=== PATIENT | female | born 1945 | race Caucasian/White ===

== ENCOUNTER → 2017-10-17 09:05 | Outpatient (CLI) | payer MEDICARE, SELFPAY ==
[2017-10-17 14:53] LABS: Hemoglobin A1c 6.8 % (4.2-6.3)
[2017-10-17 15:02] LABS: Microalbumin,Random Urine 66.7 mg/L (NO RANGE EST.); Microalbumin:Creatinine Ratio 77.7 mg/g CRE (<30 mg/g CRE)
[2017-10-17 15:04] LABS: ALB/GLOB Ratio 0.8 RATIO (0.9-2.4); AST(SGOT) 23 U/L (15-37); Alanine Aminotransfer ALT/SGPT 18 U/L (13-56); Albumin, Serum 3.6 g/dL (3.2-5.0); Alkaline Phosphatase 88 U/L (45-117); Anion Gap 11 (5-15); BUN 20 mg/dL (7-18); BUN/Creat Ratio 24.5 RATIO (10-20); Calcium,Total 9.4 mg/dL (8.5-10.1); Chloride 101 mmol/L (98-107); Cholesterol 104 mg/dL (200); Creatinine, Serum 0.82 mg/dL (0.55-1.02); EST Glomerular Filtration Rate 73 mL/min (>60); Est Glom Filt Rate - Afr Amer 88 mL/min (>60); Globulin 4.5 g/dL (2.2-4.2); Glucose 44 mg/dL (74-106); High Density Lipoprotein 49 mg/dL; Protein, Total 8.1 g/dL (6.4-8.2); Sodium Level 138 mmol/L (136-145); Triglycerides 68 mg/dL; Very Low Density Lipoprotein 14 mg/dL (5-40)
== END ==
PROVIDERS: Visit Provider Family Medicine
DX: E11.29 Type 2 diabetes mellitus with other diabetic kidney complication (principal); R80.9 Proteinuria, unspecified; I10 Essential (primary) hypertension; E78.5 Hyperlipidemia, unspecified
CPT/HCPCS: 80053; 80061; 82043; 82570; 83036

== ENCOUNTER → 2018-04-19 12:44 | Outpatient (CLI) | payer MEDICARE, SELFPAY ==
[2018-04-19 13:33] LABS: ALB/GLOB Ratio 0.8 RATIO (0.9-2.4); AST(SGOT) 14 U/L (15-37); Alanine Aminotransfer ALT/SGPT 20 U/L (13-56); Albumin, Serum 3.4 g/dL (3.2-5.0); Alkaline Phosphatase 88 U/L (45-117); Anion Gap 11 (5-15); BUN 20 mg/dL (7-18); BUN/Creat Ratio 22.3 RATIO (10-20); Calcium,Total 9.2 mg/dL (8.5-10.1); Chloride 105 mmol/L (98-107); Cholesterol 117 mg/dL (200); EST Glomerular Filtration Rate 65 mL/min (>60); Est Glom Filt Rate - Afr Amer 79 mL/min (>60); Globulin 4.3 g/dL (2.2-4.2); Glucose 63 mg/dL (74-106); High Density Lipoprotein 59 mg/dL; Protein, Total 7.7 g/dL (6.4-8.2); Sodium Level 140 mmol/L (136-145); Triglycerides 74 mg/dL; Very Low Density Lipoprotein 15 mg/dL (5-40)
[2018-04-19 13:54] LABS: Hemoglobin A1c 5.9 % (4.2-6.3)
[2018-04-20 13:35] LABS: Hep C Antibodies 0.1 s/co ratio (0.0-0.9)
== END ==
PROVIDERS: Family Provider Family Medicine; PCP Family Medicine; Visit Provider Family Medicine
DX: E11.29 Type 2 diabetes mellitus with other diabetic kidney complication (principal); E78.5 Hyperlipidemia, unspecified; I10 Essential (primary) hypertension; R80.9 Proteinuria, unspecified; Z11.59 Encounter for screening for other viral diseases
CPT/HCPCS: 80053; 80061; 83036; 86803

== ENCOUNTER → 2018-10-17 12:14 | Outpatient (CLI) | payer MEDICARE, SELFPAY ==
[2018-10-17 12:57] LABS: ALB/GLOB Ratio 0.9 RATIO (0.9-2.4); AST(SGOT) 18 U/L (15-37); Alanine Aminotransfer ALT/SGPT 19 U/L (13-56); Albumin, Serum 3.7 g/dL (3.2-5.0); Alkaline Phosphatase 91 U/L (45-117); Anion Gap 10 (5-15); BUN 29 mg/dL (7-18); BUN/Creat Ratio 29.7 RATIO (10-20); Calcium,Total 9.3 mg/dL (8.5-10.1); Chloride 108 mmol/L (98-107); Cholesterol 123 mg/dL (200); Creatinine, Serum 0.98 mg/dL (0.55-1.02); EST Glomerular Filtration Rate 59 mL/min (>60); Est Glom Filt Rate - Afr Amer 72 mL/min (>60); Globulin 4.2 g/dL (2.2-4.2); Glucose 73 mg/dL (74-106); High Density Lipoprotein 53 mg/dL; Potassium 4.3 mmol/L (3.5-5.1); Protein, Total 7.9 g/dL (6.4-8.2); Sodium Level 142 mmol/L (136-145); Triglycerides 90 mg/dL; Very Low Density Lipoprotein 18 mg/dL (5-40)
[2018-10-17 13:00] LABS: Hemoglobin A1c 6.1 % (4.2-6.3)
[2018-10-17 13:07] LABS: Microalbumin,Random Urine 65.1 mg/L (NO RANGE EST.); Microalbumin:Creatinine Ratio 48.6 mg/g CRE (<30 mg/g CRE)
== END ==
PROVIDERS: Family Provider Family Medicine; PCP Family Medicine; Referring Provider Family Medicine; Visit Provider Family Medicine
DX: I10 Essential (primary) hypertension (principal); E78.5 Hyperlipidemia, unspecified; E11.29 Type 2 diabetes mellitus with other diabetic kidney complication; R80.9 Proteinuria, unspecified
CPT/HCPCS: 80053; 80061; 82043; 82570; 83036

== ENCOUNTER → 2019-04-16 | Outpatient (CLI) | payer MEDICARE, SELFPAY ==
[2019-04-16 15:19] LABS: ALB/GLOB Ratio 0.8 RATIO (0.9-2.4); AST(SGOT) 16 U/L (15-37); Alanine Aminotransfer ALT/SGPT 21 U/L (13-56); Albumin, Serum 3.5 g/dL (3.2-5.0); Alkaline Phosphatase 95 U/L (45-117); Anion Gap 7 (5-15); BUN 26 mg/dL (7-18); BUN/Creat Ratio 29.7 RATIO (10-20); Calcium,Total 9.2 mg/dL (8.5-10.1); Chloride 107 mmol/L (98-107); Creatinine, Serum 0.87 mg/dL (0.55-1.02); EST Glomerular Filtration Rate 67 mL/min (>60); Est Glom Filt Rate - Afr Amer 82 mL/min (>60); Globulin 4.4 g/dL (2.2-4.2); Glucose 65 mg/dL (74-106); Potassium 4.3 mmol/L (3.5-5.1); Protein, Total 7.9 g/dL (6.4-8.2); Sodium Level 139 mmol/L (136-145)
[2019-04-16 15:21] LABS: Microalbumin,Random Urine 33.4 mg/L (NO RANGE EST.); Microalbumin:Creatinine Ratio 103.4 mg/g CRE (<30 mg/g CRE)
[2019-04-16 15:26] LABS: Hemoglobin A1c 7.1 % (4.2-6.3)
== END | disposition home or self-care (01) ==
LOC: LABSPEC 13:53
PROVIDERS: Family Provider Family Medicine; PCP Family Medicine; Referring Provider Family Medicine; Visit Provider Family Medicine
DX: E11.29 Type 2 diabetes mellitus with other diabetic kidney complication (principal); R80.9 Proteinuria, unspecified; I10 Essential (primary) hypertension
CPT/HCPCS: 80053; 82043; 82570; 83036

== ENCOUNTER → 2020-05-24 12:18 | Outpatient (CLI) | payer MEDICARE, SELFPAY ==
[2020-05-24 13:56] LABS: ALB/GLOB Ratio 0.8 RATIO (0.9-2.4); AST(SGOT) 19 U/L (15-37); Alanine Aminotransfer ALT/SGPT 16 U/L (13-56); Albumin, Serum 3.7 g/dL (3.2-5.0); Alkaline Phosphatase 72 U/L (45-117); Anion Gap 13 (5-15); BUN 32 mg/dL (7-18); BUN/Creat Ratio 26.9 RATIO (10-20); Calcium,Total 9.5 mg/dL (8.5-10.1); Chloride 100 mmol/L (98-107); Cholesterol 123 mg/dL (200); Creatinine, Serum 1.19 mg/dL (0.55-1.02); EST Glomerular Filtration Rate 47 mL/min (>60); Est Glom Filt Rate - Afr Amer 57 mL/min (>60); Globulin 4.4 g/dL (2.2-4.2); Glucose 130 mg/dL (74-106); High Density Lipoprotein 49 mg/dL; Protein, Total 8.1 g/dL (6.4-8.2); Sodium Level 136 mmol/L (136-145); Triglycerides 124 mg/dL; Very Low Density Lipoprotein 25 mg/dL (5-40)
[2020-05-24 14:05] LABS: Hemoglobin A1c 7.5 % (3.8-5.6)
[2020-05-24 14:07] LABS: Microalbumin,Random Urine 33.2 mg/L (NO RANGE EST.); Microalbumin:Creatinine Ratio 19.8 mg/g CRE (<30 mg/g CRE)
== END ==
PROVIDERS: PCP Family Medicine; Referring Provider Family Medicine; Visit Provider Family Medicine
DX: E78.5 Hyperlipidemia, unspecified (principal); I10 Essential (primary) hypertension; E11.29 Type 2 diabetes mellitus with other diabetic kidney complication; R80.9 Proteinuria, unspecified
CPT/HCPCS: 80053; 80061; 82043; 82570; 83036

== ENCOUNTER → 2020-11-01 12:47 | Outpatient (CLI) | payer MEDICARE, SELFPAY ==
[2020-11-01 13:26] LABS: Hemoglobin A1c 6.3 % (3.8-5.6)
== END ==
PROVIDERS: PCP Family Medicine; Referring Provider Family Medicine; Visit Provider Family Medicine
DX: E11.22 Type 2 diabetes mellitus with diabetic chronic kidney disease (principal); N18.30 Chronic kidney disease, stage 3 unspecified; E11.29 Type 2 diabetes mellitus with other diabetic kidney complication; R80.9 Proteinuria, unspecified
CPT/HCPCS: 83036

== ENCOUNTER → 2020-11-08 12:44 | Outpatient (CLI) | payer MEDICARE, SELFPAY ==
[2020-11-08 13:22] LABS: Hematocrit 32.4 % (37-47); Hemoglobin 10.3 g/dL (12.0-15.0); Mean Corp Hgb Conc 31.8 g/dL (32-36); Mean Corpuscular Hgb 30.5 pg (27.0-32.0); Mean Corpuscular Volume 95.9 fL (81-99); Mean Platelet Vol. 11.5 fl (6.2-12.0); Platelet Count 209 K/mm3 (150-450); RBC Distribution Width CV 13.7 % (11.6-14.6); RBC Distribution Width SD 48.7 fl (35.1-43.9); Red Blood Count 3.38 M/mm3 (4.2-5.4); White Blood Count 3.5 K/mm3 (4.4-11.0)
[2020-11-08 13:32] LABS: Cholesterol 120 mg/dL (200); High Density Lipoprotein 57 mg/dL; Triglycerides 128 mg/dL; Very Low Density Lipoprotein 26 mg/dL (5-40)
== END ==
PROVIDERS: PCP Family Medicine; Visit Provider Family Medicine
DX: E78.5 Hyperlipidemia, unspecified (principal); L92.0 Granuloma annulare
CPT/HCPCS: 80061; 85027

== ENCOUNTER → 2020-11-16 12:32 | Outpatient (CLI) | payer MEDICARE, SELFPAY ==
[2020-11-16 13:48] LABS: Iron Binding Capacity,Total 338 ug/dL (250-450)
[2020-11-18 09:48] LABS: Iron 61 ug/dL (50-170)
== END ==
PROVIDERS: PCP Family Medicine; Referring Provider Family Medicine; Visit Provider Family Medicine
DX: D64.9 Anemia, unspecified (principal)
CPT/HCPCS: 83540; 83550

== ENCOUNTER → 2020-11-29 11:51 | Outpatient (CLI) | payer MEDICARE, SELFPAY ==
[2020-11-29 15:18] LABS: Absolute Lymphocyte Count 0.71 X10^3/uL (0.83-4.51); Basophil# 0.02 X10^3/uL; Basophil% 0.5 % (0-1); Eosinophil# 0.02 X10^3/uL; Eosinophils% 0.5 % (0-5); Hematocrit 32.5 % (37-47); Hemoglobin 10.3 g/dL (12.0-15.0); Lymphocyte # 0.71 X10^3/ul (0.83-4.51); Lymphocyte % 18.2 % (19-41); Mean Corp Hgb Conc 31.7 g/dL (32-36); Mean Corpuscular Hgb 30.7 pg (27.0-32.0); Mean Corpuscular Volume 96.7 fL (81-99); Mean Platelet Vol. 11.4 fl (6.2-12.0); Monocyte# 0.18 X10^3/uL; Monocyte% 4.6 % (0-10); NRBC Flagged by Analyzer 0 % (0-5); Neutrophil # 2.96 X10^3/uL (2.7-7.7); Neutrophil % 75.9 % (47-70); Platelet Count 190 K/mm3 (150-450); RBC Distribution Width CV 14.4 % (11.6-14.6); Red Blood Count 3.36 M/mm3 (4.2-5.4); White Blood Count 3.9 K/mm3 (4.4-11.0)
[2020-11-29 15:33] LABS: ALB/GLOB Ratio 0.8 RATIO (0.9-2.4); AST(SGOT) 25 U/L (15-37); Alanine Aminotransfer ALT/SGPT 16 U/L (13-56); Albumin, Serum 3.5 g/dL (3.2-5.0); Alkaline Phosphatase 67 U/L (45-117); Anion Gap 11 (5-15); BUN 19 mg/dL (7-18); BUN/Creat Ratio 18.4 RATIO (10-20); Calcium,Total 9.2 mg/dL (8.5-10.1); Chloride 98 mmol/L (98-107); Creatinine, Serum 1.03 mg/dL (0.55-1.02); EST Glomerular Filtration Rate 56 mL/min (>60); Est Glom Filt Rate - Afr Amer 67 mL/min (>60); Globulin 4.4 g/dL (2.2-4.2); Glucose 92 mg/dL (74-106); Potassium 4.1 mmol/L (3.5-5.1); Protein, Total 7.9 g/dL (6.4-8.2); Sodium Level 136 mmol/L (136-145)
== END ==
LOC: MTLAB 11:53
PROVIDERS: PCP Family Medicine; Referring Provider Physician Assistant; Visit Provider Physician Assistant
DX: L30.9 Dermatitis, unspecified (principal); Z79.899 Other long term (current) drug therapy
CPT/HCPCS: 36415; 80053; 85025; 86038; 86225; 86235

== ENCOUNTER → 2021-01-25 09:23 | Outpatient (CLI) | payer MEDICARE, SELFPAY ==
[2021-01-25 12:43] LABS: Erythrocyte Sedimentation Rate 32 mm/hr (0-30)
[2021-01-25 12:46] LABS: Absolute Lymphocyte Count 0.82 X10^3/uL (0.83-4.51); Absolute Neutrophil Count 3.8 X10^3/uL (2.0-7.7); Basophil# 0.03 X10^3/uL; Basophil% 0.6 % (0-1); Hemoglobin 9.3 g/dL (12.0-15.0); Lymphocyte # 0.82 X10^3/ul (0.83-4.51); Lymphocyte % 16.2 % (19-41); Mean Corp Hgb Conc 32.1 g/dL (32-36); Mean Corpuscular Hgb 30.8 pg (27.0-32.0); Monocyte# 0.37 X10^3/uL; Monocyte% 7.3 % (0-10); NRBC Flagged by Analyzer 0 % (0-5); Neutrophil # 3.82 X10^3/uL (2.7-7.7); Neutrophil % 75.5 % (47-70); Platelet Count 228 K/mm3 (150-450); RBC Distribution Width CV 13.8 % (11.6-14.6); RBC Distribution Width SD 49.2 fl (35.1-43.9); Red Blood Count 3.02 M/mm3 (4.2-5.4); White Blood Count 5.1 K/mm3 (4.4-11.0)
[2021-01-25 13:13] LABS: CRP < 2.90 mg/L (0.0-3.0); Ferritin 58 ng/mL (8-252); Iron 68 ug/dL (50-170); Iron Binding Capacity,Total 340 ug/dL (250-450)
[2021-01-26 16:09] LABS: ANTINUCLEAR ANTIBODIES DIRECT Positive (Negative); Anti-Centromere B Ab <0.2 AI (0.0-0.9); Anti-Chromatin <0.2 AI (0.0-0.9); Anti-Jo <0.2 AI (0.0-0.9); Anti-Scleroderma-70 AB <0.2 AI (0.0-0.9); RNP Ab <0.2 AI (0.0-0.9); SJOGREN'S Anti-SS-A test > 8.0 AI (0.0-0.9); SJOGREN'S Anti-SS-B test < 0.2 AI (0.0-0.9); Smith Ab <0.2 AI (0.0-0.9)
[2021-01-26 21:08] LABS: Anti-dsDNA Ab 1 IU/mL (0-9)
== END ==
PROVIDERS: Physician Assistant; PCP Internal Medicine; Referring Provider Internal Medicine; Visit Provider Internal Medicine
DX: R76.8 Other specified abnormal immunological findings in serum (principal); I10 Essential (primary) hypertension; D64.9 Anemia, unspecified
CPT/HCPCS: 36415; 82728; 83540; 83550; 85025; 85652; 86038; 86140; 86225; 86235

== ENCOUNTER → 2021-02-02 | Outpatient (CLI) | payer MEDICARE, SELFPAY ==
[2021-02-02 11:15] LABS: EXAGEN MAILED SPECIMEN
[2021-02-02 12:19] LABS: Absolute Lymphocyte Count 0.77 X10^3/uL (0.83-4.51); Absolute Neutrophil Count 2.8 X10^3/uL (2.0-7.7); Basophil# 0.01 X10^3/uL; Basophil% 0.3 % (0-1); Hematocrit 28.4 % (37-47); Lymphocyte # 0.77 X10^3/ul (0.83-4.51); Lymphocyte % 19.8 % (19-41); Mean Corp Hgb Conc 31.7 g/dL (32-36); Mean Corpuscular Hgb 30.6 pg (27.0-32.0); Mean Corpuscular Volume 96.6 fL (81-99); Mean Platelet Vol. 10.9 fl (6.2-12.0); Monocyte# 0.26 X10^3/uL; Monocyte% 6.7 % (0-10); NRBC Flagged by Analyzer 0 % (0-5); Neutrophil # 2.84 X10^3/uL (2.7-7.7); Neutrophil % 72.9 % (47-70); Platelet Count 239 K/mm3 (150-450); RBC Distribution Width CV 13.5 % (11.6-14.6); Red Blood Count 2.94 M/mm3 (4.2-5.4); White Blood Count 3.9 K/mm3 (4.4-11.0)
[2021-02-02 12:22] LABS: Color, Urine Yellow (Yellow); Glucose, Dipstick Normal (Normal); Ketone-Dipstick Negative (Negative); Leukocyte Esterase-Dipstick 100 /ul (Negative); Nitrite-Dipstick Positive (Negative); Occult Blood-Urine 10 /ul (Negative); Protein-Dipstick 15 mg/dl (Negative); Specific Gravity, Urine 1.025 (1.002-1.030); Urine Bilirubin Dipstick Negative (Negative); Urine Clarity Clear (Clear); Urine Urobilinogen Normal (Normal)
[2021-02-02 12:24] LABS: Partial Thromboplast Time 29.5 Seconds (24.1-36.2); Prothrombin Time (Protime)PT. 12.6 SECONDS (11.7-14.9)
[2021-02-02 12:26] LABS: Protein, Urine (Random) 43.9 mg/dL (<11.9); Protein:Creat Ratio 297 mg/g CRE (0-200)
[2021-02-02 12:29] LABS: ALB/GLOB Ratio 0.9 RATIO (0.9-2.4); AST(SGOT) 26 U/L (15-37); Alanine Aminotransfer ALT/SGPT 20 U/L (13-56); Albumin, Serum 3.5 g/dL (3.2-5.0); Alkaline Phosphatase 51 U/L (45-117); Anion Gap 10 (5-15); BUN 23 mg/dL (7-18); BUN/Creat Ratio 18.7 RATIO (10-20); Calcium,Total 9.2 mg/dL (8.5-10.1); Chloride 102 mmol/L (98-107); Creatinine, Serum 1.23 mg/dL (0.55-1.02); EST Glomerular Filtration Rate 45 mL/min (>60); Est Glom Filt Rate - Afr Amer 55 mL/min (>60); Globulin 3.7 g/dL (2.2-4.2); Glucose 83 mg/dL (74-106); Potassium 4.1 mmol/L (3.5-5.1); Protein, Total 7.2 g/dL (6.4-8.2); Sodium Level 136 mmol/L (136-145)
[2021-02-02 12:51] LABS: Vitamin B12 302 pg/mL (211-911)
[2021-02-02 13:27] LABS: Hepatitis B Surface Antibody Non-Reactive; Hepatitis B Surface Antigen Non-Reactive (Nonreactive); Hepatitis C Antibody Non-Reactive (Nonreactive)
[2021-02-05 07:07] LABS: Dilute Prothrombin Time (dPT) 38.2 sec (0.0-55.0); Dilute Russell Viper Venom 32.4 sec (0.0-47.0); Hexagonal Phase Phospholipid 0 sec (0-11); PTT-LA 33.4 sec (0.0-51.9); Thrombin Time 18.5 sec (0.0-23.0); dPT Confirm Ratio 1.22 Ratio (0.00-1.40)
[2021-02-05 07:32] LABS: Thrombin Time 18.7 sec (0.0-23.0)
[2021-02-05 08:43] LABS: Interpretation Comment: (.)
== END | disposition home or self-care (01) ==
PROVIDERS: PCP Internal Medicine; Referring Provider Internal Medicine Rheumatology; Visit Provider Internal Medicine Rheumatology
DX: M32.9 Systemic lupus erythematosus, unspecified (principal); R76.8 Other specified abnormal immunological findings in serum; E11.9 Type 2 diabetes mellitus without complications; I10 Essential (primary) hypertension; E78.5 Hyperlipidemia, unspecified; H91.90 Unspecified hearing loss, unspecified ear; Z79.899 Other long term (current) drug therapy
CPT/HCPCS: 36415; 80053; 81002; 82570; 82607; 82746; 84156; 85025; 85598; 85610; 85670; 85730; 86706; 86803; 87340

== ENCOUNTER → 2021-03-07 10:54 | Outpatient (CLI) | payer MEDICARE, SELFPAY | PROVIDERS: PCP Internal Medicine; Visit Provider Internal Medicine | DX: Z00.00 Encounter for general adult medical examination without abnormal findings (principal) ==

== ENCOUNTER 2021-03-17 06:53 | Inpatient (IN) | payer MEDICARE, SELFPAY ==
[2021-03-17] VITALS (14 sets, daily range): BP systolic 95–121; BP diastolic 46–72; PULSE 96–123; RESP 18–34; TEMP 36.6–37.1; O2SAT 94–100; BMI 31.6
--- NOTE | 2021-03-17 07:15 | RAD_ITS ---
STUDY: X-RAY CHEST REASON FOR EXAM: Female, 75 years old. Dyspnea TECHNIQUE: Single AP portable view of the chest. COMPARISON: None. FINDINGS: EKG electrodes are seen. There is evidence of vascular congestion and mild CHF. Blunting of both costophrenic angles. There is borderline cardiomegaly. Normal mediastinum and sara. Normal visualized pulmonary arteries. Normal visualized aortic arch and descending thoracic aorta. Normal visualized thoracic spine. There is degenerative osteoarthritis of the bilateral shoulders. There is no demonstrated abnormality of the visualized soft tissue structures of the upper abdomen. RAD/Chest 1 View (Portable) IMPRESSION: Mild degree of CHF. Electronically Signed: Hayes Barksdale MD at 8:29 EDT , Service support ,
--- NOTE | 2021-03-17 07:16 | EKG12_ITS ---
Test Reason : SOB Blood Pressure : / mmHG Vent. Rate : 124 BPM Atrial Rate : 124 BPM P-R Int : 156 ms QRS Dur : 144 ms QT Int : 322 ms P-R-T Axes : 024 -11 158 degrees QTc Int : 462 ms Poor data quality, interpretation may be adversely affected Sinus tachycardia Left bundle branch block Abnormal ECG Confirmed by MANDEEP RASCON, SATNAM ([id number]), editor sound TIN BURRIS ([id number]) on 03/22/2021 8:31:06 AM Referred By: SHELIA Confirmed By:SATNAM KAUFMAN MD
--- NOTE | 2021-03-17 07:20 | NURSING ---
NO OLD EKGS
--- NOTE | 2021-03-17 07:22 | ED.VIS.DYS ---
HPI History of Present Illness Chief Complaint: Shortness of Breath Informant: patient Onset/Context/Timing Onset: Today Context: gradual Timing: Continuous Quality: Positive for - (Trouble getting breath) Current Severity: Mild Worsened by: Nothing Relieved by: Oxygen and Albuterol Associated Symptoms cough; Negative for rhinorrhea, ear pain, fever, sore throat or chills Chest Pain: Positive for None Narrative Narrative: Patient presents with shortness of breath that began this morning. Patient states it became worse approximately 2 hours prior to arrival. Patient states she was having trouble getting her breath. Patient states nothing makes it worse. Patient states she was given an aerosol and oxygen by EMS. Patient states this helped. Patient denies any chest pain. Patient denies any nausea or vomiting. Patient denies any cough. Patient denies any exposures to COVID-19. Patient denies any loss of taste or smell. Patient has not been vaccinated for COVID-19. [facility] Medical History Anemia Arthritis Cataracts, bilateral Diabetes Elevated antinuclear antibody (BRANDEN) level High cholesterol Hypertension Lupus Type 2 diabetes mellitus Home Medications atorvastatin 20 mg tablet 20 mg PO DAILY 12/23/20 [History Last Taken Unknown] hydrochlorothiazide 25 mg tablet 25 mg PO DAILY 12/23/20 [History Last Taken Unknown] hydroxychloroquine 200 mg tablet 300 mg PO DAILY 12/23/20 [History Last Taken Unknown] lisinopril 20 mg tablet 20 mg PO DAILY 12/23/20 [History Last Taken Unknown] pioglitazone 30 mg tablet 30 mg PO DAILY 12/23/20 [History Last Taken Unknown] metformin 500 mg tablet 500 mg PO BID 90 Days #180 tab 01/25/21 [Rx Last Taken Unknown] Allergy/AdvReac Type Severity Reaction Status Date / Time amoxicillin Allergy Severe hives Verified 03/17/21 06:57 Family History (Updated 12/23/20 @ 09:41 by ELINA Srivastava) Grandfather Diabetes Mother Hypertension High cholesterol Social History Smoking Status: Never smoker alcohol intake: never substance use type: does not use what type of physical activity do you participate in: none ROS ROS ED Constitutional Constitutional ED: Denies chills or fever(s) Eyes Eyes: Denies blurry vision or change in vision ENT ENT ED: Denies rhinorrhea or sore throat Cardiovascular Cardiovascular: Denies chest pain or palpitations Respiratory/Chest Respiratory/Chest: Reports cough and dyspnea Gastrointestinal Gastrointestinal: Denies nausea or vomiting Genitourinary Genitourinary ED: Denies dysuria or hematuria Musculoskeletal Musculoskeletal: Denies back pain or neck pain Integumentary Denies abscess or rash Neurologic Neurologic: Denies headache(s) or weakness Allergic/Immunologic Allergic/Immunologic ED: Denies mouth swelling or urticaria EXAM Physical Exam Const Vital Signs: 03/17/21 06:53 03/17/21 06:57 03/17/21 07:00 Temperature 98.2 F 98.2 F Temperature Source Oral Oral Pulse Rate 123 H 123 H Respiratory Rate 28 H 28 H Respiratory Effort Non-Labored Labored Respiratory Pattern Tachypnea Blood Pressure 121/61 H 121/61 H Blood Pressure Mean 81 81 Pulse Ox 100 100 Oxygen Delivery Method Room Air 03/17/21 08:05 03/17/21 09:26 03/17/21 09:54 Temperature 98.4 F 98.8 F 97.8 F Temperature Source Oral Oral Oral Pulse Rate 119 H 118 H 113 H Respiratory Rate 27 H 24 H 30 H Respiratory Effort Respiratory Pattern Blood Pressure 111/69 100/72 100/72 Blood Pressure Mean 83 81 81 Pulse Ox 95 95 95 Oxygen Delivery Method Room Air Room Air Room Air Positive well nourished and well developed General Appearance ED: well developed HEENT Reports moist mucous membranes Neck supple and no JVD Resp normal respiratory effort Auscultation: wheezes Cardio regular rhythm and no murmurs Rate: tachycardic GI non-tender and non-distended Auscultation: normoactive bowel sounds Palpation: soft Extremity normal to inspection General Extremety ED: Negative for edema or tenderness General Extremity: Negative for edema Neuro oriented x3, CN's II-XII intact bilaterally and no sensory deficits noted Sensorium / Orientation: alert Motor Exam: strength 5/5 throughout Psych mental status grossly normal MDM MDM MDM Narrative Medical decision making narrative: CBC shows a mild anemia with a hemoglobin of 8.6 and hematocrit 27.7. Comprehensive metabolic profile showed a slightly elevated creatinine of 1.43 and BUN of 25. Glucose was 179. Urinalysis does not show any evidence of urinary tract infection. High-sensitivity troponin was obtained and was elevated to 56.2. EKG was obtained. On my interpretation, it showed sinus tachycardia with a rate of 124. There is a left bundle branch block pattern. There are no acute ST or T wave changes noted. Portable chest x-ray was obtained. There is 1 view. On my interpretation, there is some mild vascular congestion. There is no acute infiltrate. Radiologist also interpreted the x-ray and agrees. COVID-19 rapid antigen was obtained and was positive. Patient was given aspirin here. Patient is feeling better on reevaluation. Case was discussed with the hospitalist. She will admit the patient to her service. Patient understood and was agreeable with the plan. All questions were answered. Lab Data Attestation: I reviewed the patient's lab results. Labs: Laboratory Results - last 24 hr 03/17/21 03/17/21 03/17/21 07:26 07:26 07:26 WBC 4.9 RBC 2.79 L Hgb 8.6 L Hct 27.7 L MCV 99.3 H MCH 30.8 MCHC 31.0 L RDW Std Deviation 49.7 H RDW Coeff of Devendra 13.6 Plt Count 179 MPV 10.6 Immature Gran % (Auto) 0.800 Neut % (Auto) 88.9 H Lymph % (Auto) 4.7 L [place] % (Auto) 5.4 Eos % (Auto) 0.0 Baso % (Auto) 0.2 Absolute Neuts (auto) 4.3 Absolute Lymphs (auto) 0.23 L Nucleated RBC % 0 Differential Comment D Sodium 136 Potassium 4.5 Chloride 101 Carbon Dioxide 24.0 Anion Gap 11 BUN 25 H Creatinine 1.43 H Estim Creat Clear Calc 31.98 Est GFR (MDRD) Af Amer 46 L Est GFR (MDRD) Non-Af 38 L BUN/Creatinine Ratio 17.5 Glucose 179 H Calcium 9.0 Total Bilirubin 0.40 AST 17 ALT 17 Alkaline Phosphatase 51 Troponin I High Sens 256.2 H* Total Protein 6.8 Albumin 3.2 Globulin 3.6 Albumin/Globulin Ratio 0.9 Urine Color Yellow Urine Clarity Clear Urine pH 5.0 Ur Specific [place] 1.025 Urine Protein Negative Urine Glucose (UA) 50 H Urine Ketones Negative Urine Occult Blood Negative Urine Nitrite Positive H Urine Bilirubin Negative Urine Urobilinogen Normal Ur Leukocyte Esterase Negative Urine RBC 0 SEEN Urine WBC 0 SEEN Ur Squamous Epith Cells 0 SEEN Urine Bacteria 1+ Urine Mucus 0 SEEN Radiography Chest X-Ray - ED: 1 View, Read by ED Physician, Read by Radiologist and CHF (Mild) Diagnostic Testing: Radiology Impression Chest X-Ray 03/17/21 07:15 IMPRESSION: Mild degree of CHF. Electronically Signed: Hayes Barksdale MD at 8:29 EDT , Service support , EKG Initial EKG: Attestation: I personally reviewed and interpreted this EKG as follows: Interpretation: Sinus Tachycardia (124) and LBBB Prior EKG tracings: not available for review Treatment and Re-Evaluation Vital Sign Attestation:: Vital signs were reviewed prior to admission. Patient is still somewhat tachycardic and mildly tachypneic. Patient is resting comfortably. Patient does not appear to be in any respiratory distress. Discharge Plan Triage Chief Complaint: Shortness of Breath ED Provider: Troy Conn Dx/Rx/DC Orders Clinical Impression: Non-STEMI (non-ST elevated myocardial infarction), COVID-19 Prescriptions: No Action lisinopril 20 mg tablet 20 mg PO DAILY RF: 0 atorvastatin 20 mg tablet 20 mg PO DAILY RF: 0 pioglitazone 30 mg tablet 30 mg PO DAILY RF: 0 hydrochlorothiazide 25 mg tablet 25 mg PO DAILY RF: 0 hydroxychloroquine [Plaquenil] 200 mg tablet 300 mg PO DAILY RF: 0 metformin 500 mg tablet 500 mg PO BID 90 Days Qty: 180 RF: 2 Primary Care Provider: Paul Bauer Referrals: Paul Bauer MD [Primary Care Provider] - Disposition Disposition: Acute Care Hospital [facility]
[2021-03-17 08:08] LABS: Mucous, Urine 0 SEEN /hpf (<or=2+); Red Blood Cells-Urine 0 SEEN /hpf (0-5); Squamous Epithelial Cells - UA 0 SEEN /hpf (5-10); White Blood Cells 0 SEEN /hpf (0-5)
[2021-03-17 08:30] LABS: Color, Urine Yellow (Yellow); Glucose, Dipstick 50 mg/dl (Normal); Ketone-Dipstick Negative (Negative); Leukocyte Esterase-Dipstick Negative /ul (Negative); Nitrite-Dipstick Positive (Negative); Occult Blood-Urine Negative /ul (Negative); Protein-Dipstick Negative (Negative); Specific Gravity, Urine 1.025 (1.002-1.030); Urine Bilirubin Dipstick Negative (Negative); Urine Clarity Clear (Clear); Urine Urobilinogen Normal (Normal)
[2021-03-17 08:35] LABS: Absolute Lymphocyte Count 0.23 X10^3/uL (0.83-4.51); Absolute Neutrophil Count 4.3 X10^3/uL (2.0-7.7); Basophil# 0.01 X10^3/uL; Basophil% 0.2 % (0-1); Hematocrit 27.7 % (37-47); Hemoglobin 8.6 g/dL (12.0-15.0); Lymphocyte # 0.23 X10^3/ul (0.83-4.51); Lymphocyte % 4.7 % (19-41); Mean Corpuscular Hgb 30.8 pg (27.0-32.0); Mean Corpuscular Volume 99.3 fL (81-99); Mean Platelet Vol. 10.6 fl (6.2-12.0); Monocyte# 0.26 X10^3/uL; Monocyte% 5.4 % (0-10); NRBC Flagged by Analyzer 0 % (0-5); Neutrophil # 4.31 X10^3/uL (2.7-7.7); Neutrophil % 88.9 % (47-70); POSITIVE DIFFERENTIAL YES; Platelet Count 179 K/mm3 (150-450); RBC Distribution Width CV 13.6 % (11.6-14.6); RBC Distribution Width SD 49.7 fl (35.1-43.9); Red Blood Count 2.79 M/mm3 (4.2-5.4); White Blood Count 4.9 K/mm3 (4.4-11.0)
[2021-03-17 08:37] LABS: Differential Indicated SCAN CRITERIA MET
[2021-03-17 08:47] LABS: Differential Comment D
[2021-03-17 08:51] LABS: ALB/GLOB Ratio 0.9 RATIO (0.9-2.4); AST(SGOT) 17 U/L (15-37); Alanine Aminotransfer ALT/SGPT 17 U/L (13-56); Albumin, Serum 3.2 g/dL (3.2-5.0); Alkaline Phosphatase 51 U/L (45-117); Anion Gap 11 (5-15); BUN 25 mg/dL (7-18); BUN/Creat Ratio 17.5 RATIO (10-20); Chloride 101 mmol/L (98-107); Creatinine, Serum 1.43 mg/dL (0.55-1.02); EST Glomerular Filtration Rate 38 mL/min (>60); Est Glom Filt Rate - Afr Amer 46 mL/min (>60); Estimated Creatinine Clearance 31.98 ml/min; Globulin 3.6 g/dL (2.2-4.2); Glucose 179 mg/dL (74-106); Potassium 4.5 mmol/L (3.5-5.1); Protein, Total 6.8 g/dL (6.4-8.2); Sodium Level 136 mmol/L (136-145); Troponin-I HS 256.2 pg/mL (3.0-53.7)
[2021-03-17 08:54] LABS: Bacteria 1+ /hpf (None Seen)
[2021-03-17] MEDS: Aspirin 81 MG TAB.CHEW 324 MG PO (09:25)
--- NOTE | 2021-03-17 09:36 | HP.PCM.HOS_ITS ---
HPI - General General Date of Admission: 03/17/21 HPI Narrative DENISA ALAS, is a 75 F with an extensive PMH as outlined below who presents with a complaint of shortness of breath. Symptoms had been going on since morning of admission, with no aggravating or relieving factors. She denied any chest pain, loss of taste or smell and hadnt been vaccinated against COVID. EKG showed no acute ST changes, and showed a chronic left bundle branch block. Vitals in the ED were temp of 98.8F, with HR of 118, RR of 24 and BP of 100/72. She was saturating at 95% on room air. CBC showed hemoglobin of 8.6, wbc of 4.9 and platelets of 179. Chemistry shows sodium of 136 with creatinine of 1.43 potassium of 4.5 as well as bicarb of 24. Covid antigen test done was positive. Initial troponin was 256.2. Urinalysis showed 1+ bacteria but was otherwise unremarkable. She has been admitted to be managed for COVID 19 infection as well as nonstemi. [facility] Medical History Anemia Arthritis Cataracts, bilateral Diabetes Elevated antinuclear antibody (BRANDEN) level High cholesterol Hypertension Lupus Type 2 diabetes mellitus Home Medications atorvastatin 20 mg tablet 20 mg PO DAILY 12/23/20 [History Last Taken Unknown] hydrochlorothiazide 25 mg tablet 25 mg PO DAILY 12/23/20 [History Last Taken Unknown] hydroxychloroquine 200 mg tablet 300 mg PO DAILY 12/23/20 [History Last Taken Unknown] lisinopril 20 mg tablet 20 mg PO DAILY 12/23/20 [History Last Taken Unknown] pioglitazone 30 mg tablet 30 mg PO DAILY 12/23/20 [History Last Taken Unknown] metformin 500 mg tablet 500 mg PO BID 90 Days #180 tab 01/25/21 [Rx Last Taken Unknown] Allergy/AdvReac Type Severity Reaction Status Date / Time amoxicillin Allergy Severe hives Verified 03/17/21 06:57 Family History (Updated 12/23/20 @ 09:41 by ELINA Srivastava) Grandfather Diabetes Mother Hypertension High cholesterol Social History Smoking Status: Never smoker alcohol intake: never substance use type: does not use what type of physical activity do you participate in: none ROS Constitutional Constitutional: Denies anorexia, change in weight, chills, fatigue, fever(s), malaise, night sweats or weakness Eyes Eyes: Denies blurry vision or change in vision ENT HEENT: Denies abnormal hearing, headache(s) or nasal congestion Cardiovascular Cardiovascular: Reports dyspnea on exertion; Denies chest pain, edema or lightheadedness Respiratory/Chest Respiratory/Chest: Reports dyspnea, shortness of breath at rest and shortness of breath with exertion; Denies cough, excessive phlegm production, hemoptysis, productive cough or wheezing Gastrointestinal Gastrointestinal: Denies abdominal pain, constipation or diarrhea Genitourinary Genitourinary: Denies burning urination, dysuria or urinary frequency Musculoskeletal Musculoskeletal: Denies arthralgias Neurologic Neurologic: Denies abnormal gait, confusion, dizziness, focal weakness, headache(s), numbness or seizure-like activity Psychiatric Psychiatric: Denies anxiety Endocrine Endocrinology: Denies change in body appearance Vital Signs Vital Signs Vital Signs: 03/17/21 06:53 03/17/21 06:57 03/17/21 07:00 Temperature 98.2 F 98.2 F Temperature Source Oral Oral Pulse Rate 123 H 123 H Respiratory Rate 28 H 28 H Respiratory Effort Non-Labored Labored Respiratory Pattern Tachypnea Blood Pressure 121/61 H 121/61 H Blood Pressure Mean 81 81 Pulse Ox 100 100 Oxygen Delivery Method Room Air 03/17/21 08:05 03/17/21 09:26 Temperature 98.4 F 98.8 F Temperature Source Oral Oral Pulse Rate 119 H 118 H Respiratory Rate 27 H 24 H Respiratory Effort Respiratory Pattern Blood Pressure 111/69 100/72 Blood Pressure Mean 83 81 Pulse Ox 95 95 Oxygen Delivery Method Room Air Room Air Weight Weight: 131 lb 6.328 oz Body Mass Index (BMI) 31.6 Physical Exam Const alert and oriented x3 General Appearance: cooperative HEENT normocephalic, head/scalp atraumatic, hearing grossly normal bilaterally and moist oral mucous membranes Eyes PERRL, EOMs intact bilaterally and conjunctivae normal Neck no lymphadenopathy Resp Resp Narrative: tachypneic, mildly diminished breath sounds bibasally, no wheezes or crackles. On room air. Cardio regular rhythm, S1 normal heart sound, S2 normal heart sound and no murmurs GI normal to inspection, nondistended, normoactive bowel sounds, soft to palpation, non-tender and non-distended Extremity normal to inspection, full ROM and no clubbing, cyanosis or edema Peripheral Pulses: Yes pulses 2+ throughout Skin no rashes or lesions noted Neuro oriented x3, CN's II-XII intact bilaterally and moves all extremities Sensorium / Orientation: awake and alert Psych affect normal Results Lab / Micro Data Result Diagrams: 03/17/21 07:26 03/17/21 07:26 Labs: Laboratory Results - last 24 hr 03/17/21 07:26: WBC 4.9, RBC 2.79 L, Hgb 8.6 L, Hct 27.7 L, MCV 99.3 H, MCH 30.8, MCHC 31.0 L, RDW Std Deviation 49.7 H, RDW Coeff of Devendra 13.6, Plt Count 179, MPV 10.6, Immature Gran % (Auto) 0.800, Neut % (Auto) 88.9 H, Lymph % (Auto) 4.7 L, [place] % (Auto) 5.4, Eos % (Auto) 0.0, Baso % (Auto) 0.2, Absolute Neuts (auto) 4.3, Absolute Lymphs (auto) 0.23 L, Nucleated RBC % 0, Differential Comment D 03/17/21 07:26: Sodium 136, Potassium 4.5, Chloride 101, Carbon Dioxide 24.0, Anion Gap 11, BUN 25 H, Creatinine 1.43 H, Estim Creat Clear Calc 31.98, Est GFR (MDRD) Af Amer 46 L, Est GFR (MDRD) Non-Af 38 L, BUN/Creatinine Ratio 17.5, Glucose 179 H, Calcium 9.0, Total Bilirubin 0.40, AST 17, ALT 17, Alkaline Phosphatase 51, Troponin I High Sens 256.2 H*, Total Protein 6.8, Albumin 3.2, Globulin 3.6, Albumin/Globulin Ratio 0.9 03/17/21 07:26: Urine Color Yellow, Urine Clarity Clear, Urine pH 5.0, Ur Specific [place] 1.025, Urine Protein Negative, Urine Glucose (UA) 50 H, Urine Ketones Negative, Urine Occult Blood Negative, Urine Nitrite Positive H, Urine Bilirubin Negative, Urine Urobilinogen Normal, Ur Leukocyte Esterase Negative, Urine RBC 0 SEEN, Urine WBC 0 SEEN, Ur Squamous Epith Cells 0 SEEN, Urine Bacteria 1+, Urine Mucus 0 SEEN Micro: Microbiology 03/17/21 07:26 Mucosa - Nose SARS-CoV-2 Antigen (Rapid) - Final SARS-CoV-2 (COVID 19) Radiology Impression Chest X-Ray 03/17/21 07:15 IMPRESSION: Mild degree of CHF. Electronically Signed: Hayes Barksdale MD at 8:29 EDT , Service support , Assessment & Plan Assessment/Plan (1) Non-STEMI (non-ST elevated myocardial infarction): (2) COVID: PLAN: #COVID 19 infection * admit to PCu * patient on room air at time of review; * will start on IV decadrone; hold off on remdesivir as she is on room air and so doesnt meet the criteria for it * check covid panel labs * titrate oxygen to maintain sats >90% * consult ID * breathing treatment with bronchodilators * #Nonstemi * high sensitivity troponin was elevated at 254 * BNP done is also elevated at 2418 * will cycle troponins * SL nitroglycerin prn. Patient doesnt have any chest pain * high intensity statin * start on diuretics with IV lasix 40mg bid * 2D echo ordered * cardiology consulted. * #Acute heart failure of unknown etiology * BNP is 2415 * 2D echo ordered * diurese with IV lasix 40mg bid * monitor intake and output * fluid restriction to 1500cc daily. * #Asymptomatic bacteriuria * urine has 1+ bacteria. patient denies any urinary symptoms * will monitor and hold off on antibiotics for now * #History of SLE * On hydroxychloroquine. * #Type 2 diabetes mellitus: Hold oral meds. Insulin sliding scale. Checks AC at bedtime. #Hypertension: On lisinopril. Hold hydrochlorothiazide as patient has been diuresed with IV Lasix. #Hyperlipidemia: Continue statin. DVT prophylaxis: Lovenox CODE STATUS: Full code * Patient counseled extensively about different types of CODE STATUS including full code, DNR CCA and DNR CCA. Patient elects to be full code. * Total [id number] time 17 minutes. Charges/Coding Visit Charges Inpatient E&M: 16911 Init Hosp L3 Procedures Hospitalists Procedures: 22954 Advncd Care Plan 30 Min
--- NOTE | 2021-03-17 09:44 | NURSING ---
PCU OBS [facility] ELEVATED TROP, COVID 19
[2021-03-17 15:45] LABS: International Normalized Ratio 1.1; Prothrombin Time (Protime)PT. 13.5 SECONDS (11.7-14.9)
[2021-03-17 15:59] LABS: BNP,B-Type NATRIURETIC PEPTIDE 2418.5 pg/mL (0-100)
[2021-03-17 16:02] LABS: AST(SGOT) 21 U/L (15-37); Alanine Aminotransfer ALT/SGPT 18 U/L (13-56); Albumin, Serum 2.9 g/dL (3.2-5.0); Alkaline Phosphatase 48 U/L (45-117); Bilirubin, Direct 0.12 mg/dL (0.00-0.30); CPK Total, Creatine Kinase 69 U/L (26-192); Globulin 3.5 g/dL (2.2-4.2); Protein, Total 6.4 g/dL (6.4-8.2)
[2021-03-17 16:11] LABS: Lactic Acid 4.1 mmol/L (0.4-1.9)
[2021-03-17 16:16] LABS: Troponin-I HS 902.4 pg/mL (3.0-53.7)
[2021-03-17 16:20] LABS: D-Dimer Quantitative (DVT/PE) 1.38 FEU/ug/m (0.27-0.49)
--- NOTE | 2021-03-17 16:45 | CT_ITS ---
STUDY: CTA CHEST REASON FOR EXAM: Female, 75 years old. shortness of breath, elevated D dimer RADIATION DOSAGE (If Supplied By Facility): CTDIvol = ( 8.60 ) mGy, DLP = ( 287.04 ) mGycm TECHNIQUE: The examination was performed with the intravenous administration of IV 75mL Isovue-370. Post-processing of the angiographic images was performed, with multiplanar reformation and 3D reconstruction. Individualized dose optimization techniques were used for this CT. COMPARISON: None. FINDINGS: Normal enhancement of the main pulmonary artery and right and left pulmonary arteries. Normal enhancement of the bilateral peripheral pulmonary arteries. There is no demonstrated pulmonary embolism. There is atherosclerotic calcification of the aortic arch with tortuosity. There is no demonstrated aortic dissection. Normal heart and pericardium. There are calcifications of the coronary arteries. Normal mediastinum. Normal hilar regions. Normal visualized trachea and bronchi. Atelectasis of the bilateral lower lobes. No airspace consolidation or cavitating process. There are bilateral pleural effusions with lower lobe compressive atelectasis. Normal chest wall structures. Normal osseous structures. Normal visualized upper abdomen. CT/CTA Chest W/WO Contrast IMPRESSION: 1. No central or segmental pulmonary embolism. 2. Bilateral pleural effusions (small to moderate) with compressive atelectasis in the lower lobes. Electronically Signed: Cruz Randall MD ([place]) at 17:53 EDT , Service support ,
[2021-03-17 17:26] LABS: Bedside Glucose 78 mg/dL (70-110)
[2021-03-17] MEDS: Pioglitazone Hydrochloride 30 MG Tablet PO (18:10)
[2021-03-17] MEDS: Atorvastatin Calcium 20 MG Tablet PO (18:11)
[2021-03-17] MEDS: dexAMETHasone 10 MG/ML Vial 6 MG IV (18:11)
[2021-03-17] MEDS: Hydroxychloroquine 200 MG Tablet 300 MG PO (18:11)
[2021-03-17] MEDS: Furosemide 40 MG/4 ML Vial IV (18:12)
[2021-03-17] MEDS: Lisinopril 20 MG Tablet PO (18:12)
[2021-03-17] MEDS: 0.9% Saline Lock 10 ML Syringe IV (18:14)
[2021-03-17 19:27] LABS: Reflex Lactate? Y
--- NOTE | 2021-03-17 19:55 | CON.PCM.CA_ITS ---
Assessment & Plan Assessment/Plan (1) Elevated troponin: PLAN: This is likely type II non-STEMI secondary to Covid infection causing shortness of breath. It is reasonable to trend the troponin. Since the BNPT is high a 2D echo is reasonable as well. HPI Consult Data Date of Consult: 03/17/21 HPI Narrative HPI Narrative: DENISA ALAS, is a 75 F who presents with shortness of breath and has been diagnosed with Covid. Cardiology consult was requested as high-sensitivity troponin initially was in the 200s and then went up to the 900s. Consult was provided based on review of information already in the patient's chart, discussion with Dr. Riley. [facility] Medical History Anemia Arthritis Cataracts, bilateral Diabetes Elevated antinuclear antibody (BRANDEN) level High cholesterol Hypertension Lupus Type 2 diabetes mellitus Home Medications atorvastatin 20 mg tablet 20 mg PO DAILY 12/23/20 [History Last Taken Unknown] hydrochlorothiazide 25 mg tablet 25 mg PO DAILY 12/23/20 [History Last Taken Unknown] hydroxychloroquine 200 mg tablet 300 mg PO DAILY 12/23/20 [History Last Taken Unknown] lisinopril 20 mg tablet 20 mg PO DAILY 12/23/20 [History Last Taken Unknown] pioglitazone 30 mg tablet 30 mg PO DAILY 12/23/20 [History Last Taken Unknown] metformin 500 mg tablet 500 mg PO BID 90 Days #180 tab 01/25/21 [Rx Last Taken Unknown] Allergy/AdvReac Type Severity Reaction Status Date / Time amoxicillin Allergy Severe hives Verified 03/17/21 06:57 Family History (Updated 12/23/20 @ 09:41 by Misty Costa NP-[facility]) Grandfather Diabetes Mother Hypertension High cholesterol Social History Smoking Status: Never smoker alcohol intake: never substance use type: does not use what type of physical activity do you participate in: none Objective Data Vital Signs: Vital Signs Temp Pulse Resp BP Pulse Ox 98.7 F 103 H 18 115/59 L 97 03/17/21 15:00 03/17/21 15:00 03/17/21 15:00 03/17/21 15:00 03/17/21 16:02 Oxygen Delivery Method Room Air Weight: 131 lb 6.328 oz Body Mass Index (BMI) 31.6 Intake & Output: Intake and Output for Last 24 Hours 03/15/21 03/16/21 03/17/21 23:59 23:59 23:59 Intake Total 240 / 240 Output Total 3 / 3 Balance 237 / 237 Lab / Micro Data Result Diagrams: 03/17/21 07:26 03/17/21 07:26 Labs: Laboratory Results - last 24 hr 03/17/21 07:26: WBC 4.9, RBC 2.79 L, Hgb 8.6 L, Hct 27.7 L, MCV 99.3 H, MCH 30.8, MCHC 31.0 L, RDW Std Deviation 49.7 H, RDW Coeff of Devendra 13.6, Plt Count 179, MPV 10.6, Immature Gran % (Auto) 0.800, Neut % (Auto) 88.9 H, Lymph % (Auto) 4.7 L, [place] % (Auto) 5.4, Eos % (Auto) 0.0, Baso % (Auto) 0.2, Absolute Neuts (auto) 4.3, Absolute Lymphs (auto) 0.23 L, Nucleated RBC % 0, Differential Comment D 03/17/21 07:26: Sodium 136, Potassium 4.5, Chloride 101, Carbon Dioxide 24.0, Anion Gap 11, BUN 25 H, Creatinine 1.43 H, Estim Creat Clear Calc 31.98, Est GFR (MDRD) Af Amer 46 L, Est GFR (MDRD) Non-Af 38 L, BUN/Creatinine Ratio 17.5, Glucose 179 H, Calcium 9.0, Total Bilirubin 0.40, AST 17, ALT 17, Alkaline Phosphatase 51, Troponin I High Sens 256.2 H*, Total Protein 6.8, Albumin 3.2, Globulin 3.6, Albumin/Globulin Ratio 0.9 03/17/21 07:26: Urine Color Yellow, Urine Clarity Clear, Urine pH 5.0, Ur Specific [place] 1.025, Urine Protein Negative, Urine Glucose (UA) 50 H, Urine Ketones Negative, Urine Occult Blood Negative, Urine Nitrite Positive H, Urine Bilirubin Negative, Urine Urobilinogen Normal, Ur Leukocyte Esterase Negative, Urine RBC 0 SEEN, Urine WBC 0 SEEN, Ur Squamous Epith Cells 0 SEEN, Urine Bacteria 1+, Urine Mucus 0 SEEN 03/17/21 15:20: B-Natriuretic Peptide 2418.5 H 03/17/21 15:20: PT 13.5, INR 1.1, D-Dimer Quant (PE/DVT) 1.38 H* 03/17/21 15:20: Total Bilirubin 0.30, Direct Bilirubin 0.12, AST 21, ALT 18, Alkaline Phosphatase 48, Total Creatine Kinase 69, Total Protein 6.4, Albumin 2.9 L, Globulin 3.5 03/17/21 15:20: Lactic Acid 4.1 H* 03/17/21 15:20: Procalcitonin 0.20 H 03/17/21 15:25: Troponin I High Sens 902.4 H* 03/17/21 17:20: POC Glucose 78 Micro: Microbiology 03/17/21 07:26 Mucosa - Nose SARS-CoV-2 Antigen (Rapid) - Final SARS-CoV-2 (COVID 19) Cardiology Labs/Tests 03/17/21 07:26: WBC 4.9, RBC 2.79 L, Hgb 8.6 L, Hct 27.7 L, MCV 99.3 H, MCH 30.8, MCHC 31.0 L, Plt Count 179, MPV 10.6, Immature Gran % (Auto) 0.800, Neut % (Auto) 88.9 H, Lymph % (Auto) 4.7 L, [place] % (Auto) 5.4, Eos % (Auto) 0.0, Baso % (Auto) 0.2, Absolute Neuts (auto) 4.3, Nucleated RBC % 0 03/17/21 07:26: Sodium 136, Potassium 4.5, Chloride 101, Carbon Dioxide 24.0, Anion Gap 11, BUN 25 H, Creatinine 1.43 H, Est GFR (MDRD) Af Amer 46 L, Est GFR (MDRD) Non-Af 38 L, BUN/Creatinine Ratio 17.5, Glucose 179 H, Calcium 9.0, Total Bilirubin 0.40 03/17/21 07:26: Urine Color Yellow, Urine Clarity Clear, Urine pH 5.0, Ur Specific [place] 1.025, Urine Protein Negative, Urine Glucose (UA) 50 H, Urine Ketones Negative, Urine Occult Blood Negative, Urine Nitrite Positive H, Urine Bilirubin Negative, Urine Urobilinogen Normal, Ur Leukocyte Esterase Negative, Urine RBC 0 SEEN, Urine WBC 0 SEEN 08/12/21 15:20: B-Natriuretic Peptide 2418.5 H 03/17/21 15:20: PT 13.5, INR 1.1, D-Dimer Quant (PE/DVT) 1.38 H* 03/17/21 15:20: Total Bilirubin 0.30, Direct Bilirubin 0.12 03/17/21 15:20: Lactic Acid 4.1 H* Rhythm: EKG: ECHO: Stress Test: Cardiac Cath: PCI: CT Surgery: Holter monitor: EPS: PPM: CXR: Chest CT Scan: Radiography Diagnostic Testing: Radiology Impression Chest X-Ray 03/17/21 07:15 IMPRESSION: Mild degree of CHF. Electronically Signed: Hayes Barksdale MD at 8:29 EDT , Service support , Chest CTA 03/17/21 16:45 IMPRESSION: 1. No central or segmental pulmonary embolism. 2. Bilateral pleural effusions (small to moderate) with compressive atelectasis in the lower lobes. Electronically Signed: Cruz Randall MD (Brooks) at 17:53 EDT , Service support ,
[2021-03-17 20:42] LABS: Lactic Acid 1.4 mmol/L (0.4-1.9)
[2021-03-17] MEDS: Enoxaparin 30 MG/0.3 ML Syringe SC (21:19)
[2021-03-17 22:05] LABS: Bedside Glucose 121 mg/dL (70-110)
[2021-03-17] MEDS: Nystatin Powder 15gm Bottle 1 APPLIC TOPICAL (22:06)
[2021-03-18] VITALS (10 sets, daily range): BP systolic 88–109; BP diastolic 41–51; PULSE 84–114; RESP 18–20; TEMP 36.8–37.3; O2SAT 94–99
[2021-03-18] MEDS: 0.9% Saline Lock 10 ML Syringe IV ×2 (03:34→12:25)
[2021-03-18 05:35] LABS: Absolute Lymphocyte Count 0.24 X10^3/uL (0.83-4.51); Absolute Neutrophil Count 1.6 X10^3/uL (2.0-7.7); Hematocrit 26.9 % (37-47); Hemoglobin 8.4 g/dL (12.0-15.0); Lymphocyte # 0.24 X10^3/ul (0.83-4.51); Lymphocyte % 11.9 % (19-41); Mean Corp Hgb Conc 31.2 g/dL (32-36); Mean Corpuscular Hgb 30.3 pg (27.0-32.0); Mean Corpuscular Volume 97.1 fL (81-99); Mean Platelet Vol. 10.9 fl (6.2-12.0); Monocyte# 0.14 X10^3/uL; Monocyte% 6.9 % (0-10); NRBC Flagged by Analyzer 0 % (0-5); Neutrophil # 1.63 X10^3/uL (2.7-7.7); Neutrophil % 80.7 % (47-70); POSITIVE DIFFERENTIAL YES; Platelet Count 170 K/mm3 (150-450); RBC Distribution Width CV 13.6 % (11.6-14.6); RBC Distribution Width SD 48.7 fl (35.1-43.9); Red Blood Count 2.77 M/mm3 (4.2-5.4)
--- NOTE | 2021-03-18 05:55 | ECHOD_ITS ---
Reason For Study: Heart Failure Procedure This was a 2D Doppler, Color Flow transthoracic echocardiogram. Exam performed portable in patient room. The exam was abbreviated due to the COVID 19 protocol. Left Ventricle Normal LV size. Severe segmental systolic dysfunction (see wall motion). The estimated ejection fraction is 15 %. Diastolic function is indeterminate. Mid-Anterior : Akinetic. Mid-Lateral : Akinetic. Mid-Posterior: Akinetic. Mid-Inferior: Akinetic. Mid-inferoseptal : Akinetic. Mid- anteroseptal : Akinetic. [place] : Akinetic. Right Ventricle Normal RV size. Normal systolic function. Atria The left atrium is mildly enlarged. Normal right atrium. Intact atrial septum. Mitral Valve There is mild mitral annular calcification. Mild diffuse mitral valve thickening. The mitral papillary muscle appears thickened and/or calcified. Mild (1+) mitral valve insufficiency. Tricuspid Valve Normal tricuspid valve. Mild tricuspid valve insufficiency. Right ventricular systolic pressure estimated to be 41 mmHg. Aortic Valve Trisinus/trileaflet aortic valve. Mild focal aortic valve calcification. Mild to moderate aortic stenosis. Pulmonic Valve The pulmonic valve is not well visualized. Great Vessels The aortic root is not well visualized. Pericardium/Pleural No pericardial effusion. MMode/2D Measurements & Calculations LVIDd: 4.8 cm IVSd: 0.98 cm LVOT diam: 2.0 cm LVIDs: 4.2 cm LVPWd: 1.2 cm LVOT area: 3.1 cm2 FS: 12.7 % LA dimension: 3.4 cm LAV(MOD-bp): 33.8 ml LA A4 area: 14.0 cm2 LAV(MOD-bp) Indexed: 22.8 ml/m2 LAV(MOD-sp2): 37.1 ml LAV(MOD-sp4): 29.7 ml RA A4 area: 10.5 cm2 Doppler Measurements & Calculations Lat Peak E' Willam: 9.7 cm/sec Med Peak E' Willam: 7.4 cm/sec Ao V2 max: 267.7 cm/sec Ao max P.7 mmHg Ao V2 mean: 183.4 cm/sec Ao mean P.5 mmHg Ao V2 VTI: 50.8 cm AINSLEY(I,D): 1.1 cm2 AINSLEY(V,D): 1.00 cm2 LV V1 max: 86.6 cm/sec SV(LVOT): 55.3 ml TR max willam: 308.7 cm/sec LV V1 max P.0 mmHg TR max P.1 mmHg LV V1 mean P.7 mmHg LV V1 mean: 60.8 cm/sec LV V1 VTI: 17.9 cm ECHO/Echo Complete Interpretation Summary Severe segmental systolic dysfunction (see wall motion). The estimated ejection fraction is 15 %. The left atrium is mildly enlarged. There is mild mitral annular calcification. Mild diffuse mitral valve thickening. The mitral papillary muscle appears thickened and/or calcified. Mild (1+) mitral valve insufficiency. Mild tricuspid valve insufficiency. Mild to moderate aortic stenosis. Right ventricular systolic pressure estimated to be 41 mmHg. Diastolic function is indeterminate. Ordering Physician: Bertha Riley Referring Physician: Paul Bauer Performed By: Jordy Plasencia RCS
[2021-03-18 06:06] LABS: Differential Indicated SCAN CRITERIA MET
[2021-03-18] MEDS: Nystatin Powder 15gm Bottle 1 APPLIC TOPICAL ×3 (06:29→22:04)
[2021-03-18 06:35] LABS: Bedside Glucose 110 mg/dL (70-110)
[2021-03-18 06:37] LABS: Differential Comment SCANNED
[2021-03-18 08:13] LABS: Anion Gap 12 (5-15); BUN 30 mg/dL (7-18); BUN/Creat Ratio 22.6 RATIO (10-20); Chloride 100 mmol/L (98-107); Creatinine, Serum 1.33 mg/dL (0.55-1.02); EST Glomerular Filtration Rate 41 mL/min (>60); Est Glom Filt Rate - Afr Amer 50 mL/min (>60); Estimated Creatinine Clearance 34.39 ml/min; Glucose 115 mg/dL (74-106); Magnesium 1.7 mg/dL (1.6-2.6); Potassium 4.5 mmol/L (3.5-5.1); Sodium Level 132 mmol/L (136-145)
--- NOTE | 2021-03-18 10:22 | PN.HOSP_ITS ---
Subjective Subjective Patient seen and examined. She feels well today and has no complaints. Her breathing is much better. She denies any chest pain, palpitations, dizziness, nausea or vomiting. Review of systems otherwise negative. She has remained hemodynamically stable. Objective Data Objective Data Vital Signs: Vital Signs Temp Pulse Resp BP Pulse Ox 98.7 F 93 20 H 109/51 L 94 03/18/21 03:30 03/18/21 07:15 03/18/21 03:30 03/18/21 03:30 03/18/21 07:35 Oxygen Delivery Method Room Air Weight: 131 lb 6.328 oz Body Mass Index (BMI) 31.6 Intake & Output: Intake and Output for Last 24 Hours 03/16/21 03/17/21 03/18/21 23:59 23:59 23:59 Intake Total 240 / 340 100 / 100 Output Total 3 / 303 400 / 400 Balance 237 / 37 -300 / -300 Lab / Micro Data Result Diagrams: 03/18/21 04:50 03/18/21 04:50 Labs: Laboratory Results - last 24 hr 03/17/21 15:20: B-Natriuretic Peptide 2418.5 H 03/17/21 15:20: PT 13.5, INR 1.1, D-Dimer Quant (PE/DVT) 1.38 H* 03/17/21 15:20: Total Bilirubin 0.30, Direct Bilirubin 0.12, AST 21, ALT 18, Alkaline Phosphatase 48, Total Creatine Kinase 69, Total Protein 6.4, Albumin 2.9 L, Globulin 3.5 03/17/21 15:20: Lactic Acid 4.1 H* 03/17/21 15:20: Procalcitonin 0.20 H 03/17/21 15:25: Troponin I High Sens 902.4 H* 03/17/21 17:20: POC Glucose 78 03/17/21 20:00: Lactic Acid 1.4 03/17/21 21:17: POC Glucose 121 H 03/18/21 04:50: WBC 2.0 L, RBC 2.77 L, Hgb 8.4 L, Hct 26.9 L, MCV 97.1, MCH 30.3, MCHC 31.2 L, RDW Std Deviation 48.7 H, RDW Coeff of Devendra 13.6, Plt Count 170, MPV 10.9, Immature Gran % (Auto) 0.500, Neut % (Auto) 80.7 H, Lymph % (Auto) 11.9 L, [place] % (Auto) 6.9, Eos % (Auto) 0.0, Baso % (Auto) 0.0, Absolute Neuts (auto) 1.6 L, Absolute Lymphs (auto) 0.24 L, Nucleated RBC % 0, Differential Comment SCANNED, Diff Path Review December03/18/21 04:50: Sodium 132 L, Potassium 4.5, Chloride 100, Carbon Dioxide 20.0 L , Anion Gap 12, BUN 30 H, Creatinine 1.33 H, Estim Creat Clear Calc 34.39, Est GFR (MDRD) Af Amer 50 L, Est GFR (MDRD) Non-Af 41 L, BUN/Creatinine Ratio 22.6 H , Glucose 115 H, Calcium 9.0, Magnesium 1.7 03/18/21 06:28: POC Glucose 110 Micro: Microbiology 03/17/21 07:26 Mucosa - Nose SARS-CoV-2 Antigen (Rapid) - Final SARS-CoV-2 (COVID 19) Radiography Diagnostic Testing: Radiology Impression Chest CTA 03/17/21 16:45 IMPRESSION: 1. No central or segmental pulmonary embolism. 2. Bilateral pleural effusions (small to moderate) with compressive atelectasis in the lower lobes. Electronically Signed: Cruz Randall MD ([place]) at 17:53 EDT , Service support , Physical Exam Const alert and oriented x3 General Appearance: cooperative Exam Limitations: no limitations HEENT normocephalic, head/scalp atraumatic, hearing grossly normal bilaterally and moist oral mucous membranes Head and Scalp: normocephalic Eyes PERRL, EOMs intact bilaterally and conjunctivae normal Neck no lymphadenopathy Resp Resp Narrative: diminished breath sounds bibasally, no wheezes, no crackles. On room air Cardio regular rate, regular rhythm, S1 normal heart sound, S2 normal heart sound and no murmurs GI normal to inspection, nondistended, normoactive bowel sounds, soft to palpation, non-tender and non-distended Extremity normal to inspection, full ROM and no clubbing, cyanosis or edema Peripheral Pulses: Yes pulses 2+ throughout Skin no rashes or lesions noted Neuro oriented x3, CN's II-XII intact bilaterally and moves all extremities Sensorium / Orientation: awake and alert Psych affect normal Assessment & Plan Assessment/Plan (1) Non-STEMI (non-ST elevated myocardial infarction): (2) COVID: PLAN: #COVID 19 infection * on room air * on IV decadron; doesnt qualify for remdesivir as she is on room air and not hypoxic * D DImer was elevated, but CTA of the chest was negative for PE * titrate oxygen to maintain sats>90% * breathing treatment with bronchodilators. * ID consulted. * #Elevated D Dimer * CTA was negative for PE * will put on lovenox 40mg bid due to increased risk of thrombosis with covid. * #Nonstemi * high sensitivity troponin was elevated at 254 and trended further upwards to 904 * BNP done is also elevated at 2418 * cardiology on board; think it is a type 2 nonstemi likely due to covid 19 infection. * on aspirin an high intensity statin * 2D echo pending * #Acute heart failure of unknown etiology * BNP was 2415 * 2D echo pending * on IV lasix 40mg bid. * monitor intake and output * fluid restriction to 1500cc daily. * #Asymptomatic bacteriuria * urine has 1+ bacteria. patient denies any urinary symptoms * will monitor and hold off on antibiotics for now * #History of SLE * On hydroxychloroquine. * #Type 2 diabetes mellitus: Hold oral meds. Insulin sliding scale. Checks AC at bedtime. #Hypertension: On lisinopril. Hold hydrochlorothiazide as patient has been diuresed with IV Lasix. #Hyperlipidemia: Continue statin. DVT prophylaxis: Lovenox CODE STATUS: Full code * Charges/Coding Visit Charges Inpatient E&M: 50095 Subs Hosp L3
--- NOTE | 2021-03-18 11:45 | CASEMGMT ---
RN JOBY Face to Face with patient for initial transition planning/care coordination assessment. RN CM introduced self and role at [facility]. Patient lying in bed, alert and oriented. Patient willing to participate in assessment and is able to answer all questions appropriately. Care providers, pharmacy, and demographics verified. Patient wishes to discharge home, denies need for home health at this time. Patient states she has no further needs or concerns at this time. CM to follow for discharge planning needs that may arise. PCP: Juancarlos Specialists: RA Telma Barber Pharmacy: [facility] Insurance: [employer] [facility] Prescription Benefit: yes Living Will/HPOA: yes, daughter Vero Lanier HPOA LNOK: daughter, grandson Living Arrangements: Patient lives with grandson, who also has covid, in a 1 story home with 3 steps and railing to enter the home. Patient states she is independent at home. Daughters are able to bring groceries and supplies. Transportation: self/grandson DME/HHC: Patient states she has shower chair, cane, walker, and wheelchair at home. Patient denies previous SNF or HHC. Disposition Plan: Patient to discharge home with family support and follow-up plans in place. Tammy QUEEN, RN, CM
[2021-03-18] MEDS: Hydroxychloroquine 200 MG Tablet 300 MG PO (12:25)
[2021-03-18] MEDS: Enoxaparin 30 MG/0.3 ML Syringe SC ×2 (12:25→22:02)
[2021-03-18] MEDS: Aspirin E.C. 81 MG Tablet PO (12:25)
[2021-03-18] MEDS: Furosemide 40 MG/4 ML Vial IV (12:26)
[2021-03-18] MEDS: dexAMETHasone 10 MG/ML Vial 6 MG IV (12:26)
[2021-03-18 12:33] LABS: Pathologist Review Reviewed
[2021-03-18 12:45] LABS: Bedside Glucose 99 mg/dL (70-110)
--- NOTE | 2021-03-18 13:31 | CASEMGMT ---
Per Dr. Ford, he would like pt to be set up for Monoclonal antibody infusion after discharge. Jeannie, PCU charge and Krishna, paving supervisor, notified at this time. Dr. Riley also notified by Dr. Ford. Kosta SEO CM
--- NOTE | 2021-03-18 15:25 | CON.PCM.ID_ITS ---
Assessment & Plan Assessment/Plan (1) COVID-19: PLAN: Sx started 03/17. Unvaccinated. Encouraged her to have grandson get tested and quarantine. Not hypoxic on RA, ok for d/c home off of steroids, recommend she get monoclonal Ab infusion due to DM, immunosuppression, and age. Wrote referral for infusion at discharge. Recommend vaccine once she is out of quarantine in 10 days. Will follow, thank you, d/w nursing and Dr. Riley HPI Consult Data Date of Consult: 03/18/21 HPI Narrative HPI Narrative: DENISA ALAS, is a 75 F on plaquenil for lupus who presente d yesterday with new onset that day of cough and dyspnea. No fever, no change in taste or smell, no aches. Has not gotten covid vaccine, lives with grandson who is unvaccinated and not ill. Came to ED, covid (+), admitted on dex. Cardio consulted for elevated trop. Feeling well today. On RA. Full ROS performed and neg except as noted above. [facility] Medical History Anemia Arthritis Cataracts, bilateral Diabetes Elevated antinuclear antibody (BRANDEN) level High cholesterol Hypertension Lupus Type 2 diabetes mellitus Home Medications atorvastatin 20 mg tablet 20 mg PO DAILY 12/23/20 [History Last Taken Unknown] hydrochlorothiazide 25 mg tablet 25 mg PO DAILY 12/23/20 [History Last Taken Unknown] hydroxychloroquine 200 mg tablet 300 mg PO DAILY 12/23/20 [History Last Taken Unknown] lisinopril 20 mg tablet 20 mg PO DAILY 12/23/20 [History Last Taken Unknown] pioglitazone 30 mg tablet 30 mg PO DAILY 12/23/20 [History Last Taken Unknown] metformin 500 mg tablet 500 mg PO BID 90 Days #180 tab 01/25/21 [Rx Last Taken Unknown] Allergy/AdvReac Type Severity Reaction Status Date / Time amoxicillin Allergy Severe hives Verified 03/18/21 13:46 Family History Grandfather Diabetes Mother Hypertension High cholesterol Social History Smoking Status: Never smoker alcohol intake: never substance use type: does not use what type of physical activity do you participate in: none Physical Exam Const alert, oriented x3 and no apparent distress General Appearance: cooperative Exam Limitations: no limitations HEENT normocephalic and head/scalp atraumatic HEENT Narrative: poor dentition Eyes PERRL and EOMs intact bilaterally Neck supple and No nodes Resp Auscultation: diminished lung sounds Cardio regular rate and regular rhythm GI normal to inspection, nondistended, normoactive bowel sounds Extremity no clubbing, cyanosis or edema Skin no rashes or lesions noted Neuro CN's II-XII intact bilaterally Medical Records Data Medical Nutrition Assessment Dietitian: Nutrition Therapy Diagnosis Start: 03/18/21 09:07 Freq: Status: Active Protocol: Document 03/18/21 12:04 [facility] (Rec: 03/18/21 12:04 [facility] [id number]) Nutrition Malnutrition Evidence of Malnutrition Exists No Evidenced By Weight Loss (Moderate) Intake Problem Decreased Nutrient Needs (specify) Etiology sodium related to acute CHF Signs/Symptoms as evidenced by need for fluid restriction Status Active Problem None at this time Status Inactive Problem Clinical Problem None at this time Status Active Problem Recommendation Dietitian Recommendations/Changes Will change to Cardia Restricted Sodium w/ 1500 ml fluid restriction per day diet - consider addition of carbohydrate restricted diet if hypo/hyperglycemia. Will monitor need for oral nutrition supplement pending po intake and weight trends. Lab / Micro Data Result Diagrams: 03/18/21 04:50 03/18/21 04:50 Labs: Laboratory Results - last 24 hr 03/17/21 15:20: B-Natriuretic Peptide 2418.5 H 03/17/21 15:20: PT 13.5, INR 1.1, D-Dimer Quant (PE/DVT) 1.38 H* 03/17/21 15:20: Total Bilirubin 0.30, Direct Bilirubin 0.12, AST 21, ALT 18, Alkaline Phosphatase 48, Total Creatine Kinase 69, Total Protein 6.4, Albumin 2.9 L, Globulin 3.5 03/17/21 15:20: Lactic Acid 4.1 H* 03/17/21 15:20: Procalcitonin 0.20 H 03/17/21 15:25: Troponin I High Sens 902.4 H* 03/17/21 17:20: POC Glucose 78 03/17/21 20:00: Lactic Acid 1.4 03/17/21 21:17: POC Glucose 121 H 03/18/21 04:50: WBC 2.0 L, RBC 2.77 L, Hgb 8.4 L, Hct 26.9 L, MCV 97.1, MCH 30.3, MCHC 31.2 L, RDW Std Deviation 48.7 H, RDW Coeff of Devendra 13.6, Plt Count 170, MPV 10.9, Immature Gran % (Auto) 0.500, Neut % (Auto) 80.7 H, Lymph % (A uto) 11.9 L, [place] % (Auto) 6.9, Eos % (Auto) 0.0, Baso % (Auto) 0.0, Absolute Neuts (auto) 1.6 L, Absolute Lymphs (auto) 0.24 L, Nucleated RBC % 0, Differential Comment SCANNED, Diff Path Review Reviewed 03/18/21 04:50: Sodium 132 L, Potassium 4.5, Chloride 100, Carbon Dioxide 20.0 L , Anion Gap 12, BUN 30 H, Creatinine 1.33 H, Estim Creat Clear Calc 34.39, Est GFR (MDRD) Af Amer 50 L, Est GFR (MDRD) Non-Af 41 L, BUN/Creatinine Ratio 22.6 H , Glucose 115 H, Calcium 9.0, Magnesium 1.7 03/18/21 06:28: POC Glucose 110 03/18/21 12:21: POC Glucose 99 Radiology Impression Chest CTA 03/17/21 16:45 IMPRESSION: 1. No central or segmental pulmonary embolism. 2. Bilateral pleural effusions (small to moderate) with compressive atelectasis in the lower lobes. Electronically Signed: Cruz Randall MD (Brooks) at 17:53 EDT , Service support ,
[2021-03-18] MEDS: Insulin Lispro 100 UNIT/ML INSULN.PEN SC ×2 (16:21→22:18)
--- NOTE | 2021-03-18 20:21 | PCM.PN.CARD ---
Subjective Subjective The patient states that she is resting comfortably at this time. She denies any ongoing issues of classic angina pectoris at home prior to arriving at the hospital or since being in the hospital. She states her main concern was shortness of breath and dyspnea. She has not had, while in the hospital, any acute orthopnea or PND. There has been no ongoing peripheral pitting edema, near-syncope, or syncope. Objective Data Vital Signs: Vital Signs Temp Pulse Resp BP Pulse Ox 99.1 F 114 H 18 98/41 L 96 03/18/21 16:12 03/18/21 16:12 03/18/21 16:12 03/18/21 16:12 03/18/21 16:12 Oxygen Delivery Method Room Air Weight: 131 lb 6.328 oz Body Mass Index (BMI) 31.6 Intake & Output: Intake and Output for Last 24 Hours 03/16/21 03/17/21 03/18/21 23:59 23:59 23:59 Intake Total 240 / 340 520 / 520 Output Total 3 / 303 1100 / 1100 Balance 237 / 37 -580 / -580 Lab / Micro Data Result Diagrams: 03/18/21 04:50 03/18/21 04:50 Labs: Laboratory Results - last 24 hr 03/17/21 20:00: Lactic Acid 1.4 03/17/21 21:17: POC Glucose 121 H 03/18/21 04:50: WBC 2.0 L, RBC 2.77 L, Hgb 8.4 L, Hct 26.9 L, MCV 97.1, MCH 30.3, MCHC 31.2 L, RDW Std Deviation 48.7 H, RDW Coeff of Devendra 13.6, Plt Count 170, MPV 10.9, Immature Gran % (Auto) 0.500, Neut % (Auto) 80.7 H, Lymph % (Auto) 11.9 L, [place] % (Auto) 6.9, Eos % (Auto) 0.0, Baso % (Auto) 0.0, Absolute Neuts (auto) 1.6 L, Absolute Lymphs (auto) 0.24 L, Nucleated RBC % 0, Differential Comment SCANNED, Diff Path Review Reviewed 03/18/21 04:50: Sodium 132 L, Potassium 4.5, Chloride 100, Carbon Dioxide 20.0 L, Anion Gap 12, BUN 30 H, Creatinine 1.33 H, Estim Creat Clear Calc 34.39, Est GFR (MDRD) Af Amer 50 L, Est GFR (MDRD) Non-Af 41 L, BUN/Creatinine Ratio 22.6 H, Glucose 115 H, Calcium 9.0, Magnesium 1.7 03/18/21 06:28: POC Glucose 110 03/18/21 12:21: POC Glucose 99 Cardiology Labs/Tests 03/17/21 20:00: Lactic Acid 1.4 03/18/21 04:50: WBC 2.0 L, RBC 2.77 L, Hgb 8.4 L, Hct 26.9 L, MCV 97.1, MCH 30.3, MCHC 31.2 L, Plt Count 170, MPV 10.9, Immature Gran % (Auto) 0.500, Neut % (Auto) 80.7 H, Lymph % (Auto) 11.9 L, [place] % (Auto) 6.9, Eos % (Auto) 0.0, Baso % (Auto) 0.0, Absolute Neuts (auto) 1.6 L, Nucleated RBC % 0 03/18/21 04:50: Sodium 132 L, Potassium 4.5, Chloride 100, Carbon Dioxide 20.0 L, Anion Gap 12, BUN 30 H, Creatinine 1.33 H, Est GFR (MDRD) Af Amer 50 L, Est GFR (MDRD) Non-Af 41 L, BUN/Creatinine Ratio 22.6 H, Glucose 115 H, Calcium 9.0, Magnesium 1.7 Rhythm: Sinus rhythm Radiography Diagnostic Testing: Radiology Impression Echocardiogram 03/18/21 05:55 Interpretation Summary Severe segmental systolic dysfunction (see wall motion). The estimated ejection fraction is 15 %. The left atrium is mildly enlarged. There is mild mitral annular calcification. Mild diffuse mitral valve thickening. The mitral papillary muscle appears thickened and/or calcified. Mild (1+) mitral valve insufficiency. Mild tricuspid valve insufficiency. Mild to moderate aortic stenosis. Right ventricular systolic pressure estimated to be 41 mmHg. Diastolic function is indeterminate. Ordering Physician: Bertha Riley Referring Physician: Paul Bauer Performed By: Jordy Plasencia RCS Physical Exam Const alert, oriented x3 and no apparent distress Orientation / Consciousness: awake HEENT normocephalic, head/scalp atraumatic and hearing grossly normal bilaterally Eyes PERRL, EOMs intact bilaterally and conjunctivae normal Neck full ROM, supple and no JVD Chest inspection of chest normal Resp normal respiratory effort Cardio regular rate, regular rhythm, S1 normal heart sound and S2 normal heart sound GI normal to inspection, nondistended, normoactive bowel sounds Extremity no pedal edema Psych mental status grossly normal Assessment & Plan Assessment/Plan (1) Non-STEMI (non-ST elevated myocardial infarction): PLAN: The patient has cardiac enzymes compatible with a non-ST segment elevation [place]. It is unclear whether this is a primary event or a secondary type II event brought out by supply demand mismatch. The moment she appears to be without acute symptoms. She is being followed with her cardiac enzymes and ECGs. She has had a transthoracic echocardiogram performed as noted. At the moment she will continue medical therapy. Ideally over time, once she has overcome her COVID-19 diagnosis, barring an unforeseen event in the interim, she should be considered for further evaluation with diagnostic cardiac catheterization to evaluate for any obvious CAD contributing to her findings versus being on CAD related. (2) Cardiomyopathy: PLAN: She does have what appears to be an underlying cardiomyopathy. Based on the echocardiographic images her findings may be compatible with an underlying Takotsubo syndrome. However, underlying CAD cannot necessarily be excluded. At the moment she appears without acute symptoms. She will continue to be monitored. She will continue medical therapy. As noted above at some point in time she should be considered for further evaluation with diagnostic cardiac catheterization to assess whether she truly has underlying CAD that warrants further evaluation and care. (3) High cholesterol: PLAN: She should continue risk factor evaluation care as deemed appropriate. (4) Hypertension: PLAN: Her blood pressure will need to be monitored with her medications adjusted accordingly. (5) COVID-19: PLAN: She will continue evaluation care per internal medicine. Addt'l Comments This note was generated using a voice recognition system and there may be incorrect words, spelling or punctuation that were not noted when reviewing the office note prior to saving.
[2021-03-18 22:31] LABS: Bedside Glucose 323 mg/dL (70-110)
[2021-03-19] VITALS (20 sets, daily range): BP systolic 72–118; BP diastolic 37–66; PULSE 82–114; RESP 18–24; TEMP 36.5–37.8; O2SAT 94–100
[2021-03-19] MEDS: 0.9% Saline Lock 10 ML Syringe IV ×2 (01:23→17:46)
[2021-03-19] MEDS: Nystatin Powder 15gm Bottle 1 APPLIC TOPICAL ×3 (06:47→23:12)
[2021-03-19 07:06] LABS: Bedside Glucose 229 mg/dL (70-110)
[2021-03-19 07:06] LABS: Bedside Glucose 237 mg/dL (70-110)
[2021-03-19 07:21] LABS: Bedside Glucose 114 mg/dL (70-110)
[2021-03-19] MEDS: Enoxaparin 30 MG/0.3 ML Syringe SC ×2 (09:38→23:14)
[2021-03-19] MEDS: Hydroxychloroquine 200 MG Tablet 300 MG PO (09:38)
[2021-03-19] MEDS: Aspirin E.C. 81 MG Tablet PO (09:39)
[2021-03-19 09:49] LABS: Absolute Lymphocyte Count 0.55 X10^3/uL (0.83-4.51); Absolute Neutrophil Count 4.4 X10^3/uL (2.0-7.7); Hematocrit 26.6 % (37-47); Hemoglobin 8.6 g/dL (12.0-15.0); Lymphocyte # 0.55 X10^3/ul (0.83-4.51); Lymphocyte % 10.6 % (19-41); Mean Corp Hgb Conc 32.3 g/dL (32-36); Mean Platelet Vol. 11.1 fl (6.2-12.0); Monocyte# 0.23 X10^3/uL; Monocyte% 4.4 % (0-10); NRBC Flagged by Analyzer 0 % (0-5); Neutrophil # 4.41 X10^3/uL (2.7-7.7); Neutrophil % 84.6 % (47-70); POSITIVE DIFFERENTIAL YES; Platelet Count 191 K/mm3 (150-450); RBC Distribution Width CV 13.4 % (11.6-14.6); Red Blood Count 2.77 M/mm3 (4.2-5.4); White Blood Count 5.2 K/mm3 (4.4-11.0)
[2021-03-19 09:53] LABS: Differential Indicated SCAN CRITERIA MET
[2021-03-19 10:10] LABS: Anion Gap 10 (5-15); BUN 49 mg/dL (7-18); BUN/Creat Ratio 30.6 RATIO (10-20); Calcium,Total 8.4 mg/dL (8.5-10.1); Chloride 97 mmol/L (98-107); EST Glomerular Filtration Rate 33 mL/min (>60); Est Glom Filt Rate - Afr Amer 40 mL/min (>60); Estimated Creatinine Clearance 28.58 ml/min; Glucose 131 mg/dL (74-106); Potassium 3.5 mmol/L (3.5-5.1); Sodium Level 130 mmol/L (136-145)
[2021-03-19 10:20] LABS: Differential Comment D
[2021-03-19] MEDS: 0.9% Normal Saline 1,000 ML 75 ML IV ×2 (12:00→19:27)
[2021-03-19 12:11] LABS: Bedside Glucose 144 mg/dL (70-110)
--- NOTE | 2021-03-19 14:47 | PN.HOSP_ITS ---
Subjective Subjective Patient seen and examined. She had no complaints today and felt well. Her blood pressure was running low yesterday though she was asymptomatic. She was given some fluid yesterday. Review of systems is otherwise negative. Shortness of breath is often has not recurred. Objective Data Objective Data Vital Signs: Vital Signs Temp Pulse Resp BP Pulse Ox 98.0 F 96 18 97/43 L 99 03/19/21 09:36 03/19/21 10:59 03/19/21 09:36 03/19/21 09:36 03/19/21 09:36 Oxygen Delivery Method Room Air Weight: 131 lb 6.328 oz Body Mass Index (BMI) 31.6 Intake & Output: Intake and Output for Last 24 Hours 03/17/21 03/18/21 03/19/21 23:59 23:59 23:59 Intake Total 240 / 340 520 / 520 700 / 700 Output Total 3 / 303 1100 / 1100 0 / 0 Balance 237 / 37 -580 / -580 700 / 700 Medical Nutrition Assessment Dietitian: Nutrition Therapy Diagnosis Start: 03/18/21 09:07 Freq: Status: Active Protocol: Document 03/18/21 12:04 LI (Rec: 03/18/21 12:04 LI [id number]) Nutrition Malnutrition Evidence of Malnutrition Exists No Evidenced By Weight Loss (Moderate) Intake Problem Decreased Nutrient Needs (specify) Etiology sodium related to acute CHF Signs/Symptoms as evidenced by need for fluid restriction Status Active Problem None at this time Status Inactive Problem Clinical Problem None at this time Status Active Problem Recommendation Dietitian Recommendations/Changes Will change to Cardia Restricted Sodium w/ 1500 ml fluid restriction per day diet - consider addition of carbohydrate restricted diet if hypo/hyperglycemia. Will monitor need for oral nutrition supplement pending po intake and weight trends. Lab / Micro Data Result Diagrams: 03/19/21 09:34 03/19/21 09:34 Labs: Laboratory Results - last 24 hr 03/18/21 16:15: POC Glucose 237 H 03/18/21 16:17: POC Glucose 229 H 03/18/21 22:14: POC Glucose 323 H 03/19/21 06:42: POC Glucose 114 H 03/19/21 09:34: WBC 5.2, RBC 2.77 L, Hgb 8.6 L, Hct 26.6 L, MCV 96.0, MCH 31.0, MCHC 32.3, RDW Std Deviation 48.0 H, RDW Coeff of Devendra 13.4, Plt Count 191, MPV 11.1, Immature Gran % (Auto) 0.400, Neut % (Auto) 84.6 H, Lymph % (Auto) 10.6 L, [place] % (Auto) 4.4, Eos % (Auto) 0.0, Baso % (Auto) 0.0, Absolute Neuts (auto) 4.4, Absolute Lymphs (auto) 0.55 L, Nucleated RBC % 0, Differential Comment D 03/19/21 09:34: Sodium 130 L, Potassium 3.5, Chloride 97 L, Carbon Dioxide 23.0, Anion Gap 10, BUN 49 H, Creatinine 1.60 H, Estim Creat Clear Calc 28.58, Est GFR (MDRD) Af Amer 40 L, Est GFR (MDRD) Non-Af 33 L, BUN/Creatinine Ratio 30.6 H, Glucose 131 H, Calcium 8.4 L 03/19/21 11:53: POC Glucose 144 H Micro: Microbiology 03/17/21 07:26 Mucosa - Nose SARS-CoV-2 Antigen (Rapid) - Final SARS-CoV-2 (COVID 19) Radiography Diagnostic Testing: Radiology Impression Echocardiogram 03/18/21 05:55 Interpretation Summary Severe segmental systolic dysfunction (see wall motion). The estimated ejection fraction is 15 %. The left atrium is mildly enlarged. There is mild mitral annular calcification. Mild diffuse mitral valve thickening. The mitral papillary muscle appears thickened and/or calcified. Mild (1+) mitral valve insufficiency. Mild tricuspid valve insufficiency. Mild to moderate aortic stenosis. Right ventricular systolic pressure estimated to be 41 mmHg. Diastolic function is indeterminate. Ordering Physician: Bertha Riley Referring Physician: Paul Bauer Performed By: Brodwolf, Jordy, RCS Physical Exam Const alert, oriented x3 and no apparent distress General Appearance: cooperative Exam Limitations: no limitations HEENT normocephalic, head/scalp atraumatic, hearing grossly normal bilaterally and moist oral mucous membranes Head and Scalp: normocephalic Eyes PERRL, EOMs intact bilaterally and conjunctivae normal Neck no lymphadenopathy Resp Resp Narrative: diminished breath sounds bibasally, no wheezes, no crackles. On room air Cardio regular rate, regular rhythm, S1 normal heart sound, S2 normal heart sound and no murmurs GI normal to inspection, nondistended, normoactive bowel sounds, soft to palpation, non-tender and non-distended Extremity normal to inspection, full ROM and no clubbing, cyanosis or edema Peripheral Pulses: Yes pulses 2+ throughout Skin no rashes or lesions noted Neuro oriented x3, CN's II-XII intact bilaterally and moves all extremities Sensorium / Orientation: awake and alert Psych affect normal Assessment & Plan Assessment/Plan (1) Non-STEMI (non-ST elevated myocardial infarction): (2) COVID: PLAN: #COVID 19 infection * on room air * on IV decadron; doesnt qualify for remdesivir as she is on room air and not hypoxic * D DImer was elevated, but CTA of the chest was negative for PE * titrate oxygen to maintain sats>90% * breathing treatment with bronchodilators. * ID on board;; recommend she can be dc'd home off steroids, and to get the monoclonal antibody infusion upon discharge. * #Elevated D Dimer * CTA was negative for PE * on lovenox * #Nonstemi * high sensitivity troponin was elevated at 254 and trended further upwards to 904 * BNP done is also elevated at 2418 * cardiology on board; think it is a type 2 nonstemi likely due to covid 19 infection. * on aspirin an high intensity statin * 2D echo showed EF of 15% with severe segmental LV dysfunction; per cardiology, this may be compatible with Takotsubo;s cardiomyopathy * to be evaluated with cardiac cath once covid has resolved. * #Acute heart failure of unknown etiology * BNP was 2415 * 2D echo as above. * lasix held due to hypotension. * monitor intake and output strictly. #Hypotension * likely medication induced as she is on lasix, metoprolol and lisinopril. These are all on hold * hydrate very gently with IVF NS @ 75cc x 1000ml bag ( bag) * #Asymptomatic bacteriuria * stable. No symptoms. * #History of SLE * On hydroxychloroquine. * #Type 2 diabetes mellitus: Hold oral meds. Insulin sliding scale. Checks AC at bedtime. #Hypertension: BP meds and lasix held due to hypotension. #Hyperlipidemia: Continue statin. DVT prophylaxis: Lovenox CODE STATUS: Full code * Disposition; for likely DC tomorrow. patient wants to stay one more night due to her hypotensi Charges/Coding Visit Charges Inpatient E&M: 77310 Subs Hosp L3
--- NOTE | 2021-03-19 15:19 | PCM.PN.CARD ---
Subjective Subjective Patient is awake and alert. She denies any ongoing chest discomfort or difficulty breathing. She states when she was up to use the restroom she felt transiently dizzy. There was no loss of consciousness. Objective Data Vital Signs: Vital Signs Temp Pulse Resp BP Pulse Ox 98.0 F 96 18 97/43 L 99 03/19/21 09:36 03/19/21 10:59 03/19/21 09:36 03/19/21 09:36 03/19/21 09:36 Oxygen Delivery Method Room Air Weight: 131 lb 6.328 oz Body Mass Index (BMI) 31.6 Intake & Output: Intake and Output for Last 24 Hours 03/17/21 03/18/21 03/19/21 23:59 23:59 23:59 Intake Total 240 / 340 520 / 520 700 / 700 Output Total 3 / 303 1100 / 1100 0 / 0 Balance 237 / 37 -580 / -580 700 / 700 Lab / Micro Data Result Diagrams: 03/19/21 09:34 03/19/21 09:34 Labs: Laboratory Results - last 24 hr 03/18/21 16:15: POC Glucose 237 H 03/18/21 16:17: POC Glucose 229 H 03/18/21 22:14: POC Glucose 323 H 03/19/21 06:42: POC Glucose 114 H 03/19/21 09:34: WBC 5.2, RBC 2.77 L, Hgb 8.6 L, Hct 26.6 L, MCV 96.0, MCH 31.0, MCHC 32.3, RDW Std Deviation 48.0 H, RDW Coeff of Devendra 13.4, Plt Count 191, MPV 11.1, Immature Gran % (Auto) 0.400, Neut % (Auto) 84.6 H, Lymph % (Auto) 10.6 L, [place] % (Auto) 4.4, Eos % (Auto) 0.0, Baso % (Auto) 0.0, Absolute Neuts (auto) 4.4, Absolute Lymphs (auto) 0.55 L, Nucleated RBC % 0, Differential Comment D 03/19/21 09:34: Sodium 130 L, Potassium 3.5, Chloride 97 L, Carbon Dioxide 23.0, Anion Gap 10, BUN 49 H, Creatinine 1.60 H, Estim Creat Clear Calc 28.58, Est GFR (MDRD) Af Amer 40 L, Est GFR (MDRD) Non-Af 33 L, BUN/Creatinine Ratio 30.6 H, Glucose 131 H, Calcium 8.4 L 03/19/21 11:53: POC Glucose 144 H Cardiology Labs/Tests 03/19/21 09:34: WBC 5.2, RBC 2.77 L, Hgb 8.6 L, Hct 26.6 L, MCV 96.0, MCH 31.0, MCHC 32.3, Plt Count 191, MPV 11.1, Immature Gran % (Auto) 0.400, Neut % (Auto) 84.6 H, Lymph % (Auto) 10.6 L, [place] % (Auto) 4.4, Eos % (Auto) 0.0, Baso % (Auto) 0.0, Absolute Neuts (auto) 4.4, Nucleated RBC % 0 03/19/21 09:34: Sodium 130 L, Potassium 3.5, Chloride 97 L, Carbon Dioxide 23.0, Anion Gap 10, BUN 49 H, Creatinine 1.60 H, Est GFR (MDRD) Af Amer 40 L, Est GFR (MDRD) Non-Af 33 L, BUN/Creatinine Ratio 30.6 H, Glucose 131 H, Calcium 8.4 L Rhythm: Sinus rhythm Radiography Diagnostic Testing: Radiology Impression Echocardiogram 03/18/21 05:55 Interpretation Summary Severe segmental systolic dysfunction (see wall motion). The estimated ejection fraction is 15 %. The left atrium is mildly enlarged. There is mild mitral annular calcification. Mild diffuse mitral valve thickening. The mitral papillary muscle appears thickened and/or calcified. Mild (1+) mitral valve insufficiency. Mild tricuspid valve insufficiency. Mild to moderate aortic stenosis. Right ventricular systolic pressure estimated to be 41 mmHg. Diastolic function is indeterminate. Ordering Physician: Bertha Riley Referring Physician: Paul Bauer Performed By: Jordy Plasencia, TAYLOR Physical Exam Const alert, oriented x3 and no apparent distress Orientation / Consciousness: awake HEENT normocephalic, head/scalp atraumatic and hearing grossly normal bilaterally Eyes PERRL, EOMs intact bilaterally and conjunctivae normal Neck full ROM, supple and no JVD Chest inspection of chest normal Resp normal respiratory effort Cardio regular rate, regular rhythm, S1 normal heart sound and S2 normal heart sound GI normal to inspection, nondistended, normoactive bowel sounds Extremity no pedal edema Psych mental status grossly normal Assessment & Plan Assessment/Plan (1) Non-STEMI (non-ST elevated myocardial infarction): PLAN: The patient has cardiac enzymes compatible with a non-ST segment elevation [place]. It is unclear whether this is a primary event or a secondary type II event brought out by supply demand mismatch. The moment she appears to be without acute symptoms. She is being followed with her cardiac enzymes and ECGs. She has had a transthoracic echocardiogram performed as noted. At the moment she will continue medical therapy as her clinical status and vital signs allow. Ideally over time, once she has overcome her COVID-19 diagnosis, barring an unforeseen event in the interim, she should be considered for further evaluation with diagnostic cardiac catheterization to evaluate for any obvious CAD contributing to her findings versus being on CAD related. (2) Cardiomyopathy: PLAN: She does have what appears to be an underlying cardiomyopathy. Based on the echocardiographic images her findings may be compatible with an underlying Takotsubo syndrome. However, underlying CAD cannot necessarily be excluded. At the moment she appears without acute symptoms. She will continue to be monitored. Her medications with respect to beta-blockers, diuretics, and TARIQ inhibitor's have been placed on temporary hold based upon her transient low blood pressure. As noted above at some point in time she should be considered for further evaluation with diagnostic cardiac catheterization to assess whether she truly has underlying CAD that warrants further evaluation and care. (3) High cholesterol: PLAN: She should continue risk factor evaluation care as deemed appropriate. (4) Hypertension: PLAN: As noted above her blood pressure has been low. Her medications been placed on hold. She did receive IV fluids. She appears without any acute symptoms at this time. Her blood pressure should be monitored. As her blood pressure stabilizes then hopefully she can reinitiate medical therapy such as beta-blockers, TARIQ inhibitor's, etc. starting in low doses, in a stepwise fashion, as she tolerates to hopefully benefit her underlying cardiomyopathy. (5) COVID-19: PLAN: She will continue evaluation care per internal medicine. Addt'l Comments The patient's case was discussed and reviewed with the patient.
[2021-03-19 16:16] LABS: Bedside Glucose 102 mg/dL (70-110)
[2021-03-19] MEDS: Ondansetron 4 MG/2 ML Vial IV (17:47)
--- NOTE | 2021-03-19 17:48 | EKG12_ITS ---
Test Reason : Blood Pressure : / mmHG Vent. Rate : 111 BPM Atrial Rate : 111 BPM P-R Int : 142 ms QRS Dur : 166 ms QT Int : 380 ms P-R-T Axes : 002 -20 142 degrees QTc Int : 516 ms Sinus tachycardia Left bundle branch block Abnormal ECG Confirmed by MANDEEP RASCON, SATNAM ([id number]), graphics editor TIN BURRIS ([id number]) on 03/23/2021 10:54:15 AM Referred By: MILO Confirmed By:SATNAM KAUFMAN MD
--- NOTE | 2021-03-19 18:25 | NURSING ---
This RN called and gave report to Elissa MEDICAL PHYSICS TEACHER.
[2021-03-19] MEDS: 0.9% Normal Saline 1,000 ML 999 ML IV (18:30)
--- NOTE | 2021-03-19 18:35 | NURSING ---
This RN called pt's daughter, Vero to let her know pt was being transferred to ICU and gave her update on POC. Vero denies any questions.
[2021-03-19] MEDS: Atorvastatin Calcium 40 MG Tablet PO (23:14)
[2021-03-20] VITALS (37 sets, daily range): BP systolic 88–121; BP diastolic 29–72; PULSE 76–142; RESP 12–32; TEMP 36.6–37.3; O2SAT 30–100
[2021-03-20] MEDS: Insulin Lispro 100 UNIT/ML INSULN.PEN SC ×3 (00:04→21:50)
[2021-03-20 00:25] LABS: Bedside Glucose 215 mg/dL (70-110)
[2021-03-20 05:28] LABS: Absolute Lymphocyte Count 0.34 X10^3/uL (0.83-4.51); Absolute Neutrophil Count 3.2 X10^3/uL (2.0-7.7); Hematocrit 24.4 % (37-47); Lymphocyte # 0.34 X10^3/ul (0.83-4.51); Lymphocyte % 8.9 % (19-41); Mean Corp Hgb Conc 32.8 g/dL (32-36); Mean Corpuscular Hgb 30.9 pg (27.0-32.0); Mean Corpuscular Volume 94.2 fL (81-99); Mean Platelet Vol. 10.8 fl (6.2-12.0); Monocyte# 0.22 X10^3/uL; Monocyte% 5.8 % (0-10); NRBC Flagged by Analyzer 0 % (0-5); Neutrophil # 3.22 X10^3/uL (2.7-7.7); Neutrophil % 84.8 % (47-70); POSITIVE DIFFERENTIAL YES; Platelet Count 205 K/mm3 (150-450); RBC Distribution Width CV 13.3 % (11.6-14.6); RBC Distribution Width SD 46.3 fl (35.1-43.9); Red Blood Count 2.59 M/mm3 (4.2-5.4); White Blood Count 3.8 K/mm3 (4.4-11.0)
[2021-03-20 05:58] LABS: Differential Indicated SCAN CRITERIA MET
--- NOTE | 2021-03-20 06:21 | EX.PCM.CONCC ---
Assessment & Plan Assessment/Plan (1) COVID-19: PLAN: RECOMMENDATIONS: 1. Continue BiPAP and wean FiO2 to maintain oxygen saturations at or above 90%. 2. Hold diuretics for now, given hemodynamic instability and need for vasopressor support. 3. Continue Levophed and wean to maintain a mean arterial pressure at or above 65 mmHg. 4. Restart Decadron, given respiratory decompensation and add remdesivir. 5. Continue Lovenox as ordered. 6. Recheck BNP and procalcitonin. IMPRESSIONS: 1. Acute hypoxemic respiratory failure Likely multifactorial in etiology with COVID-19 infection and decompensated heart failure contributing. The patient was transferred to the ICU overnight due to hypotension requiring vasopressor support along with increasing oxygen requirement, now requiring BiPAP support. Attempts to diurese the patient will be limited by the fact that she is requiring vasopressor support. The patient's IV Decadron was previously discontinued, as the patient at that time was on room air. However, in light of her respiratory decompensation, I would plan to restart Decadron and add remdesivir. Continue patient on BiPAP and wean FiO2 to maintain oxygen saturations at or above 90%. 2. Undifferentiated shock Unclear etiology for the patient's hypotension. However, sepsis and hypovolemia are potential causes. Nevertheless, given the patient's severely depressed ejection fraction, I would recommend conservative use of supplemental IV fluids. For now, the patient will be continued on Levophed to maintain a mean arterial pressure at or above 65 mmHg. Continue to hold antihypertensives and diuretics. 3. Non-ST segment elevation ID/acute systolic heart failure (Takotsubo cardiomyopathy) Cardiology is following to assist with medical management. 4. Acute on chronic kidney disease Likely prerenal in etiology. Continue Levophed to maintain hemodynamic stability. Continue to monitor urine output. If creatinine continues to worsen, consider nephrology consultation. 5. Obesity/hypertension/diabetes mellitus/hyperlipidemia/history of SLE Complicates care, management, recovery and prognosis. Continue to hold antihypertensives. TIME: 40 minutes of critical care time, independent of procedures, was spent addressing the patient's acute hypoxemic respiratory failure, COVID-19 pneumonia, decompensated heart failure, undifferentiated shock, non-ST segment elevation ID, acute on chronic kidney disease, review of all data and collaboration with the care team. ([id number]) HPI Consult Data Date of Consult: 03/20/21 HPI Narrative Reason for Consultation: Hypoxemia secondary to COVID-19 pneumonia, hypotension HPI Narrative: The patient is a 75-year-old female, with a history as outlined below, who initially presented to the emergency department on March 17 with complaints of worsening dyspnea. The patient has not been vaccinated for COVID-19. She denied any sick contact exposure. On presentation to the emergency department, the patient was noted to be afebrile but was tachycardic and tachypneic. She was otherwise hemodynamically stable. Initial laboratory evaluation revealed no evidence of a leukocytosis. There was evidence of baseline anemia with a hemoglobin of 8.6 g/dL. Coagulation profile revealed a D-dimer of 1.38. Chemistry profile was notable for a creatinine of 1.43. Lactate was elevated to 4.1. Initial troponin was elevated to 256 with a BNP of 2418. Procalcitonin was noted to be 0.20. Urine analysis was positive for nitrites and 1+ urine bacteria. CTA chest showed no evidence for PE, but did demonstrate bilateral pleural effusions with compressive atelectasis. Coronavirus rapid antigen testing was positive on March 17. Surface echocardiogram completed on March 18 demonstrated severe segmental systolic dysfunction with an ejection fraction of 15%. Right ventricular systolic pressure was estimated to be 41 mmHg. Mild to moderate aortic stenosis was noted. The patient was initially admitted to the hospital and cardiology was consulted. She was felt to have an NSTEMI and was felt to be Takotsubo cardiomyopathy secondary to COVID-19 pneumonia. She is currently documented to be overall net +2.4 L for the hospital admission. Throughout the day on March 19, the patient developed fluid refractory hypotension, which required her transfer to the medical intensive care unit for the initiation of vasopressor support. [facility] Medical History (Updated 03/18/21 @ 20:[address] Joselito Hebert MD) Anemia Arthritis Cardiomyopathy Cataracts, bilateral Diabetes Elevated antinuclear antibody (BRANDEN) level High cholesterol Hypertension Lupus Type 2 diabetes mellitus Home Medications atorvastatin 20 mg tablet 20 mg PO DAILY 12/23/20 [History Last Taken Unknown] hydrochlorothiazide 25 mg tablet 25 mg PO DAILY 12/23/20 [History Last Taken Unknown] hydroxychloroquine 200 mg tablet 300 mg PO DAILY 12/23/20 [History Last Taken Unknown] lisinopril 20 mg tablet 20 mg PO DAILY 12/23/20 [History Last Taken Unknown] pioglitazone 30 mg tablet 30 mg PO DAILY 12/23/20 [History Last Taken Unknown] metformin 500 mg tablet 500 mg PO BID 90 Days #180 tab 01/25/21 [Rx Last Taken Unknown] Allergy/AdvReac Type Severity Reaction Status Date / Time amoxicillin Allergy Severe hives Verified 03/18/21 13:46 Family History Grandfather Diabetes Mother Hypertension High cholesterol Social History Smoking Status: Never smoker alcohol intake: never substance use type: does not use what type of physical activity do you participate in: none ROS Constitutional Constitutional: Reports fatigue Eyes Eyes: Denies blurry vision or change in vision ENT HEENT: Denies headache(s) or loss taste/smell Cardiovascular Cardiovascular: Reports dyspnea; Denies chest pain Respiratory/Chest Respiratory/Chest: Reports cough Gastrointestinal Gastrointestinal: Denies abdominal pain, diarrhea, nausea or vomiting Genitourinary Genitourinary: Denies difficulty urinating Musculoskeletal Musculoskeletal: Denies arthralgias Integumentary Integumentary: Denies lesions, rash or skin ulcer Neurologic Neurologic: Denies abnormal gait or abnormal speech Psychiatric Psychiatric: Denies anxiety or depression Endocrine Endocrinology: Reports fatigue Hematologic/Lymphatic Hematologic/Lymphatic: Denies easy bleeding or easy bruising Physical Exam Const alert General Appearance: cooperative, ill appearing and on BiPAP Nutritional Appearance: obese HEENT normocephalic and head/scalp atraumatic Eyes PERRL and EOMs intact bilaterally Neck supple General: trachea midline Resp Effort and Inspection: tachypneic and labored Auscultation: rales and diminished lung sounds; Negative for rhonchi or wheezes Cardio S1 normal heart sound and S2 normal heart sound Rate: tachycardic GI normal to inspection, nondistended, normoactive bowel sounds Extremity no clubbing, cyanosis or edema Skin no rashes or lesions noted Neuro CN's II-XII intact bilaterally and no focal motor deficits Psych cooperative and affect normal Medical Records Data Medical Nutrition Assessment Dietitian: Nutrition Therapy Diagnosis Start: 03/18/21 09:07 Freq: Status: Active Protocol: Document 03/18/21 12:04 SLA (Rec: 03/18/21 12:04 SLA [id number]) Nutrition Malnutrition Evidence of Malnutrition Exists No Evidenced By Weight Loss (Moderate) Intake Problem Decreased Nutrient Needs (specify) Etiology sodium related to acute CHF Signs/Symptoms as evidenced by need for fluid restriction Status Active Problem None at this time Status Inactive Problem Clinical Problem None at this time Status Active Problem Recommendation Dietitian Recommendations/Changes Will change to Cardia Restricted Sodium w/ 1500 ml fluid restriction per day diet - consider addition of carbohydrate restricted diet if hypo/hyperglycemia. Will monitor need for oral nutrition supplement pending po intake and weight trends. Lab / Micro Data Result Diagrams: 03/20/21 05:00 03/20/21 05:00 Labs: Laboratory Results - last 24 hr 03/18/21 16:15: POC Glucose 237 H 03/18/21 16:17: POC Glucose 229 H 03/19/21 06:42: POC Glucose 114 H 03/19/21 09:34: WBC 5.2, RBC 2.77 L, Hgb 8.6 L, Hct 26.6 L, MCV 96.0, MCH 31.0, MCHC 32.3, RDW Std Deviation 48.0 H, RDW Coeff of Devendra 13.4, Plt Count 191, MPV 11.1, Immature Gran % (Auto) 0.400, Neut % (Auto) 84.6 H, Lymph % (Auto) 10.6 L, [place] % (Auto) 4.4, Eos % (Auto) 0.0, Baso % (Auto) 0.0, Absolute Neuts (auto) 4.4, Absolute Lymphs (auto) 0.55 L, Nucleated RBC % 0, Differential Comment D 03/19/21 09:34: Sodium 130 L, Potassium 3.5, Chloride 97 L, Carbon Dioxide 23.0, Anion Gap 10, BUN 49 H, Creatinine 1.60 H, Estim Creat Clear Calc 28.58, Est GFR (MDRD) Af Amer 40 L, Est GFR (MDRD) Non-Af 33 L, BUN/Creatinine Ratio 30.6 H, Glucose 131 H, Calcium 8.4 L 03/19/21 11:53: POC Glucose 144 H 03/19/21 16:03: POC Glucose 102 03/20/21 00:04: POC Glucose 215 H 03/20/21 05:00: WBC 3.8 L, RBC 2.59 L, Hgb 8.0 L, Hct 24.4 L, MCV 94.2, MCH 30.9, MCHC 32.8, RDW Std Deviation 46.3 H, RDW Coeff of Devendra 13.3, Plt Count 205, MPV 10.8, Immature Gran % (Auto) 0.500, Neut % (Auto) 84.8 H, Lymph % (Auto) 8.9 L, [place] % (Auto) 5.8, Eos % (Auto) 0.0, Baso % (Auto) 0.0, Absolute Neuts (auto) 3.2, Absolute Lymphs (auto) 0.34 L, Nucleated RBC % 0 Charges/Coding Procedures Hospitalists Procedures: 21342 Critial Care 1st Hr
[2021-03-20] MEDS: Nystatin Powder 15gm Bottle 1 APPLIC TOPICAL ×3 (06:26→21:51)
--- NOTE | 2021-03-20 06:32 | RAD_ITS ---
STUDY: X-RAY CHEST REASON FOR EXAM: Female, 75 years old. COVID TECHNIQUE: Single AP portable upright view of the chest. COMPARISON: Portable AP upright chest x-ray as well as CTA chest 03/17/2021 FINDINGS: There is increased ill-defined, patchy alveolar density in the bilateral perihilar regions. Some interstitial stranding is seen in the periphery of the mid to lower lung zones, greater on the right, some of which may represent Erik B lines. There is no demonstrated pleural abnormality. There is borderline cardiomegaly. Normal mediastinum. Normal visualized aortic arch and descending thoracic aorta. There are stable multilevel degenerative changes of the visualized thoracic spine. Normal visualized ribs, clavicles, and shoulders. There is no demonstrated abnormality of the visualized soft tissue structures of the upper abdomen. RAD/Chest 1 View (Portable) IMPRESSION: Borderline cardiac enlargement. Ill-defined bilateral perihilar alveolar densities and peripheral interstitial infiltrates in the mid to lower lung zones now present, worrisome for CHF with pulmonary edema. An inflammatory/infectious process might also have this appearance.. Electronically Signed: Marc Castelan MD at 8:10 EDT , Service support ,
[2021-03-20 06:42] LABS: Anion Gap 10 (5-15); BUN 49 mg/dL (7-18); BUN/Creat Ratio 27.1 RATIO (10-20); Calcium,Total 7.6 mg/dL (8.5-10.1); Chloride 100 mmol/L (98-107); Creatinine, Serum 1.81 mg/dL (0.55-1.02); EST Glomerular Filtration Rate 29 mL/min (>60); Est Glom Filt Rate - Afr Amer 35 mL/min (>60); Estimated Creatinine Clearance 25.48 ml/min; Glucose 129 mg/dL (74-106); Sodium Level 131 mmol/L (136-145)
[2021-03-20 06:56] LABS: Differential Comment SCANNED
--- NOTE | 2021-03-20 07:45 | NURSING ---
Verbal order received from Dr Espinoza to insert and maintain Evans catheter. Evans was inserted by Melany SEO with this RN assisting. Evans was inserted while maintaining sterile field and following hospital policy. patient tolerated without complication.
[2021-03-20] MEDS: Hydroxychloroquine 200 MG Tablet 300 MG PO (10:37)
[2021-03-20] MEDS: Enoxaparin 30 MG/0.3 ML Syringe SC ×2 (10:37→21:50)
[2021-03-20] MEDS: Aspirin E.C. 81 MG Tablet PO (10:37)
--- NOTE | 2021-03-20 10:39 | PN.CARD_ITS ---
Subjective Subjective The patient is now in the ICU secondary to concerns of the development of a fever, increasing shortness of breath, and hypotension with concerns of progressive COVID-19 involving her pulmonary status and a potential component of CHF from her diminished LV systolic function. At the present time she is on IV vasopressor support and BiPAP support. Objective Data Vital Signs: Vital Signs Temp Pulse Resp BP Pulse Ox 98.8 F 132 H 32 H 102/60 94 03/20/21 04:00 03/20/21 08:18 03/20/21 08:18 03/20/21 06:00 03/20/21 08:18 Oxygen Flow Rate (L/min) 2 Oxygen Delivery Method Nasal Cannula Weight: 132 lb 7.965 oz Body Mass Index (BMI) 31.6 Intake & Output: Intake and Output for Last 24 Hours 03/18/21 03/19/21 03/20/21 23:59 23:59 23:59 Intake Total 520 / 520 2697.20 / 2701.90 117.5 / 117.5 Output Total 1100 / 1100 0 / 0 200 / 200 Balance -580 / -580 2697.20 / 2701.90 -82.5 / -82.5 Lab / Micro Data Result Diagrams: 03/20/21 05:00 03/20/21 05:00 Labs: Laboratory Results - last 24 hr 03/19/21 11:53: POC Glucose 144 H 03/19/21 16:03: POC Glucose 102 03/20/21 00:04: POC Glucose 215 H 03/20/21 05:00: WBC 3.8 L, RBC 2.59 L, Hgb 8.0 L, Hct 24.4 L, MCV 94.2, MCH 30.9, MCHC 32.8, RDW Std Deviation 46.3 H, RDW Coeff of Devendra 13.3, Plt Count 205, MPV 10.8, Immature Gran % (Auto) 0.500, Neut % (Auto) 84.8 H, Lymph % (Auto) 8.9 L, [place] % (Auto) 5.8, Eos % (Auto) 0.0, Baso % (Auto) 0.0, Absolute Neuts (auto) 3.2, Absolute Lymphs (auto) 0.34 L, Nucleated RBC % 0, Differential Comment SCANNED, Diff Path Review December03/20/21 05:00: Sodium 131 L, Potassium 4.0, Chloride 100, Carbon Dioxide 21.0, Anion Gap 10, BUN 49 H, Creatinine 1.81 H, Estim Creat Clear Calc 25.48, Est GFR (MDRD) Af Amer 35 L, Est GFR (MDRD) Non-Af 29 L, BUN/Creatinine Ratio 27.1 H, Gl ucose 129 H, Calcium 7.6 L Cardiology Labs/Tests 03/20/21 05:00: WBC 3.8 L, RBC 2.59 L, Hgb 8.0 L, Hct 24.4 L, MCV 94.2, MCH 30.9, MCHC 32.8, Plt Count 205, MPV 10.8, Immature Gran % (Auto) 0.500, Neut % (Auto) 84.8 H, Lymph % (Auto) 8.9 L, [place] % (Auto) 5.8, Eos % (Auto) 0.0, Baso % (Auto) 0.0, Absolute Neuts (auto) 3.2, Nucleated RBC % 0 03/20/21 05:00: Sodium 131 L, Potassium 4.0, Chloride 100, Carbon Dioxide 21.0, Anion Gap 10, BUN 49 H, Creatinine 1.81 H, Est GFR (MDRD) Af Amer 35 L, Est GFR (MDRD) Non-Af 29 L, BUN/Creatinine Ratio 27.1 H, Glucose 129 H, Calcium 7.6 L Rhythm: Sinus rhythm EKG: Sinus rhythm; left bundle branch block CXR: Reviewed/report as noted below Radiography Diagnostic Testing: Radiology Impression Chest X-Ray 03/20/21 06:32 IMPRESSION: Borderline cardiac enlargement. Ill-defined bilateral perihilar alveolar densities and peripheral interstitial infiltrates in the mid to lower lung zones now present, worrisome for CHF with pulmonary edema. An inflammatory/infectious process might also have this appearance.. Electronically Signed: Marc Castelan MD at 8:10 EDT , Service support , Physical Exam Const alert, oriented x3 and no apparent distress Orientation / Consciousness: awake HEENT normocephalic, head/scalp atraumatic and hearing grossly normal bilaterally Eyes PERRL, EOMs intact bilaterally and conjunctivae normal Neck full ROM, supple and no JVD Chest inspection of chest normal Resp Auscultation: rhonchi throughout Cardio regular rhythm, S1 normal heart sound and S2 normal heart sound GI normal to inspection, nondistended, normoactive bowel sounds Extremity no pedal edema Psych mental status grossly normal Assessment & Plan Assessment/Plan (1) Non-STEMI (non-ST elevated myocardial infarction): PLAN: The patient has cardiac enzymes compatible with a non-ST segment elevation IA. It is unclear whether this is a primary event or a secondary type II event brought out by supply demand mismatch. The moment she appears to be without acute symptoms of an acute coronary syndrome such as ongoing angina pectoris. She is being followed with her cardiac enzymes and ECGs. Her ECGs have continued to demonstrate an underlying left bundle branch block. She has had a transthoracic echocardiogram performed as noted. Ideally over time, once she has overcome her COVID-19 diagnosis, barring an unforeseen event in the interim, she should be considered for further evaluation with diagnostic cardiac catheterization to evaluate for any obvious CAD contributing to her findings versus being on CAD related. However, at the moment, based upon her concerns of fever, progressive pulmonary findings, hypotension, etc. she is now in the ICU requiring supportive therapy with IV vasopressor agents and BiPAP therapy. (2) Cardiomyopathy: QUALIFIERS: Cardiomyopathy type: unspecified Qualified Code(s): I42.9 - Cardiomyopathy, unspecified PLAN: She does have what appears to be an underlying cardiomyopathy. Based on the echocardiographic images her findings may be compatible with an underlying Takotsubo syndrome. However, underlying CAD cannot necessarily be excluded. Her medications with respect to beta-blockers, diuretics, and TARIQ inhibitor's have been placed on temporary hold based upon her transient low blood pressure. However, based upon her pulmonary status, in addition to her COVID-19 status, there is concern of possible CHF/pulmonary edema. She may eventually need an attempt at diuretic therapy, with her blood pressure being supported in the interim with IV vasopressor, to try and improve her pulmonary status. (3) High cholesterol: PLAN: She should continue risk factor evaluation care as deemed appropriate. (4) Hypertension: QUALIFIERS: Hypertension type: unspecified Qualified Code(s): I10 - Essential (primary) hypertension PLAN: As noted above her blood pressure has been low. Her medications been placed on hold. She did receive IV fluids. However, her pulmonary process progressed potentially combination of COVID-19 and CHF/pulmonary edema. Thus she has now in the ICU receiving pulmonary support with COVID-19 medications. She is not receiving any cardiovascular therapy including diuretic therapy at the moment based on her low blood pressure and the need of IV vasopressor support. However, as noted above, depending upon her pulmonary status, she may need diuretics support to improve her pulmonary process with her IV vasopressor support assisting with blood pressure support in the interim. (5) COVID-19: PLAN: She will continue evaluation care per internal medicine and pulmonology/critical care medicine. Addt'l Comments As noted above, the patient will continue supportive therapy. She has not an ideal candidate for further evaluation with diagnostic cardiac catheterization at this time in the midst of her COVID-19 process and possible sepsis. Also, she does not appear to be an ideal candidate for mechanical hemodynamic support such as intra-aortic balloon pump at this time in the midst of her COVID-19 process and possible sepsis. Depending upon the patient's response to her supportive therapy, if it appears that she requires advanced cardiovascular diagnostic and/or therapeutic procedures, then she should be considered for tra nsfer to a tertiary care center. The patient's case was discussed and reviewed with the patient.
[2021-03-20 10:56] LABS: Alkaline Phosphatase 40 U/L (45-117)
[2021-03-20 11:38] LABS: Procalcitonin 1.14 ng/mL (0.00-0.09)
[2021-03-20] MEDS: dexAMETHasone 4 MG Tablet 6 MG PO (11:40)
[2021-03-20 12:01] LABS: Bedside Glucose 182 mg/dL (70-110)
--- NOTE | 2021-03-20 16:00 | PN.HOSP_ITS ---
Subjective Subjective Patient seen and examined. She was emergently transferred to the ICU yesterday on account of hypotension refractory to fluid resuscitation. She became more short of breath overnight in the ICU and so was started on BiPAP. She did complain of feeling short of breath today but denied any chest pain, palpitations, nausea, vomiting or dizziness. Review of systems otherwise negative. She was initiated on low-dose Levophed yesterday and remains on Levophed. Objective Data Objective Data Vital Signs: Vital Signs Temp Pulse Resp BP Pulse Ox 97.9 F 93 20 H 103/68 97 03/20/21 07:00 03/20/21 15:00 03/20/21 15:00 03/20/21 15:00 03/20/21 15:00 Oxygen Flow Rate (L/min) 6 Oxygen Delivery Method Bi-pap Weight: 132 lb 7.965 oz Body Mass Index (BMI) 31.6 Intake & Output: Intake and Output for Last 24 Hours 03/18/21 03/19/21 03/20/21 23:59 23:59 23:59 Intake Total 520 / 520 2697.20 / 2701.90 466.43 / 466.43 Output Total 1100 / 1100 0 / 0 400 / 400 Balance -580 / -580 2697.20 / 2701.90 66.43 / 66.43 Medical Nutrition Assessment Dietitian: Nutrition Therapy Diagnosis Start: 03/18/21 09:07 Freq: Status: Active Protocol: Document 03/20/21 09:36 (Rec: 03/20/21 09:36 [id number]) Nutrition Malnutrition Evidence of Malnutrition Exists No Intake Problem Inadequate Oral Intake Etiology r/t resp. failure Signs/Symptoms as evidenced by no PO intake x 12 hours Status Active Problem Decreased Nutrient Needs (specify) Etiology - Signs/Symptoms - Status Inactive Problem None at this time Etiology - Signs/Symptoms - Status Inactive Problem Clinical Problem None at this time Etiology - Signs/Symptoms - Status Inactive Problem Recommendation Dietitian Recommendations/Changes continue cardiac diet as ordered when medically appropriate; will d/c fluid restriction Lab / Micro Data Result Diagrams: 03/20/21 05:00 03/20/21 05:00 Labs: Laboratory Results - last 24 hr 03/19/21 16:03: POC Glucose 102 03/20/21 00:04: POC Glucose 215 H 03/20/21 05:00: WBC 3.8 L, RBC 2.59 L, Hgb 8.0 L, Hct 24.4 L, MCV 94.2, MCH 30.9, MCHC 32.8, RDW Std Deviation 46.3 H, RDW Coeff of Devendra 13.3, Plt Count 205, MPV 10.8, Immature Gran % (Auto) 0.500, Neut % (Auto) 84.8 H, Lymph % (Auto) 8.9 L, [place] % (Auto) 5.8, Eos % (Auto) 0.0, Baso % (Auto) 0.0, Absolute Neuts (auto) 3.2, Absolute Lymphs (auto) 0.34 L, Nucleated RBC % 0, Differential Comment SCANNED, Diff Path Review December03/20/21 05:00: Sodium 131 L, Potassium 4.0, Chloride 100, Carbon Dioxide 21.0, Anion Gap 10, BUN 49 H, Creatinine 1.81 H, Estim Creat Clear Calc 25.48, Est GFR (MDRD) Af Amer 35 L, Est GFR (MDRD) Non-Af 29 L, BUN/Creatinine Ratio 27.1 H, Glucose 129 H, Calcium 7.6 L 03/20/21 05:00: Alkaline Phosphatase 40 L 03/20/21 10:55: Lactic Acid 1.0 03/20/21 10:55: B-Natriuretic Peptide 3010.4 H 03/20/21 10:55: Procalcitonin 1.14 H 03/20/21 11:48: POC Glucose 182 H Micro: Microbiology 03/17/21 07:26 Mucosa - Nose SARS-CoV-2 Antigen (Rapid) - Final SARS-CoV-2 (COVID 19) Radiography Diagnostic Testing: Radiology Impression Chest X-Ray 03/20/21 06:32 IMPRESSION: Borderline cardiac enlargement. Ill-defined bilateral perihilar alveolar densities and peripheral interstitial infiltrates in the mid to lower lung zones now present, worrisome for CHF with pulmonary edema. An inflammatory/infectious process might also have this appearance.. Electronically Signed: Marc Castelan MD at 8:10 EDT , Service support , Physical Exam Const alert, oriented x3 and no apparent distress General Appearance: cooperative Exam Limitations: no limitations HEENT normocephalic, head/scalp atraumatic, hearing grossly normal bilaterally and moist oral mucous membranes Head and Scalp: normocephalic Eyes PERRL, EOMs intact bilaterally and conjunctivae normal Neck no lymphadenopathy Resp Resp Narrative: coarse crackles in all lung handy bilaterally, on BIPAP Cardio regular rhythm, S1 normal heart sound, S2 normal heart sound and no murmurs Cardio Narrative: tachycardic GI normal to inspection, nondistended, normoactive bowel sounds, soft to palpation, non-tender and non-distended Extremity normal to inspection, full ROM and no clubbing, cyanosis or edema Peripheral Pulses: Yes pulses 2+ throughout Skin no rashes or lesions noted Neuro oriented x3, CN's II-XII intact bilaterally and moves all extremities Sensorium / Orientation: awake and alert Psych affect normal Assessment & Plan Assessment/Plan (1) Non-STEMI (non-ST elevated myocardial infarction): (2) COVID: PLAN: #Acute hypoxic respiratory failure due to COVID 19 infection and acute on chronic heart failure * patient now on BIPAP after she became more short of breath * lasix was held due to hypotension and she is now on levophed * on IV decadron; started on remdesivir * critical care on board * breathing treatments with bronchodilators * titrate oxygen to maintain sats >90% * #Shock, likely hypovolemic vs septic * patient remeined hypotensive, refractory to fluids * now on levophed * titrate levophed to maintain MAP >65 * #STEFAN on CKD * Cr is 1.81, baseline is ~ 1.2-1.3 * likely due to shock. On levophed now * trend CR * if kidney function worsens, to consider nephrology consult * #Elevated D Dimer * CTA was negative for PE * on lovenox * #Nonstemi * high sensitivity troponin was elevated at 254 and trended further upwards to 904 * BNP done elevated at 2418 * cardiology on board; think it is a type 2 nonstemi likely due to covid 19 infection. * on aspirin an high intensity statin * 2D echo showed EF of 15% with severe segmental LV dysfunction; per cardiology, this may be compatible with Takotsubo;s cardiomyopathy * to be evaluated with cardiac cath once covid has resolved. * #Acute heart failure of unknown etiology * BNP was 2415 * 2D echo as above. * lasix held due to shock * monitor intake and output strictly. # #Asymptomatic bacteriuria * stable. No symptoms. * #History of SLE * On hydroxychloroquine. * #Type 2 diabetes mellitus: Hold oral meds. Insulin sliding scale. Checks AC at bedtime. #Hypertension: BP meds and lasix held due to hypotension. #Hyperlipidemia: Continue statin. DVT prophylaxis: Lovenox CODE STATUS: Full code * Charges/Coding Visit Charges Inpatient E&M: 18595 Subs Hosp L3
[2021-03-20] MEDS: Atorvastatin Calcium 40 MG Tablet PO (21:50)
[2021-03-20] MEDS: 0.9% Saline Lock 10 ML Syringe IV (21:51)
[2021-03-20 22:35] LABS: Bedside Glucose 178 mg/dL (70-110)
[2021-03-21] VITALS (64 sets, daily range): BP systolic 76–118; BP diastolic 45–86; PULSE 99–129; RESP 12–27; TEMP 36.9–38; O2SAT 90–100
[2021-03-21 05:58] LABS: Absolute Lymphocyte Count 0.58 X10^3/uL (0.83-4.51); Absolute Neutrophil Count 2.4 X10^3/uL (2.0-7.7); Hematocrit 27.6 % (37-47); Lymphocyte # 0.58 X10^3/ul (0.83-4.51); Lymphocyte % 18.2 % (19-41); Mean Corp Hgb Conc 32.6 g/dL (32-36); Mean Corpuscular Hgb 30.6 pg (27.0-32.0); Mean Corpuscular Volume 93.9 fL (81-99); Mean Platelet Vol. 10.7 fl (6.2-12.0); Monocyte# 0.17 X10^3/uL; Monocyte% 5.3 % (0-10); NRBC Flagged by Analyzer 0 % (0-5); Neutrophil # 2.41 X10^3/uL (2.7-7.7); Neutrophil % 75.9 % (47-70); POSITIVE DIFFERENTIAL YES; Platelet Count 203 K/mm3 (150-450); RBC Distribution Width CV 13.2 % (11.6-14.6); RBC Distribution Width SD 45.5 fl (35.1-43.9); Red Blood Count 2.94 M/mm3 (4.2-5.4); White Blood Count 3.2 K/mm3 (4.4-11.0)
[2021-03-21 06:04] LABS: Differential Indicated SCAN CRITERIA MET
[2021-03-21 06:42] LABS: ALB/GLOB Ratio 0.7 RATIO (0.9-2.4); AST(SGOT) 94 U/L (15-37); Alanine Aminotransfer ALT/SGPT 55 U/L (13-56); Albumin, Serum 2.6 g/dL (3.2-5.0); Alkaline Phosphatase 40 U/L (45-117); Anion Gap 10 (5-15); BUN 51 mg/dL (7-18); BUN/Creat Ratio 34.7 RATIO (10-20); Calcium,Total 7.8 mg/dL (8.5-10.1); Chloride 101 mmol/L (98-107); Creatinine, Serum 1.47 mg/dL (0.55-1.02); EST Glomerular Filtration Rate 37 mL/min (>60); Est Glom Filt Rate - Afr Amer 45 mL/min (>60); Estimated Creatinine Clearance 30.22 ml/min; Globulin 3.5 g/dL (2.2-4.2); Glucose 111 mg/dL (74-106); Potassium 3.4 mmol/L (3.5-5.1); Protein, Total 6.1 g/dL (6.4-8.2); Sodium Level 135 mmol/L (136-145)
--- NOTE | 2021-03-21 08:50 | PCM.PN.INT ---
Assessment & Plan Assessment/Plan (1) COVID-19: PLAN: RECOMMENDATIONS: 1. Continue BiPAP and wean FiO2 to maintain oxygen saturations at or above 90%. 2. Hold diuretics for now, given hemodynamic instability and need for vasopressor support. 3. Continue Levophed and wean to maintain a mean arterial pressure at or above 65 mmHg. Wean by 1 mcg 4. Continue Decadron and Remdesivir. 5. Continue Lovenox as ordered. 6. Await cardiology recommendations IMPRESSIONS: 1. Acute hypoxemic respiratory failure Likely multifactorial in etiology with COVID-19 infection and decompensated heart failure contributing. Respiratory status appears to be improving. Attempts to diurese the patient will be limited by the fact that she is requiring vasopressor support. Patient restarted on Decadron and Remdesivir given deterioration. Continue patient on BiPAP and wean FiO2 to maintain oxygen saturations at or above 90%. 2. Undifferentiated shock Unclear etiology for the patient's hypotension. However, sepsis and hypovolemia are potential causes. Patient also has significantly depressed EF. Nevertheless, given the patient's severely depressed ejection fraction, I would recommend conservative use of supplemental IV fluids. For now, the patient will be continued on Levophed to maintain a mean arterial pressure at or above 65 mmHg. Will attempt to wean pressors as tolerated. Endorgan damage demonstrated by elevation of creatinine. 3. Non-ST segment elevation LA/acute systolic heart failure (Takotsubo cardiomyopathy) Cardiology is following to assist with medical management. Unclear if patient has had a heart catheterization in the past to rule out cardiovascular disease. Viral myocarditis in the setting of COVID-19 also a possibility. 4. Acute on chronic kidney disease Likely prerenal in etiology. Continue Levophed to maintain hemodynamic stability. Continue to monitor urine output. If creatinine continues to worsen, consider nephrology consultation. 5. Obesity/hypertension/diabetes mellitus/hyperlipidemia/history of SLE Complicates care, management, recovery and prognosis. Continue to hold antihypertensives. TIME: 35 minutes of critical care time, independent of procedures, was spent addressing the patient's acute hypoxemic respiratory failure, COVID-19 pneumonia, decompensated heart failure, undifferentiated shock, non-ST segment elevation LA, acute on chronic kidney disease, review of all data and collaboration with the care team. (5:30 AM to 6:30 AM) Subjective Subjective Patient did well overnight. No acute issues were reported. Patient continues to report a productive cough and feels significantly improved today compared to yesterday. Patient still requires pressor therapy to maintain adequate blood pressures. Objective Data Objective Data Vital Signs: Vital Signs Temp Pulse Resp BP Pulse Ox 38.0 C H 128 H 27 H 107/58 L 100 03/21/21 07:00 03/21/21 08:00 03/21/21 08:00 03/21/21 08:30 03/21/21 08:00 Oxygen Flow Rate (L/min) 6 Oxygen Delivery Method Nasal Cannula Weight: 57.9 kg Body Mass Index (BMI) 31.6 Intake & Output: Intake and Output for Last 24 Hours 03/19/21 03/20/21 03/21/21 23:59 23:59 23:59 Intake Total 2697.20 / 2701.90 599.60 / 612.13 145.54 / 145.54 Output Total 0 / 0 1250 / 2150 0 / 0 Balance 2697.20 / 2701.90 -650.40 / -1537.87 -1904.46 / -1904.46 Medical Nutrition Assessment Dietitian: Nutrition Therapy Diagnosis Start: 03/18/21 09:07 Freq: Status: Active Protocol: Document 03/20/21 09:36 (Rec: 03/20/21 09:36 [id number]) Nutrition Malnutrition Evidence of Malnutrition Exists No Intake Problem Inadequate Oral Intake Etiology r/t resp. failure Signs/Symptoms as evidenced by no PO intake x 12 hours Status Active Problem Decreased Nutrient Needs (specify) Etiology - Signs/Symptoms - Status Inactive Problem None at this time Etiology - Signs/Symptoms - Status Inactive Problem Clinical Problem None at this time Etiology - Signs/Symptoms - Status Inactive Problem Recommendation Dietitian Recommendations/Changes continue cardiac diet as ordered when medically appropriate; will d/c fluid restriction Lab / Micro Data Result Diagrams: 03/21/21 04:40 03/21/21 04:40 Labs: Laboratory Results - last 24 hr 03/20/21 05:00: Alkaline Phosphatase 40 L 03/20/21 10:55: Lactic Acid 1.0 03/20/21 10:55: B-Natriuretic Peptide 3010.4 H 03/20/21 10:55: Procalcitonin 1.14 H 03/20/21 11:48: POC Glucose 182 H 03/20/21 21:49: POC Glucose 178 H 03/21/21 04:40: WBC 3.2 L, RBC 2.94 L, Hgb 9.0 L, Hct 27.6 L, MCV 93.9, MCH 30.6, MCHC 32.6, RDW Std Deviation 45.5 H, RDW Coeff of Devendra 13.2, Plt Count 203, MPV 10.7, Immature Gran % (Auto) 0.600, Neut % (Auto) 75.9 H, Lymph % (Auto) 18.2 L, [place] % (Auto) 5.3, Eos % (Auto) 0.0, Baso % (Auto) 0.0, Absolute Neuts (auto) 2.4, Absolute Lymphs (auto) 0.58 L, Nucleated RBC % 0, Diff Path Review December03/21/21 04:40: Sodium 135 L, Potassium 3.4 L, Chloride 101, Carbon Dioxide 24.0, Anion Gap 10, BUN 51 H, Creatinine 1.47 H, Estim Creat Clear Calc 30.22, Est GFR (MDRD) Af Amer 45 L, Est GFR (MDRD) Non-Af 37 L, BUN/Creatinine Ratio 34.7 H, Glucose 111 H, Calcium 7.8 L, Total Bilirubin 0.50, AST 94 H, ALT 55, Alkaline Phosphatase 40 L, Total Protein 6.1 L, Albumin 2.6 L, Globulin 3.5, Albumin/Globulin Ratio 0.7 L Micro: Microbiology 03/17/21 07:26 Mucosa - Nose SARS-CoV-2 Antigen (Rapid) - Final SARS-CoV-2 (COVID 19) Physical Exam Const alert, oriented x3 and no apparent distress General Appearance: cooperative; Negative for on BiPAP Nutritional Appearance: obese HEENT normocephalic and head/scalp atraumatic Eyes PERRL and EOMs intact bilaterally Neck supple General: trachea midline Resp Effort and Inspection: tachypneic and labored Auscultation: rales and diminished lung sounds; Negative for rhonchi or wheezes Cardio S1 normal heart sound and S2 normal heart sound Rate: tachycardic GI normal to inspection, nondistended, normoactive bowel sounds Extremity no clubbing, cyanosis or edema Skin no rashes or lesions noted Neuro CN's II-XII intact bilaterally and no focal motor deficits Psych cooperative and affect normal Charges/Coding Procedures Hospitalists Procedures: 72184 Critial Care 1st Hr
[2021-03-21] MEDS: Hydroxychloroquine 200 MG Tablet 300 MG PO (10:32)
[2021-03-21] MEDS: Aspirin E.C. 81 MG Tablet PO (10:32)
[2021-03-21] MEDS: dexAMETHasone 4 MG Tablet 6 MG PO (10:32)
[2021-03-21] MEDS: Enoxaparin 30 MG/0.3 ML Syringe SC ×2 (10:32→21:21)
[2021-03-21] MEDS: Potassium Chloride Oral Tablet 20 MEQ PO ×2 (10:32→16:53)
[2021-03-21] MEDS: Nystatin Powder 15gm Bottle 1 APPLIC TOPICAL ×2 (10:33→21:23)
[2021-03-21] MEDS: 0.9% Saline Lock 10 ML Syringe IV ×2 (10:36→21:24)
--- NOTE | 2021-03-21 10:53 | PN.HOSP_ITS ---
Subjective Subjective Patient seen and examined. She is off BIPAP and now on 6L of oxygen. SHe feels much better and has no complaints. Review of systems is otherwise negative. She has remained hemodynamically stable. Potassium is 3.4. Cr is down to 1.47. Objective Data Objective Data Vital Signs: Vital Signs Temp Pulse Resp BP Pulse Ox 100.4 F H 128 H 20 H 112/53 L 100 03/21/21 07:00 03/21/21 09:00 03/21/21 09:00 03/21/21 09:30 03/21/21 09:00 Oxygen Flow Rate (L/min) 6 Oxygen Delivery Method Nasal Cannula Weight: 127 lb 10.362 oz Body Mass Index (BMI) 31.6 Intake & Output: Intake and Output for Last 24 Hours 03/19/21 03/20/21 03/21/21 23:59 23:59 23:59 Intake Total 2697.20 / 2701.90 599.60 / 612.13 161.02 / 161.02 Output Total 0 / 0 1250 / 2150 2049 / 2049 Balance 2697.20 / 2701.90 -650.40 / -1537.87 -1888.98 / -1888.98 Medical Nutrition Assessment Dietitian: Malnutrition Criteria Met Start: 03/18/21 09:07 Freq: Status: Active Protocol: Document 03/20/21 09:36 (Rec: 03/20/21 09:36 [id number]) Nutrition Malnutrition Evidence of Malnutrition Exists No Intake Problem Inadequate Oral Intake Etiology r/t resp. failure Signs/Symptoms as evidenced by no PO intake x 12 hours Status Active Problem Decreased Nutrient Needs (specify) Etiology - Signs/Symptoms - Status Inactive Problem None at this time Etiology - Signs/Symptoms - Status Inactive Problem Clinical Problem None at this time Etiology - Signs/Symptoms - Status Inactive Problem Recommendation Dietitian Recommendations/Changes continue cardiac diet as ordered when medically appropriate; will d/c fluid restriction Lab / Micro Data Result Diagrams: 03/21/21 04:40 03/21/21 04:40 Labs: Laboratory Results - last 24 hr 03/20/21 05:00: Alkaline Phosphatase 40 L 03/20/21 10:55: Lactic Acid 1.0 03/20/21 10:55: B-Natriuretic Peptide 3010.4 H 03/20/21 10:55: Procalcitonin 1.14 H 03/20/21 11:48: POC Glucose 182 H 03/20/21 21:49: POC Glucose 178 H 03/21/21 04:40: WBC 3.2 L, RBC 2.94 L, Hgb 9.0 L, Hct 27.6 L, MCV 93.9, MCH 30.6, MCHC 32.6, RDW Std Deviation 45.5 H, RDW Coeff of Devendra 13.2, Plt Count 203, MPV 10.7, Immature Gran % (Auto) 0.600, Neut % (Auto) 75.9 H, Lymph % (Auto) 18.2 L, [place] % (Auto) 5.3, Eos % (Auto) 0.0, Baso % (Auto) 0.0, Absolute Neuts (auto) 2.4, Absolute Lymphs (auto) 0.58 L, Nucleated RBC % 0, Diff Path Review December03/21/21 04:40: Sodium 135 L, Potassium 3.4 L, Chloride 101, Carbon Dioxide 24.0, Anion Gap 10, BUN 51 H, Creatinine 1.47 H, Estim Creat Clear Calc 30.22, Est GFR (MDRD) Af Amer 45 L, Est GFR (MDRD) Non-Af 37 L, BUN/Creatinine Ratio 34.7 H, Glucose 111 H, Calcium 7.8 L, Total Bilirubin 0.50, AST 94 H, ALT 55, Alkaline Phosphatase 40 L, Total Protein 6.1 L, Albumin 2.6 L, Globulin 3.5, Albumin/Globulin Ratio 0.7 L Micro: Microbiology 03/17/21 07:26 Mucosa - Nose SARS-CoV-2 Antigen (Rapid) - Final SARS-CoV-2 (COVID 19) Physical Exam Const alert, oriented x3 and no apparent distress General Appearance: cooperative Exam Limitations: no limitations HEENT normocephalic, head/scalp atraumatic, hearing grossly normal bilaterally and moist oral mucous membranes Head and Scalp: normocephalic Eyes PERRL, EOMs intact bilaterally and conjunctivae normal Neck no lymphadenopathy Resp Resp Narrative: minimally diminished breath sounds bibasally, no wheezes or crackles. On 6L of oxygen by nasal cannula Cardio regular rhythm, S1 normal heart sound, S2 normal heart sound and no murmurs Cardio Narrative: tachycardic GI normal to inspection, nondistended, normoactive bowel sounds, soft to palpation, non-tender and non-distended Extremity normal to inspection, full ROM and no clubbing, cyanosis or edema Peripheral Pulses: Yes pulses 2+ throughout Skin no rashes or lesions noted Neuro oriented x3, CN's II-XII intact bilaterally and moves all extremities Sensorium / Orientation: awake and alert Psych affect normal Assessment & Plan Assessment/Plan (1) Non-STEMI (non-ST elevated myocardial infarction): (2) COVID: PLAN: #Acute hypoxic respiratory failure due to COVID 19 infection and acute on chronic heart failure * improving. Now on 6L of oxygen by nasal canula. weaned off bipap * remains on levophed * lasix remains on hold. * on IV decadron; started on remdesivir * critical care on board * breathing treatments with bronchodilators * titrate oxygen to maintain sats >90% * #Shock, likely hypovolemic vs septic * patient remains on levophed * titrate levophed MAP >65 * #STEFAN on CKD * Cr is 1.47, baseline is ~ 1.2-1.3 * resolving. * trend Cr * #Elevated D Dimer * CTA was negative for PE * on lovenox * #Nonstemi * high sensitivity troponin was elevated at 254 and trended further upwards to 904 * BNP done elevated at 2418 * cardiology on board; think it is a type 2 nonstemi likely due to covid 19 infection. * on aspirin an high intensity statin * 2D echo showed EF of 15% with severe segmental LV dysfunction; per cardiology, this may be compatible with Takotsubo;s cardiomyopathy * to be evaluated with cardiac cath once covid has resolved. * #Acute heart failure with reduced EF * BNP was 2415 * 2D echo as above. * lasix held due to shock * monitor intake and output strictly. #History of SLE * On hydroxychloroquine. * #Type 2 diabetes mellitus: Hold oral meds. Insulin sliding scale. Checks AC at bedtime. #Hypertension: BP meds and lasix held due to hypotension. #Hyperlipidemia: Continue statin. DVT prophylaxis: Lovenox CODE STATUS: Full code * Charges/Coding Visit Charges Inpatient E&M: 03680 Subs Hosp L3
--- NOTE | 2021-03-21 11:53 | PCM.PN.CARD ---
Documented by User: WILY Barker 03/21/21 12:38 Subjective Subjective Pt is feeling better than yesterday. She is able to sit in her chair today. She remains in ICU. She continues to have issues with low blood pressures. Objective Data Vital Signs: Vital Signs Temp Pulse Resp BP Pulse Ox 99.0 F 124 H 25 H 91/45 L 90 03/21/21 11:00 03/21/21 11:18 03/21/21 11:00 03/21/21 11:30 03/21/21 11:00 Oxygen Flow Rate (L/min) 6 Oxygen Delivery Method Nasal Cannula Weight: 127 lb 10.362 oz Body Mass Index (BMI) 31.6 Intake & Output: Intake and Output for Last 24 Hours 03/19/21 03/20/21 03/21/21 23:59 23:59 23:59 Intake Total 2697.20 / 2701.90 599.60 / 612.13 308.67 / 308.67 Output Total 0 / 0 1250 / 2150 2300 / 2300 Balance 2697.20 / 2701.90 -650.40 / -1537.87 -1990.33 / -1990.33 Lab / Micro Data Result Diagrams: 03/21/21 04:40 03/21/21 04:40 Labs: Laboratory Results - last 24 hr 03/20/21 11:48: POC Glucose 182 H 03/20/21 21:49: POC Glucose 178 H 03/21/21 04:40: WBC 3.2 L, RBC 2.94 L, Hgb 9.0 L, Hct 27.6 L, MCV 93.9, MCH 30.6, MCHC 32.6, RDW Std Deviation 45.5 H, RDW Coeff of Devendra 13.2, Plt Count 203, MPV 10.7, Immature Gran % (Auto) 0.600, Neut % (Auto) 75.9 H, Lymph % (Auto) 18.2 L, [place] % (Auto) 5.3, Eos % (Auto) 0.0, Baso % (Auto) 0.0, Absolute Neuts (auto) 2.4, Absolute Lymphs (auto) 0.58 L, Nucleated RBC % 0, Diff Path Review December03/21/21 04:40: Sodium 135 L, Potassium 3.4 L, Chloride 101, Carbon Dioxide 24.0, Anion Gap 10, BUN 51 H, Creatinine 1.47 H, Estim Creat Clear Calc 30.22, Est GFR (MDRD) Af Amer 45 L, Est GFR (MDRD) Non-Af 37 L, BUN/Creatinine Ratio 34.7 H, Glucose 111 H, Calcium 7.8 L, Total Bilirubin 0.50, AST 94 H, ALT 55, Alkaline Phosphatase 40 L, Total Protein 6.1 L, Albumin 2.6 L, Globulin 3.5, Albumin/Globulin Ratio 0.7 L Micro: Microbiology 03/20/21 11:45 Urine Catheter - Evans Urine Culture - Preliminary GNR lactose front desk team member Cardiology Labs/Tests 03/21/21 04:40: WBC 3.2 L, RBC 2.94 L, Hgb 9.0 L, Hct 27.6 L, MCV 93.9, MCH 30.6, MCHC 32.6, Plt Count 203, MPV 10.7, Immature Gran % (Auto) 0.600, Neut % (Auto) 75.9 H, Lymph % (Auto) 18.2 L, [place] % (Auto) 5.3, Eos % (Auto) 0.0, Baso % (Auto) 0.0, Absolute Neuts (auto) 2.4, Nucleated RBC % 0 03/21/21 04:40: Sodium 135 L, Potassium 3.4 L, Chloride 101, Carbon Dioxide 24.0, Anion Gap 10, BUN 51 H, Creatinine 1.47 H, Est GFR (MDRD) Af Amer 45 L, Est GFR (MDRD) Non-Af 37 L, BUN/Creatinine Ratio 34.7 H, Glucose 111 H, Calcium 7.8 L, Total Bilirubin 0.50 Rhythm: EKG: ECHO: 03/18/2021 Severe segmental systolic dysfunction (see wall motion). The estimated ejection fraction is 15 %. The left atrium is mildly enlarged. There is mild mitral annular calcification. Mild diffuse mitral valve thickening. The mitral papillary muscle appears thickened and/or calcified. Mild (1+) mitral valve insufficiency. Mild tricuspid valve insufficiency. Mild to moderate aortic stenosis. Right ventricular systolic pressure estimated to be 41 mmHg. Diastolic function is indeterminate. Stress Test: Cardiac Cath: PCI: CT Surgery: Holter monitor: EPS: PPM: CXR: Chest CT Scan: Radiography Diagnostic Testing: Radiology Impression Chest X-Ray 03/20/21 06:32 IMPRESSION: Borderline cardiac enlargement. Ill-defined bilateral perihilar alveolar densities and peripheral interstitial infiltrates in the mid to lower lung zones now present, worrisome for CHF with pulmonary edema. An inflammatory/infectious process might also have this appearance.. Electronically Signed: Marc Castelan MD at 8:10 EDT , Service support , Physical Exam Const alert, oriented x3 and no apparent distress Orientation / Consciousness: awake HEENT normocephalic, head/scalp atraumatic and hearing grossly normal bilaterally Eyes PERRL, EOMs intact bilaterally and conjunctivae normal Neck full ROM, supple and no JVD Chest inspection of chest normal Resp Auscultation: rhonchi throughout Cardio regular rhythm, S1 normal heart sound and S2 normal heart sound GI normal to inspection, nondistended, normoactive bowel sounds Extremity no pedal edema Psych mental status grossly normal Assessment & Plan Assessment/Plan (1) Non-STEMI (non-ST elevated myocardial infarction): PLAN: The patient has cardiac enzymes compatible with a non-ST segment elevation CT. It is unclear whether this is a primary event or a secondary type II event brought out by supply demand mismatch. At this time, she appears to be without acute symptoms of an acute coronary syndrome such as ongoing angina pectoris. She is being followed with her cardiac enzymes and ECGs. Her ECGs have continued to demonstrate an underlying left bundle branch block. She has had a transthoracic echocardiogram performed as noted. Ideally over time, once she has overcome her COVID-19 diagnosis, barring an unforeseen event in the interim, she should be considered for further evaluation with diagnostic cardiac catheterization to evaluate for any obvious CAD contributing to her findings versus being on CAD related. However, at the moment, based upon her concerns of fever, progressive pulmonary findings, hypotension, etc. she is now in the ICU requiring supportive therapy with IV vasopressor agents. (2) Cardiomyopathy: QUALIFIERS: Cardiomyopathy type: unspecified Qualified Code(s): I42.9 - Cardiomyopathy, unspecified PLAN: She does have what appears to be an underlying cardiomyopathy. Based on the echocardiographic images her findings may be compatible with an underlying Takotsubo syndrome. However, underlying CAD cannot necessarily be excluded. Her medications with respect to beta-blockers, diuretics, and TARIQ inhibitor's have been placed on temporary hold based upon her transient low blood pressure. However, based upon her pulmonary status, in addition to her COVID-19 status, there is concern of possible CHF/pulmonary edema. She may eventually need an attempt at diuretic therapy, with her blood pressure being supported in the interim with IV vasopressor, to try and improve her pulmonary status. (3) High cholesterol: PLAN: She should continue risk factor evaluation care as deemed appropriate. (4) Hypertension: QUALIFIERS: Hypertension type: unspecified Qualified Code(s): I10 - Essential (primary) hypertension PLAN: As noted above her blood pressure has been low. Her medications been placed on hold. She did receive IV fluids. However, her pulmonary process progressed potentially combination of COVID-19 and CHF/pulmonary edema. Thus she has now in the ICU receiving pulmonary support with COVID-19 medications. She is not receiving any cardiovascular therapy including diuretic therapy at the moment based on her low blood pressure and the need of IV vasopressor support. However, as noted above, depending upon her pulmonary status, she may need diuretics support to improve her pulmonary process with her IV vasopressor support assisting with blood pressure support in the interim. (5) COVID-19: PLAN: She will continue evaluation care per internal medicine and pulmonology/critical care medicine. Documented by User: Dr. Joselito Hebert MD 03/21/21 17:16 Lab / Micro Data Result Diagrams: 03/21/21 04:40 03/21/21 04:40 Assessment & Plan Addt'l Comments The patient's case was independently evaluated and examined. The patient has been in bed and out of bed today. The patient's examination has demonstrated a regular rhythm with a normal S1-S2 and on pulmonary evaluation diminished breath sounds. The patient has continued to require IV vasopressor support for her blood pressure. At the present time she is continuing multi specialty evaluation and care based upon her multiple conditions. Hopefully over time as her COVID-19 process proceeds/improves she may eventually become a candidate for further evaluation in the cardiac catheterization laboratory. The patient's case has been discussed and reviewed with Dr. Espinoza. The patient's case was also discussed and reviewed with WILY Gallegos. This note was generated using a voice recognition system and there may be incorrect words, spelling or punctuation that were not noted when reviewing the office note prior to saving.
[2021-03-21 12:06] LABS: Bedside Glucose 116 mg/dL (70-110)
[2021-03-21 12:30] LABS: Bedside Glucose 93 mg/dL (70-110)
--- NOTE | 2021-03-21 13:39 | EKG12_ITS ---
Test Reason : Blood Pressure : / mmHG Vent. Rate : 120 BPM Atrial Rate : 120 BPM P-R Int : 162 ms QRS Dur : 164 ms QT Int : 404 ms P-R-T Axes : 006 014 200 degrees QTc Int : 570 ms Sinus tachycardia Left bundle branch block Abnormal ECG Confirmed by MANDEEP RSACON, SATNAM ([id number]), advertising editor TIN BURRIS ([id number]) on 03/23/2021 11:12:40 AM Referred By: Confirmed By:SATNAM KAUFMAN MD
[2021-03-21 13:51] LABS: Mucous, Urine 0 SEEN /hpf (<or=2+)
--- NOTE | 2021-03-21 13:52 | EKG12_ITS ---
Test Reason : Blood Pressure : / mmHG Vent. Rate : 135 BPM Atrial Rate : 135 BPM P-R Int : 000 ms QRS Dur : 164 ms QT Int : 368 ms P-R-T Axes : 000 000 165 degrees QTc Int : 552 ms Wide QRS tachycardia Consider Sinus Tachycardia Left bundle branch block Abnormal ECG Confirmed by MANDEEP RASCON, SATNAM ([id number]), society editor TIN BURRIS ([id number]) on 03/23/2021 11:03:48 AM Referred By: VIRGILIO Confirmed By:SATNAM KAUFMAN MD
[2021-03-21 13:55] LABS: Color, Urine Yellow (Yellow); Glucose, Dipstick Normal (Normal); Ketone-Dipstick 5 mg/dl (Negative); Leukocyte Esterase-Dipstick 500 /ul (Negative); Nitrite-Dipstick Negative (Negative); Occult Blood-Urine 50 /ul (Negative); Protein-Dipstick 30 mg/dl (Negative); Specific Gravity, Urine 1.025 (1.002-1.030); Urine Bilirubin Dipstick Negative (Negative); Urine Clarity Sl. Cloudy (Clear); Urine Urobilinogen Normal (Normal)
[2021-03-21 14:01] LABS: Bacteria 1+ /hpf (None Seen); Red Blood Cells-Urine 0-5 SEEN /hpf (0-5); Squamous Epithelial Cells - UA 0-5 SEEN /hpf (5-10); White Blood Cells 25-50 SEEN /hpf (0-5)
--- NOTE | 2021-03-21 14:50 | PCM.PN.ID ---
Physical Exam Narrative Feeling much better, remains on pressors, no complaints. No fever, no abd pain. Const alert General Appearance: cooperative Resp Auscultation: diminished lung sounds Cardio regular rate and regular rhythm GI normal to inspection, nondistended, normoactive bowel sounds Skin no rashes or lesions noted ID ID: Route of nutrition/ use of supplements: [] Nutritional Intake: [] IV Site: [] Evans Catheter: [] Assessment & Plan Assessment/Plan (1) COVID-19: PLAN: Sx started 03/17. Unvaccinated. On dex and remdesivir, also on pressors. Feeling much better. Some low grade temps. Wbc 3. Ucx with 11-25k GNR, not clear if this represents true infection. Will check UA. Will hold off on starting abx. Recommend vaccine after 20 days of quarantine from symptom start 03/17. Will follow
--- NOTE | 2021-03-21 14:53 | CHAPLAIN ---
Type of Pastoral Visit ___ Initial Visit ___ Follow-up Visit ___ On-call Visit ___ General Patient Visit ___ Spiritual Assessment ___ Family Conference ___ Bereavement ___ Rapid Response ___ Code Blue _x__ Other (describe below) Pastoral Care Referral From _x__ Patient ___ Family ___ Nurse ___ Physician ___ Autos Disassembler ___ Cancer Registrar ___ Other (describe below) Sacrament/Intervention _x__ Active listening ___ Anointing ___ Christian ___ Bereavement ___ Communion ___ Lidya exploration ___ ___ Life review _x__ Prayer ___ Reconciliation ___ Sacrament of Sick ___ Supportive presence ___ Wedding _x__ Other (describe below) Pastoral Comments phone call made into isolation room; pt answers and states she is feeling much better; pt says that staff and family are caring for all her needs; pt does welcome a prayer over the phone
[2021-03-21 15:39] LABS: Pathologist Review Reviewed
[2021-03-21 15:48] LABS: Pathologist Review Reviewed
[2021-03-21] MEDS: Insulin Lispro 100 UNIT/ML INSULN.PEN SC ×2 (16:51→21:22)
[2021-03-21] MEDS: Alteplase 2 MG/2 ML Vial IV (16:51)
[2021-03-21] MEDS: TITRATION PARAMETER CHANGE 1 EACH IV (20:34)
[2021-03-21 21:01] LABS: Bedside Glucose 351 mg/dL (70-110)
[2021-03-21] MEDS: Atorvastatin Calcium 40 MG Tablet PO (21:22)
[2021-03-21 23:10] LABS: Bedside Glucose 436 mg/dL (70-110)
[2021-03-22] VITALS (27 sets, daily range): BP systolic 87–120; BP diastolic 49–79; PULSE 83–134; RESP 15–22; TEMP 36.2–39.3; O2SAT 75–99
[2021-03-22 05:06] LABS: Absolute Lymphocyte Count 0.38 X10^3/uL (0.83-4.51); Absolute Neutrophil Count 1.9 X10^3/uL (2.0-7.7); Hematocrit 25.7 % (37-47); Hemoglobin 8.5 g/dL (12.0-15.0); Lymphocyte # 0.38 X10^3/ul (0.83-4.51); Lymphocyte % 15.1 % (19-41); Mean Corp Hgb Conc 33.1 g/dL (32-36); Mean Corpuscular Hgb 31.1 pg (27.0-32.0); Mean Corpuscular Volume 94.1 fL (81-99); Mean Platelet Vol. 10.5 fl (6.2-12.0); Monocyte# 0.23 X10^3/uL; Monocyte% 9.1 % (0-10); NRBC Flagged by Analyzer 0 % (0-5); Neutrophil # 1.89 X10^3/uL (2.7-7.7); POSITIVE DIFFERENTIAL YES; Platelet Count 183 K/mm3 (150-450); RBC Distribution Width CV 13.3 % (11.6-14.6); RBC Distribution Width SD 45.4 fl (35.1-43.9); Red Blood Count 2.73 M/mm3 (4.2-5.4); White Blood Count 2.5 K/mm3 (4.4-11.0)
[2021-03-22 05:20] LABS: Differential Indicated SCAN CRITERIA MET
[2021-03-22 05:24] LABS: Differential Comment SCANNED
[2021-03-22 05:25] LABS: AST(SGOT) 59 U/L (15-37); Alanine Aminotransfer ALT/SGPT 43 U/L (13-56); Albumin, Serum 2.4 g/dL (3.2-5.0); Alkaline Phosphatase 39 U/L (45-117); Anion Gap 8 (5-15); BUN 50 mg/dL (7-18); BUN/Creat Ratio 40.3 RATIO (10-20); Bilirubin, Direct 0.11 mg/dL (0.00-0.30); Calcium,Total 7.8 mg/dL (8.5-10.1); Chloride 103 mmol/L (98-107); Creatinine, Serum 1.24 mg/dL (0.55-1.02); EST Glomerular Filtration Rate 45 mL/min (>60); Est Glom Filt Rate - Afr Amer 54 mL/min (>60); Estimated Creatinine Clearance 35.83 ml/min; Glucose 247 mg/dL (74-106); Potassium 4.4 mmol/L (3.5-5.1); Protein, Total 5.4 g/dL (6.4-8.2); Sodium Level 134 mmol/L (136-145)
[2021-03-22] MEDS: Nystatin Powder 15gm Bottle 1 APPLIC TOPICAL ×3 (05:51→21:47)
--- NOTE | 2021-03-22 07:17 | PCM.PN.INT ---
Assessment & Plan Assessment/Plan (1) COVID-19: PLAN: RECOMMENDATIONS: 1. Increase activity as tolerated 2. Hold diuretics for now, given hemodynamic instability and need for vasopressor support. 3. Continue Levophed and wean to maintain a mean arterial pressure at or above 65 mmHg. Wean by 1 mcg 4. Continue Decadron and Remdesivir to complete prescribed courses. 5. Continue Lovenox as ordered. 6. Await cardiology recommendations IMPRESSIONS: 1. Acute hypoxemic respiratory failure Resolved. Likely multifactorial in etiology with COVID-19 infection and decompensated heart failure contributing. Respiratory status appears to be back to baseline. Attempts to diurese the patient will be limited by the fact that she is requiring vasopressor support. Patient restarted on Decadron and Remdesivir given deterioration. We will complete these courses as prescribed. No indication for BiPAP at this time. Patient will likely require a walking oximetry prior to discharge. 2. Undifferentiated shock Unclear etiology for the patient's hypotension. However, sepsis and hypovolemia are potential causes. Patient also has significantly depressed EF. Nevertheless, given the patient's severely depressed ejection fraction, I would recommend conservative use of supplemental IV fluids. For now, the patient will be continued on Levophed to maintain a mean arterial pressure at or above 65 mmHg. Will attempt to wean pressors as tolerated. Endorgan damage demonstrated by elevation of creatinine. Given the patient continues to improve on pressors, will hold off on additional medications at this time. 3. Non-ST segment elevation OK/acute systolic heart failure (suspected Takotsubo cardiomyopathy) Cardiology is following to assist with medical management. Patient will likely need a heart catheterization to rule out cardiovascular disease. Viral myocarditis in the setting of COVID-19 also a possibility. No beta-blockers at this time given pressor requirements 4. Acute on chronic kidney disease Improving. Likely prerenal in etiology. Continue Levophed to maintain hemodynamic stability. Continue to monitor urine output. No indication for renal replacement therapy. Okay to discontinue Evans. 5. Obesity/hypertension/diabetes mellitus/hyperlipidemia/history of SLE Complicates care, management, recovery and prognosis. Continue to hold antihypertensives. TIME: 32 minutes of critical care time, independent of procedures, was spent addressing the patient's acute hypoxemic respiratory failure, COVID-19 pneumonia, decompensated heart failure, undifferentiated shock, non-ST segment elevation OK, acute on chronic kidney disease, review of all data and collaboration with the care team. (5:45 AM to 6:45 AM) Subjective Subjective Patient did well overnight. No complaints this morning. Patient remains on pressors, but was able to be taken off supplemental oxygen. Patient was able to get to the chair yesterday. Objective Data Objective Data Vital Signs: Vital Signs Temp Pulse Resp BP Pulse Ox 36.7 C 94 15 97/50 L 94 03/22/21 03:00 03/22/21 04:00 03/22/21 03:00 03/22/21 03:00 03/22/21 03:00 Oxygen Flow Rate (L/min) 4 Oxygen Delivery Method Room Air Weight: 58.1 kg Body Mass Index (BMI) 31.6 Intake & Output: Intake and Output for Last 24 Hours 03/20/21 03/21/21 03/22/21 23:59 23:59 23:59 Intake Total 599.60 / 612.13 1158.54 / 1171.64 52.4 / 52.4 Output Total 1250 / 2150 3250 / 3400 150 / 150 Balance -650.40 / -1537.87 -2091.46 / -2228.36 -97.6 / -97.6 Medical Nutrition Assessment Dietitian: Malnutrition Criteria Met Start: 03/18/21 09:07 Freq: Status: Active Protocol: Document 03/20/21 09:36 (Rec: 03/20/21 09:36 [id number]) Nutrition Malnutrition Evidence of Malnutrition Exists No Intake Problem Inadequate Oral Intake Etiology r/t resp. failure Signs/Symptoms as evidenced by no PO intake x 12 hours Status Active Problem Decreased Nutrient Needs (specify) Etiology - Signs/Symptoms - Status Inactive Problem None at this time Etiology - Signs/Symptoms - Status Inactive Problem Clinical Problem None at this time Etiology - Signs/Symptoms - Status Inactive Problem Recommendation Dietitian Recommendations/Changes continue cardiac diet as ordered when medically appropriate; will d/c fluid restriction Lab / Micro Data Result Diagrams: 03/22/21 04:45 03/22/21 04:45 Labs: Laboratory Results - last 24 hr 03/20/21 05:00: Diff Path Review Reviewed 03/21/21 04:40: Diff Path Review Reviewed 03/21/21 10:34: POC Glucose 116 H 03/21/21 12:21: POC Glucose 93 03/21/21 13:30: Urine Color Yellow, Urine Clarity Sl. Cloudy, Urine pH 5.0, Ur Specific [place] 1.025, Urine Protein 30 H, Urine Glucose (UA) Normal, Urine Ketones 5 H, Urine Occult Blood 50 H, Urine Nitrite Negative, Urine Bilirubin Negative, Urine Urobilinogen Normal, Ur Leukocyte Esterase 500 H, Urine RBC 0-5 SEEN, Urine WBC 25-50 SEEN, Ur Squamous Epith Cells 0-5 SEEN, Urine Bacteria 1+, Urine Mucus 0 SEEN 03/21/21 16:49: POC Glucose 351 H 03/21/21 21:16: POC Glucose 436 H 03/22/21 04:45: WBC 2.5 L, RBC 2.73 L, Hgb 8.5 L, Hct 25.7 L, MCV 94.1, MCH 31.1, MCHC 33.1, RDW Std Deviation 45.4 H, RDW Coeff of Devendra 13.3, Plt Count 183, MPV 10.5, Immature Gran % (Auto) 0.800, Neut % (Auto) 75.0 H, Lymph % (Auto) 15.1 L, [place] % (Auto) 9.1, Eos % (Auto) 0.0, Baso % (Auto) 0.0, Absolute Neuts (auto) 1.9 L, Absolute Lymphs (auto) 0.38 L, Nucleated RBC % 0, Differential Comment SCANNED, Diff Path Review December03/22/21 04:45: Sodium 134 L, Potassium 4.4, Chloride 103, Carbon Dioxide 23.0, Anion Gap 8, BUN 50 H, Creatinine 1.24 H, Estim Creat Clear Calc 35.83, Est GFR (MDRD) Af Amer 54 L, Est GFR (MDRD) Non-Af 45 L, BUN/Creatinine Ratio 40.3 H, Glucose 247 H, Calcium 7.8 L, Total Bilirubin 0.30, Direct Bilirubin 0.11, AST 59 H, ALT 43, Alkaline Phosphatase 39 L, Total Protein 5.4 L, Albumin 2.4 L, Globulin 3.0 Micro: Microbiology 03/20/21 11:45 Urine Catheter - Evans Urine Culture - Preliminary GNR lactose licensed home inspector 03/17/21 07:26 Mucosa - Nose SARS-CoV-2 Antigen (Rapid) - Final SARS-CoV-2 (COVID 19) Physical Exam Const alert, oriented x3 and no apparent distress General Appearance: cooperative; Negative for on BiPAP Nutritional Appearance: obese HEENT normocephalic and head/scalp atraumatic Eyes PERRL and EOMs intact bilaterally Neck supple General: trachea midline Resp Effort and Inspection: tachypneic and labored Auscultation: rales and diminished lung sounds; Negative for rhonchi or wheezes Cardio S1 normal heart sound and S2 normal heart sound Rate: tachycardic GI normal to inspection, nondistended, normoactive bowel sounds Bladder / Kidney Exam: catheter in place urethral Extremity no clubbing, cyanosis or edema Skin no rashes or lesions noted Neuro CN's II-XII intact bilaterally and no focal motor deficits Psych cooperative and affect normal Charges/Coding Procedures Hospitalists Procedures: [id number] Critial Care 1st Hr
--- NOTE | 2021-03-22 08:00 | NURSING ---
Evans catheter discontinued at this time by this RN per verbal order from Dr Espinoza. Patient tolerated without complications, will continue to monitor.
[2021-03-22] MEDS: dexAMETHasone 4 MG Tablet 6 MG PO (08:30)
[2021-03-22] MEDS: Hydroxychloroquine 200 MG Tablet 300 MG PO (08:30)
[2021-03-22] MEDS: Aspirin E.C. 81 MG Tablet PO (08:30)
[2021-03-22] MEDS: Enoxaparin 30 MG/0.3 ML Syringe SC ×2 (08:31→21:47)
--- NOTE | 2021-03-22 08:31 | PCM.PN.CARD ---
Subjective Subjective The patient is awake and alert. She states she has been up in the chair. She states she feels better overall. She believes her breathing is more comfortable. She has not required O2 support. She has no ongoing chest discomfort. Objective Data Vital Signs: Vital Signs Temp Pulse Resp BP Pulse Ox 98.2 F 106 H 22 H 120/66 97 03/22/21 07:00 03/22/21 07:00 03/22/21 07:00 03/22/21 07:00 03/22/21 07:10 Oxygen Flow Rate (L/min) 4 Oxygen Delivery Method Room Air Weight: 128 lb 1.417 oz Body Mass Index (BMI) 31.6 Intake & Output: Intake and Output for Last 24 Hours 03/20/21 03/21/21 03/22/21 23:59 23:59 23:59 Intake Total 599.60 / 612.13 1158.54 / 1171.64 269.8 / 269.8 Output Total 1250 / 2150 3250 / 3400 350 / 350 Balance -650.40 / -1537.87 -2091.46 / -2228.36 -80.2 / -80.2 Lab / Micro Data Result Diagrams: 03/22/21 04:45 03/22/21 04:45 Labs: Laboratory Results - last 24 hr 03/20/21 05:00: Diff Path Review Reviewed 03/21/21 04:40: Diff Path Review Reviewed 03/21/21 10:34: POC Glucose 116 H 03/21/21 12:21: POC Glucose 93 03/21/21 13:30: Urine Color Yellow, Urine Clarity Sl. Cloudy, Urine pH 5.0, Ur Specific [place] 1.025, Urine Protein 30 H, Urine Glucose (UA) Normal, Urine Ketones 5 H, Urine Occult Blood 50 H, Urine Nitrite Negative, Urine Bilirubin Negative, Urine Urobilinogen Normal, Ur Leukocyte Esterase 500 H, Urine RBC 0-5 SEEN, Urine WBC 25-50 SEEN, Ur Squamous Epith Cells 0-5 SEEN, Urine Bacteria 1+, Urine Mucus 0 SEEN 03/21/21 16:49: POC Glucose 351 H 03/21/21 21:16: POC Glucose 436 H 03/22/21 04:45: WBC 2.5 L, RBC 2.73 L, Hgb 8.5 L, Hct 25.7 L, MCV 94.1, MCH 31.1, MCHC 33.1, RDW Std Deviation 45.4 H, RDW Coeff of Devendra 13.3, Plt Count 183, MPV 10.5, Immature Gran % (Auto) 0.800, Neut % (Auto) 75.0 H, Lymph % (Auto) 15.1 L, [place] % (Auto) 9.1, Eos % (Auto) 0.0, Baso % (Auto) 0.0, Absolute Neuts (auto) 1.9 L, Absolute Lymphs (auto) 0.38 L, Nucleated RBC % 0, Differential Comment SCANNED, Diff Path Review December03/22/21 04:45: Sodium 134 L, Potassium 4.4, Chloride 103, Carbon Dioxide 23.0, Anion Gap 8, BUN 50 H, Creatinine 1.24 H, Estim Creat Clear Calc 35.83, Est GFR (MDRD) Af Amer 54 L, Est GFR (MDRD) Non-Af 45 L, BUN/Creatinine Ratio 40.3 H, Glucose 247 H, Calcium 7.8 L, Total Bilirubin 0.30, Direct Bilirubin 0.11, AST 59 H, ALT 43, Alkaline Phosphatase 39 L, Total Protein 5.4 L, Albumin 2.4 L, Globulin 3.0 Micro: Microbiology 03/20/21 11:45 Urine Catheter - Evans Urine Culture - Preliminary GNR 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 Cloudy, Urine pH 5.0, Ur Specific [place] 1.025, Urine Protein 30 H, Urine Glucose (UA) Normal, Urine Ketones 5 H, Urine Occult Blood 50 H, Urine Nitrite Negative, Urine Bilirubin Negative, Urine Urobilinogen Normal, Ur Leukocyte Esterase 500 H, Urine RBC 0-5 SEEN, Urine WBC 25-50 SEEN 03/22/21 04:45: WBC 2.5 L, RBC 2.73 L, Hgb 8.5 L, Hct 25.7 L, MCV 94.1, MCH 31.1, MCHC 33.1, Plt Count 183, MPV 10.5, Immature Gran % (Auto) 0.800, Neut % (Auto) 75.0 H, Lymph % (Auto) 15.1 L, [place] % (Auto) 9.1, Eos % (Auto) 0.0, Baso % (Auto) 0.0, Absolute Neuts (auto) 1.9 L, Nucleated RBC % 0 03/22/21 04:45: Sodium 134 L, Potassium 4.4, Chloride 103, Carbon Dioxide 23.0, Anion Gap 8, BUN 50 H, Creatinine 1.24 H, Est GFR (MDRD) Af Amer 54 L, Est GFR (MDRD) Non-Af 45 L, BUN/Creatinine Ratio 40.3 H, Glucose 247 H, Calcium 7.8 L, Total Bilirubin 0.30, Direct Bilirubin 0.11 Rhythm: Sinus rhythm Physical Exam Const alert, oriented x3 and no apparent distress Orientation / Consciousness: awake HEENT normocephalic, head/scalp atraumatic and hearing grossly normal bilaterally Eyes PERRL, EOMs intact bilaterally and conjunctivae normal Neck full ROM, supple and no JVD Resp normal respiratory effort Auscultation: crackles right base Cardio regular rhythm, S1 normal heart sound and S2 normal heart sound GI normal to inspection, nondistended, normoactive bowel sounds Extremity no pedal edema Psych mental status grossly normal Assessment & Plan Assessment/Plan (1) Non-STEMI (non-ST elevated myocardial infarction): PLAN: The patient has cardiac enzymes compatible with a non-ST segment elevation [place]. It is unclear whether this is a primary event or a secondary type II event brought out by supply demand mismatch. At this time, she appears to be without acute symptoms of an acute coronary syndrome such as ongoing angina pectoris. Ideally over time, once she has overcome her COVID-19 diagnosis, barring an unforeseen event in the interim, she should be considered for further evaluation with diagnostic cardiac catheterization to evaluate for any obvious CAD contributing to her findings versus being on CAD related. However, at the moment, based upon her concerns of fever, progressive pulmonary findings, hypotension, etc. she is now in the ICU requiring supportive therapy with IV vasopressor agents. Her IV vasopressor dose requirement appears to have lessened. However, she continues to require this, she is not able to be placed on other medications from a cardiovascular standpoint which would include agents such as nitrates, beta-blockers, afterload reducing agents, etc. (2) Cardiomyopathy: QUALIFIERS: Cardiomyopathy type: unspecified Qualified Code(s): I42.9 - Cardiomyopathy, unspecified PLAN: She does have what appears to be an underlying cardiomyopathy. Based on the echocardiographic images her findings may be compatible with an underlying Takotsubo syndrome. However, underlying CAD cannot necessarily be excluded. Her medications with respect to beta-blockers, diuretics, and TARIQ inhibitor's have been placed on temporary hold based upon her transient low blood pressure. However, based upon her pulmonary status, in addition to her COVID-19 status, there is concern of possible CHF/pulmonary edema. Her pulmonary status does appear to be improving in the ICU while she has been receiving her COVID-19 therapy and her IV vasopressors as she has not been receiving additional cardiovascular medication including diuretic medication. At the present time she will continue evaluation care per pulmonology and critical care medicine. It would be reasonable to consider follow-up objective studies to monitor her pulmonary process such as a chest x-ray. If she continues to show any evidence of volume overload then she may need additional diuretic therapy and if necessary IV vasopressor support to allow her to receive such. (3) High cholesterol: PLAN: She should continue risk factor evaluation care as deemed appropriate. (4) Hypertension: QUALIFIERS: Hypertension type: unspecified Qualified Code(s): I10 - Essential (primary) hypertension PLAN: As noted above her blood pressure has been low. Her medications been placed on hold. She did receive IV fluids. (5) COVID-19: PLAN: She will continue evaluation care per internal medicine and pulmonology/critical care medicine. Addt'l Comments The patient's case was discussed and reviewed with the patient. This note was generated using a voice recognition system and there may be incorrect words, spelling or punctuation that were not noted when reviewing the office note prior to saving.
[2021-03-22] MEDS: Insulin Lispro 100 UNIT/ML INSULN.PEN SC ×4 (08:35→21:46)
--- NOTE | 2021-03-22 10:21 | PN.HOSP_ITS ---
Subjective Subjective Patient seen and examined. She feels much better. SHe is off oxygen now. She remains on levophed for hemodynamic support. She had an otherwise uneventful night, and review of systems was otherwise negative. Objective Data Objective Data Vital Signs: Vital Signs Temp Pulse Resp BP Pulse Ox 98.2 F 106 H 22 H 120/66 97 03/22/21 07:00 03/22/21 07:00 03/22/21 07:00 03/22/21 07:00 03/22/21 07:10 Oxygen Flow Rate (L/min) 4 Oxygen Delivery Method Room Air Weight: 128 lb 1.417 oz Body Mass Index (BMI) 31.6 Intake & Output: Intake and Output for Last 24 Hours 03/20/21 03/21/21 03/22/21 23:59 23:59 23:59 Intake Total 599.60 / 612.13 1158.54 / 1171.64 269.8 / 269.8 Output Total 1250 / 2150 3250 / 3400 350 / 350 Balance -650.40 / -1537.87 -2091.46 / -2228.36 -80.2 / -80.2 Medical Nutrition Assessment Dietitian: Malnutrition Criteria Met Start: 03/18/21 09:07 Freq: Status: Active Protocol: Document 03/20/21 09:36 (Rec: 03/20/21 09:36 AG [id number]) Nutrition Malnutrition Evidence of Malnutrition Exists No Intake Problem Inadequate Oral Intake Etiology r/t resp. failure Signs/Symptoms as evidenced by no PO intake x 12 hours Status Active Problem Decreased Nutrient Needs (specify) Etiology - Signs/Symptoms - Status Inactive Problem None at this time Etiology - Signs/Symptoms - Status Inactive Problem Clinical Problem None at this time Etiology - Signs/Symptoms - Status Inactive Problem Recommendation Dietitian Recommendations/Changes continue cardiac diet as ordered when medically appropriate; will d/c fluid restriction Lab / Micro Data Result Diagrams: 03/22/21 04:45 03/22/21 04:45 Labs: Laboratory Results - last 24 hr 03/20/21 05:00: Diff Path Review Reviewed 03/21/21 04:40: Diff Path Review Reviewed 03/21/21 10:34: POC Glucose 116 H 03/21/21 12:21: POC Glucose 93 03/21/21 13:30: Urine Color Yellow, Urine Clarity Sl. Cloudy, Urine pH 5.0, Ur Specific [place] 1.025, Urine Protein 30 H, Urine Glucose (UA) Normal, Urine Ketones 5 H, Urine Occult Blood 50 H, Urine Nitrite Negative, Urine Bilirubin Negative, Urine Urobilinogen Normal, Ur Leukocyte Esterase 500 H, Urine RBC 0-5 SEEN, Urine WBC 25-50 SEEN, Ur Squamous Epith Cells 0-5 SEEN, Urine Bacteria 1+, Urine Mucus 0 SEEN 03/21/21 16:49: POC Glucose 351 H 03/21/21 21:16: POC Glucose 436 H 03/22/21 04:45: WBC 2.5 L, RBC 2.73 L, Hgb 8.5 L, Hct 25.7 L, MCV 94.1, MCH 31.1, MCHC 33.1, RDW Std Deviation 45.4 H, RDW Coeff of Devendra 13.3, Plt Count 183, MPV 10.5, Immature Gran % (Auto) 0.800, Neut % (Auto) 75.0 H, Lymph % (Auto) 15.1 L, [place] % (Auto) 9.1, Eos % (Auto) 0.0, Baso % (Auto) 0.0, Absolute Neuts (auto) 1.9 L, Absolute Lymphs (auto) 0.38 L, Nucleated RBC % 0, Differential Comment SCANNED, Diff Path Review December03/22/21 04:45: Sodium 134 L, Potassium 4.4, Chloride 103, Carbon Dioxide 23.0, Anion Gap 8, BUN 50 H, Creatinine 1.24 H, Estim Creat Clear Calc 35.83, Est GFR (MDRD) Af Amer 54 L, Est GFR (MDRD) Non-Af 45 L, BUN/Creatinine Ratio 40.3 H, Glucose 247 H, Calcium 7.8 L, Total Bilirubin 0.30, Direct Bilirubin 0.11, AST 59 H, ALT 43, Alkaline Phosphatase 39 L, Total Protein 5.4 L, Albumin 2.4 L, Globulin 3.0 Micro: Microbiology 03/20/21 11:45 Urine Catheter - Evans Urine Culture - Final Escherichia coli 03/20/21 10:55 Blood Culture (Wb) - Anticubital Left Blood Culture - P reliminary No growth in 48 hours. 03/20/21 10:55 Blood Culture (Wb) - Other Blood Culture - Preliminary No growth in 48 hours. 03/17/21 07:26 Mucosa - Nose SARS-CoV-2 Antigen (Rapid) - Final SARS-CoV-2 (COVID 19) Physical Exam Const alert, oriented x3 and no apparent distress General Appearance: cooperative Exam Limitations: no limitations HEENT head/scalp atraumatic and moist oral mucous membranes Head and Scalp: normocephalic Neck no lymphadenopathy Resp Resp Narrative: minimally diminished breath sounds bibasally, no wheezes or crackles. On room air. Cardio regular rate, regular rhythm, S1 normal heart sound, S2 normal heart sound and no murmurs GI normal to inspection, nondistended, normoactive bowel sounds, soft to palpation, non-tender and non-distended Extremity normal to inspection, full ROM and no clubbing, cyanosis or edema Peripheral Pulses: Yes pulses 2+ throughout Skin no rashes or lesions noted Neuro oriented x3, CN's II-XII intact bilaterally and moves all extremities Sensorium / Orientation: awake and alert Psych affect normal Assessment & Plan Assessment/Plan (1) Non-STEMI (non-ST elevated myocardial infarction): (2) Cardiomyopathy: QUALIFIERS: Cardiomyopathy type: unspecified Qualified Code(s): I42.9 - Cardiomyopathy, unspecified (3) COVID-19: (4) Acute respiratory failure with hypoxia: PLAN: #Acute hypoxic respiratory failure due to COVID 19 infection and acute on chronic heart failure with reduced EF * weaned off oxygen to room air * on IV decadron and remdesivir * breathing treatment with bronchodilators * titrate oxygen to maintain sats >90% * critical care on board * #Shock, likely hypovolemic vs septic * still remains on levoped. * titrate levophed to maintain a MAP of >65, and to wean off levophed as t olerated. * #Lisa on CKD 3; resolved #Acute heart failure with reduced EF * 2D echo showed EF of 15% with severe segmental LV dysfunction * on aspirin and high intensity statin. * being diuresed wtih IV lasix * cardiology on board * #Nonstemi * 2D echo as above * cardiology on board; think it is a cardiomyopathy, likely ischemic * on aspirin and statin. BP meds on hold o/a of low BP * will need cardiac cath after covid resolves. * #History of SLE: on hydroxychloroquine #Type 2 diabetes mellitus: on ISS. Accuchecks ACHS. oral meds on hold. #Hyperlipidemia: on statin. DVT prophylaxis: lovenox Charges/Coding Visit Charges Inpatient E&M: 22881 [facility] L3
[2021-03-22 11:45] LABS: Bedside Glucose 259 mg/dL (70-110)
[2021-03-22 12:41] LABS: Pathologist Review Reviewed
--- NOTE | 2021-03-22 16:16 | CASEMGMT ---
Palliative screening tool completed for L[facility] 3. Patient does not meets criteria for palliative consult at this time.
[2021-03-22 17:06] LABS: Bedside Glucose 388 mg/dL (70-110)
[2021-03-22] MEDS: Atorvastatin Calcium 40 MG Tablet PO (21:47)
[2021-03-22] MEDS: Menthol/Lanolin/Calamine/Znox 113 GM Tube 1 APPLIC TOPICAL (21:48)
[2021-03-22 22:06] LABS: Bedside Glucose 393 mg/dL (70-110)
[2021-03-23] VITALS (48 sets, daily range): BP systolic 66–118; BP diastolic 38–79; PULSE 89–112; RESP 12–22; TEMP 36.2–37.1; O2SAT 92–100
[2021-03-23 05:02] LABS: Absolute Lymphocyte Count 0.44 X10^3/uL (0.83-4.51); Absolute Neutrophil Count 3.1 X10^3/uL (2.0-7.7); Hematocrit 27.2 % (37-47); Hemoglobin 8.8 g/dL (12.0-15.0); Lymphocyte # 0.44 X10^3/ul (0.83-4.51); Lymphocyte % 11.5 % (19-41); Mean Corp Hgb Conc 32.4 g/dL (32-36); Mean Corpuscular Hgb 30.6 pg (27.0-32.0); Mean Corpuscular Volume 94.4 fL (81-99); Mean Platelet Vol. 10.4 fl (6.2-12.0); Monocyte# 0.25 X10^3/uL; Monocyte% 6.5 % (0-10); NRBC Flagged by Analyzer 0 % (0-5); Neutrophil # 3.11 X10^3/uL (2.7-7.7); Neutrophil % 81.2 % (47-70); POSITIVE DIFFERENTIAL YES; Platelet Count 230 K/mm3 (150-450); RBC Distribution Width CV 13.3 % (11.6-14.6); RBC Distribution Width SD 46.5 fl (35.1-43.9); Red Blood Count 2.88 M/mm3 (4.2-5.4); White Blood Count 3.8 K/mm3 (4.4-11.0)
[2021-03-23 05:18] LABS: Anion Gap 8 (5-15); BUN 52 mg/dL (7-18); BUN/Creat Ratio 46.4 RATIO (10-20); Chloride 105 mmol/L (98-107); Creatinine, Serum 1.12 mg/dL (0.55-1.02); EST Glomerular Filtration Rate 50 mL/min (>60); Est Glom Filt Rate - Afr Amer 61 mL/min (>60); Estimated Creatinine Clearance 39.81 ml/min; Glucose 276 mg/dL (74-106); Potassium 4.5 mmol/L (3.5-5.1); Sodium Level 137 mmol/L (136-145)
[2021-03-23 05:26] LABS: Differential Indicated SCAN CRITERIA MET
[2021-03-23 05:27] LABS: Differential Comment SCANNED
[2021-03-23] MEDS: Furosemide 20 MG/2 ML VIAL 10 MG IV ×2 (06:49→08:05)
--- NOTE | 2021-03-23 07:11 | PN.CC_ITS ---
Assessment & Plan Assessment/Plan (1) COVID-19: PLAN: RECOMMENDATIONS: 1. Increase activity as tolerated 2. Diuretic challenge 3. Continue Levophed and wean to maintain a mean arterial pressure at or above 65 mmHg. Wean by 1 mcg 4. Continue Decadron and Remdesivir to complete prescribed courses. 5. Continue Lovenox as ordered. 6. Await cardiology recommendations IMPRESSIONS: 1. Acute hypoxemic respiratory failure Resolved. Likely multifactorial in etiology with COVID-19 infection and decompensated heart failure contributing. Respiratory status appears to be back to baseline. Attempts to diurese the patient will be limited by the fact that she is requiring vasopressor support. Patient restarted on Decadron and Remdesivir given deterioration. We will complete these courses as prescribed. No indication for BiPAP at this time. Patient will likely require a walking oximetry prior to discharge. 2. Undifferentiated shock Unclear etiology for the patient's hypotension. However, sepsis and hypovolemia are potential causes. Patient also has significantly depressed EF. Nevertheless, given the patient's severely depressed ejection fraction, I would recommend conservative use of supplemental IV fluids. For now, the patient will be continued on Levophed to maintain a mean arterial pressure at or above 65 mmHg. Patient is on Decadron secondary to COVID-19, so stress dose steroids are likely not indicated. It is possible patient is having an element of increased cardiac stretch given decreased EF. Will attempt diuretic therapy at a low dose and see if patient responds to improved [place] forces. 3. Non-ST segment elevation [place]/acute systolic heart failure (suspected Takotsubo cardiomyopathy) Cardiology is following to assist with medical management. Patient will likely need a heart catheterization to rule out cardiovascular disease. Viral myocarditis in the setting of COVID-19 also a possibility. No beta-blockers at this time given pressor requirements 4. Acute on chronic kidney disease Improving. Likely prerenal in etiology. Continue Levophed to maintain hemodynamic stability. Continue to monitor urine output. No indication for renal replacement therapy. Okay to discontinue Evans. 5. Obesity/hypertension/diabetes mellitus/hyperlipidemia/history of SLE Complicates care, management, recovery and prognosis. Continue to hold antihypertensives. TIME: 33 minutes of critical care time, independent of procedures, was spent addressing the patient's acute hypoxemic respiratory failure, COVID-19 pneumonia, decompensated heart failure, undifferentiated shock, non-ST segment elevation [place], acute on chronic kidney disease, review of all data and collaboration with the care team. (5:30 AM to 6:30 AM) Subjective Subjective Patient did well overnight. No complaints from the patient this morning. Patient does continue to require Levophed at 7 mcg to maintain appropriate blood pressures. Patient is not reporting any dysuria, but did have a fever overnight. Objective Data Objective Data Vital Signs: Vital Signs Temp Pulse Resp BP Pulse Ox 36.2 C L 93 20 H 90/54 L 95 03/23/21 04:00 03/23/21 06:00 03/23/21 06:00 03/23/21 06:00 03/23/21 06:00 Oxygen Flow Rate (L/min) 4 Oxygen Delivery Method Room Air Weight: 59.1 kg Body Mass Index (BMI) 31.6 Intake & Output: Intake and Output for Last 24 Hours 03/21/21 03/22/21 03/23/21 23:59 23:59 23:59 Intake Total 1158.54 / 1171.64 1018.04 / 1031.14 91.7 / 91.7 Output Total 3250 / 3400 885 / 885 225 / 225 Balance -2091.46 / -2228.36 133.04 / 146.14 -133.3 / -133.3 Medical Nutrition Assessment Dietitian: Malnutrition Criteria Met Start: 03/18/21 09:07 Freq: Status: Active Protocol: Document 03/20/21 09:36 (Rec: 03/20/21 09:36 [id number]) Nutrition Malnutrition Evidence of Malnutrition Exists No Intake Problem Inadequate Oral Intake Etiology r/t resp. failure Signs/Symptoms as evidenced by no PO intake x 12 hours Status Active Problem Decreased Nutrient Needs (specify) Etiology - Signs/Symptoms - Status Inactive Problem None at this time Etiology - Signs/Symptoms - Status Inactive Problem Clinical Problem None at this time Etiology - Signs/Symptoms - Status Inactive Problem Recommendation Dietitian Recommendations/Changes continue cardiac diet as ordered when medically appropriate; will d/c fluid restriction Lab / Micro Data Result Diagrams: 03/23/21 04:30 03/23/21 04:30 Labs: Laboratory Results - last 24 hr 03/22/21 04:45: Diff Path Review Reviewed 03/22/21 11:41: POC Glucose 259 H 03/22/21 16:54: POC Glucose 388 H 03/22/21 21:46: POC Glucose 393 H 03/23/21 04:30: WBC 3.8 L, RBC 2.88 L, Hgb 8.8 L, Hct 27.2 L, MCV 94.4, MCH 30.6, MCHC 32.4, RDW Std Deviation 46.5 H, RDW Coeff of [place]endra 13.3, Plt Count 230, MPV 10.4, Immature Gran % (Auto) 0.800, Neut % (Auto) 81.2 H, Lymph % (Auto) 11.5 L, [place] % (Auto) 6.5, Eos % (Auto) 0.0, Baso % (Auto) 0.0, Absolute Neuts (auto) 3.1, Absolute Lymphs (auto) 0.44 L, Nucleated RBC % 0, Differential Comment SCANNED, Diff Path Review December03/23/21 04:30: Sodium 137, Potassium 4.5, Chloride 105, Carbon Dioxide 24.0, Anion Gap 8, BUN 52 H, Creatinine 1.12 H, Estim Creat Clear Calc 39.81, Est GFR (MDRD) Af Amer 61, Est GFR (MDRD) Non-Af 50 L, BUN/Creatinine Ratio 46.4 H, Glucose 276 H, Calcium 8.0 L Micro: Microbiology 03/20/21 11:45 Urine Catheter - Evans Urine Culture - Final Escherichia coli 03/20/21 10:55 Blood Culture (Wb) - Anticubital Left Blood Culture - Preliminary No growth in 48 hours. 03/20/21 10:55 Blood Culture (Wb) - Other Blood Culture - Preliminary No growth in 48 hours. 03/17/21 07:26 Mucosa - Nose SARS-CoV-2 Antigen (Rapid) - Final SARS-CoV-2 (COVID 19) Physical Exam Const alert, oriented x3 and no apparent distress General Appearance: cooperative; Negative for on BiPAP Nutritional Appearance: obese HEENT normocephalic and head/scalp atraumatic Eyes PERRL and EOMs intact bilaterally Neck supple General: trachea midline Resp Effort and Inspection: tachypneic and labored Auscultation: rales and diminished lung sounds; Negative for rhonchi or wheezes Cardio S1 normal heart sound and S2 normal heart sound Rate: tachycardic GI normal to inspection, nondistended, normoactive bowel sounds Bladder / Kidney Exam: No catheter in place Extremity no clubbing, cyanosis or edema Skin no rashes or lesions noted Neuro CN's II-XII intact bilaterally and no focal motor deficits Psych cooperative and affect normal Charges/Coding Procedures Hospitalists Procedures: [id number] Critial Care 1st Hr
[2021-03-23] MEDS: Menthol/Lanolin/Calamine/Znox 113 GM Tube 1 APPLIC TOPICAL ×3 (07:30→21:23)
[2021-03-23] MEDS: Insulin Lispro 100 UNIT/ML INSULN.PEN SC ×4 (07:48→21:21)
[2021-03-23] MEDS: Aspirin E.C. 81 MG Tablet PO (08:04)
[2021-03-23] MEDS: Hydroxychloroquine 200 MG Tablet 300 MG PO (08:04)
[2021-03-23] MEDS: dexAMETHasone 4 MG Tablet 6 MG PO (08:04)
[2021-03-23] MEDS: Enoxaparin 30 MG/0.3 ML Syringe SC ×2 (08:05→21:21)
--- NOTE | 2021-03-23 08:25 | RAD_ITS ---
STUDY: X-RAY CHEST REASON FOR EXAM: Female, 75 years old. Shortness of breath -- COVID 19 TECHNIQUE: Single AP portable view of the chest. COMPARISON: Comparison is made with prior examination dated 03/20/2021. FINDINGS: EKG electrodes are seen. Persistent infiltrate in the right upper lobe as well as in the left lower lobe and right lower lobe although there has been a moderate degree of improvement. There is no demonstrated pleural abnormality. There is borderline cardiomegaly. Normal mediastinum and sara. Normal visualized pulmonary arteries. Normal visualized aortic arch and descending thoracic aorta. There are diffuse degenerative changes of the visualized thoracic spine. Normal visualized ribs, clavicles, and shoulders. There is no demonstrated abnormality of the visualized soft tissue structures of the upper abdomen. RAD/Chest 1 View (Portable) IMPRESSION: Improved aeration of both lungs with residual patchy infiltrates in both lungs. Electronically Signed: Hayes Barksdale MD at 8:34 EDT , Service support ,
--- NOTE | 2021-03-23 09:53 | PN.HOSP_ITS ---
Subjective Subjective Patient seen and examined. She had no complaints and felt really well. She denied any shortness of breath, fever chills, chest pain, nausea vomiting. Review of symptoms otherwise negative. She however remains on Levophed. Objective Data Objective Data Vital Signs: Vital Signs Temp Pulse Resp BP Pulse Ox 97.2 F L 97 18 100/59 L 97 03/23/21 04:00 03/23/21 09:30 03/23/21 09:30 03/23/21 09:30 03/23/21 09:30 Oxygen Flow Rate (L/min) 4 Oxygen Delivery Method Room Air Weight: 130 lb 4.691 oz Body Mass Index (BMI) 31.6 Intake & Output: Intake and Output for Last 24 Hours 03/21/21 03/22/21 03/23/21 23:59 23:59 23:59 Intake Total 1158.54 / 1171.64 1018.04 / 1031.14 137.55 / 137.55 Output Total 3250 / 3400 885 / 885 325 / 325 Balance -2091.46 / -2228.36 133.04 / 146.14 -187.45 / -187.45 Medical Nutrition Assessment Dietitian: Malnutrition Criteria Met Start: 03/18/21 09:07 Freq: Status: Active Protocol: Document 03/23/21 09:48 AG (Rec: 03/23/21 09:48 AG [id number]) Nutrition Malnutrition Evidence of Malnutrition Exists No Intake Problem Inadequate Oral Intake Etiology r/t resp. failure, decreased appetite Signs/Symptoms as evidenced by poor PO intake x 24 hours Status Resolved Problem Recommendation Dietitian Recommendations/Changes Continue cardiac diet and 120 ml ensure enlive w/ meals for additional calories/protein if consumed. Lab / Micro Data Result Diagrams: 03/23/21 04:30 03/23/21 04:30 Labs: Laboratory Results - last 24 hr 03/22/21 04:45: Diff Path Review Reviewed 03/22/21 11:41: POC Glucose 259 H 03/22/21 16:54: POC Glucose 388 H 03/22/21 21:46: POC Glucose 393 H 03/23/21 04:30: WBC 3.8 L, RBC 2.88 L, Hgb 8.8 L, Hct 27.2 L, MCV 94.4, MCH 30.6, MCHC 32.4, RDW Std Deviation 46.5 H, RDW Coeff of Devendra 13.3, Plt Count 230, MPV 10.4, Immature Gran % (Auto) 0.800, Neut % (Auto) 81.2 H, Lymph % (Auto) 11.5 L, [place] % (Auto) 6.5, Eos % (Auto) 0.0, Baso % (Auto) 0.0, Absolute Neuts (auto) 3.1, Absolute Lymphs (auto) 0.44 L, Nucleated RBC % 0, Differential Comment SCANNED, Diff Path Review December foll 03/23/21 04:30: Sodium 137, Potassium 4.5, Chloride 105, Carbon Dioxide 24.0, Anion Gap 8, BUN 52 H, Creatinine 1.12 H, Estim Creat Clear Calc 39.81, Est GFR (MDRD) Af Amer 61, Est GFR (MDRD) Non-Af 50 L, BUN/Creatinine Ratio 46.4 H, Glucose 276 H, Calcium 8.0 L Micro: Microbiology 03/20/21 11:45 Urine Catheter - Evans Urine Culture - Final Escherichia coli 03/20/21 10:55 Blood Culture (Wb) - Anticubital Left Blood Culture - Preliminary No growth in 48 hours. 03/20/21 10:55 Blood Culture (Wb) - Other Blood Culture - Preliminary No growth in 48 hours. 03/17/21 07:26 Mucosa - Nose SARS-CoV-2 Antigen (Rapid) - Final SARS-CoV-2 (COVID 19) Physical Exam Const alert, oriented x3 and no apparent distress General Appearance: cooperative Exam Limitations: no limitations HEENT head/scalp atraumatic and moist oral mucous membranes Head and Scalp: normocephalic Eyes PERRL, EOMs intact bilaterally and conjunctivae normal Neck no lymphadenopathy Resp normal respiratory effort Resp Narrative: minimally diminished breath sounds bibasally, no wheezes or crackles. On room air. Cardio regular rate, regular rhythm, S1 normal heart sound, S2 normal heart sound and no murmurs GI normal to inspection, nondistended, normoactive bowel sounds, soft to palpation, non-tender and non-distended Extremity normal to inspection, full ROM and no clubbing, cyanosis or edema Peripheral Pulses: Yes pulses 2+ throughout Skin no rashes or lesions noted Neuro oriented x3, CN's II-XII intact bilaterally and moves all extremities Sensorium / Orientation: awake and alert Psych affect normal Assessment & Plan Assessment/Plan (1) Non-STEMI (non-ST elevated myocardial infarction): (2) Cardiomyopathy: QUALIFIERS: Cardiomyopathy type: unspecified Qualified Code(s): I42.9 - Cardiomyopathy, unspecified (3) COVID-19: (4) Acute respiratory failure with hypoxia: PLAN: #Acute hypoxic respiratory failure due to COVID 19 infection and acute on chronic heart failure with reduced EF * remains on room air * on IV decadron and remdesivir * breathing treatment with bronchodilators * titrate oxygen to maintain sats >90% * critical care on board * #Shock, likely hypovolemic vs septic * still remains on levophed. * titrate levophed to maintain a MAP of >65, and to wean off levophed as tolerated. * #Lisa on CKD 3; resolved #Acute heart failure with reduced EF * 2D echo showed EF of 15% with severe segmental LV dysfunction * on aspirin and high intensity statin. * lasix was held o/a of hypotension; per discussion with cardiology, to resume lasix today. * cardiology on board * #Nonstemi * 2D echo as above * cardiology on board; think it is a cardiomyopathy, likely ischemic * on aspirin and statin. BP meds on hold o/a of low BP * will need cardiac cath after covid resolves. * #History of SLE: on hydroxychloroquine #Type 2 diabetes mellitus: on ISS. Accuchecks ACHS. oral meds on hold. #Hyperlipidemia: on statin. DVT prophylaxis: lovenox Charges/Coding Visit Charges Inpatient E&M: 53675 Subs Hosp L3
--- NOTE | 2021-03-23 10:03 | PN.CARD_ITS ---
Subjective Subjective The patient is a he can alert and has been up in the bedside chair. She believes her breathing is improving overall. She has no new acute complaints. Objective Data Vital Signs: Vital Signs Temp Pulse Resp BP Pulse Ox 97.2 F L 97 18 100/59 L 97 03/23/21 04:00 03/23/21 09:30 03/23/21 09:30 03/23/21 09:30 03/23/21 09:30 Oxygen Flow Rate (L/min) 4 Oxygen Delivery Method Room Air Weight: 130 lb 4.691 oz Body Mass Index (BMI) 31.6 Intake & Output: Intake and Output for Last 24 Hours 03/21/21 03/22/21 03/23/21 23:59 23:59 23:59 Intake Total 1158.54 / 1171.64 1018.04 / 1031.14 137.55 / 137.55 Output Total 3250 / 3400 885 / 885 325 / 325 Balance -2091.46 / -2228.36 133.04 / 146.14 -187.45 / -187.45 Lab / Micro Data Result Diagrams: 03/23/21 04:30 03/23/21 04:30 Labs: Laboratory Results - last 24 hr 03/22/21 04:45: Diff Path Review Reviewed 03/22/21 11:41: POC Glucose 259 H 03/22/21 16:54: POC Glucose 388 H 03/22/21 21:46: POC Glucose 393 H 03/23/21 04:30: WBC 3.8 L, RBC 2.88 L, Hgb 8.8 L, Hct 27.2 L, MCV 94.4, MCH 30.6, MCHC 32.4, RDW Std Deviation 46.5 H, RDW Coeff of Devendra 13.3, Plt Count 230, MPV 10.4, Immature Gran % (Auto) 0.800, Neut % (Auto) 81.2 H, Lymph % (Auto) 11.5 L, [place] % (Auto) 6.5, Eos % (Auto) 0.0, Baso % (Auto) 0.0, Absolute Neuts (auto) 3.1, Absolute Lymphs (auto) 0.44 L, Nucleated RBC % 0, Differential Comment SCANNED, Diff Path Review December03/23/21 04:30: Sodium 137, Potassium 4.5, Chloride 105, Carbon Dioxide 24.0, Anion Gap 8, BUN 52 H, Creatinine 1.12 H, Estim Creat Clear Calc 39.81, Est GFR (MDRD) Af Amer 61, Est GFR (MDRD) Non-Af 50 L, BUN/Creatinine Ratio 46.4 H, Glucose 276 H, Calcium 8.0 L Micro: Microbiology 03/20/21 11:45 Urine Catheter - Evans Urine Culture - Final Escherichia coli 03/20/21 10:55 Blood Culture (Wb) - Anticubital Left Blood Culture - Preli minary No growth in 48 hours. 03/20/21 10:55 Blood Culture (Wb) - Other Blood Culture - Preliminary No growth in 48 hours. Cardiology Labs/Tests 03/23/21 04:30: WBC 3.8 L, RBC 2.88 L, Hgb 8.8 L, Hct 27.2 L, MCV 94.4, MCH 30.6, MCHC 32.4, Plt Count 230, MPV 10.4, Immature Gran % (Auto) 0.800, Neut % (Auto) 81.2 H, Lymph % (Auto) 11.5 L, [place] % (Auto) 6.5, Eos % (Auto) 0.0, Baso % (Auto) 0.0, Absolute Neuts (auto) 3.1, Nucleated RBC % 0 03/23/21 04:30: Sodium 137, Potassium 4.5, Chloride 105, Carbon Dioxide 24.0, Anion Gap 8, BUN 52 H, Creatinine 1.12 H, Est GFR (MDRD) Af Amer 61, Est GFR (MDRD) Non-Af 50 L, BUN/Creatinine Ratio 46.4 H, Glucose 276 H, Calcium 8.0 L Rhythm: Sinus rhythm/sinus tachycardia Physical Exam Const alert, oriented x3 and no apparent distress Orientation / Consciousness: awake HEENT normocephalic, head/scalp atraumatic and hearing grossly normal bilaterally Eyes PERRL, EOMs intact bilaterally and conjunctivae normal Neck full ROM, supple and no JVD Resp normal respiratory effort Resp Narrative: scattered Auscultation: rhonchi Cardio regular rhythm, S1 normal heart sound and S2 normal heart sound GI normal to inspection, nondistended, normoactive bowel sounds Extremity no pedal edema Psych mental status grossly normal Assessment & Plan Assessment/Plan (1) Non-STEMI (non-ST elevated myocardial infarction): PLAN: The patient has cardiac enzymes compatible with a non-ST segment elevation [place]. It is unclear whether this is a primary event or a secondary type II event brought out by supply demand mismatch. At this time, she appears to be without acute symptoms of an acute coronary syndrome such as ongoing angina pectoris. Ideally over time, once she has overcome her COVID-19 diagnosis, barring an unforeseen event in the interim, she should be considered for further evaluation with diagnostic cardiac catheterization to evaluate for any obvious CAD contributing to her findings versus being on CAD related. In the interim she continues in the ICU. She continues to require IV vasopressor support. She is attempting IV diuresis today to assist with her underlying cardi opulmonary condition. (2) Cardiomyopathy: QUALIFIERS: Cardiomyopathy type: unspecified Qualified Code(s): I42.9 - Cardiomyopathy, unspecified PLAN: She does have what appears to be an underlying cardiomyopathy. Based on the echocardiographic images her findings may be compatible with an underlying Takotsubo syndrome. However, underlying CAD cannot necessarily be ex cluded. Her medications with respect to beta-blockers, diuretics, and TARIQ inhibitor's have been placed on temporary hold based upon her transient low blood pressure. However, based upon her pulmonary status, in addition to her COVID-19 status, there is concern of possible CHF/pulmonary edema. Today she is attempting IV diuretics, with the support of IV vasopressors, to hopefully assist with her cardiopulmonary condition. (3) High cholesterol: PLAN: She should continue risk factor evaluation care as deemed appropriate. (4) Hypertension: QUALIFIERS: Hypertension type: unspecified Qualified Code(s): I10 - Essential (primary) hypertension PLAN: As noted above her blood pressure has been low. Her medications been placed on hold. She did receive IV fluids. (5) COVID-19: PLAN: She will continue evaluation care per internal medicine and pulmonology/critical care medicine. Addt'l Comments The patient's case has been discussed and reviewed with the patient, Dr. Espinoza, and Dr. Riley. At the present time she will continue medical therapy. Again she will be attempting IV diuretic therapy while she is on IV vasopressors to see if this will help improve her pulmonary condition. This note was generated using a voice recognition system and there may be incorrect words, spelling or punctuation that were not noted when reviewing the office note prior to saving.
[2021-03-23] MEDS: Docusate Sodium 100 MG Capsule 200 MG PO ×2 (10:07→21:21)
[2021-03-23 10:26] LABS: Pathologist Review Reviewed
--- NOTE | 2021-03-23 11:00 | PCS.PANDOC ---
PANDEMIC DOCUMENTATION INITIATED: Date: 03/21/2021 Time: 190
[2021-03-23 11:30] LABS: Bedside Glucose 330 mg/dL (70-110)
[2021-03-23] MEDS: Nystatin Powder 15gm Bottle 1 APPLIC TOPICAL ×2 (15:58→21:22)
[2021-03-23] MEDS: Furosemide 20 MG/2 ML VIAL IV (15:58)
[2021-03-23 17:05] LABS: Bedside Glucose 341 mg/dL (70-110)
[2021-03-23] MEDS: Atorvastatin Calcium 40 MG Tablet PO (21:21)
[2021-03-23 22:00] LABS: Bedside Glucose 407 mg/dL (70-110)
[2021-03-24] VITALS (55 sets, daily range): BP systolic 74–121; BP diastolic 44–80; PULSE 96–123; RESP 14–25; TEMP 36.1–36.9; O2SAT 92–100
[2021-03-24] MEDS: Menthol/Lanolin/Calamine/Znox 113 GM Tube 1 APPLIC TOPICAL ×3 (05:21→21:35)
[2021-03-24] MEDS: Nystatin Powder 15gm Bottle 1 APPLIC TOPICAL ×3 (05:21→21:45)
[2021-03-24 05:47] LABS: Anion Gap 7 (5-15); BUN 55 mg/dL (7-18); BUN/Creat Ratio 45.5 RATIO (10-20); Calcium,Total 8.2 mg/dL (8.5-10.1); Chloride 102 mmol/L (98-107); Creatinine, Serum 1.21 mg/dL (0.55-1.02); EST Glomerular Filtration Rate 46 mL/min (>60); Est Glom Filt Rate - Afr Amer 56 mL/min (>60); Estimated Creatinine Clearance 36.28 ml/min; Glucose 166 mg/dL (74-106); Potassium 3.8 mmol/L (3.5-5.1); Sodium Level 137 mmol/L (136-145)
--- NOTE | 2021-03-24 07:02 | PCM.PN.INT ---
Assessment & Plan Assessment/Plan (1) COVID-19: PLAN: RECOMMENDATIONS: 1. Increase activity as tolerated 2. Increase diuretic challenge 3. Continue Levophed and wean to maintain a mean arterial pressure at or above 65 mmHg. Wean by 1 mcg 4. Continue Decadron. Completed Remdesivir 5. Continue Lovenox as ordered. 6. Await cardiology recommendations IMPRESSIONS: 1. Acute hypoxemic respiratory failure Resolved. Likely multifactorial in etiology with COVID-19 infection and decompensated heart failure contributing. Respiratory status appears to be back to baseline. Attempts to diurese the patient will be limited by the fact that she is requiring vasopressor support. Patient restarted on Decadron and Remdesivir given deterioration. We will complete these courses as prescribed. No indication for BiPAP at this time. Patient will likely require a walking oximetry prior to discharge given desaturation with ambulation. 2. Undifferentiated shock Unclear etiology for the patient's hypotension. However, sepsis and hypovolemia are potential causes. Patient also has significantly depressed EF. Nevertheless, given the patient's severely depressed ejection fraction, I would recommend conservative use of supplemental IV fluids. For now, the patient will be continued on Levophed to maintain a mean arterial pressure at or above 65 mmHg. Patient is on Decadron secondary to COVID-19, so stress dose steroids are likely not indicated. It is possible patient is having an element of increased cardiac stretch given decreased EF. Patient appears to have responded well to diuretic therapy yesterday indicating improved Starling forces. Will increase Lasix with a goal of -1 to 2 L by tomorrow. Continue to monitor electrolytes. 3. Non-ST segment elevation LA/acute systolic heart failure (suspected Takotsubo cardiomyopathy) Cardiology is following to assist with medical management. Patient will likely need a heart catheterization to rule out cardiovascular disease. Viral myocarditis in the setting of COVID-19 also a possibility. No beta-blockers at this time given pressor requirements 4. Acute on chronic kidney disease Improving. Likely prerenal in etiology. Continue Levophed to maintain hemodynamic stability. Continue to monitor urine output. No indication for renal replacement therapy. Okay to discontinue Evans. 5. Obesity/hypertension/diabetes mellitus/hyperlipidemia/history of SLE Complicates care, management, recovery and prognosis. Continue to hold antihypertensives. TIME: 31 minutes of critical care time, independent of procedures, was spent addressing the patient's acute hypoxemic respiratory failure, COVID-19 pneumonia, decompensated heart failure, undifferentiated shock, non-ST segment elevation LA, acute on chronic kidney disease, review of all data and collaboration with the care team. (5:20 AM to 6:20 AM) Subjective Subjective Patient did well overnight. No acute issues were reported. Patient feels subjectively that she is doing fine. Patient is not reporting any respiratory complaints, but nursing does report the patient will have lower saturations with moving to the chair. Objective Data Objective Data Vital Signs: Vital Signs Temp Pulse Resp BP Pulse Ox 36.1 C L 110 H 15 100/58 L 95 03/24/21 04:00 03/24/21 05:00 03/24/21 05:00 03/24/21 05:00 03/24/21 05:00 Oxygen Flow Rate (L/min) 4 Oxygen Delivery Method Room Air Weight: 57.2 kg Body Mass Index (BMI) 31.6 Intake & Output: Intake and Output for Last 24 Hours 03/22/21 03/23/21 03/24/21 23:59 23:59 23:59 Intake Total 1018.04 / 1031.14 502.58 / 510.08 54.5 / 54.5 Output Total 885 / 885 1125 / 1125 700 / 700 Balance 133.04 / 146.14 -622.42 / -614.92 -645.5 / -645.5 Medical Nutrition Assessment Dietitian: Malnutrition Criteria Met Start: 03/18/21 09:07 Freq: Status: Active Protocol: Document 03/23/21 09:48 AG (Rec: 03/23/21 09:48 AG [id number]) Nutrition Malnutrition Evidence of Malnutrition Exists No Intake Problem Inadequate Oral Intake Etiology r/t resp. failure, decreased appetite Signs/Symptoms as evidenced by poor PO intake x 24 hours Status Resolved Problem Recommendation Dietitian Recommendations/Changes Continue cardiac diet and 120 ml ensure enlive w/ meals for additional calories/protein if consumed. Lab / Micro Data Result Diagrams: 03/23/21 04:30 03/24/21 05:20 Labs: Laboratory Results - last 24 hr 03/23/21 04:30: Diff Path Review Reviewed 03/23/21 11:22: POC Glucose 330 H 03/23/21 16:56: POC Glucose 341 H 03/23/21 21:20: POC Glucose 407 H 03/24/21 05:20: Sodium 137, Potassium 3.8, Chloride 102, Carbon Dioxide 28.0, Anion Gap 7, BUN 55 H, Creatinine 1.21 H, Estim Creat Clear Calc 36.28, Est GFR (MDRD) Af Amer 56 L, Est GFR (MDRD) Non-Af 46 L, BUN/Creatinine Ratio 45.5 H, Glucose 166 H, Calcium 8.2 L Micro: Microbiology 03/20/21 11:45 Urine Catheter - Evans Urine Culture - Final Escherichia coli 03/20/21 10:55 Blood Culture (Wb) - Anticubital Left Blood Culture - Preliminary No growth in 48 hours. 03/20/21 10:55 Blood Culture (Wb) - Other Blood Culture - Preliminary No growth in 48 hours. 03/17/21 07:26 Mucosa - Nose SARS-CoV-2 Antigen (Rapid) - Final SARS-CoV-2 (COVID 19) Physical Exam Const alert, oriented x3 and no apparent distress General Appearance: cooperative; Negative for on BiPAP Nutritional Appearance: obese HEENT normocephalic and head/scalp atraumatic Eyes PERRL and EOMs intact bilaterally Neck supple General: trachea midline Resp Effort and Inspection: tachypneic and labored Auscultation: rales and diminished lung sounds; Negative for rhonchi or wheezes Cardio S1 normal heart sound and S2 normal heart sound Rate: tachycardic GI normal to inspection, nondistended, normoactive bowel sounds Bladder / Kidney Exam: No catheter in place Extremity no clubbing, cyanosis or edema Skin no rashes or lesions noted Neuro CN's II-XII intact bilaterally and no focal motor deficits Psych cooperative and affect normal Charges/Coding Procedures Hospitalists Procedures: 93649 Critial Care 1st Hr
--- NOTE | 2021-03-24 09:31 | PN.HOSP_ITS ---
Subjective Subjective Patient seen and examined. She feels well and has no complaints. She still remains on low-dose Levophed and has been weaned down to 3 mics per minute. Review of systems otherwise negative. Blood pressure still running low this morning was 87/54 at time of review. Objective Data Objective Data Vital Signs: Vital Signs Temp Pulse Resp BP Pulse Ox 97 F L 113 H 16 87/54 L 98 03/24/21 04:00 03/24/21 07:00 03/24/21 07:00 03/24/21 09:00 03/24/21 07:00 Oxygen Flow Rate (L/min) 4 Oxygen Delivery Method Room Air Weight: 126 lb 1.671 oz Body Mass Index (BMI) 31.6 Intake & Output: Intake and Output for Last 24 Hours 03/22/21 03/23/21 03/24/21 23:59 23:59 23:59 Intake Total 1018.04 / 1031.14 502.58 / 510.08 86.89 / 86.89 Output Total 885 / 885 1125 / 1125 700 / 700 Balance 133.04 / 146.14 -622.42 / -614.92 -613.11 / -613.11 Medical Nutrition Assessment Dietitian: Malnutrition Criteria Met Start: 03/18/21 09:07 Freq: Status: Active Protocol: Document 03/23/21 09:48 AG (Rec: 03/23/21 09:48 AG [id number]) Nutrition Malnutrition Evidence of Malnutrition Exists No Intake Problem Inadequate Oral Intake Etiology r/t resp. failure, decreased appetite Signs/Symptoms as evidenced by poor PO intake x 24 hours Status Resolved Problem Recommendation Dietitian Recommendations/Changes Continue cardiac diet and 120 ml ensure enlive w/ meals for additional calories/protein if consumed. Lab / Micro Data Result Diagrams: 03/23/21 04:30 03/24/21 05:20 Labs: Laboratory Results - last 24 hr 03/23/21 04:30: Diff Path Review Reviewed 03/23/21 11:22: POC Glucose 330 H 03/23/21 16:56: POC Glucose 341 H 03/23/21 21:20: POC Glucose 407 H 03/24/21 05:20: Sodium 137, Potassium 3.8, Chloride 102, Carbon Dioxide 28.0, Anion Gap 7, BUN 55 H, Creatinine 1.21 H, Estim Creat Clear Calc 36.28, Est GFR (MDRD) Af Amer 56 L, Est GFR (MDRD) Non-Af 46 L, BUN/Creatinine Ratio 45.5 H, Glucose 166 H, Calcium 8.2 L Micro: Microbiology 03/20/21 11:45 Urine Catheter - Evans Urine Culture - Final Escherichia coli 03/20/21 10:55 Blood Culture (Wb) - Anticubital Left Blood Culture - Preliminary No growth in 48 hours. 03/20/21 10:55 Blood Culture (Wb) - Other Blood Culture - Preliminary No growth in 48 hours. 03/17/21 07:26 Mucosa - Nose SARS-CoV-2 Antigen (Rapid) - Final SARS-CoV-2 (COVID 19) Radiography Diagnostic Testing: Radiology Impression Chest X-Ray 03/23/21 08:25 IMPRESSION: Improved aeration of both lungs with residual patchy infiltrates in both lungs. Electronically Signed: Hayes Barksdale MD at 8:34 EDT , Service support , Physical Exam Const alert, oriented x3 and no apparent distress General Appearance: cooperative Exam Limitations: no limitations HEENT head/scalp atraumatic and moist oral mucous membranes Head and Scalp: normocephalic Eyes PERRL, EOMs intact bilaterally and conjunctivae normal Neck no lymphadenopathy Resp normal respiratory effort, no retractions, no use of accessory muscles and clear to auscultation bilaterally Resp Narrative: On room air Cardio regular rate, regular rhythm, S1 normal heart sound, S2 normal heart sound and no murmurs Cardio Narrative: tachycardic GI normal to inspection, nondistended, normoactive bowel sounds, soft to palpation, non-tender and non-distended Extremity normal to inspection, full ROM and no clubbing, cyanosis or edema Peripheral Pulses: Yes pulses 2+ throughout Skin no rashes or lesions noted Neuro oriented x3, CN's II-XII intact bilaterally and moves all extremities Sensorium / Orientation: awake and alert Psych affect normal Assessment & Plan Assessment/Plan (1) Non-STEMI (non-ST elevated myocardial infarction): (2) Cardiomyopathy: QUALIFIERS: Cardiomyopathy type: unspecified Qualified Code(s): I42.9 - Cardiomyopathy, unspecified (3) COVID-19: (4) Acute respiratory failure with hypoxia: PLAN: #Acute hypoxic respiratory failure due to COVID 19 infection and acute on chronic heart failure with reduced EF * remains on room air * on PO decadron and IV remdesivir; to complete a 10 day course of decadron and a 5 day course of remdesivir. * breathing treatment with bronchodilators * titrate oxygen to maintain sats >90% * critical care on board * #Shock, likely hypovolemic vs septic * still remains on levophed. * titrate levophed to maintain a MAP of >65, and to wean off levophed as tolerated. * #Lisa on CKD 3; resolved #Acute heart failure with reduced EF * 2D echo showed EF of 15% with severe segmental LV dysfunction * on aspirin and high intensity statin. * lasix was held o/a of hypotension; lasix now resumed. * cardiology on board * #Nonstemi * 2D echo as above * cardiology on board; think it is a cardiomyopathy, likely ischemic * on aspirin and statin. BP meds on hold o/a of low BP * will need cardiac cath after covid resolves. * #UTI: urine cultured E coli. Though patient is asymptomatic, in light of her having required levophed, will start on antibiotics. #History of SLE: on hydroxychloroquine #Type 2 diabetes mellitus: on ISS. Accuchecks ACHS. oral meds on hold. #Hyperlipidemia: on statin. DVT prophylaxis: lovenox Charges/Coding Visit Charges Inpatient E&M: 96552 Subs Hosp L3
[2021-03-24] MEDS: Insulin Lispro 100 UNIT/ML INSULN.PEN SC ×4 (10:27→21:33)
[2021-03-24] MEDS: Furosemide 40 MG/4 ML Vial IV ×2 (10:28→16:46)
[2021-03-24] MEDS: Docusate Sodium 100 MG Capsule 200 MG PO ×2 (10:29→21:34)
[2021-03-24] MEDS: dexAMETHasone 4 MG Tablet 6 MG PO (10:29)
[2021-03-24] MEDS: Enoxaparin 30 MG/0.3 ML Syringe SC ×2 (10:29→21:38)
[2021-03-24] MEDS: Aspirin E.C. 81 MG Tablet PO (10:30)
[2021-03-24] MEDS: Hydroxychloroquine 200 MG Tablet 300 MG PO (10:30)
[2021-03-24] MEDS: 0.9% Saline Lock 10 ML Syringe IV ×2 (10:30→16:52)
[2021-03-24] MEDS: TITRATION PARAMETER CHANGE 1 EACH IV (11:43)
[2021-03-24 12:31] LABS: Bedside Glucose 223 mg/dL (70-110)
--- NOTE | 2021-03-24 12:33 | PCM.PN.CARD ---
Documented by User: WILY Barker 03/24/21 12:50 Subjective Subjective The patient is alert and has been up in the bedside chair. She believes her breathing is improving overall. She has no new acute complaints. Objective Data Vital Signs: Vital Signs Temp Pulse Resp BP Pulse Ox 98.0 F 117 H 18 100/61 97 03/24/21 08:00 03/24/21 11:00 03/24/21 11:00 03/24/21 11:00 03/24/21 11:00 Oxygen Flow Rate (L/min) 4 Oxygen Delivery Method Room Air Weight: 126 lb 1.671 oz Body Mass Index (BMI) 31.6 Intake & Output: Intake and Output for Last 24 Hours 03/22/21 03/23/21 03/24/21 23:59 23:59 23:59 Intake Total 1018.04 / 1031.14 502.58 / 510.08 103.33 / 103.33 Output Total 885 / 885 1125 / 1125 1000 / 1000 Balance 133.04 / 146.14 -622.42 / -614.92 -896.67 / -896.67 Lab / Micro Data Result Diagrams: 03/23/21 04:30 03/24/21 05:20 Labs: Laboratory Results - last 24 hr 03/23/21 16:56: POC Glucose 341 H 03/23/21 21:20: POC Glucose 407 H 03/24/21 05:20: Sodium 137, Potassium 3.8, Chloride 102, Carbon Dioxide 28.0, Anion Gap 7, BUN 55 H, Creatinine 1.21 H, Estim Creat Clear Calc 36.28, Est GFR (MDRD) Af Amer 56 L, Est GFR (MDRD) Non-Af 46 L, BUN/Creatinine Ratio 45.5 H, Glucose 166 H, Calcium 8.2 L 03/24/21 12:27: POC Glucose 223 H Cardiology Labs/Tests 03/24/21 05:20: Sodium 137, Potassium 3.8, Chloride 102, Carbon Dioxide 28.0, Anion Gap 7, BUN 55 H, Creatinine 1.21 H, Est GFR (MDRD) Af Amer 56 L, Est GFR (MDRD) Non-Af 46 L, BUN/Creatinine Ratio 45.5 H, Glucose 166 H, Calcium 8.2 L Rhythm: EKG: ECHO: Stress Test: Cardiac Cath: PCI: CT Surgery: Holter monitor: EPS: PPM: CXR: Chest CT Scan: Radiography Diagnostic Testing: Radiology Impression Chest X-Ray 03/23/21 08:25 IMPRESSION: Improved aeration of both lungs with residual patchy infiltrates in both lungs. Electronically Signed: Hayes Barksdale MD at 8:34 EDT , Service support , Physical Exam Const alert, oriented x3 and no apparent distress Orientation / Consciousness: awake HEENT normocephalic, head/scalp atraumatic and hearing grossly normal bilaterally Eyes PERRL, EOMs intact bilaterally and conjunctivae normal Neck full ROM, supple and no JVD Resp normal respiratory effort Resp Narrative: scattered Auscultation: rhonchi Cardio regular rhythm, S1 normal heart sound and S2 normal heart sound GI normal to inspection, nondistended, normoactive bowel sounds Extremity no pedal edema Psych mental status grossly normal Assessment & Plan Assessment/Plan (1) Non-STEMI (non-ST elevated myocardial infarction): PLAN: The patient has cardiac enzymes compatible with a non-ST segment elevation [place]. It is unclear whether this is a primary event or a secondary type II event brought out by supply demand mismatch. She does not have any acute symptoms of an acute coronary syndrome. Once she has overcome her COVID diagnosis, will plan on further cardiac evaluation. This will likely be done on an OP basis. She continues to require IV vasopressor support. Will continue to try to wean this. (2) Cardiomyopathy: QUALIFIERS: Cardiomyopathy type: unspecified Qualified Code(s): I42.9 - Cardiomyopathy, unspecified PLAN: She does have what appears to be an underlying cardiomyopathy. Based on the echocardiographic images her findings may be compatible with an underlying Takotsubo syndrome. However, underlying CAD cannot necessarily be excluded. Her medications with respect to beta-blockers, diuretics, and TARIQ inhibitor's have been placed on temporary hold based upon her transient low blood pressure. However, based upon her pulmonary status, in addition to her COVID-19 status, there is concern of possible CHF/pulmonary edema. If her pressures allow, will attempt further IV diuretics. (3) High cholesterol: PLAN: She should continue risk factor evaluation care as deemed appropriate. (4) Hypertension: QUALIFIERS: Hypertension type: unspecified Qualified Code(s): I10 - Essential (primary) hypertension PLAN: As noted above her blood pressure has been low. Her medications been placed on hold. She did receive IV fluids. (5) COVID-19: PLAN: She will continue evaluation care per internal medicine and pulmonology/critical care medicine. Documented by User: Dr. Damaris Simpson MD 03/24/21 13:14 Objective Data normal sinus rhythm Lab / Micro Data Result Diagrams: 03/23/21 04:30 03/24/21 05:20 Physical Exam Narrative Patient on oxygen this is a limited physical examination. Cardiac rhythm is sinus rhythm Cardiac examination there is no murmur no gallop no pericardial rub. Rest of physical exam is unchanged Assessment & Plan Assessment/Plan (1) Cardiomyopathy: QUALIFIERS: Cardiomyopathy type: unspecified Qualified Code(s): I42.9 - Cardiomyopathy, unspecified PLAN: I reviewed and discussed the cardiac care plan in detail with the midlevel I agree with the current documentation, I independently reviewed the chest x-ray current lab the treatment plan and patient has been evaluated and seen in the intensive care unit. Patient has severe cardiomyopathy with severe LV systolic dysfunction ejection fraction is 15%/covid. We will continue to monitor and follow-up clinically in the intensive care unit.
[2021-03-24] MEDS: Smz/Tmp Ds Tablet 1 TABLET PO (12:52)
[2021-03-24] MEDS: Midodrine HCl 5 MG Tablet 10 MG PO (16:46)
[2021-03-24 17:05] LABS: Bedside Glucose 194 mg/dL (70-110)
[2021-03-24] MEDS: Atorvastatin Calcium 40 MG Tablet PO (21:34)
[2021-03-24] MEDS: Smz/Tmp Ds Tablet 0.5 TABLET PO (21:34)
[2021-03-24 21:50] LABS: Bedside Glucose 325 mg/dL (70-110)
[2021-03-25] VITALS (43 sets, daily range): BP systolic 60–116; BP diastolic 44–94; PULSE 95–115; RESP 13–25; TEMP 35.8–36.8; O2SAT 91–98
[2021-03-25 04:16] LABS: Absolute Lymphocyte Count 0.68 X10^3/uL (0.83-4.51); Absolute Neutrophil Count 3.1 X10^3/uL (2.0-7.7); Basophil# 0.01 X10^3/uL; Basophil% 0.2 % (0-1); Hematocrit 26.9 % (37-47); Hemoglobin 9.2 g/dL (12.0-15.0); Lymphocyte # 0.68 X10^3/ul (0.83-4.51); Mean Corp Hgb Conc 34.2 g/dL (32-36); Mean Corpuscular Hgb 31.1 pg (27.0-32.0); Mean Corpuscular Volume 90.9 fL (81-99); Mean Platelet Vol. 10.8 fl (6.2-12.0); Monocyte# 0.46 X10^3/uL; Monocyte% 10.8 % (0-10); NRBC Flagged by Analyzer 0 % (0-5); Neutrophil # 3.09 X10^3/uL (2.7-7.7); Neutrophil % 72.5 % (47-70); Platelet Count 232 K/mm3 (150-450); RBC Distribution Width CV 13.2 % (11.6-14.6); RBC Distribution Width SD 43.8 fl (35.1-43.9); Red Blood Count 2.96 M/mm3 (4.2-5.4); White Blood Count 4.3 K/mm3 (4.4-11.0)
[2021-03-25 04:29] LABS: Anion Gap 7 (5-15); BUN 59 mg/dL (7-18); Calcium,Total 8.2 mg/dL (8.5-10.1); Chloride 98 mmol/L (98-107); Creatinine, Serum 1.34 mg/dL (0.55-1.02); EST Glomerular Filtration Rate 41 mL/min (>60); Est Glom Filt Rate - Afr Amer 50 mL/min (>60); Estimated Creatinine Clearance 32.76 ml/min; Glucose 196 mg/dL (74-106); Potassium 3.7 mmol/L (3.5-5.1); Sodium Level 135 mmol/L (136-145)
[2021-03-25] MEDS: Menthol/Lanolin/Calamine/Znox 113 GM Tube 1 APPLIC TOPICAL ×2 (06:37→21:49)
[2021-03-25] MEDS: Nystatin Powder 15gm Bottle 1 APPLIC TOPICAL ×3 (06:38→21:48)
--- NOTE | 2021-03-25 07:14 | PN.CC_ITS ---
Assessment & Plan Assessment/Plan (1) COVID-19: PLAN: RECOMMENDATIONS: 1. Increase activity as tolerated 2. Continue diuretic challenge for another 24 hours 3. Continue Levophed and wean to maintain a mean arterial pressure at or above 65 mmHg. Wean by 1 mcg 4. Continue Decadron. Completed Remdesivir 5. Continue Lovenox as ordered. 6. Continue midodrine IMPRESSIONS: 1. Acute hypoxemic respiratory failure Resolved. Likely multifactorial in etiology with COVID-19 infection and decompensated heart failure contributing. Respiratory status appears to be back to baseline. Attempts to diurese the patient will be limited by the fact that she is requiring vasopressor support. Patient restarted on Decadron and Remd esivir given deterioration. We will complete these courses as prescribed. No indication for BiPAP at this time. Patient will likely require a walking oximetry prior to discharge given desaturation with ambulation. 2. Undifferentiated shock Unclear etiology for the patient's hypotension. However, sepsis and hypovolemia are potential causes. Patient also has significantly depressed EF. Nevertheless, given the patient's severely depressed ejection fraction, I would recommend conservative use of supplemental IV fluids. For now, the patient will be continued on Levophed to maintain a mean arterial pressure at or above 65 mmHg. Patient is on Decadron secondary to COVID-19, so stress dose steroids are likely not indicated. It is possible patient is having an element of increased cardiac stretch given decreased EF. Patient appears to have responded well to diuretic therapy yesterday indicating improved [place] forces. Will continue Lasix with a goal of -1 to 2 L by tomorrow. Continue to monitor electrolytes. Midodrine has been added. Anticipate continuing Lasix for another 24 hours 3. Non-ST segment elevation NM/acute systolic heart failure (suspected Takotsubo cardiomyopathy) Cardiology is following to assist with medical management. Patient will likely need a heart catheterization to rule out cardiovascular disease. Viral myocarditis in the setting of COVID-19 also a possibility. No beta-blockers at this time given pressor requirements 4. Acute on chronic kidney disease Improving. Likely prerenal in etiology. Continue Levophed to maintain hemodynamic stability. Continue to monitor urine output. No indication for renal replacement therapy. Okay to discontinue Evans. 5. Obesity/hypertension/diabetes mellitus/hyperlipidemia/history of SLE Complicates care, management, recovery and prognosis. Continue to hold antihypertensives. TIME: 33 minutes of critical care time, independent of procedures, was spent addressing the patient's acute hypoxemic respiratory failure, COVID-19 pneumonia, decompensated heart failure, undifferentiated shock, non-ST segment elevation NM, acute on chronic kidney disease, review of all data and collaboration with the care team. (5:30 AM to 6:30 AM) Subjective Subjective Patient did well overnight. No acute issues were reported. Patient overall feels subjectively unchanged compared to previous. Patient had reported a mild stiff neck, but attributes this to the way I am lying. Objective Data Objective Data Vital Signs: Vital Signs Temp Pulse Resp BP Pulse Ox 36.8 C 107 H 16 95/54 L 97 03/25/21 04:00 03/25/21 06:00 03/25/21 06:00 03/25/21 06:00 03/25/21 06:00 Oxygen Flow Rate (L/min) 4 Oxygen Delivery Method Room Air Weight: 55.6 kg Body Mass Index (BMI) 31.6 Intake & Output: Intake and Output for Last 24 Hours 03/23/21 03/24/21 03/25/21 23:59 23:59 23:59 Intake Total 502.58 / 510.08 1209.94 / 1211.82 45.95 / 45.95 Output Total 1125 / 1125 2575 / 2575 900 / 900 Balance -622.42 / -614.92 -1365.06 / -1363.18 -854.05 / -854.05 Medical Nutrition Assessment Dietitian: Malnutrition Criteria Met Start: 03/18/21 09:07 Freq: Status: Active Protocol: Document 03/23/21 09:48 AG (Rec: 03/23/21 09:48 [id number]) Nutrition Malnutrition Evidence of Malnutrition Exists No Intake Problem Inadequate Oral Intake Etiology r/t resp. failure, decreased appetite Signs/Symptoms as evidenced by poor PO intake x 24 hours Status Resolved Problem Recommendation Dietitian Recommendations/Changes Continue cardiac diet and 120 ml ensure enlive w/ meals for additional calories/protein if consumed. Lab / Micro Data Result Diagrams: 03/25/21 03:55 03/25/21 03:55 Labs: Laboratory Results - last 24 hr 03/24/21 12:27: POC Glucose 223 H 03/24/21 16:44: POC Glucose 194 H 03/24/21 21:32: POC Glucose 325 H 03/25/21 03:55: WBC 4.3 L, RBC 2.96 L, Hgb 9.2 L, Hct 26.9 L, MCV 90.9, MCH 31.1, MCHC 34.2 D, RDW Std Deviation 43.8, RDW Coeff of Devendra 13.2, Plt Count 232, MPV 10.8, Immature Gran % (Auto) 0.500, Neut % (Auto) 72.5 H, Lymph % (Auto) 16.0 L, [place] % (Auto) 10.8 H, Eos % (Auto) 0.0, Baso % (Auto) 0.2, Absolute Neuts (auto) 3.1, Absolute Lymphs (auto) 0.68 L, Nucleated RBC % 0 03/25/21 03:55: Sodium 135 L, Potassium 3.7, Chloride 98, Carbon Dioxide 30.0, Anion Gap 7, BUN 59 H, Creatinine 1.34 H, Estim Creat Clear Calc 32.76, Est GFR (MDRD) Af Amer 50 L, Est GFR (MDRD) Non-Af 41 L, BUN/Creatinine Ratio 44.0 H, Glucose 196 H, Calcium 8.2 L Micro: Microbiology 03/20/21 11:45 Urine Catheter - Evans Urine Culture - Final Escherichia coli 03/20/21 10:55 Blood Culture (Wb) - Anticubital Left Blood Culture - Preliminary No growth in 48 hours. 03/20/21 10:55 Blood Culture (Wb) - Other Blood Culture - Preliminary No growth in 48 hours. 03/17/21 07:26 Mucosa - Nose SARS-CoV-2 Antigen (Rapid) - Final SARS-CoV-2 (COVID 19) Radiography Diagnostic Testing: Radiology Impression Chest X-Ray 03/23/21 08:25 IMPRESSION: Improved aeration of both lungs with residual patchy infiltrates in both lungs. Electronically Signed: Hayes Barksdale MD at 8:34 EDT , Service support , Physical Exam Const alert, oriented x3 and no apparent distress General Appearance: cooperative; Negative for on BiPAP Nutritional Appearance: obese HEENT normocephalic and head/scalp atraumatic Eyes PERRL and EOMs intact bilaterally Neck supple Neck Narrative: Slight increased muscle tone on right sternocleidomastoid General: trachea midline Resp Effort and Inspection: able to speak in complete sentences and symmetric chest movement; Negative for tachypneic or labored Auscultation: diminished lung sounds; Negative for rales, rhonchi or wheezes Cardio S1 normal heart sound and S2 normal heart sound Rate: tachycardic GI normal to inspection, nondistended, normoactive bowel sounds Bladder / Kidney Exam: No catheter in place Extremity no clubbing, cyanosis or edema Skin no rashes or lesions noted Neuro CN's II-XII intact bilaterally and no focal motor deficits Psych cooperative and affect normal Charges/Coding Procedures Hospitalists Procedures: 79750 Critial Care 1st Hr
[2021-03-25] MEDS: Midodrine HCl 5 MG Tablet 10 MG PO ×3 (08:42→17:24)
--- NOTE | 2021-03-25 09:52 | PN.HOSP_ITS ---
Subjective Subjective Patient seen and examined today. She complained of some lightheadedness and dizziness which she thinks was because she is set up for two longer than her blood pressure dropped. This improved after she lay down. She has no other complaints at various times otherwise negative. She remains on 3 mcg of Levophed. Objective Data Objective Data Vital Signs: Vital Signs Temp Pulse Resp BP Pulse Ox 98.3 F 110 H 16 100/56 L 97 03/25/21 04:00 03/25/21 07:00 03/25/21 06:00 03/25/21 09:00 03/25/21 06:00 Oxygen Flow Rate (L/min) 4 Oxygen Delivery Method Room Air Weight: 122 lb 9.232 oz Body Mass Index (BMI) 31.6 Intake & Output: Intake and Output for Last 24 Hours 03/23/21 03/24/21 03/25/21 23:59 23:59 23:59 Intake Total 502.58 / 510.08 1209.94 / 1211.82 53.45 / 53.45 Output Total 1125 / 1125 2575 / 2575 900 / 900 Balance -622.42 / -614.92 -1365.06 / -1363.18 -846.55 / -846.55 Medical Nutrition Assessment Dietitian: Malnutrition Criteria Met Start: 03/18/21 09:07 Freq: Status: Active Protocol: Document 03/23/21 09:48 AG (Rec: 03/23/21 09:48 AG [id number]) Nutrition Malnutrition Evidence of Malnutrition Exists No Intake Problem Inadequate Oral Intake Etiology r/t resp. failure, decreased appetite Signs/Symptoms as evidenced by poor PO intake x 24 hours Status Resolved Problem Recommendation Dietitian Recommendations/Changes Continue cardiac diet and 120 ml ensure enlive w/ meals for additional calories/protein if consumed. Lab / Micro Data Result Diagrams: 03/25/21 03:55 03/25/21 03:55 Labs: Laboratory Results - last 24 hr 03/24/21 12:27: POC Glucose 223 H 03/24/21 16:44: POC Glucose 194 H 03/24/21 21:32: POC Glucose 325 H 03/25/21 03:55: WBC 4.3 L, RBC 2.96 L, Hgb 9.2 L, Hct 26.9 L, MCV 90.9, MCH 31.1, MCHC 34.2 D, RDW Std Deviation 43.8, RDW Coeff of Devendra 13.2, Plt Count 232, MPV 10.8, Immature Gran % (Auto) 0.500, Neut % (Auto) 72.5 H, Lymph % (Auto) 16.0 L, [place] % (Auto) 10.8 H, Eos % (Auto) 0.0, Baso % (Auto) 0.2, Absolute Neuts (auto) 3.1, Absolute Lymphs (auto) 0.68 L, Nucleated RBC % 0 03/25/21 03:55: Sodium 135 L, Potassium 3.7, Chloride 98, Carbon Dioxide 30.0, Anion Gap 7, BUN 59 H, Creatinine 1.34 H, Estim Creat Clear Calc 32.76, Est GFR (MDRD) Af Amer 50 L, Est GFR (MDRD) Non-Af 41 L, BUN/Creatinine Ratio 44.0 H, Glucose 196 H, Calcium 8.2 L Micro: Microbiology 03/20/21 11:45 Urine Catheter - Evans Urine Culture - Final Escherichia coli 03/20/21 10:55 Blood Culture (Wb) - Anticubital Left Blood Culture - Pr eliminary No growth in 48 hours. 03/20/21 10:55 Blood Culture (Wb) - Other Blood Culture - Preliminary No growth in 48 hours. 03/17/21 07:26 Mucosa - Nose SARS-CoV-2 Antigen (Rapid) - Final SARS-CoV-2 (COVID 19)
--- NOTE | 2021-03-25 10:01 | PN.HOSP_ITS ---
Subjective Subjective Patient seen and examined. She does complain of some lightheadedness and dizziness today she says she thinks it was because she was sitting up for quite a while. This got better after she lay down. She remains on Levophed and is currently on 2 mics per minute. Review of systems otherwise negative. Objective Data Objective Data Vital Signs: Vital Signs Temp Pulse Resp BP Pulse Ox 98.3 F 110 H 16 100/56 L 97 03/25/21 04:00 03/25/21 07:00 03/25/21 06:00 03/25/21 09:00 03/25/21 06:00 Oxygen Flow Rate (L/min) 4 Oxygen Delivery Method Room Air Weight: 122 lb 9.232 oz Body Mass Index (BMI) 31.6 Intake & Output: Intake and Output for Last 24 Hours 03/23/21 03/24/21 03/25/21 23:59 23:59 23:59 Intake Total 502.58 / 510.08 1209.94 / 1211.82 53.45 / 53.45 Output Total 1125 / 1125 2575 / 2575 900 / 900 Balance -622.42 / -614.92 -1365.06 / -1363.18 -846.55 / -846.55 Medical Nutrition Assessment Dietitian: Malnutrition Criteria Met Start: 03/18/21 09:07 Freq: Status: Active Protocol: Document 03/23/21 09:48 AG (Rec: 03/23/21 09:48 AG [id number]) Nutrition Malnutrition Evidence of Malnutrition Exists No Intake Problem Inadequate Oral Intake Etiology r/t resp. failure, decreased appetite Signs/Symptoms as evidenced by poor PO intake x 24 hours Status Resolved Problem Recommendation Dietitian Recommendations/Changes Continue cardiac diet and 120 ml ensure enlive w/ meals for additional calories/protein if consumed. Lab / Micro Data Result Diagrams: 03/25/21 03:55 03/25/21 03:55 Labs: Laboratory Results - last 24 hr 03/24/21 12:27: POC Glucose 223 H 03/24/21 16:44: POC Glucose 194 H 03/24/21 21:32: POC Glucose 325 H 03/25/21 03:55: WBC 4.3 L, RBC 2.96 L, Hgb 9.2 L, Hct 26.9 L, MCV 90.9, MCH 31.1, MCHC 34.2 D, RDW Std Deviation 43.8, RDW Coeff of Devendra 13.2, Plt Count 232, MPV 10.8, Immature Gran % (Auto) 0.500, Neut % (Auto) 72.5 H, Lymph % (Auto) 16.0 L, [place] % (Auto) 10.8 H, Eos % (Auto) 0.0, Baso % (Auto) 0.2, Absolute Neuts (auto) 3.1, Absolute Lymphs (auto) 0.68 L, Nucleated RBC % 0 03/25/21 03:55: Sodium 135 L, Potassium 3.7, Chloride 98, Carbon Dioxide 30.0, Anion Gap 7, BUN 59 H, Creatinine 1.34 H, Estim Creat Clear Calc 32.76, Est GFR (MDRD) Af Amer 50 L, Est GFR (MDRD) Non-Af 41 L, BUN/Creatinine Ratio 44.0 H, Glucose 196 H, Calcium 8.2 L Micro: Microbiology 03/20/21 11:45 Urine Catheter - Evans Urine Culture - Final Escherichia coli 03/20/21 10:55 Blood Culture (Wb) - Anticubital Left Blood Culture - Preliminary No growth in 48 hours. 03/20/21 10:55 Blood Culture (Wb) - Other Blood Culture - Preliminary No growth in 48 hours. 03/17/21 07:26 Mucosa - Nose SARS-CoV-2 Antigen (Rapid) - Final SARS-CoV-2 (COVID 19) Physical Exam Const alert, oriented x3 and no apparent distress Exam Limitations: no limitations HEENT head/scalp atraumatic and moist oral mucous membranes Head and Scalp: normocephalic Eyes PERRL, EOMs intact bilaterally and conjunctivae normal Neck no lymphadenopathy Resp normal respiratory effort, no retractions, no use of accessory muscles and clear to auscultation bilaterally Cardio regular rate, regular rhythm, S1 normal heart sound, S2 normal heart sound and no murmurs GI normal to inspection, nondistended, normoactive bowel sounds, soft to palpation, non-tender and non-distended Extremity normal to inspection, full ROM and no clubbing, cyanosis or edema Peripheral Pulses: Yes pulses 2+ throughout Skin no rashes or lesions noted Neuro oriented x3, CN's II-XII intact bilaterally and moves all extremities Sensorium / Orientation: awake and alert Motor Exam: strength 5/5 throughout Psych affect normal Assessment & Plan Assessment/Plan (1) Non-STEMI (non-ST elevated myocardial infarction): (2) Acute respiratory failure with hypoxia: (3) Shock: PLAN: #Acute hypoxic respiratory failure due to covid 19 infection and acute on chronic HFrEF * Improved markedly. * Has completed a course of remdesivir remains on Decadron. To complete a 10- day course of Decadron. * Breathing treatments of bronchodilators. Titrate oxygen to maintain saturation above 90%. * Critical care on board. * #Shock, hypovolemic versus septic shock * Levophed weaned down to 2 mcg/min. * Titrate Levophed to maintain MAP more than 65. Wean off Levophed as tolerated. * Critical care on board. * #Acute on chronic heart failure with reduced ejection fraction * 2D echo shows EF of 15% with severe segmental left ventricular systolic dysfunction * Lasix was held on account of hypotension and shock but Lasix has now been resumed. * Cardiology on board. * #Non-STEMI * 2D echo as above. On aspirin and statin. Cardiology on board and think it is a cardiomyopathy likely ischemic. To be set up for cardiac cath once her Covid infection resolves. * #STEFAN on CKD 3: resolved. #History of SLE: on hydroxychloroquiine #Type 2 diabetes mellitus; on ISS. Accuchecks ACHS. oral meds on hold. #Hyperlipidemia: on statin #UTI: on bactrim. based on sensitivities. #DVT prophylaxis: lovenox Charges/Coding Visit Charges Inpatient E&M: 49602 Subs Hosp L3
[2021-03-25] MEDS: Enoxaparin 30 MG/0.3 ML Syringe SC ×2 (10:40→21:53)
[2021-03-25] MEDS: Furosemide 40 MG/4 ML Vial IV (10:43)
[2021-03-25] MEDS: 0.9% Saline Lock 10 ML Syringe IV ×3 (10:43→21:43)
[2021-03-25] MEDS: dexAMETHasone 4 MG Tablet 6 MG PO (10:52)
[2021-03-25] MEDS: Hydroxychloroquine 200 MG Tablet 300 MG PO (10:53)
[2021-03-25] MEDS: Smz/Tmp Ds Tablet 0.5 TABLET PO ×2 (10:54→21:53)
[2021-03-25] MEDS: Aspirin E.C. 81 MG Tablet PO (10:55)
[2021-03-25] MEDS: Docusate Sodium 100 MG Capsule 200 MG PO ×2 (10:56→21:53)
[2021-03-25] MEDS: Ondansetron 4 MG/2 ML Vial IV (13:20)
--- NOTE | 2021-03-25 13:48 | PN.CARD_ITS ---
Documented by User: WILY Barker 03/25/21 15:29 Subjective Subjective Patient seen and examined. Pt notes that she was lightheaded/dizzy/nauseated/unable to eat. RN notes that this was d/t her lasix. She has not been able to sit up d/t low BP and being symptomatic. Her levophed was increased. Objective Data Vital Signs: Vital Signs Temp Pulse Resp BP Pulse Ox 98.3 F 110 H 16 86/56 L 97 03/25/21 04:00 03/25/21 07:00 03/25/21 06:00 03/25/21 11:30 03/25/21 06:00 Oxygen Flow Rate (L/min) 4 Oxygen Delivery Method Room Air Weight: 122 lb 9.232 oz Body Mass Index (BMI) 31.6 Intake & Output: Intake and Output for Last 24 Hours 03/23/21 03/24/21 03/25/21 23:59 23:59 23:59 Intake Total 502.58 / 510.08 1209.94 / 1211.82 181.17 / 181.17 Output Total 1125 / 1125 2575 / 2575 1050 / 1050 Balance -622.42 / -614.92 -1365.06 / -1363.18 -868.83 / -868.83 Lab / Micro Data Result Diagrams: 03/25/21 03:55 03/25/21 03:55 Labs: Laboratory Results - last 24 hr 03/24/21 16:44: POC Glucose 194 H 03/24/21 21:32: POC Glucose 325 H 03/25/21 03:55: WBC 4.3 L, RBC 2.96 L, Hgb 9.2 L, Hct 26.9 L, MCV 90.9, MCH 31.1, MCHC 34.2 D, RDW Std Deviation 43.8, RDW Coeff of Devendra 13.2, Plt Count 232, MPV 10.8, Immature Gran % (Auto) 0.500, Neut % (Auto) 72.5 H, Lymph % (Auto ) 16.0 L, [place] % (Auto) 10.8 H, Eos % (Auto) 0.0, Baso % (Auto) 0.2, Absolute Neuts (auto) 3.1, Absolute Lymphs (auto) 0.68 L, Nucleated RBC % 0 03/25/21 03:55: Sodium 135 L, Potassium 3.7, Chloride 98, Carbon Dioxide 30.0, Anion Gap 7, BUN 59 H, Creatinine 1.34 H, Estim Creat Clear Calc 32.76, Est GFR (MDRD) Af Amer 50 L, Est GFR (MDRD) Non-Af 41 L, BUN/Creatinine Ratio 44.0 H, Glucose 196 H, Calcium 8.2 L Micro: Microbiology 03/20/21 10:55 Blood Culture (Wb) - Other Blood Culture - Final No growth in 5 days. 03/20/21 10:55 Blood Culture (Wb) - Anticubital Left Blood Culture - Final No growth in 5 days. Cardiology Labs/Tests 03/25/21 03:55: WBC 4.3 L, RBC 2.96 L, Hgb 9.2 L, Hct 26.9 L, MCV 90.9, MCH 31.1, MCHC 34.2 D, Plt Count 232, MPV 10.8, Immature Gran % (Auto) 0.500, Neut % (Auto) 72.5 H, Lymph % (Auto) 16.0 L, [place] % (Auto) 10.8 H, Eos % (Auto) 0.0, Baso % (Auto) 0.2, Absolute Neuts (auto) 3.1, Nucleated RBC % 0 03/25/21 03:55: Sodium 135 L, Potassium 3.7, Chloride 98, Carbon Dioxide 30.0, Anion Gap 7, BUN 59 H, Creatinine 1.34 H, Est GFR (MDRD) Af Amer 50 L, Est GFR (MDRD) Non-Af 41 L, BUN/Creatinine Ratio 44.0 H, Glucose 196 H, Calcium 8.2 L Rhythm: Sinus Tach Physical Exam Const alert, oriented x3 and no apparent distress General Appearance: frail Orientation / Consciousness: awake HEENT normocephalic, head/scalp atraumatic and hearing grossly normal bilaterally Eyes PERRL, EOMs intact bilaterally and conjunctivae normal Neck full ROM, supple and no JVD Resp normal respiratory effort Resp Narrative: scattered Auscultation: rhonchi and diminished lung sounds Cardio regular rhythm, S1 normal heart sound and S2 normal heart sound Rate: tachycardic GI normal to inspection, nondistended, normoactive bowel sounds Extremity no pedal edema Psych mental status grossly normal Assessment & Plan Assessment/Plan (1) Non-STEMI (non-ST elevated myocardial infarction): (2) Cardiomyopathy: QUALIFIERS: Cardiomyopathy type: unspecified Qualified Code(s): I42.9 - Cardiomyopathy, unspecified (3) Hypertension: QUALIFIERS: Hypertension type: unspecified Qualified Code(s): I10 - Essential (primary) hypertension (4) COVID-19: PLAN: * will continue with levophed, wean to maintain MAP of 65 * Midodrine was started, prior to lasix today, this did seem to help. 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 Damaris Simpson MD 03/25/21 15:42 Lab / Micro Data Result Diagrams: 03/25/21 03:55 03/25/21 03:55 Assessment & Plan Assessment/Plan (1) Hypertension: QUALIFIERS: Hypertension type: unspecified Qualified Code(s): I10 - Essential (primary) hypertension (2) COVID-19: (3) Acute respiratory failure with hypoxia: (4) Non-STEMI (non-ST elevated myocardial infarction): (5) Type 2 diabetes mellitus: (6) Diabetes: (7) High cholesterol: PLAN: I independently reviewed current medical records including labs, x- rays, playground monitor and current medication I agree with the documentation by the midlevel in regard to the cardiac care plan I will follow-up clinically.
--- NOTE | 2021-03-25 14:59 | CASEMGMT ---
GABBI HEMPHILL called patient in room to discuss possible HHC at discharge. Patient states [facility] or stay here. GABBI HEMPHILL updated patient that SW or CM will follow-up on Sunday as patient will need precert. GABBI HEMPHILL updated SW regarding request for SNF.
--- NOTE | 2021-03-25 15:01 | CASEMGMT ---
SW was informed patient would like placement at [facility] as her daughter works there or TCU. Patient is positive for COVID. She would have to have 2 negative test to go to TCU and this is unlikely. [facility] is not taking COVID positive patients either. SW to follow up on Sunday. Yue Martinez NURSING TECHNICIAN JORGE LUIS
[2021-03-25 16:35] LABS: Bedside Glucose 120 mg/dL (70-110)
[2021-03-25] MEDS: Insulin Lispro 100 UNIT/ML INSULN.PEN SC ×3 (17:18→21:50)
[2021-03-25] MEDS: Atorvastatin Calcium 40 MG Tablet PO (21:53)
[2021-03-25 23:21] LABS: Bedside Glucose 291 mg/dL (70-110)
[2021-03-25 23:30] LABS: Bedside Glucose 392 mg/dL (70-110)
[2021-03-26] VITALS (48 sets, daily range): BP systolic 81–105; BP diastolic 45–63; PULSE 86–115; RESP 12–20; TEMP 35.6–36.6; O2SAT 91–99
[2021-03-26 04:03] LABS: Absolute Lymphocyte Count 0.75 X10^3/uL (0.83-4.51); Absolute Neutrophil Count 3.6 X10^3/uL (2.0-7.7); Hematocrit 27.7 % (37-47); Hemoglobin 9.1 g/dL (12.0-15.0); Lymphocyte # 0.75 X10^3/ul (0.83-4.51); Lymphocyte % 15.2 % (19-41); Mean Corp Hgb Conc 32.9 g/dL (32-36); Mean Corpuscular Hgb 30.5 pg (27.0-32.0); Mean Platelet Vol. 11.2 fl (6.2-12.0); Monocyte# 0.58 X10^3/uL; Monocyte% 11.8 % (0-10); NRBC Flagged by Analyzer 0 % (0-5); Neutrophil # 3.56 X10^3/uL (2.7-7.7); Neutrophil % 72.4 % (47-70); Platelet Count 232 K/mm3 (150-450); RBC Distribution Width CV 13.7 % (11.6-14.6); RBC Distribution Width SD 46.5 fl (35.1-43.9); Red Blood Count 2.98 M/mm3 (4.2-5.4); White Blood Count 4.9 K/mm3 (4.4-11.0)
[2021-03-26 04:18] LABS: Anion Gap 5 (5-15); BUN 63 mg/dL (7-18); BUN/Creat Ratio 42.6 RATIO (10-20); Calcium,Total 7.9 mg/dL (8.5-10.1); Chloride 103 mmol/L (98-107); Creatinine, Serum 1.48 mg/dL (0.55-1.02); EST Glomerular Filtration Rate 37 mL/min (>60); Est Glom Filt Rate - Afr Amer 44 mL/min (>60); Estimated Creatinine Clearance 28.62 ml/min; Glucose 110 mg/dL (74-106); Potassium 3.9 mmol/L (3.5-5.1); Sodium Level 139 mmol/L (136-145)
[2021-03-26] MEDS: Menthol/Lanolin/Calamine/Znox 113 GM Tube 1 APPLIC TOPICAL ×3 (06:31→21:17)
[2021-03-26] MEDS: Nystatin Powder 15gm Bottle 1 APPLIC TOPICAL ×3 (06:32→21:16)
--- NOTE | 2021-03-26 07:19 | ECHOL_ITS ---
Reason For Study: Hypotension, Re-assess LV function Procedure This was a limited 2D transthoracic echocardiogram. Exam performed portable in ICU/CCU. Left Ventricle Severely dilated left ventricle. The estimated ejection fraction is EF 10-15 %. Right Ventricle Normal right ventricle. Normal systolic function. Atria The left atrium is mildly enlarged. Normal right atrium. Mitral Valve There is mild mitral annular calcification. The mitral papillary muscle appears thickened and/or calcified. Mild (1+) mitral valve insufficiency. Tricuspid Valve Normal tricuspid valve. Mild tricuspid valve insufficiency. Aortic Valve Moderate diffuse aortic valve thickening. Mild to moderate aortic stenosis. Pulmonic Valve The pulmonic valve is not well visualized. Great Vessels Normal aortic root. Pericardium/Pleural Small pericardial effusion. MMode/2D Measurements & Calculations LVIDd: 4.5 cm IVSd: 0.70 cm LVAd ap4: 34.2 cm2 LVIDs: 3.9 cm LVPWd: 1.1 cm LVLd ap4: 8.6 cm FS: 13.2 % EDV(MOD-sp4): 110.8 ml EDV(sp4-el): 116.0 ml LVAs ap4: 31.5 cm2 LVLs ap4: 8.3 cm ESV(MOD-sp4): 98.8 ml ESV(sp4-el): 102.1 ml EF(MOD-sp4): 10.9 % EF(sp4-el): 12.0 % LVAd ap2: 37.6 cm2 SV(MOD-sp4): 12.0 ml SV(MOD-sp2): 22.5 ml LVLd ap2: 8.9 cm EDV(MOD-sp2): 133.1 ml EDV(sp2-el): 134.9 ml LVAs ap2: 34.3 cm2 LVLs ap2: 8.6 cm ESV(MOD-sp2): 110.7 ml ESV(sp2-el): 115.7 ml EF(MOD-sp2): 16.9 % SV(sp4-el): 13.9 ml LA dimension(2D): 3.4 cm ECHO/Echo, Limited Study Interpretation Summary The estimated ejection fraction is EF 10-15 %. No significant changes from recent TTE Ordering Physician: Bernabe Espinoza Referring Physician: Paul Bauer Performed By: Madai Shearer RDCS
--- NOTE | 2021-03-26 07:39 | PCM.PN.INT ---
Assessment & Plan Assessment/Plan (1) COVID-19: PLAN: RECOMMENDATIONS: 1. Increase activity as tolerated 2. Hold on further diuretic therapy 3. Continue Levophed and wean to maintain a mean arterial pressure at or above 60 mmHg. Wean by 1 mcg 4. Will transition from Decadron to Solu-Cortef. Completed Remdesivir 5. Continue Lovenox as ordered. 6. Continue midodrine IMPRESSIONS: 1. Acute hypoxemic respiratory failure Resolved. Likely multifactorial in etiology with COVID-19 infection and decompensated heart failure contributing. Respiratory status appears to be back to baseline. Attempts to diurese the patient will be limited by the fact that she is requiring vasopressor support. Patient restarted on Decadron and Remdesivir given deterioration. We will complete these courses as prescribed. No indication for BiPAP at this time. Patient will likely require a walking oximetry prior to discharge given desaturation with ambulation. 2. Undifferentiated shock Unclear etiology for the patient's hypotension. However, sepsis and hypovolemia are potential causes. Patient also has significantly depressed EF. Nevertheless, given the patient's severely depressed ejection fraction, I would recommend conservative use of supplemental IV fluids. For now, the patient will be continued on Levophed to maintain a mean arterial pressure at or above 65 mmHg. Patient is on Decadron secondary to COVID-19, so stress dose steroids are likely not indicated. It is possible patient is having an element of increased cardiac stretch given decreased EF. Patient with orthostatic symptoms yesterday. We will hold on diuretic. Midodrine will be continued. Will transition from Decadron to Solu-Cortef as this will have more mineralocorticoid effect and may increase blood pressure. 3. Non-ST segment elevation [place]/acute systolic heart failure (suspected Takotsubo cardiomyopathy) Cardiology is following to assist with medical management. Patient will likely need a heart catheterization to rule out cardiovascular disease. Viral myocarditis in the setting of COVID-19 also a possibility. No beta-blockers at this time given pressor requirements 4. Acute on chronic kidney disease Improving. Likely prerenal in etiology. Continue Levophed to maintain hemodynamic stability. Continue to monitor urine output. No indication for renal replacement therapy. Okay to discontinue Evans. 5. Obesity/hypertension/diabetes mellitus/hyperlipidemia/history of SLE Complicates care, management, recovery and prognosis. Continue to hold antihypertensives. TIME: 31 minutes of critical care time, independent of procedures, was spent addressing the patient's acute hypoxemic respiratory failure, COVID-19 pneumonia, decompensated heart failure, undifferentiated shock, non-ST segment elevation [place], acute on chronic kidney disease, review of all data and collaboration with the care team. (6 AM to 7 AM) Subjective Subjective Patient did okay overnight. Patient did have significant orthostatic type symptoms yesterday, so Lasix was discontinued. Patient remains on Levophed to maintain saturations. No new symptoms are reported by the patient this morning. Objective Data Objective Data Vital Signs: Vital Signs Temp Pulse Resp BP Pulse Ox 35.9 C L 100 15 91/63 94 03/26/21 04:00 03/26/21 07:36 03/26/21 07:00 03/26/21 07:00 03/26/21 07:00 Oxygen Flow Rate (L/min) 4 Oxygen Delivery Method Room Air Weight: 55.2 kg Body Mass Index (BMI) 31.6 Intake & Output: Intake and Output for Last 24 Hours 03/24/21 03/25/21 03/26/21 23:59 23:59 23:59 Intake Total 1209.94 / 1211.82 518.84 / 646.34 178.1 / 178.1 Output Total 2575 / 2575 2200 / 2375 400 / 400 Balance -1365.06 / -1363.18 -1681.16 / -1728.66 -221.9 / -221.9 Medical Nutrition Assessment Dietitian: Malnutrition Criteria Met Start: 03/18/21 09:07 Freq: Status: Active Protocol: Document 03/23/21 09:48 AG (Rec: 03/23/21 09:48 [id number]) Nutrition Malnutrition Evidence of Malnutrition Exists No Intake Problem Inadequate Oral Intake Etiology r/t resp. failure, decreased appetite Signs/Symptoms as evidenced by poor PO intake x 24 hours Status Resolved Problem Recommendation Dietitian Recommendations/Changes Continue cardiac diet and 120 ml ensure enlive w/ meals for additional calories/protein if consumed. Lab / Micro Data Result Diagrams: 03/26/21 03:40 03/26/21 03:40 Labs: Laboratory Results - last 24 hr 03/25/21 10:35: POC Glucose 120 H 03/25/21 17:10: POC Glucose 291 H 03/25/21 21:41: POC Glucose 392 H 03/26/21 03:40: WBC 4.9, RBC 2.98 L, Hgb 9.1 L, Hct 27.7 L, MCV 93.0, MCH 30.5, MCHC 32.9, RDW Std Deviation 46.5 H, RDW Coeff of Devendra 13.7, Plt Count 232, MPV 11.2, Immature Gran % (Auto) 0.600, Neut % (Auto) 72.4 H, Lymph % (Auto) 15.2 L, [place] % (Auto) 11.8 H, Eos % (Auto) 0.0, Baso % (Auto) 0.0, Absolute Neuts (auto) 3.6, Absolute Lymphs (auto) 0.75 L, Nucleated RBC % 0 03/26/21 03:40: Sodium 139, Potassium 3.9, Chloride 103, Carbon Dioxide 31.0, Anion Gap 5, BUN 63 H, Creatinine 1.48 H, Estim Creat Clear Calc 28.62, Est GFR (MDRD) Af Amer 44 L, Est GFR (MDRD) Non-Af 37 L, BUN/Creatinine Ratio 42.6 H, Glucose 110 H, Calcium 7.9 L Micro: Microbiology 03/20/21 10:55 Blood Culture (Wb) - Other Blood Culture - Final No growth in 5 days. 03/20/21 10:55 Blood Culture (Wb) - Anticubital Left Blood Culture - Final No growth in 5 days. 03/20/21 11:45 Urine Catheter - Evans Urine Culture - Final Escherichia coli 03/17/21 07:26 Mucosa - Nose SARS-CoV-2 Antigen (Rapid) - Final SARS-CoV-2 (COVID 19) Physical Exam Const alert, oriented x3 and no apparent distress General Appearance: cooperative; Negative for on BiPAP Nutritional Appearance: obese HEENT normocephalic and head/scalp atraumatic Eyes PERRL and EOMs intact bilaterally Neck supple Neck Narrative: Improved muscle tone on right sternocleidomastoid General: trachea midline Resp Effort and Inspection: able to speak in complete sentences and symmetric chest movement; Negative for tachypneic or labored Auscultation: diminished lung sounds; Negative for rales, rhonchi or wheezes Cardio S1 normal heart sound and S2 normal heart sound Rate: tachycardic GI normal to inspection, nondistended, normoactive bowel sounds Bladder / Kidney Exam: No catheter in place Extremity no clubbing, cyanosis or edema Skin no rashes or lesions noted Neuro CN's II-XII intact bilaterally and no focal motor deficits Psych cooperative and affect normal Charges/Coding Procedures Hospitalists Procedures: 09681 Critial Care 1st Hr
[2021-03-26] MEDS: Smz/Tmp Ds Tablet 0.5 TABLET PO ×2 (08:16→21:24)
[2021-03-26] MEDS: Midodrine HCl 5 MG Tablet 10 MG PO ×3 (08:16→17:38)
[2021-03-26] MEDS: Hydroxychloroquine 200 MG Tablet 300 MG PO (08:17)
[2021-03-26] MEDS: Docusate Sodium 100 MG Capsule 200 MG PO ×2 (08:17→21:04)
[2021-03-26] MEDS: Aspirin E.C. 81 MG Tablet PO (08:17)
[2021-03-26] MEDS: Enoxaparin 30 MG/0.3 ML Syringe SC ×2 (08:18→21:05)
[2021-03-26] MEDS: Hydrocortisone Sod Succinate 100 MG/2 ML Vial IV ×3 (08:40→21:18)
[2021-03-26 10:16] LABS: Bedside Glucose 57 mg/dL (70-110)
[2021-03-26 12:25] LABS: Bedside Glucose 91 mg/dL (70-110)
[2021-03-26] MEDS: Insulin Lispro 100 UNIT/ML INSULN.PEN SC ×3 (12:27→21:23)
--- NOTE | 2021-03-26 13:36 | PN.HOSP_ITS ---
Subjective Subjective Patient reports that she is feeling less lightheaded than she was yesterday. She states she is improved in the last 24 hours. She remains on Levophed at 4 mics. She is on room air. Objective Data Objective Data Vital Signs: Vital Signs Temp Pulse Resp BP Pulse Ox 97.8 F 109 H 18 92/51 L 95 03/26/21 13:00 03/26/21 13:00 03/26/21 13:00 03/26/21 13:00 03/26/21 13:00 Oxygen Flow Rate (L/min) 4 Oxygen Delivery Method Room Air Weight: 55.2 kg Body Mass Index (BMI) 31.6 Intake & Output: Intake and Output for Last 24 Hours 03/24/21 03/25/21 03/26/21 23:59 23:59 23:59 Intake Total 1209.94 / 1211.82 518.84 / 646.34 661.7 / 661.7 Output Total 2575 / 2575 2200 / 2375 450 / 450 Balance -1365.06 / -1363.18 -1681.16 / -1728.66 211.7 / 211.7 Medical Nutrition Assessment Dietitian: Malnutrition Criteria Met Start: 03/18/21 09:07 Freq: Status: Active Protocol: Document 03/23/21 09:48 AG (Rec: 03/23/21 09:48 AG [id number]) Nutrition Malnutrition Evidence of Malnutrition Exists No Intake Problem Inadequate Oral Intake Etiology r/t resp. failure, decreased appetite Signs/Symptoms as evidenced by poor PO intake x 24 hours Status Resolved Problem Recommendation Dietitian Recommendations/Changes Continue cardiac diet and 120 ml ensure enlive w/ meals for additional calories/protein if consumed. Lab / Micro Data Result Diagrams: 03/26/21 03:40 03/26/21 03:40 Labs: Laboratory Results - last 24 hr 03/25/21 10:35: POC Glucose 120 H 03/25/21 17:10: POC Glucose 291 H 03/25/21 21:41: POC Glucose 392 H 03/26/21 03:40: WBC 4.9, RBC 2.98 L, Hgb 9.1 L, Hct 27.7 L, MCV 93.0, MCH 30.5, MCHC 32.9, RDW Std Deviation 46.5 H, RDW Coeff of Devendra 13.7, Plt Count 232, MPV 11.2, Immature Gran % (Auto) 0.600, Neut % (Auto) 72.4 H, Lymph % (Auto) 15.2 L, [place] % (Auto) 11.8 H, Eos % (Auto) 0.0, Baso % (Auto) 0.0, Absolute Neuts (auto) 3.6, Absolute Lymphs (auto) 0.75 L, Nucleated RBC % 0 03/26/21 03:40: Sodium 139, Potassium 3.9, Chloride 103, Carbon Dioxide 31.0, Anion Gap 5, BUN 63 H, Creatinine 1.48 H, Estim Creat Clear Calc 28.62, Est GFR (MDRD) Af Amer 44 L, Est GFR (MDRD) Non-Af 37 L, BUN/Creatinine Ratio 42.6 H, Glucose 110 H, Calcium 7.9 L 03/26/21 08:12: POC Glucose 57 L 03/26/21 10:18: POC Glucose 91 Micro: Microbiology 03/20/21 10:55 Blood Culture (Wb) - Other Blood Culture - Final No growth in 5 days. 03/20/21 10:55 Blood Culture (Wb) - Anticubital Left Blood Culture - Final No growth in 5 days. 03/20/21 11:45 Urine Catheter - Evans Urine Culture - Final Escherichia coli 03/17/21 07:26 Mucosa - Nose SARS-CoV-2 Antigen (Rapid) - Final SARS-CoV-2 (COVID 19) Radiography Diagnostic Testing: Radiology Impression Echocardiogram 03/26/21 07:19 Interpretation Summary The estimated ejection fraction is EF 10-15 %. No significant changes from recent TTE ___ Ordering Physician: Bernabe Espinoza Referring Physician: Paul Bauer Performed By: Madai Shearer RDCS Physical Exam Const alert, oriented x3 and no apparent distress Constitutional Narrative: Older white female, sitting up in bed watching television, appears comfortable, nontoxic Exam Limitations: no limitations Resp normal respiratory effort, no retractions and no use of accessory muscles Resp Narrative: Diminished but clear Auscultation: Negative for crackles, rales, rhonchi or wheezes Cardio regular rhythm, S1 normal heart sound, S2 normal heart sound, no murmurs, no rub, no gallops, no clicks and no JVD Cardio Narrative: Mild tachycardia GI normal to inspection, nondistended, normoactive bowel sounds, soft to palpation, non-tender and non-distended Extremity normal to inspection and no clubbing, cyanosis or edema Peripheral Pulses: Yes pulses 2+ throughout Skin skin turgor normal, no jaundice, no petechiae and no mottling Neuro oriented x3, CN's II-XII intact bilaterally, moves all extremities and no focal motor deficits Neuro Narrative: Generalized weakness Sensorium / Orientation: awake and alert Speech: speech normal Psych affect normal Assessment & Plan Assessment/Plan (1) Non-STEMI (non-ST elevated myocardial infarction): (2) Cardiomyopathy: QUALIFIERS: Cardiomyopathy type: unspecified Qualified Code(s): I42.9 - Cardiomyopathy, unspecified (3) COVID-19: (4) Anemia: (5) CKD (chronic kidney disease) stage 3, GFR 30-59 ml/min: PLAN: Acute hypoxemic respiratory failure secondary to COVID-19 pneumonia -Resolved -Respiratory status is back to baseline and patient is on room air -Continue steroids and remdesivir completed -Check ambulatory pulse ox prior to discharge -Covid positive on 03/17/2021--> will need isolation until 04/06/2021 Shock-undifferentiated -Patient with persistent hypotension although etiology is unclear at this time -Suspect related to cardiomyopathy -Repeat limited echo pending -Continue pressors--> Levophed is at 4 mics -Continue midodrine -Diuresis on hold given hypotension -Decadron converted to Solu-Cortef secondary to persistent hypotension -Could consider checking mixed venous O2 saturation E. coli UTI -Continue Bactrim -Dose 4 of 10 -Monitor potassium and creatinine closely NSTEMI/cardiomyopathy -Cardiology is following -Continue goal-directed therapy as able -Limiting factors blood pressure -Continue statin -Continue aspirin -May be related to COVID-19/viral myocarditis -We will need cardiac catheterization at some point in the future -Repeat echo is pending STEFAN on CKD stage IIIb -Serum creatinine should improve with pressors given increased perfusion to the kidneys -Overall serum creatinine is stable at this time -Repeat in a.m. Anemia -Counts are stable -Monitor blood counts and monitor for signs of bleeding DM-2 -Continue sliding scale -Continue Accu-Cheks -Expect sugars to trend up with stress dose steroids -Monitor closely for increased insulin needs Lupus -Continue Plaquenil DVT prophylaxis -Continue Lovenox 30 mg twice daily CODE STATUS -Full code Charges/Coding Visit Charges Inpatient E&M: 22869 Subs Hosp L2
--- NOTE | 2021-03-26 15:28 | NURSING ---
Multiple attempts with this RN and PT to get up to chair, pt able to sit on side of bed, however gets dizzy and nauseous. Pt unable to tolerate standing. Dr. Espinoza aware
[2021-03-26 16:15] LABS: Bedside Glucose 178 mg/dL (70-110)
[2021-03-26] MEDS: Ondansetron 4 MG/2 ML Vial IV ×2 (16:48→22:55)
[2021-03-26] MEDS: Bisacodyl 10 MG Suppository RC (17:03)
--- NOTE | 2021-03-26 17:47 | PN.CARD_ITS ---
Subjective Subjective No symptoms reported Objective Data Vital Signs: Vital Signs Temp Pulse Resp BP Pulse Ox 97.8 F 100 16 87/48 L 93 03/26/21 13:00 03/26/21 17:30 03/26/21 17:30 03/26/21 17:30 03/26/21 17:30 Oxygen Flow Rate (L/min) 4 Oxygen Delivery Method Room Air Weight: 121 lb 11.123 oz Body Mass Index (BMI) 31.6 Intake & Output: Intake and Output for Last 24 Hours 03/24/21 03/25/21 03/26/21 23:59 23:59 23:59 Intake Total 1209.94 / 1211.82 518.84 / 646.34 680.97 / 680.97 Output Total 2575 / 2575 2200 / 2375 450 / 450 Balance -1365.06 / -1363.18 -1681.16 / -1728.66 230.97 / 230.97 Lab / Micro Data Result Diagrams: 03/26/21 03:40 03/26/21 03:40 Labs: Laboratory Results - last 24 hr 03/25/21 17:10: POC Glucose 291 H 03/25/21 21:41: POC Glucose 392 H 03/26/21 03:40: WBC 4.9, RBC 2.98 L, Hgb 9.1 L, Hct 27.7 L, MCV 93.0, MCH 30.5, MCHC 32.9, RDW Std Deviation 46.5 H, RDW Coeff of Devendra 13.7, Plt Count 232, MPV 11.2, Immature Gran % (Auto) 0.600, Neut % (Auto) 72.4 H, Lymph % (Auto) 15.2 L, [place] % (Auto) 11.8 H, Eos % (Auto) 0.0, Baso % (Auto) 0.0, Absolute Neuts (auto) 3.6, Absolute Lymphs (auto) 0.75 L, Nucleated RBC % 0 03/26/21 03:40: Sodium 139, Potassium 3.9, Chloride 103, Carbon Dioxide 31.0, Anion Gap 5, BUN 63 H, Creatinine 1.48 H, Estim Creat Clear Calc 28.62, Est GFR (MDRD) Af Amer 44 L, Est GFR (MDRD) Non-Af 37 L, BUN/Creatinine Ratio 42.6 H, Glucose 110 H, Calcium 7.9 L 03/26/21 08:12: POC Glucose 57 L 03/26/21 10:18: POC Glucose 91 03/26/21 12:25: POC Glucose 178 H Cardiology Labs/Tests 03/26/21 03:40: WBC 4.9, RBC 2.98 L, Hgb 9.1 L, Hct 27.7 L, MCV 93.0, MCH 30.5, MCHC 32.9, Plt Count 232, MPV 11.2, Immature Gran % (Auto) 0.600, Neut % (Auto) 72.4 H, Lymph % (Auto) 15.2 L, [place] % (Auto) 11.8 H, Eos % (Auto) 0.0, Baso % (Auto) 0.0, Absolute Neuts (auto) 3.6, Nucleated RBC % 0 03/26/21 03:40: Sodium 139, Potassium 3.9, Chloride 103, Carbon Dioxide 31.0, Anion Gap 5, BUN 63 H, Creatinine 1.48 H, Est GFR (MDRD) Af Amer 44 L, Est GFR (MDRD) Non-Af 37 L, BUN/Creatinine Ratio 42.6 H, Glucose 110 H, Calcium 7.9 L Rhythm: EKG: ECHO: Stress Test: Cardiac Cath: PCI: CT Surgery: Holter monitor: EPS: PPM: CXR: Chest CT Scan: Radiography Diagnostic Testing: Radiology Impression Echocardiogram 03/26/21 07:19 Interpretation Summary The estimated ejection fraction is EF 10-15 %. 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 Has multiple other medical comorbidities with COVID-19, hypertension, hyperlipidemia, lupus erythematosus Recommendation plan; I reviewed, repeat echocardiogram today, does not show any significant difference from prior Still severe LV systolic dysfunction with EF in the range of 10-15% No pericardial effusion noted We will continue medical therapy and will continue to monitor and follow-up clinically. (5) Elevated troponin: (6) COVID-19: (7) Type 2 diabetes mellitus: (8) Elevated antinuclear antibody (BRANDEN) level: (9) High cholesterol: (10) Hypertension: QUALIFIERS: Hypertension type: unspecified Qualified Code(s): I10 - Essential (primary) hypertension
[2021-03-26 20:41] LABS: Bedside Glucose 277 mg/dL (70-110)
[2021-03-26] MEDS: 0.9% Saline Lock 10 ML Syringe IV (21:00)
[2021-03-26] MEDS: Atorvastatin Calcium 40 MG Tablet PO (21:08)
[2021-03-26 23:15] LABS: Bedside Glucose 176 mg/dL (70-110)
[2021-03-27] VITALS (36 sets, daily range): BP systolic 65–105; BP diastolic 31–86; PULSE 66–125; RESP 12–20; TEMP 35.9–36.8; O2SAT 92–99
[2021-03-27 04:00] LABS: Absolute Neutrophil Count 8.4 X10^3/uL (2.0-7.7); Basophil# 0.01 X10^3/uL; Basophil% 0.1 % (0-1); Hematocrit 25.9 % (37-47); Hemoglobin 8.3 g/dL (12.0-15.0); Lymphocyte % 4.3 % (19-41); Mean Corpuscular Hgb 30.6 pg (27.0-32.0); Mean Corpuscular Volume 95.6 fL (81-99); Mean Platelet Vol. 11.1 fl (6.2-12.0); Monocyte# 0.39 X10^3/uL; Monocyte% 4.2 % (0-10); NRBC Flagged by Analyzer 0 % (0-5); Neutrophil # 8.39 X10^3/uL (2.7-7.7); Neutrophil % 90.8 % (47-70); POSITIVE DIFFERENTIAL YES; Platelet Count 185 K/mm3 (150-450); RBC Distribution Width CV 14.2 % (11.6-14.6); Red Blood Count 2.71 M/mm3 (4.2-5.4); White Blood Count 9.3 K/mm3 (4.4-11.0)
[2021-03-27 04:04] LABS: Differential Indicated SCAN CRITERIA MET
[2021-03-27 04:22] LABS: Anion Gap 9 (5-15); BUN 68 mg/dL (7-18); Calcium,Total 8.1 mg/dL (8.5-10.1); Chloride 100 mmol/L (98-107); Creatinine, Serum 1.62 mg/dL (0.55-1.02); EST Glomerular Filtration Rate 33 mL/min (>60); Est Glom Filt Rate - Afr Amer 40 mL/min (>60); Estimated Creatinine Clearance 26.15 ml/min; Glucose 233 mg/dL (74-106); Potassium 4.2 mmol/L (3.5-5.1); Sodium Level 138 mmol/L (136-145)
[2021-03-27 05:22] LABS: Differential Comment SCANNED
[2021-03-27 05:23] LABS: Hypochromasia RARE
[2021-03-27] MEDS: Menthol/Lanolin/Calamine/Znox 113 GM Tube 1 APPLIC TOPICAL ×3 (05:50→22:20)
[2021-03-27] MEDS: Nystatin Powder 15gm Bottle 1 APPLIC TOPICAL ×3 (05:51→22:21)
[2021-03-27] MEDS: Hydrocortisone Sod Succinate 100 MG/2 ML Vial IV ×3 (05:54→22:21)
[2021-03-27] MEDS: 0.9% Saline Lock 10 ML Syringe IV ×2 (05:54→22:18)
--- NOTE | 2021-03-27 07:21 | PCM.PN.INT ---
Assessment & Plan Assessment/Plan (1) COVID-19: PLAN: RECOMMENDATIONS: 1. Increase activity as tolerated 2. Hold on further diuretic therapy for now 3. Encourage incentive spirometer 4. Anticipate weaning stress dose steroids over the next 3 to 5 days if stays off pressors. Completed Remdesivir 5. Continue Lovenox as ordered. 6. Continue midodrine 7. Potential transfer from the intensive care unit later today if able to stay off pressors IMPRESSIONS: 1. Acute hypoxemic respiratory failure Resolved. Likely multifactorial in etiology with COVID-19 infection and decompensated heart failure contributing. Respiratory status appears to be back to baseline. Attempts to diurese the patient will be limited by the fact that she is requiring vasopressor support. Patient restarted on Decadron and Remdesivir given deterioration. We will complete these courses as prescribed. No indication for BiPAP at this time. Patient will likely require a walking oximetry prior to discharge given desaturation with ambulation. Clinical suspicion that recurrence of nocturnal oxygen requirements is secondary to atelectasis from decreased mobility. Encourage incentive spirometer. 2. Cardiogenic shock Unclear etiology for the patient's hypotension. However, sepsis and hypovolemia are potential causes. Patient also has significantly depressed EF. Nevertheless, given the patient's severely depressed ejection fraction, I would recommend conservative use of supplemental IV fluids. For now, the patient will be continued on Levophed to maintain a mean arterial pressure at or above 65 mmHg. Patient is on Decadron secondary to COVID-19, so stress dose steroids are likely not indicated. It is possible patient is having an element of increased cardiac stretch given decreased EF. Patient with orthostatic symptoms yesterday. We will hold on diuretic. Midodrine will be continued. Patient appears to have responded to Solu-Cortef. We will likely wean over the next 3 to 5 days if able to stay off of pressors. 3. Non-ST segment elevation [place]/acute systolic heart failure (suspected Takotsubo cardiomyopathy) Cardiology is following to assist with medical management. Patient will likely need a heart catheterization to rule out cardiovascular disease. Viral myocarditis in the setting of COVID-19 also a possibility. No beta-blockers at this time given pressor requirements. Defer to cardiology on timing of work-up. 4. Acute on chronic kidney disease Improving. Likely prerenal in etiology. Continue Levophed to maintain hemodynamic stability. Continue to monitor urine output. No indication for renal replacement therapy. Okay to discontinue Evans. 5. Obesity/hypertension/diabetes mellitus/hyperlipidemia/history of SLE Complicates care, management, recovery and prognosis. Continue to hold antihypertensives. Subjective Subjective Patient did well overnight. No acute issues were reported. Patient was able to come off of Levophed at approximately 3:00 this morning. Patient reports she feels subjectively improved compared to previous. Patient did require 2 L nasal cannula while sleeping, but has had decreased activity secondary to orthostatic symptoms in the last 48 hours. Objective Data Objective Data Vital Signs: Vital Signs Temp Pulse Resp BP Pulse Ox 35.9 C L 74 12 90/47 L 92 03/27/21 04:00 03/27/21 07:00 03/27/21 07:00 03/27/21 07:00 03/27/21 07:00 Oxygen Flow Rate (L/min) 2 Oxygen Delivery Method Room Air Weight: 55.4 kg Body Mass Index (BMI) 31.6 Intake & Output: Intake and Output for Last 24 Hours 03/25/21 03/26/21 03/27/21 23:59 23:59 23:59 Intake Total 518.84 / 646.34 1011.45 / 1013.35 8.08 / 8.08 Output Total 2200 / 2375 450 / 650 300 / 300 Balance -1681.16 / -1728.66 561.45 / 363.35 -291.92 / -291.92 Medical Nutrition Assessment Dietitian: Malnutrition Criteria Met Start: 03/18/21 09:07 Freq: Status: Active Protocol: Document 03/23/21 09:48 AG (Rec: 03/23/21 09:48 [id number]) Nutrition Malnutrition Evidence of Malnutrition Exists No Intake Problem Inadequate Oral Intake Etiology r/t resp. failure, decreased appetite Signs/Symptoms as evidenced by poor PO intake x 24 hours Status Resolved Problem Recommendation Dietitian Recommendations/Changes Continue cardiac diet and 120 ml ensure enlive w/ meals for additional calories/protein if consumed. Lab / Micro Data Result Diagrams: 03/27/21 03:40 03/27/21 03:40 Labs: Laboratory Results - last 24 hr 03/26/21 08:12: POC Glucose 57 L 03/26/21 10:18: POC Glucose 91 03/26/21 12:25: POC Glucose 178 H 03/26/21 16:04: POC Glucose 277 H 03/26/21 21:07: POC Glucose 176 H 03/27/21 03:40: WBC 9.3, RBC 2.71 L, Hgb 8.3 L, Hct 25.9 L, MCV 95.6, MCH 30.6, MCHC 32.0, RDW Std Deviation 49.0 H, RDW Coeff of Devendra 14.2, Plt Count 185, MPV 11.1, Immature Gran % (Auto) 0.600, Neut % (Auto) 90.8 H, Lymph % (Auto) 4.3 L, [place] % (Auto) 4.2, Eos % (Auto) 0.0, Baso % (Auto) 0.1, Absolute Neuts (auto) 8.4 H, Absolute Lymphs (auto) 0.40 L, Nucleated RBC % 0, Differential Comment SCANNED, Hypochromasia RARE 03/27/21 03:40: Sodium 138, Potassium 4.2, Chloride 100, Carbon Dioxide 29.0, Anion Gap 9, BUN 68 H, Creatinine 1.62 H, Estim Creat Clear Calc 26.15, Est GFR (MDRD) Af Amer 40 L, Est GFR (MDRD) Non-Af 33 L, BUN/Creatinine Ratio 42.0 H, Glucose 233 H, Calcium 8.1 L Micro: Microbiology 03/20/21 10:55 Blood Culture (Wb) - Other Blood Culture - Final No growth in 5 days. 03/20/21 10:55 Blood Culture (Wb) - Anticubital Left Blood Culture - Final No growth in 5 days. 03/20/21 11:45 Urine Catheter - Evans Urine Culture - Final Escherichia coli 03/17/21 07:26 Mucosa - Nose SARS-CoV-2 Antigen (Rapid) - Final SARS-CoV-2 (COVID 19) Radiography Diagnostic Testing: Radiology Impression Echocardiogram 03/26/21 07:19 Interpretation Summary The estimated ejection fraction is EF 10-15 %. No significant changes from recent TTE Ordering Physician: Bernabe Espinoza Referring Physician: Paul Bauer Performed By: Madai Shearer RDCS Physical Exam Const alert, oriented x3 and no apparent distress General Appearance: cooperative; Negative for on BiPAP Nutritional Appearance: obese HEENT normocephalic and head/scalp atraumatic Eyes PERRL and EOMs intact bilaterally Neck supple General: trachea midline Resp Effort and Inspection: able to speak in complete sentences and symmetric chest movement; Negative for tachypneic or labored Auscultation: diminished lung sounds; Negative for rales, rhonchi or wheezes Cardio S1 normal heart sound and S2 normal heart sound Rate: tachycardic GI normal to inspection, nondistended, normoactive bowel sounds Bladder / Kidney Exam: No catheter in place Extremity no clubbing, cyanosis or edema Skin no rashes or lesions noted Neuro CN's II-XII intact bilaterally and no focal motor deficits Psych cooperative and affect normal Charges/Coding Visit Charges Inpatient E&M: 22720 Subs Hosp L3
[2021-03-27] MEDS: Ondansetron 4 MG/2 ML Vial IV (08:06)
[2021-03-27] MEDS: Hydroxychloroquine 200 MG Tablet 300 MG PO (08:12)
[2021-03-27] MEDS: Docusate Sodium 100 MG Capsule 200 MG PO ×2 (08:12→22:19)
[2021-03-27] MEDS: Enoxaparin 30 MG/0.3 ML Syringe SC ×2 (08:12→22:21)
[2021-03-27] MEDS: Midodrine HCl 5 MG Tablet 10 MG PO ×3 (08:13→17:16)
[2021-03-27] MEDS: Smz/Tmp Ds Tablet 0.5 TABLET PO ×2 (08:13→22:20)
[2021-03-27] MEDS: Aspirin E.C. 81 MG Tablet PO (08:13)
[2021-03-27] MEDS: Insulin Lispro 100 UNIT/ML INSULN.PEN SC ×4 (08:14→22:16)
[2021-03-27 10:20] LABS: Bedside Glucose 234 mg/dL (70-110)
--- NOTE | 2021-03-27 11:57 | PCM.PN.CARD ---
Subjective Subjective Symptoms of dizziness Of Levophed Orthostatic hypotension Objective Data Vital Signs: Vital Signs Temp Pulse Resp BP Pulse Ox 96.9 F L 85 15 86/45 L 98 03/27/21 09:00 03/27/21 11:00 03/27/21 11:00 03/27/21 11:00 03/27/21 11:00 Oxygen Flow Rate (L/min) 2 Oxygen Delivery Method Room Air Weight: 122 lb 2.177 oz Body Mass Index (BMI) 31.6 Intake & Output: Intake and Output for Last 24 Hours 03/25/21 03/26/21 03/27/21 23:59 23:59 23:59 Intake Total 518.84 / 646.34 1011.45 / 1013.35 708.08 / 708.08 Output Total 2200 / 2375 450 / 650 300 / 300 Balance -1681.16 / -1728.66 561.45 / 363.35 408.08 / 408.08 Lab / Micro Data Result Diagrams: 03/27/21 03:40 03/27/21 03:40 Labs: Laboratory Results - last 24 hr 03/26/21 10:18: POC Glucose 91 03/26/21 12:25: POC Glucose 178 H 03/26/21 16:04: POC Glucose 277 H 03/26/21 21:07: POC Glucose 176 H 03/27/21 03:40: WBC 9.3, RBC 2.71 L, Hgb 8.3 L, Hct 25.9 L, MCV 95.6, MCH 30.6, MCHC 32.0, RDW Std Deviation 49.0 H, RDW Coeff of Devendra 14.2, Plt Count 185, MPV 11.1, Immature Gran % (Auto) 0.600, Neut % (Auto) 90.8 H, Lymph % (Auto) 4.3 L, [place] % (Auto) 4.2, Eos % (Auto) 0.0, Baso % (Auto) 0.1, Absolute Neuts (auto) 8.4 H, Absolute Lymphs (auto) 0.40 L, Nucleated RBC % 0, Differential Comment SCANNED, Hypochromasia RARE 03/27/21 03:40: Sodium 138, Potassium 4.2, Chloride 100, Carbon Dioxide 29.0, Anion Gap 9, BUN 68 H, Creatinine 1.62 H, Estim Creat Clear Calc 26.15, Est GFR (MDRD) Af Amer 40 L, Est GFR (MDRD) Non-Af 33 L, BUN/Creatinine Ratio 42.0 H, Glucose 233 H, Calcium 8.1 L 03/27/21 08:01: POC Glucose 234 H Cardiology Labs/Tests 03/27/21 03:40: WBC 9.3, RBC 2.71 L, Hgb 8.3 L, Hct 25.9 L, MCV 95.6, MCH 30.6, MCHC 32.0, Plt Count 185, MPV 11.1, Immature Gran % (Auto) 0.600, Neut % (Auto) 90.8 H, Lymph % (Auto) 4.3 L, [place] % (Auto) 4.2, Eos % (Auto) 0.0, Baso % (Auto) 0.1, Absolute Neuts (auto) 8.4 H, Nucleated RBC % 0 03/27/21 03:40: Sodium 138, Potassium 4.2, Chloride 100, Carbon Dioxide 29.0, Anion Gap 9, BUN 68 H, Creatinine 1.62 H, Est GFR (MDRD) Af Amer 40 L, Est GFR (MDRD) Non-Af 33 L, BUN/Creatinine Ratio 42.0 H, Glucose 233 H, Calcium 8.1 L Rhythm: Normal sinus rhythm ECHO: Severe LV systolic dysfunction ejection fraction in the range of 10-15% Radiography Diagnostic Testing: Radiology Impression Echocardiogram 03/26/21 07:19 Interpretation Summary The estimated ejection fraction is EF 10-15 %. No significant changes from recent TTE Ordering Physician: Bernabe Espinoza Referring Physician: Paul Bauer Performed By: Madai Shearer, LACEY Assessment & Plan Assessment/Plan (1) COVID-19: (2) Cardiomyopathy: QUALIFIERS: Cardiomyopathy type: unspecified Qualified Code(s): I42.9 - Cardiomyopathy, unspecified (3) Elevated troponin: (4) Acute respiratory failure with hypoxia: (5) Shock: (6) CKD (chronic kidney disease) stage 3, GFR 30-59 ml/min: (7) Type 2 diabetes mellitus: (8) Lupus: (9) High cholesterol: (10) Hypertension: QUALIFIERS: Hypertension type: unspecified Qualified Code(s): I10 - Essential (primary) hypertension (11) Diabetes: (12) Non-STEMI (non-ST elevated myocardial infarction): PLAN: 75-year-old patient, with Covid 19, acute respiratory failure with hypoxia Patient has severe LV systolic dysfunction with elevated cardiac biomarkers/high sensitive troponin, demand ischemia with type II CT Recommendation plan; I reviewed and discussed the current cardiac care plan with the nursing staff and will continue to monitor and follow-up clinically Once stable clinically to consider further evaluation with cardiac catheterization.
--- NOTE | 2021-03-27 12:00 | NURSING ---
OTF PICC dressing and connector caps changed in sterile fashion according to policy. Pt tolerated well.
[2021-03-27 14:40] LABS: Bedside Glucose 320 mg/dL (70-110)
--- NOTE | 2021-03-27 14:54 | PCM.PN.HOSP ---
Subjective Subjective Off pressors but still orthostatic positive. Pressors were discontinued approximately 4 AM this morning but blood pressure still on the soft side. Patient currently denies any symptoms but is sitting up in a chair at rest. Denies any shortness of breath. Complains of lightheadedness with positional changes that resolves with time. Objective Data Objective Data Vital Signs: Vital Signs Temp Pulse Resp BP Pulse Ox 96.9 F L 81 15 84/42 L 96 03/27/21 12:00 03/27/21 14:00 03/27/21 14:00 03/27/21 14:00 03/27/21 14:00 Oxygen Flow Rate (L/min) 2 Oxygen Delivery Method Room Air Weight: 55.4 kg Body Mass Index (BMI) 31.6 Intake & Output: Intake and Output for Last 24 Hours 03/25/21 03/26/21 03/27/21 23:59 23:59 23:59 Intake Total 518.84 / 646.34 1011.45 / 1013.35 1133.08 / 1133.08 Output Total 2200 / 2375 450 / 650 300 / 300 Balance -1681.16 / -1728.66 561.45 / 363.35 833.08 / 833.08 Medical Nutrition Assessment Dietitian: Malnutrition Criteria Met Start: 03/18/21 09:07 Freq: Status: Active Protocol: Document 03/23/21 09:48 AG (Rec: 03/23/21 09:48 AG [id number]) Nutrition Malnutrition Evidence of Malnutrition Exists No Intake Problem Inadequate Oral Intake Etiology r/t resp. failure, decreased appetite Signs/Symptoms as evidenced by poor PO intake x 24 hours Status Resolved Problem Recommendation Dietitian Recommendations/Changes Continue cardiac diet and 120 ml ensure enlive w/ meals for additional calories/protein if consumed. Lab / Micro Data Result Diagrams: 03/27/21 03:40 03/27/21 03:40 Labs: Laboratory Results - last 24 hr 03/26/21 12:25: POC Glucose 178 H 03/26/21 16:04: POC Glucose 277 H 03/26/21 21:07: POC Glucose 176 H 03/27/21 03:40: WBC 9.3, RBC 2.71 L, Hgb 8.3 L, Hct 25.9 L, MCV 95.6, MCH 30.6, MCHC 32.0, RDW Std Deviation 49.0 H, RDW Coeff of Devendra 14.2, Plt Count 185, MPV 11.1, Immature Gran % (Auto) 0.600, Neut % (Auto) 90.8 H, Lymph % (Auto) 4.3 L, [place] % (Auto) 4.2, Eos % (Auto) 0.0, Baso % (Auto) 0.1, Absolute Neuts (auto) 8.4 H, Absolute Lymphs (auto) 0.40 L, Nucleated RBC % 0, Differential Comment SCANNED, Hypochromasia RARE 03/27/21 03:40: Sodium 138, Potassium 4.2, Chloride 100, Carbon Dioxide 29.0, Anion Gap 9, BUN 68 H, Creatinine 1.62 H, Estim Creat Clear Calc 26.15, Est GFR (MDRD) Af Amer 40 L, Est GFR (MDRD) Non-Af 33 L, BUN/Creatinine Ratio 42.0 H, Glucose 233 H, Calcium 8.1 L 03/27/21 08:01: POC Glucose 234 H 03/27/21 12:12: POC Glucose 320 H Micro: Microbiology 03/20/21 10:55 Blood Culture (Wb) - Other Blood Culture - Final No growth in 5 days. 03/20/21 10:55 Blood Culture (Wb) - Anticubital Left Blood Culture - Final No growth in 5 days. 03/20/21 11:45 Urine Catheter - Evans Urine Culture - Final Escherichia coli 03/17/21 07:26 Mucosa - Nose SARS-CoV-2 Antigen (Rapid) - Final SARS-CoV-2 (COVID 19) Physical Exam Const alert, oriented x3 and no apparent distress Constitutional Narrative: Older white female sitting up in a chair at the bedside, appears comfortable, nontoxic, watching television Exam Limitations: no limitations HEENT head/scalp atraumatic Head and Scalp: normocephalic Resp normal respiratory effort, no retractions, no use of accessory muscles and clear to auscultation bilaterally Auscultation: Negative for crackles, rales, rhonchi or wheezes Cardio regular rhythm, S1 normal heart sound, S2 normal heart sound, no murmurs, no rub, no gallops, no clicks and no JVD Cardio Narrative: Mildly tachycardic GI normal to inspection, nondistended, normoactive bowel sounds, soft to palpation, non-tender and non-distended Extremity no clubbing, cyanosis or edema Peripheral Pulses: Yes pulses 2+ throughout Skin no rashes or lesions noted, no wounds, skin turgor normal, no jaundice, no petechiae and no mottling Neuro oriented x3, moves all extremities and no focal motor deficits Neuro Narrative: Generalized weakness Sensorium / Orientation: awake, alert, oriented to person, oriented to place and oriented to time Speech: speech normal Psych affect normal Psych Narrative: Extremely pleasant Assessment & Plan Assessment/Plan (1) COVID-19: (2) Shock: (3) Non-STEMI (non-ST elevated myocardial infarction): PLAN: Acute hypoxemic respiratory failure secondary to COVID-19 pneumonia -Resolved -Respiratory status is back to baseline and patient is on room air -Continue steroids and remdesivir completed -Check ambulatory pulse ox prior to discharge -Covid positive on 03/17/2021--> will need isolation until 04/06/2021 Shock-undifferentiated -Patient with persistent hypotension although etiology is unclear at this time -Suspect related to cardiomyopathy -Repeat limited echo shows an EF of 10 to 15% with a severely dilated but left ventricle and overall no significant changes -Patient remains off pressors at this time -Continue midodrine -Diuresis on hold given hypotension -Decadron converted to Solu-Cortef secondary to persistent hypotension -Initiate weaning of stress dose steroids in the next 24 to 48 hours -Could consider checking mixed venous O2 saturation E. coli UTI -Continue Bactrim -Dose 6 10 -Monitor potassium and creatinine closely NSTEMI/cardiomyopathy -Cardiology is following -Continue goal-directed therapy as able -Limiting factors blood pressure -Continue statin -Continue aspirin -May be related to COVID-19/viral myocarditis -We will need cardiac catheterization at some point in the future -Clinically is stable enough now for catheterization will need to discuss further with cardiology this week -Repeat echo is stable with an EF of 10 to 15% -Continue to hold diuresis STEFAN on CKD stage IIIb -Serum creatinine should improve with pressors given increased perfusion to the kidneys -Overall serum creatinine is stable at this time -Slight increase in serum creatinine the last 24 hours -If remains elevated tomorrow stop Bactrim -Repeat in a.m. Anemia -Counts are stable -Monitor blood counts and monitor for signs of bleeding DM-2 -Continue sliding scale -Continue Accu-Cheks -As expected sugars have trended up with increased oral intake and initiation of stress dose steroids -Add Lantus 10 units at at bedtime -Continue to trend -Goal blood sugar is 140-180 Lupus -Continue Plaquenil DVT prophylaxis -Continue Lovenox 30 mg twice daily CODE STATUS -Full code Charges/Coding Visit Charges Inpatient E&M: 10970 Subs Hosp L2
[2021-03-27 17:45] LABS: Bedside Glucose 381 mg/dL (70-110)
[2021-03-27] MEDS: Atorvastatin Calcium 40 MG Tablet PO (22:19)
[2021-03-27 23:26] LABS: Bedside Glucose 202 mg/dL (70-110)
[2021-03-28] VITALS (24 sets, daily range): BP systolic 67–112; BP diastolic 36–70; PULSE 66–118; RESP 12–26; TEMP 36.1–36.5; O2SAT 90–97
[2021-03-28 03:27] LABS: Absolute Lymphocyte Count 0.28 X10^3/uL (0.83-4.51); Absolute Neutrophil Count 5.7 X10^3/uL (2.0-7.7); Basophil# 0.01 X10^3/uL; Basophil% 0.2 % (0-1); Hematocrit 24.5 % (37-47); Hemoglobin 7.8 g/dL (12.0-15.0); Lymphocyte # 0.28 X10^3/ul (0.83-4.51); Lymphocyte % 4.5 % (19-41); Mean Corp Hgb Conc 31.8 g/dL (32-36); Mean Corpuscular Hgb 30.4 pg (27.0-32.0); Mean Corpuscular Volume 95.3 fL (81-99); Mean Platelet Vol. 11.2 fl (6.2-12.0); Monocyte# 0.26 X10^3/uL; Monocyte% 4.1 % (0-10); NRBC Flagged by Analyzer 0 % (0-5); Neutrophil # 5.68 X10^3/uL (2.7-7.7); Neutrophil % 90.6 % (47-70); POSITIVE DIFFERENTIAL YES; Platelet Count 171 K/mm3 (150-450); RBC Distribution Width CV 14.6 % (11.6-14.6); RBC Distribution Width SD 50.5 fl (35.1-43.9); Red Blood Count 2.57 M/mm3 (4.2-5.4); White Blood Count 6.3 K/mm3 (4.4-11.0)
[2021-03-28 03:37] LABS: Differential Indicated SCAN CRITERIA MET
[2021-03-28 03:40] LABS: Anion Gap 7 (5-15); BUN 73 mg/dL (7-18); BUN/Creat Ratio 43.5 RATIO (10-20); Calcium,Total 7.6 mg/dL (8.5-10.1); Chloride 101 mmol/L (98-107); Creatinine, Serum 1.68 mg/dL (0.55-1.02); EST Glomerular Filtration Rate 32 mL/min (>60); Est Glom Filt Rate - Afr Amer 38 mL/min (>60); Estimated Creatinine Clearance 25.62 ml/min; Glucose 267 mg/dL (74-106); Sodium Level 137 mmol/L (136-145)
[2021-03-28 03:56] LABS: Differential Comment SCANNED
[2021-03-28] MEDS: Menthol/Lanolin/Calamine/Znox 113 GM Tube 1 APPLIC TOPICAL ×3 (06:22→21:44)
[2021-03-28] MEDS: Nystatin Powder 15gm Bottle 1 APPLIC TOPICAL ×3 (06:22→21:45)
[2021-03-28] MEDS: Hydrocortisone Sod Succinate 100 MG/2 ML Vial IV ×3 (06:22→21:47)
--- NOTE | 2021-03-28 06:22 | PCM.PN.INT ---
Assessment & Plan Assessment/Plan (1) COVID-19: PLAN: RECOMMENDATIONS: 1. Continue scheduled midodrine. 2. Wean stress dose steroids as tolerated. 3. Continue Lovenox as ordered. 4. Encourage incentive spirometer use and mobilize patient as tolerated. 5. Pending stability in hemodynamics this morning, the patient could be transferred out of the intensive care unit. IMPRESSIONS: 1. Acute hypoxemic respiratory failure Resolved. Likely multifactorial in etiology with COVID-19 infection and decompensated heart failure contributing. Respiratory status appears to be back to baseline. Attempts to diurese the patient will be limited by the fact that she is requiring vasopressor support. Patient restarted on Decadron and Remdesivir given deterioration. We will complete these courses as prescribed. No indication for BiPAP at this time. Patient will likely require a walking oximetry prior to discharge given desaturation with ambulation. Clinical suspicion that recurrence of nocturnal oxygen requirements is secondary to atelectasis from decreased mobility. Encourage incentive spirometer. 2. Cardiogenic shock Unclear etiology for the patient's hypotension. However, sepsis and hypovolemia are potential causes. Patient also has significantly depressed EF. Nevertheless, given the patient's severely depressed ejection fraction, I would recommend conservative use of supplemental IV fluids. For now, the patient will be continued on Levophed to maintain a mean arterial pressure at or above 65 mmHg. Patient is on Decadron secondary to COVID-19, so stress dose steroids are likely not indicated. It is possible patient is having an element of increased cardiac stretch given decreased EF. Patient with orthostatic symptoms yesterday. We will hold on diuretic. Midodrine will be continued. Patient appears to have responded to Solu-Cortef. We will likely wean over the next 3 to 5 days if able to stay off of pressors. 3. Non-ST segment elevation [place]/acute systolic heart failure (suspected Takotsubo cardiomyopathy) Cardiology is following to assist with medical management. Patient will likely need a heart catheterization to rule out cardiovascular disease. Viral myocarditis in the setting of COVID-19 also a possibility. No beta-blockers at this time given pressor requirements. Defer to cardiology on timing of work-up. 4. Acute on chronic kidney disease Improving. Likely prerenal in etiology. Continue Levophed to maintain hemodynamic stability. Continue to monitor urine output. No indication for renal replacement therapy. Okay to discontinue Evans. 5. Obesity/hypertension/diabetes mellitus/hyperlipidemia/history of SLE Complicates care, management, recovery and prognosis. Continue to hold antihypertensives. This note was generated with [employer] dictation software. It may contain incorrect words, spelling, and punctuation that were not noted in checking the note before signing. Subjective Subjective The patient was seen and examined at the bedside this morning. Events from the last 24 hours have been reviewed. The patient is currently afebrile, hemodynamically stable and maintaining appropriate oxygen saturations on room air. The patient was able to be weaned off of Levophed yesterday, but remains a bit tenuous from a hemodynamic perspective. She is currently documented to be overall net -2.6 L for the hospital admission. Hemoglobin was noted to be 7.8 g/dL this morning, down from 8.3 g/dL yesterday. Creatinine remains elevated at 1.68. Objective Data Objective Data The patient's most recent lab work, culture data and imaging studies have all been personally reviewed. Surface echocardiogram was notable for a severely dilated LV with an ejection fraction of 10 to 15%. Urine culture dated 03/20 was positive for E. coli. Rapid coronavirus antigen testing was positive on 03/17. Vital Signs: Vital Signs Temp Pulse Resp BP Pulse Ox 97.1 F L 66 14 100/42 L 92 03/28/21 04:00 03/28/21 05:00 03/28/21 05:00 03/28/21 05:00 03/28/21 05:00 Oxygen Flow Rate (L/min) 2 Oxygen Delivery Method Room Air Weight: 56.1 kg Body Mass Index (BMI) 31.6 Intake & Output: Intake and Output for Last 24 Hours 03/26/21 03/27/21 03/28/21 23:59 23:59 23:59 Intake Total 1011.45 / 1013.35 1253.08 / 1253.08 250 / 250 Output Total 450 / 650 775 / 775 Balance 561.45 / 363.35 478.08 / 478.08 250 / 250 Medical Nutrition Assessment Dietitian: Malnutrition Criteria Met Start: 03/18/21 09:07 Freq: Status: Active Protocol: Document 03/23/21 09:48 AG (Rec: 03/23/21 09:48 AG [id number]) Nutrition Malnutrition Evidence of Malnutrition Exists No Intake Problem Inadequate Oral Intake Etiology r/t resp. failure, decreased appetite Signs/Symptoms as evidenced by poor PO intake x 24 hours Status Resolved Problem Recommendation Dietitian Recommendations/Changes Continue cardiac diet and 120 ml ensure enlive w/ meals for additional calories/protein if consumed. Lab / Micro Data Attestation: I reviewed the patient's lab results. Result Diagrams: 03/28/21 03:10 03/28/21 03:10 Labs: Laboratory Results - last 24 hr 03/27/21 08:01: POC Glucose 234 H 03/27/21 12:12: POC Glucose 320 H 03/27/21 17:14: POC Glucose 381 H 03/27/21 22:15: POC Glucose 202 H 03/28/21 03:10: WBC 6.3, RBC 2.57 L, Hgb 7.8 L, Hct 24.5 L, MCV 95.3, MCH 30.4, MCHC 31.8 L, RDW Std Deviation 50.5 H, RDW Coeff of Devendra 14.6, Plt Count 171, MPV 11.2, Immature Gran % (Auto) 0.600, Neut % (Auto) 90.6 H, Lymph % (Auto) 4.5 L, [place] % (Auto) 4.1, Eos % (Auto) 0.0, Baso % (Auto) 0.2, Absolute Neuts (auto) 5.7, Absolute Lymphs (auto) 0.28 L, Nucleated RBC % 0, Differential Comment SCANNED 03/28/21 03:10: Sodium 137, Potassium 4.0, Chloride 101, Carbon Dioxide 29.0, Anion Gap 7, BUN 73 H, Creatinine 1.68 H, Estim Creat Clear Calc 25.62, Est GFR (MDRD) Af Amer 38 L, Est GFR (MDRD) Non-Af 32 L, BUN/Creatinine Ratio 43.5 H, Glucose 267 H, Calcium 7.6 L Micro: Microbiology 03/20/21 10:55 Blood Culture (Wb) - Other Blood Culture - Final No growth in 5 days. 03/20/21 10:55 Blood Culture (Wb) - Anticubital Left Blood Culture - Final No growth in 5 days. 03/20/21 11:45 Urine Catheter - Evans Urine Culture - Final Escherichia coli 03/17/21 07:26 Mucosa - Nose SARS-CoV-2 Antigen (Rapid) - Final SARS-CoV-2 (COVID 19) Physical Exam Const alert and no apparent distress General Appearance: cooperative Nutritional Appearance: obese HEENT normocephalic, head/scalp atraumatic and moist oral mucous membranes Eyes PERRL, EOMs intact bilaterally and conjunctivae normal Neck supple General: trachea midline Resp Auscultation: diminished lung sounds; Negative for rales, rhonchi or wheezes Cardio regular rate and regular rhythm GI normal to inspection, nondistended, normoactive bowel sounds Extremity no clubbing, cyanosis or edema Skin no rashes or lesions noted Neuro CN's II-XII intact bilaterally and no focal motor deficits Psych cooperative and affect normal Charges/Coding Visit Charges Inpatient E&M: 12091 Subs Hosp L3
[2021-03-28] MEDS: Enoxaparin 30 MG/0.3 ML Syringe SC ×2 (08:40→21:47)
[2021-03-28] MEDS: Insulin Lispro 100 UNIT/ML INSULN.PEN SC ×4 (08:40→21:48)
[2021-03-28] MEDS: Midodrine HCl 5 MG Tablet 10 MG PO ×3 (08:41→16:10)
[2021-03-28] MEDS: Hydroxychloroquine 200 MG Tablet 300 MG PO (08:41)
[2021-03-28] MEDS: Docusate Sodium 100 MG Capsule 200 MG PO ×2 (08:42→21:47)
[2021-03-28] MEDS: Aspirin E.C. 81 MG Tablet PO (08:42)
[2021-03-28 11:11] LABS: Bedside Glucose 251 mg/dL (70-110)
[2021-03-28 11:40] LABS: Bedside Glucose 306 mg/dL (70-110)
[2021-03-28] MEDS: 0.9% Saline Lock 10 ML Syringe IV (14:50)
--- NOTE | 2021-03-28 15:32 | PN.HOSP_ITS ---
Subjective Subjective Patient states she is feeling okay other than being profoundly orthostatic positive. She has been unable to get out of bed consistently today or sit upright secondary to hypotension. She is already on Midodrine and is back on Levophed Objective Data Objective Data Vital Signs: Vital Signs Temp Pulse Resp BP Pulse Ox 97.7 F L 108 H 22 H 105/53 L 95 03/28/21 15:00 03/28/21 15:00 03/28/21 15:00 03/28/21 15:00 03/28/21 15:00 Oxygen Flow Rate (L/min) 2 Oxygen Delivery Method Room Air Weight: 56.1 kg Body Mass Index (BMI) 31.6 Intake & Output: Intake and Output for Last 24 Hours 03/26/21 03/27/21 03/28/21 23:59 23:59 23:59 Intake Total 1011.45 / 1013.35 1253.08 / 1253.08 730 / 730 Output Total 450 / 650 775 / 775 250 / 250 Balance 561.45 / 363.35 478.08 / 478.08 480 / 480 Medical Nutrition Assessment Dietitian: Malnutrition Criteria Met Start: 03/18/21 09:07 Freq: Status: Active Protocol: Document 03/23/21 09:48 AG (Rec: 03/23/21 09:48 AG [id number]) Nutrition Malnutrition Evidence of Malnutrition Exists No Intake Problem Inadequate Oral Intake Etiology r/t resp. failure, decreased appetite Signs/Symptoms as evidenced by poor PO intake x 24 hours Status Resolved Problem Recommendation Dietitian Recommendations/Changes Continue cardiac diet and 120 ml ensure enlive w/ meals for additional calories/protein if consumed. Lab / Micro Data Result Diagrams: 03/29/21 08:25 03/29/21 08:25 Labs: Laboratory Results - last 24 hr 03/27/21 17:14: POC Glucose 381 H 03/27/21 22:15: POC Glucose 202 H 03/28/21 03:10: WBC 6.3, RBC 2.57 L, Hgb 7.8 L, Hct 24.5 L, MCV 95.3, MCH 30.4, MCHC 31.8 L, RDW Std Deviation 50.5 H, RDW Coeff of Devendra 14.6, Plt Count 171, MPV 11.2, Immature Gran % (Auto) 0.600, Neut % (Auto) 90.6 H, Lymph % (Auto) 4.5 L, [place] % (Auto) 4.1, Eos % (Auto) 0.0, Baso % (Auto) 0.2, Absolute Neuts (auto) 5.7, Absolute Lymphs (auto) 0.28 L, Nucleated RBC % 0, Differential Comment SCANNED 03/28/21 03:10: Sodium 137, Potassium 4.0, Chloride 101, Carbon Dioxide 29.0, Anion Gap 7, BUN 73 H, Creatinine 1.68 H, Estim Creat Clear Calc 25.62, Est GFR (MDRD) Af Amer 38 L, Est GFR (MDRD) Non-Af 32 L, BUN/Creatinine Ratio 43.5 H, Glucose 267 H, Calcium 7.6 L 03/28/21 08:35: POC Glucose 251 H 03/28/21 11:13: POC Glucose 306 H Micro: Microbiology 03/20/21 10:55 Blood Culture (Wb) - Other Blood Culture - Final No growth in 5 days. 03/20/21 10:55 Blood Culture (Wb) - Anticubital Left Blood Culture - Final No growth in 5 days. 03/20/21 11:45 Urine Catheter - Evans Urine Culture - Final Escherichia coli 03/17/21 07:26 Mucosa - Nose SARS-CoV-2 Antigen (Rapid) - Final SARS-CoV-2 (COVID 19) Physical Exam Const alert, oriented x3 and no apparent distress Constitutional Narrative: Older white female sitting up in a chair at the bedside, appears comfortable, nontoxic, watching television General Appearance: frail Exam Limitations: no limitations HEENT head/scalp atraumatic and moist oral mucous membranes Neck no lymphadenopathy Resp normal respiratory effort, no retractions, no use of accessory muscles and clear to auscultation bilaterally Resp Narrative: Diminished but clear Auscultation: diminished lung sounds; Negative for crackles, rales, rhonchi or wheezes Cardio regular rhythm, S1 normal heart sound, S2 normal heart sound, no murmurs, no rub, no gallops, no clicks and no JVD Cardio Narrative: Mildly tachycardic Rate: tachycardic GI normal to inspection, nondistended, normoactive bowel sounds, soft to palpation, non-tender and non-distended Extremity normal to inspection, full ROM and no clubbing, cyanosis or edema Skin no rashes or lesions noted, no wounds, skin turgor normal, no jaundice, no petechiae and no mottling Neuro oriented x3, CN's II-XII intact bilaterally, moves all extremities and no focal motor deficits Neuro Narrative: Generalized weakness Sensorium / Orientation: awake, alert, oriented to person, oriented to place and oriented to time Speech: speech normal Motor Exam: strength 5/5 throughout Psych affect normal Psych Narrative: Extremely pleasant Assessment & Plan Assessment/Plan (1) COVID-19: (2) Shock: (3) Non-STEMI (non-ST elevated myocardial infarction): PLAN: Acute hypoxemic respiratory failure secondary to COVID-19 pneumonia -Resolved -Respiratory status is back to baseline and patient is on room air -Continue steroids and remdesivir completed -Check ambulatory pulse ox prior to discharge -Covid positive on 03/17/2021--> will need isolation until 04/06/2021 Shock-undifferentiated -Patient with persistent hypotension although etiology is unclear at this time -Suspect related to cardiomyopathy -Repeat limited echo shows an EF of 10 to 15% with a severely dilated but left ventricle and overall no significant changes -Patient remains off pressors at this time -Continue midodrine -Diuresis on hold given hypotension -Decadron converted to Solu-Cortef secondary to persistent hypotension -Initiate weaning of stress dose steroids in the next 24 to 48 hours -check mixed venous O2 sat E. coli UTI -stop bactrim -rx completed NSTEMI/cardiomyopathy -Cardiology is following -Continue goal-directed therapy as able -Limiting factors blood pressure -Continue statin -Continue aspirin -May be related to COVID-19/viral myocarditis -We will need cardiac catheterization at some point in the future -Clinically is stable enough now for catheterization will need to discuss further with cardiology this week -Repeat echo is stable with an EF of 10 to 15% -Continue to hold diuresis STEFAN on CKD stage IIIb -Serum creatinine should improve with pressors given increased perfusion to the kidneys -Overall serum creatinine is stable at this time -continued increase in serum creatinine the last 24 hours -stop -Repeat in a.m. Anemia -Counts are stable -Monitor blood counts and monitor for signs of bleeding DM-2 -Continue sliding scale -Continue Accu-Cheks -As expected sugars have trended up with increased oral intake and initiation of stress dose steroids -cont Lantus 10 units at at bedtime -Continue to trend -Goal blood sugar is 140-180 Lupus -Continue Plaquenil DVT prophylaxis -Continue Lovenox 30 mg twice daily CODE STATUS -Full code
[2021-03-28 16:26] LABS: Bedside Glucose 331 mg/dL (70-110)
[2021-03-28 17:41] LABS: Blood Gas Specimen Type VEN; VBG BASE EXCESS 6 mmol/L (-1.0-3.5); VBG Bicarbonate 33 mmol/L (22-26); VBG PO2 49 mmHg (25-40); VBG SO2 79 % (50-70); VBG TCO2 35 mmol/L (23-33); VBG pCO2 64.5 mmHg (41-51); VBG pH 7.31 (7.32-7.42)
[2021-03-28] MEDS: Atorvastatin Calcium 40 MG Tablet PO (21:47)
[2021-03-29] VITALS (32 sets, daily range): BP systolic 91–128; BP diastolic 42–83; PULSE 22–126; RESP 11–25; TEMP 36.3–36.6; O2SAT 92–100
[2021-03-29 01:12] LABS: Bedside Glucose 214 mg/dL (70-110)
[2021-03-29] MEDS: Hydrocortisone Sod Succinate 100 MG/2 ML Vial IV ×2 (04:44→19:53)
[2021-03-29] MEDS: Nystatin Powder 15gm Bottle 1 APPLIC TOPICAL ×3 (04:45→19:53)
[2021-03-29] MEDS: Menthol/Lanolin/Calamine/Znox 113 GM Tube 1 APPLIC TOPICAL ×3 (04:45→19:53)
--- NOTE | 2021-03-29 06:05 | ED.RN ---
patient code documentation patient code started at 0510 time of 558 patient had periods of pulse and then would lose pulse right away, code documentation has been continued during the entire time. see code charting for time during that time
--- NOTE | 2021-03-29 07:05 | PN.CC_ITS ---
Assessment & Plan Assessment/Plan (1) COVID-19: PLAN: RECOMMENDATIONS: 1. Continue scheduled midodrine. 2. Wean stress dose steroids as tolerated. 3. Attempt fluid challenge today. 4. Continue Lovenox as ordered. 5. Encourage incentive spirometer use and mobilize patient as tolerated. 6. Await additional cardiology input. IMPRESSIONS: 1. Acute hypoxemic respiratory failure Resolved. Likely multifactorial in etiology with COVID-19 infection and decompensated heart failure contributing. Respiratory status appears to be back to baseline. The patient is currently requiring minimal supplemental O2. This will be weaned to maintain saturations at or above 90%. Encourage incentive spirometer use and mobilize patient as tolerated. 2. Cardiogenic shock Unclear etiology for the patient's hypotension. However, sepsis and hypovolemia are potential causes. The patient also has a significantly depressed EF. Although the patient is no longer requiring vasopressor support, her blood pressures remain quite tenuous. We are awaiting additional input from cardiology. In the interim, will administer a small fluid challenge. The patient's stress dose steroids will be weaned. Midodrine will be continued. 3. 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 The patient would likely benefit from an ischemic work-up prior to discharge. 4. Acute on chronic kidney disease Likely prerenal in etiology. Continue to monitor urine output. No indication for renal replacement therapy. 5. Obesity/hypertension/diabetes mellitus/hyperlipidemia/history of SLE Complicates care, management, recovery and prognosis. Continue to hold antihypertensives. This note was generated with [employer] dictation software. It may contain incorrect words, spelling, and punctuation that were not noted in checking the note before signing. Subjective Subjective The patient was seen and examined at the bedside this morning. Events from the last 24 hours have been reviewed. The patient is afebrile maintaining appropriate oxygen saturations on room air. Her blood pressures remain borderline. She is currently documented to be overall net -2.3 L for the hospital admission. The patient remains on scheduled midodrine 3 times daily along with stress dose steroids. Objective Data Objective Data The patient's most recent lab work, culture data and imaging studies have all been personally reviewed. Surface echocardiogram was notable for a severely dilated LV with an ejection fraction of 10 to 15%. Urine culture dated 03/20 was positive for E. coli. Rapid coronavirus antigen testing was positive on 03/17. Vital Signs: Vital Signs Temp Pulse Resp BP Pulse Ox 103.5 F H 85 20 H 131/84 H 98 03/29/21 05:16 03/29/21 05:16 03/29/21 05:16 03/29/21 05:16 03/29/21 04:00 Oxygen Flow Rate (L/min) 2 Oxygen Delivery Method Nasal Cannula Weight: 56.808 kg Body Mass Index (BMI) 31.6 Intake & Output: Intake and Output for Last 24 Hours 03/27/21 03/28/21 03/29/21 23:59 23:59 23:59 Intake Total 1253.08 / 1253.08 955 / 955 Output Total 775 / 775 350 / 400 50 / 50 Balance 478.08 / 478.08 605 / 555 -50 / -50 Medical Nutrition Assessment Dietitian: Malnutrition Criteria Met Start: 03/18/21 09:07 Freq: Status: Active Protocol: Document 03/23/21 09:48 AG (Rec: 03/23/21 09:48 AG [id number]) Nutrition Malnutrition Evidence of Malnutrition Exists No Intake Problem Inadequate Oral Intake Etiology r/t resp. failure, decreased appetite Signs/Symptoms as evidenced by poor PO intake x 24 hours Status Resolved Problem Recommendation Dietitian Recommendations/Changes Continue cardiac diet and 120 ml ensure enlive w/ meals for additional calories/protein if consumed. Lab / Micro Data Attestation: I reviewed the patient's lab results. Result Diagrams: 03/29/21 08:25 03/29/21 08:25 Labs: Laboratory Results - last 24 hr 03/28/21 08:35: POC Glucose 251 H 03/28/21 11:13: POC Glucose 306 H 03/28/21 16:03: POC Glucose 331 H 03/28/21 21:42: POC Glucose 214 H Micro: Microbiology 03/20/21 10:55 Blood Culture (Wb) - Other Blood Culture - Final No growth in 5 days. 03/20/21 10:55 Blood Culture (Wb) - Anticubital Left Blood Culture - Final No growth in 5 days. 03/20/21 11:45 Urine Catheter - Evans Urine Culture - Final Escherichia coli 03/17/21 07:26 Mucosa - Nose SARS-CoV-2 Antigen (Rapid) - Final SARS-CoV-2 (COVID 19) ABG Data ABG results: ABG 03/28/21 17:32 Specimen Type JAYLEN VBG pH 7.31 L VBG pO2 49 H VBG HCO3 33 H VBG Total CO2 35 H VBG O2 Sat (Calc) 79 H VBG Base Excess 6 H POC Mix VBG pCO2 Pt Tmp 64.5 H Physical Exam Const alert and no apparent distress General Appearance: cooperative Nutritional Appearance: obese HEENT normocephalic, head/scalp atraumatic and moist oral mucous membranes Eyes PERRL, EOMs intact bilaterally and conjunctivae normal Neck supple General: trachea midline Resp Auscultation: diminished lung sounds; Negative for rales, rhonchi or wheezes Cardio regular rate and regular rhythm GI normal to inspection, nondistended, normoactive bowel sounds Extremity no clubbing, cyanosis or edema Skin no rashes or lesions noted Neuro CN's II-XII intact bilaterally and no focal motor deficits Psych cooperative and affect normal Charges/Coding Visit Charges Inpatient E&M: 34619 Subs Hosp L3
[2021-03-29 07:24] LABS: Absolute Lymphocyte Count 0.29 X10^3/uL (0.83-4.51); Absolute Neutrophil Count 8.9 X10^3/uL (2.0-7.7); Basophil# 0.01 X10^3/uL; Basophil% 0.1 % (0-1); Hematocrit 26.7 % (37-47); Hemoglobin 8.6 g/dL (12.0-15.0); Lymphocyte # 0.29 X10^3/ul (0.83-4.51); Mean Corp Hgb Conc 32.2 g/dL (32-36); Mean Corpuscular Hgb 30.4 pg (27.0-32.0); Mean Corpuscular Volume 94.3 fL (81-99); Mean Platelet Vol. 11.7 fl (6.2-12.0); Monocyte# 0.28 X10^3/uL; Monocyte% 2.9 % (0-10); NRBC Flagged by Analyzer 0 % (0-5); Neutrophil # 8.88 X10^3/uL (2.7-7.7); Neutrophil % 93.1 % (47-70); POSITIVE DIFFERENTIAL YES; Platelet Count 188 K/mm3 (150-450); RBC Distribution Width CV 14.9 % (11.6-14.6); Red Blood Count 2.83 M/mm3 (4.2-5.4); White Blood Count 9.6 K/mm3 (4.4-11.0)
[2021-03-29 07:35] LABS: Anion Gap 7 (5-15); BUN 76 mg/dL (7-18); BUN/Creat Ratio 47.2 RATIO (10-20); Calcium,Total 8.4 mg/dL (8.5-10.1); Chloride 100 mmol/L (98-107); Creatinine, Serum 1.61 mg/dL (0.55-1.02); EST Glomerular Filtration Rate 33 mL/min (>60); Est Glom Filt Rate - Afr Amer 40 mL/min (>60); Estimated Creatinine Clearance 27.08 ml/min; Glucose 161 mg/dL (74-106); Potassium 4.1 mmol/L (3.5-5.1); Sodium Level 138 mmol/L (136-145)
[2021-03-29 07:37] LABS: Differential Indicated SCAN CRITERIA MET
[2021-03-29] MEDS: 0.9% Normal Saline 1,000 ML 200 ML IV (08:15)
[2021-03-29] MEDS: Hydroxychloroquine 200 MG Tablet 300 MG PO (08:33)
[2021-03-29] MEDS: Insulin Lispro 100 UNIT/ML INSULN.PEN SC ×4 (08:33→20:04)
[2021-03-29] MEDS: Enoxaparin 30 MG/0.3 ML Syringe SC ×2 (08:33→19:52)
[2021-03-29] MEDS: 0.9% Saline Lock 10 ML Syringe IV ×2 (08:33→19:53)
[2021-03-29] MEDS: Docusate Sodium 100 MG Capsule 200 MG PO ×2 (08:34→19:52)
[2021-03-29] MEDS: Aspirin E.C. 81 MG Tablet PO (08:34)
[2021-03-29] MEDS: Midodrine HCl 5 MG Tablet 10 MG PO ×3 (08:34→16:50)
[2021-03-29 08:36] LABS: Absolute Lymphocyte Count 0.35 X10^3/uL (0.83-4.51); Absolute Neutrophil Count 8.7 X10^3/uL (2.0-7.7); Hematocrit 26.8 % (37-47); Hemoglobin 8.8 g/dL (12.0-15.0); Lymphocyte # 0.35 X10^3/ul (0.83-4.51); Lymphocyte % 3.7 % (19-41); Mean Corp Hgb Conc 32.8 g/dL (32-36); Mean Corpuscular Hgb 30.8 pg (27.0-32.0); Mean Corpuscular Volume 93.7 fL (81-99); Mean Platelet Vol. 11.2 fl (6.2-12.0); Monocyte# 0.27 X10^3/uL; Monocyte% 2.9 % (0-10); NRBC Flagged by Analyzer 0 % (0-5); Neutrophil # 8.71 X10^3/uL (2.7-7.7); Neutrophil % 92.8 % (47-70); POSITIVE DIFFERENTIAL YES; Platelet Count 180 K/mm3 (150-450); RBC Distribution Width CV 14.9 % (11.6-14.6); RBC Distribution Width SD 50.3 fl (35.1-43.9); Red Blood Count 2.86 M/mm3 (4.2-5.4); White Blood Count 9.4 K/mm3 (4.4-11.0)
[2021-03-29 08:39] LABS: Differential Indicated SCAN CRITERIA MET
[2021-03-29 08:57] LABS: Anion Gap 7 (5-15); BUN 75 mg/dL (7-18); BUN/Creat Ratio 46.6 RATIO (10-20); Calcium,Total 8.3 mg/dL (8.5-10.1); Chloride 101 mmol/L (98-107); Creatinine, Serum 1.61 mg/dL (0.55-1.02); EST Glomerular Filtration Rate 33 mL/min (>60); Est Glom Filt Rate - Afr Amer 40 mL/min (>60); Estimated Creatinine Clearance 27.08 ml/min; Glucose 212 mg/dL (74-106); Potassium 4.1 mmol/L (3.5-5.1); Sodium Level 138 mmol/L (136-145)
[2021-03-29 09:11] LABS: Bedside Glucose 199 mg/dL (70-110)
--- NOTE | 2021-03-29 10:57 | PN.HOSP_ITS ---
Subjective Subjective Patient states she does feel better today than she did yesterday. She has been wearing oxygen but only for comfort as oxygen saturations have been greater than 92% on room air. Her pressures still remained soft. Objective Data Objective Data Vital Signs: Vital Signs Temp Pulse Resp BP Pulse Ox 97.4 F L 118 H 22 H 107/46 L 96 03/29/21 08:00 03/29/21 10:00 03/29/21 10:00 03/29/21 10:00 03/29/21 10:00 Oxygen Flow Rate (L/min) 2 Oxygen Delivery Method Room Air Weight: 56.8 kg Body Mass Index (BMI) 31.6 Intake & Output: Intake and Output for Last 24 Hours 03/27/21 03/28/21 03/29/21 23:59 23:59 23:59 Intake Total 1253.08 / 1253.08 955 / 955 Output Total 775 / 775 350 / 400 50 / 50 Balance 478.08 / 478.08 605 / 555 -50 / -50 Medical Nutrition Assessment Dietitian: Malnutrition Criteria Met Start: 03/18/21 09:07 Freq: Status: Active Protocol: Document 03/23/21 09:48 AG (Rec: 03/23/21 09:48 AG [id number]) Nutrition Malnutrition Evidence of Malnutrition Exists No Intake Problem Inadequate Oral Intake Etiology r/t resp. failure, decreased appetite Signs/Symptoms as evidenced by poor PO intake x 24 hours Status Resolved Problem Recommendation Dietitian Recommendations/Changes Continue cardiac diet and 120 ml ensure enlive w/ meals for additional calories/protein if consumed. Lab / Micro Data Result Diagrams: 03/29/21 08:25 03/29/21 08:25 Labs: Laboratory Results - last 24 hr 03/28/21 08:35: POC Glucose 251 H 03/28/21 11:13: POC Glucose 306 H 03/28/21 16:03: POC Glucose 331 H 03/28/21 21:42: POC Glucose 214 H 03/29/21 04:45: WBC 9.6, RBC 2.83 L, Hgb 8.6 L, Hct 26.7 L, MCV 94.3, MCH 30.4, MCHC 32.2, RDW Std Deviation 50.0 H, RDW Coeff of Devendra 14.9 H, Plt Count 188, MPV 11.7, Immature Gran % (Auto) 0.900, Neut % (Auto) 93.1 H, Lymph % (Auto) 3.0 L, [place] % (Auto) 2.9, Eos % (Auto) 0.0, Baso % (Auto) 0.1, Absolute Neuts (auto) 8.9 H, Absolute Lymphs (auto) 0.29 L, Nucleated RBC % 0 03/29/21 04:45: Sodium 138, Potassium 4.1, Chloride 100, Carbon Dioxide 31.0, Anion Gap 7, BUN 76 H, Creatinine 1.61 H, Estim Creat Clear Calc 27.08, Est GFR (MDRD) Af Amer 40 L, Est GFR (MDRD) Non-Af 33 L, BUN/Creatinine Ratio 47.2 H, Glucose 161 H, Calcium 8.4 L 03/29/21 08:16: POC Glucose 199 H 03/29/21 08:25: WBC 9.4, RBC 2.86 L, Hgb 8.8 L, Hct 26.8 L, MCV 93.7, MCH 30.8, MCHC 32.8, RDW Std Deviation 50.3 H, RDW Coeff of Devendra 14.9 H, Plt Count 180, MPV 11.2, Immature Gran % (Auto) 0.600, Neut % (Auto) 92.8 H, Lymph % (Auto) 3.7 L, [place] % (Auto) 2.9, Eos % (Auto) 0.0, Baso % (Auto) 0.0, Absolute Neuts (auto) 8.7 H, Absolute Lymphs (auto) 0.35 L, Nucleated RBC % 0 03/29/21 08:25: Sodium 138, Potassium 4.1, Chloride 101, Carbon Dioxide 30.0, Anion Gap 7, BUN 75 H, Creatinine 1.61 H, Estim Creat Clear Calc 27.08, Est GFR (MDRD) Af Amer 40 L, Est GFR (MDRD) Non-Af 33 L, BUN/Creatinine Ratio 46.6 H, Glucose 212 H, Calcium 8.3 L Micro: Microbiology 03/20/21 10:55 Blood Culture (Wb) - Other Blood Culture - Final No growth in 5 days. 03/20/21 10:55 Blood Culture (Wb) - Anticubital Left Blood Culture - Final No growth in 5 days. 03/20/21 11:45 Urine Catheter - Evans Urine Culture - Final Escherichia coli 03/17/21 07:26 Mucosa - Nose SARS-CoV-2 Antigen (Rapid) - Final SARS-CoV-2 (COVID 19) ABG Data ABG results: ABG 03/28/21 17:32 Specimen Type JAYLEN VBG pH 7.31 L VBG pO2 49 H VBG HCO3 33 H VBG Total CO2 35 H VBG O2 Sat (Calc) 79 H VBG Base Excess 6 H POC Mix VBG pCO2 Pt Tmp 64.5 H Physical Exam Const alert, oriented x3 and no apparent distress Constitutional Narrative: Older white female lying in bed with head of bed slightly inclined, appears comfortable, nontoxic, watching television General Appearance: frail Exam Limitations: no limitations HEENT head/scalp atraumatic, moist oral mucous membranes and oropharynx normal; Negative for dentition normal HEENT Narrative: Extremely poor dentition Head and Scalp: normocephalic Mouth: oral and palatal mucosa normal Resp normal respiratory effort, no retractions, no use of accessory muscles and clear to auscultation bilaterally Resp Narrative: Diminished but clear Auscultation: diminished lung sounds; Negative for crackles, rales, rhonchi or wheezes Cardio regular rhythm, S1 normal heart sound, S2 normal heart sound, no murmurs, no rub, no gallops, no clicks and no JVD Cardio Narrative: Mildly tachycardic Rate: tachycardic GI normal to inspection, nondistended, normoactive bowel sounds, soft to palpation, non-tender and non-distended Extremity normal to inspection, full ROM and no clubbing, cyanosis or edema Peripheral Pulses: Yes pulses 2+ throughout Neuro oriented x3 and moves all extremities Neuro Narrative: Generalized weakness Sensorium / Orientation: awake and alert Speech: speech normal Psych affect normal Psych Narrative: Extremely pleasant Assessment & Plan Assessment/Plan (1) COVID-19: (2) Shock: (3) Non-STEMI (non-ST elevated myocardial infarction): PLAN: Acute hypoxemic respiratory failure secondary to COVID-19 pneumonia -Resolved -Respiratory status is back to baseline and patient is on room air -Occasionally wears 1 to 2 L of oxygen for comfort but oxygen saturations are stable off oxygen -Continue steroids and remdesivir completed -Check ambulatory pulse ox prior to discharge -Covid positive on 03/17/2021--> will need isolation until 04/06/2021 Shock-undifferentiated -Patient with persistent hypotension although etiology is unclear at this time -Suspect related to cardiomyopathy -Repeat limited echo shows an EF of 10 to 15% with a severely dilated but left ventricle and overall no significant changes -Patient remains off pressors at this time -Continue midodrine -Gentle fluid challenge with 1 L normal saline at 200 an hour -Wean Solu-Cortef 200 every 12 -Mixed venous O2 sat was 79% -I have discussed the case with cardiology and they will review and consider cardiac catheterization sooner than later E. coli UTI -rx completed NSTEMI/cardiomyopathy -Continue goal-directed therapy as able -Limiting factors blood pressure -Continue statin -Continue aspirin -May be related to COVID-19/viral myocarditis -EF of 10 to 15% -Gentle fluid challenge -Cardiology following and case discussed STEFAN on CKD stage IIIb -Serum creatinine relatively stable today -Gentle fluid challenge today -Repeat BMP in a.m. Anemia -Counts are stable -Monitor blood counts and monitor for signs of bleeding DM-2 -Continue sliding scale -Continue Accu-Cheks -cont Lantus 10 units at at bedtime -Watch sugars closely with weaning of Solu-Cortef -Continue to trend -Goal blood sugar is 140-180 Lupus -Continue Plaquenil DVT prophylaxis -Continue Lovenox 30 mg twice daily CODE STATUS -Full code
[2021-03-29 12:06] LABS: Bedside Glucose 340 mg/dL (70-110)
--- NOTE | 2021-03-29 15:05 | NURSING ---
2L NC applied per pt request for comfort. 97-100% on room air.
[2021-03-29 17:20] LABS: Bedside Glucose 257 mg/dL (70-110)
[2021-03-29] MEDS: Fleet Enema 1 ML RC (18:00)
[2021-03-29] MEDS: Atorvastatin Calcium 40 MG Tablet PO (19:52)
[2021-03-29 21:05] LABS: Bedside Glucose 171 mg/dL (70-110)
[2021-03-30] VITALS (36 sets, daily range): BP systolic 84–138; BP diastolic 44–104; PULSE 85–129; RESP 12–31; TEMP 36–36.6; O2SAT 92–100
[2021-03-30] MEDS: Nystatin Powder 15gm Bottle 1 APPLIC TOPICAL ×3 (04:13→20:11)
[2021-03-30] MEDS: 0.9% Saline Lock 10 ML Syringe IV ×4 (04:13→20:08)
[2021-03-30] MEDS: Menthol/Lanolin/Calamine/Znox 113 GM Tube 1 APPLIC TOPICAL ×3 (04:14→20:10)
[2021-03-30 04:34] LABS: Absolute Lymphocyte Count 0.32 X10^3/uL (0.83-4.51); Absolute Neutrophil Count 7.3 X10^3/uL (2.0-7.7); Hematocrit 26.4 % (37-47); Hemoglobin 8.3 g/dL (12.0-15.0); Lymphocyte # 0.32 X10^3/ul (0.83-4.51); Mean Corp Hgb Conc 31.4 g/dL (32-36); Mean Corpuscular Hgb 29.9 pg (27.0-32.0); Mean Platelet Vol. 11.6 fl (6.2-12.0); Monocyte# 0.24 X10^3/uL; NRBC Flagged by Analyzer 0 % (0-5); Neutrophil % 92.4 % (47-70); POSITIVE DIFFERENTIAL YES; Platelet Count 134 K/mm3 (150-450); RBC Distribution Width SD 51.4 fl (35.1-43.9); Red Blood Count 2.78 M/mm3 (4.2-5.4); White Blood Count 7.9 K/mm3 (4.4-11.0)
[2021-03-30 04:36] LABS: Differential Indicated SCAN CRITERIA MET
--- NOTE | 2021-03-30 04:36 | NURSING ---
pt c/o that she feels like she needs her oxygen on. pt po 95 % on ra. 02 tubing appilied but 02 not turned on. Pt stated it feels better
--- NOTE | 2021-03-30 04:48 | EKG12_ITS ---
Test Reason : RHYTHM CHANGE Blood Pressure : / mmHG Vent. Rate : 122 BPM Atrial Rate : 122 BPM P-R Int : 150 ms QRS Dur : 150 ms QT Int : 324 ms P-R-T Axes : 015 015 186 degrees QTc Int : 461 ms Sinus tachycardia Left bundle branch block Abnormal ECG Confirmed by SATNAM KAUFMAN MD ([id number]), editor publications TIN BURRIS ([id number]) on 03/31/2021 10:10:57 AM Also confirmed by SATNAM KAUFMAN MD ([id number]), editor publications TIN BURRIS ([id number]) on 03/31/2021 10:11:16 AM Referred By: MORTEZA Confirmed By:SATNAM KAUFMAN MD
[2021-03-30 04:50] LABS: Anion Gap 7 (5-15); BUN 69 mg/dL (7-18); BUN/Creat Ratio 49.6 RATIO (10-20); Calcium,Total 8.1 mg/dL (8.5-10.1); Chloride 102 mmol/L (98-107); Creatinine, Serum 1.39 mg/dL (0.55-1.02); EST Glomerular Filtration Rate 39 mL/min (>60); Est Glom Filt Rate - Afr Amer 47 mL/min (>60); Estimated Creatinine Clearance 31.36 ml/min; Glucose 166 mg/dL (74-106); Potassium 3.8 mmol/L (3.5-5.1); Sodium Level 138 mmol/L (136-145)
--- NOTE | 2021-03-30 04:55 | NURSING ---
hrt 120s. c/o feels like her heart is beating fast. ekg ordered
[2021-03-30 04:57] LABS: Differential Comment SCANNED
--- NOTE | 2021-03-30 05:10 | PCM.HOSP.N ---
Hospitalist Note Patient with ongoing mild tachycardia per discussion with staff. BP low normal. Will administer small NS bolus. Also, review of records with 03/17/21 d-dimer mildly elevated with negative CTPA at that time. Given COVID status and timeline, will repeat D-Dimer. If further elevated may require repeat CTPA versus duplex BL LE given renal disease.
--- NOTE | 2021-03-30 05:24 | NURSING ---
Pt c/o that her heart is beating reaaly fast. ekg done. dr meier notified. ns 500 bolus given. 02 at 2lnc. pt encourage to cough and is given. d dimer drawn
--- NOTE | 2021-03-30 05:28 | NURSING ---
pt has course lungs. dr hardeep caro.
--- NOTE | 2021-03-30 05:29 | NURSING ---
ns fluid stop. pt has course breath sounds. will check w . Dr meier texted
--- NOTE | 2021-03-30 05:42 | RAD_ITS ---
STUDY: X-RAY CHEST REASON FOR EXAM: Female, 75 years old. Dyspnea TECHNIQUE: Single AP portable view of the chest. COMPARISON: 03/23/2021 FINDINGS: There are superimposed monitor leads. Stable left sided PICC line with catheter at the cavoatrial junction. Increased bilateral hazy airspace disease. Retrocardiac opacification, obscuration of the left diaphragm. Small left pleural effusion and/or pleural thickening. There is borderline cardiomegaly. Normal mediastinum and sara. Normal visualized pulmonary arteries. There is atherosclerotic calcification of the aortic arch with tortuosity. There are diffuse degenerative changes of the visualized thoracic spine. There is demineralization of osseous structures. Normal visualized ribs, clavicles, and shoulders. There is no demonstrated abnormality of the visualized soft tissue structures of the upper abdomen. RAD/Chest 1 View (Portable) IMPRESSION: Worsening of airspace disease with bilateral hazy infiltrate/opacification, increased left retrocardiac/basilar opacification. Underlying atelectasis and pleural effusion possible. Stable PICC line, borderline cardiac size, atherosclerosis and osteoporosis. Electronically Signed: Kennedi Mccall MD at 7:16 EDT , Service support ,
[2021-03-30 06:07] LABS: D-Dimer Quantitative (DVT/PE) 1.26 FEU/ug/m (0.27-0.49)
--- NOTE | 2021-03-30 06:27 | PCM.PN.INT ---
Assessment & Plan Assessment/Plan (1) COVID-19: PLAN: RECOMMENDATIONS: 1. Continue scheduled midodrine. 2. Wean stress dose steroids as tolerated. 3. Stop continuous IV fluids. 4. Administer IV Lasix. 5. Initiate vasopressor support, if needed, to facilitate volume removal with Lasix. 6. Continue Lovenox as ordered. 7. Encourage incentive spirometer use and mobilize patient as tolerated. 8. Await additional cardiology input. IMPRESSIONS: 1. Acute hypoxemic respiratory failure Worsening. Likely multifactorial in etiology with COVID-19 infection and decompensated heart failure contributing. Overnight, the patient's respiratory status has worsened. She appears more distressed this morning in light of having received some IV fluid resuscitation to address her symptomatic orthostatic hypotension. Fluids have been discontinued. She has been placed on gentle IV diuretic therapy, which will be redosed over the course of the day as tolerated. Vasopressors will once again be initiated, if needed, to maintain hemodynamic stability in the setting of volume removal. Wean supplemental oxygen to maintain saturations at or above 90%. 2. Cardiogenic/hypovolemic shock The patient's hypotension is likely multifactorial in etiology with hypovolemia and cardiogenic etiologies contributing. Although the patient is currently hemodynamically stable, she may need to be started on vasopressor support in light of attempted active diuresis. In the interim, the patient will be continued on scheduled midodrine. Stress dose steroids will be weaned as tolerated. 3. Non-ST segment elevation NM/acute systolic heart failure (suspected Takotsubo cardiomyopathy) Cardiology is following to assist with medical management. The patient would likely benefit from an ischemic work-up prior to discharge. 4. Acute on chronic kidney disease Likely prerenal in etiology. Continue to monitor urine output. No indication for renal replacement therapy. 5. Obesity/hypertension/diabetes mellitus/hyperlipidemia/history of SLE Complicates care, management, recovery and prognosis. Continue to hold antihypertensives. This note was generated with [employer] dictation software. It may contain incorrect words, spelling, and punctuation that were not noted in checking the note before signing. Subjective Subjective The patient was seen and examined at the bedside this morning. Events from the last 24 hours have been reviewed. This morning, the patient has decompensated clinically with increased work of breathing, tachypnea and hypoxemia. She was receiving gentle IV fluid hydration over the last 24 hours due to symptomatic orthostatic hypotension. She is currently documented to be overall net -1.1 L for the hospital admission. Creatinine has improved to 1.39. The patient does report increased shortness of breath this morning. If you recall, the patient's Covid symptoms initially began on 03/17, so she is not yet able to come out of precautions. Objective Data Objective Data The patient's most recent lab work, culture data and imaging studies have all been personally reviewed. Surface echocardiogram was notable for a severely dilated LV with an ejection fraction of 10 to 15%. Urine culture dated 03/20 was positive for E. coli. Rapid coronavirus antigen testing was positive on 03/17. Vital Signs: Vital Signs Temp Pulse Resp BP Pulse Ox 97.9 F 127 H 28 H 118/104 H 97 03/30/21 04:16 03/30/21 06:00 03/30/21 06:00 03/30/21 06:00 03/30/21 06:00 Oxygen Flow Rate (L/min) 2 Oxygen Delivery Method Nasal Cannula Weight: 57.3 kg Body Mass Index (BMI) 31.6 Intake & Output: Intake and Output for Last 24 Hours 03/28/21 03/29/21 03/30/21 23:59 23:59 23:59 Intake Total 955 / 955 1780 / 1780 91.67 / 91.67 Output Total 350 / 400 450 / 450 300 / 300 Balance 605 / 555 1330 / 1330 -208.33 / -208.33 Medical Nutrition Assessment Dietitian: Malnutrition Criteria Met Start: 03/18/21 09:07 Freq: Status: Active Protocol: Document 03/23/21 09:48 (Rec: 03/23/21 09:48 [id number]) Nutrition Malnutrition Evidence of Malnutrition Exists No Intake Problem Inadequate Oral Intake Etiology r/t resp. failure, decreased appetite Signs/Symptoms as evidenced by poor PO intake x 24 hours Status Resolved Problem Recommendation Dietitian Recommendations/Changes Continue cardiac diet and 120 ml ensure enlive w/ meals for additional calories/protein if consumed. Lab / Micro Data Attestation: I reviewed the patient's lab results. Result Diagrams: 03/30/21 04:05 03/30/21 04:05 Labs: Laboratory Results - last 24 hr 03/29/21 04:45: WBC 9.6, RBC 2.83 L, Hgb 8.6 L, Hct 26.7 L, MCV 94.3, MCH 30.4, MCHC 32.2, RDW Std Deviation 50.0 H, RDW Coeff of Devendra 14.9 H, Plt Count 188, MPV 11.7, Immature Gran % (Auto) 0.900, Neut % (Auto) 93.1 H, Lymph % (Auto) 3.0 L, Jessamine % (Auto) 2.9, Eos % (Auto) 0.0, Baso % (Auto) 0.1, Absolute Neuts (auto) 8.9 H, Absolute Lymphs (auto) 0.29 L, Nucleated RBC % 0 03/29/21 04:45: Sodium 138, Potassium 4.1, Chloride 100, Carbon Dioxide 31.0, Anion Gap 7, BUN 76 H, Creatinine 1.61 H, Estim Creat Clear Calc 27.08, Est GFR (MDRD) Af Amer 40 L, Est GFR (MDRD) Non-Af 33 L, BUN/Creatinine Ratio 47.2 H, Glucose 161 H, Calcium 8.4 L 03/29/21 08:16: POC Glucose 199 H 03/29/21 08:25: WBC 9.4, RBC 2.86 L, Hgb 8.8 L, Hct 26.8 L, MCV 93.7, MCH 30.8, MCHC 32.8, RDW Std Deviation 50.3 H, RDW Coeff of Devendra 14.9 H, Plt Count 180, MPV 11.2, Immature Gran % (Auto) 0.600, Neut % (Auto) 92.8 H, Lymph % (Auto) 3.7 L, Jessamine % (Auto) 2.9, Eos % (Auto) 0.0, Baso % (Auto) 0.0, Absolute Neuts (auto) 8.7 H, Absolute Lymphs (auto) 0.35 L, Nucleated RBC % 0 03/29/21 08:25: Sodium 138, Potassium 4.1, Chloride 101, Carbon Dioxide 30.0, Anion Gap 7, BUN 75 H, Creatinine 1.61 H, Estim Creat Clear Calc 27.08, Est GFR (MDRD) Af Amer 40 L, Est GFR (MDRD) Non-Af 33 L, BUN/Creatinine Ratio 46.6 H, Glucose 212 H, Calcium 8.3 L 03/29/21 11:26: POC Glucose 340 H 03/29/21 16:38: POC Glucose 257 H 03/29/21 19:58: POC Glucose 171 H 03/30/21 04:05: WBC 7.9, RBC 2.78 L, Hgb 8.3 L, Hct 26.4 L, MCV 95.0, MCH 29.9, MCHC 31.4 L, RDW Std Deviation 51.4 H, RDW Coeff of Devendar 15.0 H, Plt Count 134 L, MPV 11.6, Immature Gran % (Auto) 0.600, Neut % (Auto) 92.4 H, Lymph % (Auto) 4.0 L, Jessamine % (Auto) 3.0, Eos % (Auto) 0.0, Baso % (Auto) 0.0, Absolute Neuts (auto) 7.3, Absolute Lymphs (auto) 0.32 L, Nucleated RBC % 0, Differential Comment SCANNED 03/30/21 04:05: Sodium 138, Potassium 3.8, Chloride 102, Carbon Dioxide 29.0, Anion Gap 7, BUN 69 H, Creatinine 1.39 H, Estim Creat Clear Calc 31.36, Est GFR (MDRD) Af Amer 47 L, Est GFR (MDRD) Non-Af 39 L, BUN/Creatinine Ratio 49.6 H, Glucose 166 H, Calcium 8.1 L 03/30/21 05:15: D-Dimer Quant (PE/DVT) 1.26 H* Micro: Microbiology 03/20/21 10:55 Blood Culture (Wb) - Other Blood Culture - Final No growth in 5 days. 03/20/21 10:55 Blood Culture (Wb) - Anticubital Left Blood Culture - Final No growth in 5 days. 03/20/21 11:45 Urine Catheter - Evans Urine Culture - Final Escherichia coli 03/17/21 07:26 Mucosa - Nose SARS-CoV-2 Antigen (Rapid) - Final SARS-CoV-2 (COVID 19) Physical Exam Const alert General Appearance: cooperative, in distress, ill appearing and frail HEENT normocephalic and head/scalp atraumatic Eyes PERRL and EOMs intact bilaterally Neck supple General: trachea midline Resp Effort and Inspection: tachypneic and labored Auscultation: rales and diminished lung sounds Cardio S1 normal heart sound and S2 normal heart sound Rate: tachycardic GI normal to inspection, nondistended, normoactive bowel sounds Extremity no clubbing, cyanosis or edema Skin no rashes or lesions noted Neuro CN's II-XII intact bilaterally and no focal motor deficits Psych Mood & Affect: flat affect Charges/Coding Visit Charges Inpatient E&M: 47349 Subs Hosp L3
[2021-03-30] MEDS: Furosemide 20 MG/2 ML VIAL IV ×2 (06:35→15:05)
[2021-03-30 06:53] LABS: Troponin-I HS 378 pg/mL (3.0-54.0)
[2021-03-30 07:55] LABS: Bedside Glucose 251 mg/dL (70-110)
[2021-03-30] MEDS: Midodrine HCl 5 MG Tablet 10 MG PO ×3 (08:26→16:27)
[2021-03-30] MEDS: Insulin Lispro 100 UNIT/ML INSULN.PEN SC ×3 (08:26→20:05)
[2021-03-30] MEDS: Metoprolol Tartrate 5 MG/5 ML Vial IV (08:38)
[2021-03-30] MEDS: Aspirin E.C. 81 MG Tablet PO (08:45)
[2021-03-30] MEDS: Hydroxychloroquine 200 MG Tablet 300 MG PO (08:45)
--- NOTE | 2021-03-30 09:41 | CASEMGMT ---
Addendum entered by Carla Cote 03/30/21 10:25: SW spoke w/Liseth from [facility], she called as daughter spoke w/her. She states they may consider pt once she is out of quarantine, she will check to see if a negative test is needed. She states also that they have been able to get one time contracts w/[facility] in the past. and would be willing to try for this pt as her daughter works at the facility. She will let SW know if a negative test would also be needed. SW will continue to follow. BILL Gómez Original Note: RAYMOND Yue had called [facility], as they take pt's insurance. [facility] would take pt 10 days from her last symptoms of COVID. She also called [facility] as they also take pt's insurance, message left. This SW left another message for [facility]. [facility] but will not take a pt who is positive for COVID, the pt would need two negative tests. SW spoke w/pt, explained to her that her two choices, [facility] and [facility] would not be options--[facility] is not taking patients with COVID and [facility] does not take pt's insurance or pts with COVID. Pt states understanding. SW explained that at this point the only facility in [facility] that may take her, that also takes her insurance, is [facility]. Pt inquired about [facility] in [place], states that her other daughter works there and had said they take [facility]. SW explained will call to find out and let her know. SW called [facility] in [place]([phone]), message left for Ramonita in admissions. SW will continue to follow. BILL Gómez
[2021-03-30] MEDS: Enoxaparin 30 MG/0.3 ML Syringe SC ×2 (10:33→20:06)
[2021-03-30] MEDS: Docusate Sodium 100 MG Capsule 200 MG PO ×2 (10:33→20:10)
[2021-03-30] MEDS: Hydrocortisone Sod Succinate 100 MG/2 ML Vial IV ×2 (10:33→20:08)
--- NOTE | 2021-03-30 10:40 | CASEMGMT ---
Tertiary Facilities in-network with patient's [facility] insurance: Sandie Ring, [facility], [facility], [facility], .
--- NOTE | 2021-03-30 11:02 | PCM.PN.HOSP ---
Subjective Subjective Patient developed increased tachycardia and a 500 cc fluid bolus was given overnight. She unfortunately developed 1st worsening respiratory failure likely related to acute heart failure secondary to fluids with her EF of 10 to 15%. She states her breathing is more labored today. Objective Data Objective Data Vital Signs: Vital Signs Temp Pulse Resp BP Pulse Ox 97.0 F L 109 H 24 H 84/54 L 99 03/30/21 08:00 03/30/21 09:00 03/30/21 09:00 03/30/21 09:00 03/30/21 09:00 Oxygen Flow Rate (L/min) 2 Oxygen Delivery Method Nasal Cannula Weight: 57.3 kg Body Mass Index (BMI) 31.6 Intake & Output: Intake and Output for Last 24 Hours 03/28/21 03/29/21 03/30/21 23:59 23:59 23:59 Intake Total 955 / 955 1780 / 1780 91.67 / 91.67 Output Total 350 / 400 450 / 450 500 / 500 Balance 605 / 555 1330 / 1330 -408.33 / -408.33 Medical Nutrition Assessment Dietitian: Malnutrition Criteria Met Start: 03/18/21 09:07 Freq: Status: Active Protocol: Document 03/23/21 09:48 AG (Rec: 03/23/21 09:48 AG [id number]) Nutrition Malnutrition Evidence of Malnutrition Exists No Intake Problem Inadequate Oral Intake Etiology r/t resp. failure, decreased appetite Signs/Symptoms as evidenced by poor PO intake x 24 hours Status Resolved Problem Recommendation Dietitian Recommendations/Changes Continue cardiac diet and 120 ml ensure enlive w/ meals for additional calories/protein if consumed. Lab / Micro Data Result Diagrams: 03/30/21 04:05 03/30/21 04:05 Labs: Laboratory Results - last 24 hr 03/29/21 11:26: POC Glucose 340 H 03/29/21 16:38: POC Glucose 257 H 03/29/21 19:58: POC Glucose 171 H 03/30/21 04:05: WBC 7.9, RBC 2.78 L, Hgb 8.3 L, Hct 26.4 L, MCV 95.0, MCH 29.9, MCHC 31.4 L, RDW Std Deviation 51.4 H, RDW Coeff of Devendra 15.0 H, Plt Count 134 L, MPV 11.6, Immature Gran % (Auto) 0.600, Neut % (Auto) 92.4 H, Lymph % (Auto) 4.0 L, Hickman % (Auto) 3.0, Eos % (Auto) 0.0, Baso % (Auto) 0.0, Absolute Neuts (auto) 7.3, Absolute Lymphs (auto) 0.32 L, Nucleated RBC % 0, Differential Comment SCANNED 03/30/21 04:05: Sodium 138, Potassium 3.8, Chloride 102, Carbon Dioxide 29.0, Anion Gap 7, BUN 69 H, Creatinine 1.39 H, Estim Creat Clear Calc 31.36, Est GFR (MDRD) Af Amer 47 L, Est GFR (MDRD) Non-Af 39 L, BUN/Creatinine Ratio 49.6 H, Glucose 166 H, Calcium 8.1 L 03/30/21 04:05: Troponin I High Sens 378 H* 03/30/21 04:05: B-Natriuretic Peptide 2096.9 H 03/30/21 05:15: D-Dimer Quant (PE/DVT) 1.26 H* 03/30/21 07:45: POC Glucose 251 H Micro: Microbiology 03/20/21 10:55 Blood Culture (Wb) - Other Blood Culture - Final No growth in 5 days. 03/20/21 10:55 Blood Culture (Wb) - Anticubital Left Blood Culture - Final No growth in 5 days. 03/20/21 11:45 Urine Catheter - Evans Urine Culture - Final Escherichia coli 03/17/21 07:26 Mucosa - Nose SARS-CoV-2 Antigen (Rapid) - Final SARS-CoV-2 (COVID 19) Radiography Diagnostic Testing: Radiology Impression Chest X-Ray 03/30/21 05:42 IMPRESSION: Worsening of airspace disease with bilateral hazy infiltrate/opacification, increased left retrocardiac/basilar opacification. Underlying atelectasis and pleural effusion possible. Stable PICC line, borderline cardiac size, atherosclerosis and osteoporosis. Electronically Signed: Kennedi Mccall MD at 7:16 EDT , Service support , Physical Exam Const alert, oriented x3 and no apparent distress Constitutional Narrative: Older white female lying in bed with head of bed slightly inclined, appears in some respiratory distress and is tachypneic General Appearance: frail Exam Limitations: no limitations HEENT head/scalp atraumatic, moist oral mucous membranes and oropharynx normal; Negative for dentition normal Head and Scalp: normocephalic Eyes PERRL, EOMs intact bilaterally and conjunctivae normal Neck no lymphadenopathy, supple and no JVD Resp Resp Narrative: Diffuse rales anteriorly and posteriorly, breath sounds are very wet Auscultation: crackles, rales and diminished lung sounds; Negative for rhonchi or wheezes Cardio regular rhythm, S1 normal heart sound, S2 normal heart sound, no murmurs, no rub, no gallops, no clicks and no JVD Cardio Narrative: tachycardic Rate: tachycardic GI normal to inspection, nondistended, normoactive bowel sounds, soft to palpation, non-tender and non-distended Extremity normal to inspection, full ROM and no clubbing, cyanosis or edema Peripheral Pulses: Yes pulses 2+ throughout Skin no rashes or lesions noted, no wounds, skin turgor normal, no jaundice, no petechiae and no mottling Neuro oriented x3 and moves all extremities Neuro Narrative: Generalized weakness Sensorium / Orientation: awake and alert Speech: speech normal Motor Exam: strength 5/5 throughout Psych affect normal Psych Narrative: Extremely pleasant Assessment & Plan Assessment/Plan (1) COVID-19: (2) Shock: (3) Non-STEMI (non-ST elevated myocardial infarction): PLAN: Acute hypoxemic respiratory failure secondary to acute decompensated heart failure with reduced ejection fraction -pt back in acute heart failure with gentle hydration over the last 24 hours -Patient is on nasal cannula at 4 L secondary to hypoxemia. -Wean as able' -Lasix -BNP was markedly elevated at greater than 2000 this morning -Continue steroids but wean further tomorrow and remdesivir completed -Check ambulatory pulse ox prior to discharge -Covid positive on 03/17/2021--> will need isolation until 04/06/2021 Cardiogenic shock -Patient with persistent hypotension although etiology is unclear at this time -Suspect related to cardiomyopathy -Repeat limited echo shows an EF of 10 to 15% with a severely dilated but left ventricle and overall no significant changes -Continue pressors and diurese as able -Continue midodrine -Gentle fluid challenge with 1 L normal saline at 200 an hour -Wean Solu-Cortef -.Doubt her hypotension is related to adrenal insufficiency -Cardiology has recommended transfer to tertiary center for further cardiac work-up given her tenuous status with possible left heart cath, myocardial viability studies E. coli UTI -rx completed NSTEMI/cardiomyopathy -Continue goal-directed therapy as able -Limiting factors blood pressure -Continue statin -Continue aspirin -May be related to COVID-19/viral myocarditis -EF of 10 to 15% -Extensive discussion with cardiology regarding case and the recommending transfer to tertiary center with tenuous cardiac status Case has been discussed with both [facility] and [facility] with regards to transfer--> no current bed available at this time but bed holds are pending STEFAN on CKD stage IIIb -Serum creatinine better with fluids -Continue to monitor closely Anemia -Counts are stable -Monitor blood counts and monitor for signs of bleeding DM-2 -Continue sliding scale -Continue Accu-Cheks -cont Lantus 10 units at at bedtime -Watch sugars closely with weaning of Solu-Cortef -Continue to trend -Goal blood sugar is 140-180 Lupus -Continue Plaquenil DVT prophylaxis -Continue Lovenox 30 mg twice daily CODE STATUS -Full code Charges/Coding Visit Charges Inpatient E&M: 15641 Subs Hosp L2
--- NOTE | 2021-03-30 12:39 | PCM.PN.CARD ---
Subjective Subjective The patient remains in the ICU. She claims she does not feel well and has been short of breath/dyspneic. Objective Data Vital Signs: Vital Signs Temp Pulse Resp BP Pulse Ox 97.0 F L 94 24 H 96/61 97 03/30/21 08:00 03/30/21 11:59 03/30/21 11:00 03/30/21 11:00 03/30/21 11:00 Oxygen Flow Rate (L/min) 2 Oxygen Delivery Method Nasal Cannula Weight: 126 lb 5.198 oz Body Mass Index (BMI) 31.6 Intake & Output: Intake and Output for Last 24 Hours 03/28/21 03/29/21 03/30/21 23:59 23:59 23:59 Intake Total 955 / 955 1780 / 1780 331.67 / 331.67 Output Total 350 / 400 450 / 450 500 / 500 Balance 605 / 555 1330 / 1330 -168.33 / -168.33 Lab / Micro Data Result Diagrams: 03/30/21 04:05 03/30/21 04:05 Labs: Laboratory Results - last 24 hr 03/29/21 16:38: POC Glucose 257 H 03/29/21 19:58: POC Glucose 171 H 03/30/21 04:05: WBC 7.9, RBC 2.78 L, Hgb 8.3 L, Hct 26.4 L, MCV 95.0, MCH 29.9, MCHC 31.4 L, RDW Std Deviation 51.4 H, RDW Coeff of Devendra 15.0 H, Plt Count 134 L, MPV 11.6, Immature Gran % (Auto) 0.600, Neut % (Auto) 92.4 H, Lymph % (Auto) 4.0 L, Hudson % (Auto) 3.0, Eos % (Auto) 0.0, Baso % (Auto) 0.0, Absolute Neuts (auto) 7.3, Absolute Lymphs (auto) 0.32 L, Nucleated RBC % 0, Differential Comment SCANNED 03/30/21 04:05: Sodium 138, Potassium 3.8, Chloride 102, Carbon Dioxide 29.0, Anion Gap 7, BUN 69 H, Creatinine 1.39 H, Estim Creat Clear Calc 31.36, Est GFR (MDRD) Af Amer 47 L, Est GFR (MDRD) Non-Af 39 L, BUN/Creatinine Ratio 49.6 H, Glucose 166 H, Calcium 8.1 L 03/30/21 04:05: Troponin I High Sens 378 H* 03/30/21 04:05: B-Natriuretic Peptide 2096.9 H 03/30/21 05:15: D-Dimer Quant (PE/DVT) 1.26 H* 03/30/21 07:45: POC Glucose 251 H Cardiology Labs/Tests 03/30/21 04:05: WBC 7.9, RBC 2.78 L, Hgb 8.3 L, Hct 26.4 L, MCV 95.0, MCH 29.9, MCHC 31.4 L, Plt Count 134 L, MPV 11.6, Immature Gran % (Auto) 0.600, Neut % (Auto) 92.4 H, Lymph % (Auto) 4.0 L, Hudson % (Auto) 3.0, Eos % (Auto) 0.0, Baso % (Auto) 0.0, Absolute Neuts (auto) 7.3, Nucleated RBC % 0 03/30/21 04:05: Sodium 138, Potassium 3.8, Chloride 102, Carbon Dioxide 29.0, Anion Gap 7, BUN 69 H, Creatinine 1.39 H, Est GFR (MDRD) Af Amer 47 L, Est GFR (MDRD) Non-Af 39 L, BUN/Creatinine Ratio 49.6 H, Glucose 166 H, Calcium 8.1 L 03/30/21 04:05: B-Natriuretic Peptide 2096.9 H 03/30/21 05:15: D-Dimer Quant (PE/DVT) 1.26 H* Rhythm: Sinus rhythm/sinus tachycardia Radiography Diagnostic Testing: Radiology Impression Chest X-Ray 03/30/21 05:42 IMPRESSION: Worsening of airspace disease with bilateral hazy infiltrate/opacification, increased left retrocardiac/basilar opacification. Underlying atelectasis and pleural effusion possible. Stable PICC line, borderline cardiac size, atherosclerosis and osteoporosis. Electronically Signed: Kennedi Mccall MD at 7:16 EDT , Service support , Physical Exam Const alert and oriented x3 Orientation / Consciousness: awake HEENT normocephalic, head/scalp atraumatic and hearing grossly normal bilaterally Eyes PERRL, EOMs intact bilaterally and conjunctivae normal Neck full ROM and supple Resp Auscultation: rales diffuse Cardio Rate: tachycardic Heart Sounds: S1 normal and S2 normal GI normal to inspection, nondistended, normoactive bowel sounds Extremity no pedal edema Assessment & Plan Assessment/Plan (1) Cardiomyopathy: QUALIFIERS: Cardiomyopathy type: unspecified Qualified Code(s): I42.9 - Cardiomyopathy, unspecified PLAN: The patient continues with her cardiomyopathy. The etiology is unclear as to whether this is non-CAD or CAD related. She has not been able to tolerate medical therapy based upon her low blood pressure. (2) CHF (congestive heart failure): PLAN: She did receive IV fluids yesterday in an attempt to assist with her overall status and hemodynamics. However she appeared to have recurrent acute on chronic CHF/pulmonary edema. At the present time she remains in the ICU. She is receiving IV vasopressor support to allow her to receive IV diuretics to assist with her CHF/pulmonary edema. (3) Non-STEMI (non-ST elevated myocardial infarction): PLAN: The patient has findings compatible with a non-ST segment elevation AK. Again it is unclear whether this is a primary cardiovascular event versus a secondary cardiovascular event secondary to in her noncardiac issues such as COVID-19 superimposed upon an underlying cardiomyopathy. At the present time she has been monitored in the ICU. She has not been able to tolerate cardiovascular medical therapy secondary to her low blood pressure. (4) High cholesterol: PLAN: She should continue medical therapy as best as possible. (5) Hypertension: QUALIFIERS: Hypertension type: unspecified Qualified Code(s): I10 - Essential (primary) hypertension PLAN: She has a history of hypertension. However her blood pressures have been low based upon her ongoing cardiopulmonary condition. She has required blood pressure support in the past with IV Levophed as well as midodrine. At the present time she is being placed back on IV Levophed to assist with her blood pressure support so she can proceed with additional medical therapy with IV diuresis to assist with her acute on chronic CHF/pulmonary edema. (6) COVID-19: PLAN: She does have COVID-19. She is been undergoing evaluation care by internal medicine and pulmonology/critical care medicine. (7) Shock: PLAN: She has been found to have evidence compatible with block. This may be a combination of her cardiopulmonary disease process. There is been concerns of not only her cardiac related issues but her pulmonary related issues/infectious disease issues. At the present time there was an attempt at additional IV fluids. However she did not tolerate those well and demonstrated recurrent acute on chronic CHF/pulmonary edema. Thus at the present time she has been placed back on IV Levophed to support her blood pressure so that she can proceed with IV diuresis to assist with her pulmonary status. [place] Comments Overall, at the present time, is a 75-year-old ill very ill-appearing patient with the aforementioned cardiopulmonary disease process. From a cardiac standpoint she appears to be very tenuous with respect to her hemodynamics/instability. She will continue medical therapy/support as best as possible. Ideally she would continue her cardiac evaluation with diagnostic cardiac catheterization which the hope was this will occur when she was stable with her cardiopulmonary condition. However this may need to be considered sooner than later. Based upon her severely ill state and tenuous condition she is thought to be a high risk patient for the [facility] cardiac catheterization laboratory. Thus it has been recommended to her medical staff team that she be transferred to a tertiary care center for additional cardiopulmonary evaluation and depending upon her left ventricular needs potential consideration for evaluation for an LVAD, etc. The patient's case has been discussed and reviewed with the patient, Dr. Ritchie, and Dr. Mckeon. Dr. Ritchie has been attempting to locate a hospital that would not only accept the patient in transfer but has the physical facilities capable to accept the patient in transfer for further evaluation and care as noted above.
[2021-03-30 12:45] LABS: Bedside Glucose 123 mg/dL (70-110)
--- NOTE | 2021-03-30 13:22 | CASEMGMT ---
RAYMOND received a call back from [facility] in [place]. Ramonita states that they are not in network w/pt's insurance but she spoke w/pt's daughter and daughter still wants a referral sent, knowing the cost will be $180/day. However, pt is now likely to be transferred. SW will send referral should pt not be transferred. BILL Gómez
[2021-03-30 16:41] LABS: Bedside Glucose 264 mg/dL (70-110)
[2021-03-30] MEDS: Atorvastatin Calcium 40 MG Tablet PO (20:11)
[2021-03-30 20:26] LABS: Bedside Glucose 171 mg/dL (70-110)
[2021-03-31] VITALS (25 sets, daily range): BP systolic 109–138; BP diastolic 47–88; PULSE 91–132; RESP 12–37; TEMP 35.9–36.6; O2SAT 91–100
[2021-03-31] MEDS: Menthol/Lanolin/Calamine/Znox 113 GM Tube 1 APPLIC TOPICAL (04:20)
[2021-03-31] MEDS: Nystatin Powder 15gm Bottle 1 APPLIC TOPICAL (04:20)
[2021-03-31] MEDS: 0.9% Saline Lock 10 ML Syringe IV ×2 (04:21→23:19)
[2021-03-31 04:45] LABS: Absolute Neutrophil Count 8.5 X10^3/uL (2.0-7.7); Basophil# 0.01 X10^3/uL; Basophil% 0.1 % (0-1); Hematocrit 26.9 % (37-47); Hemoglobin 8.6 g/dL (12.0-15.0); Lymphocyte % 3.3 % (19-41); Mean Corpuscular Hgb 30.3 pg (27.0-32.0); Mean Corpuscular Volume 94.7 fL (81-99); Mean Platelet Vol. 11.8 fl (6.2-12.0); Monocyte# 0.25 X10^3/uL; Monocyte% 2.7 % (0-10); NRBC Flagged by Analyzer 0 % (0-5); Neutrophil # 8.47 X10^3/uL (2.7-7.7); Neutrophil % 93.1 % (47-70); POSITIVE DIFFERENTIAL YES; Platelet Count 134 K/mm3 (150-450); RBC Distribution Width CV 15.1 % (11.6-14.6); Red Blood Count 2.84 M/mm3 (4.2-5.4); White Blood Count 9.1 K/mm3 (4.4-11.0)
[2021-03-31 04:53] LABS: Anion Gap 8 (5-15); BUN 63 mg/dL (7-18); BUN/Creat Ratio 51.2 RATIO (10-20); Calcium,Total 8.2 mg/dL (8.5-10.1); Chloride 102 mmol/L (98-107); Creatinine, Serum 1.23 mg/dL (0.55-1.02); EST Glomerular Filtration Rate 45 mL/min (>60); Est Glom Filt Rate - Afr Amer 55 mL/min (>60); Estimated Creatinine Clearance 35.75 ml/min; Glucose 126 mg/dL (74-106); Potassium 3.3 mmol/L (3.5-5.1); Sodium Level 140 mmol/L (136-145)
[2021-03-31 05:00] LABS: Differential Indicated SCAN CRITERIA MET
--- NOTE | 2021-03-31 05:42 | PCM.PN.INT ---
Assessment & Plan Assessment/Plan (1) COVID-19: PLAN: RECOMMENDATIONS: 1. Continue scheduled midodrine. 2. Discontinue stress dose steroids. 3. Continue twice daily IV Lasix today. 4. Continue patient on BiPAP therapy as tolerated. 5. Continue Lovenox as ordered. 6. Goals of care discussion with the patient and her family. 7. The patient is still awaiting transfer to a tertiary care facility. 8. Potassium repletion as ordered. IMPRESSIONS: 1. Acute hypoxemic respiratory failure Worsening. Likely multifactorial in etiology with COVID-19 infection and decompensated heart failure contributing. Over the last several days, the patient's respiratory status has worsened and she is now requiring BiPAP support due to increased work of breathing. Plan to continue IV diuretic therapy as tolerated by hemodynamics. Wean FiO2 to maintain oxygen saturations at or above 90%. 2. Cardiogenic/hypovolemic shock The patient's hypotension is likely multifactorial in etiology with hypovolemia and cardiogenic etiologies contributing. Although the patient is currently hemodynamically stable, she may need to be started on vasopressor support in light of attempted active diuresis. In the interim, the patient will be continued on scheduled midodrine. Stress dose steroids will be discontinued. 3. Non-ST segment elevation HI/acute systolic heart failure (suspected Takotsubo cardiomyopathy) Cardiology is following to assist with medical management. The patient would likely benefit from an ischemic work-up. However, per cardiology, the patient is deemed to be too high risk to perform the procedure here. Therefore, the patient is awaiting transfer to a tertiary care facility. 4. Acute on chronic kidney disease Likely prerenal in etiology. Continue to monitor urine output. No indication for renal replacement therapy. 5. Hypokalemia Electrolyte repletion as ordered. Recheck levels in the morning. 6. Obesity/hypertension/diabetes mellitus/hyperlipidemia/history of SLE Complicates care, management, recovery and prognosis. Continue to hold antihypertensives. This note was generated with [employer] dictation software. It may contain incorrect words, spelling, and punctuation that were not noted in checking the note before signing. Subjective Subjective The patient was seen and examined at the bedside this morning. Events from the last 24 hours have been reviewed. The patient is currently afebrile, hemodynamically stable and maintaining appropriate oxygen saturations on BiPAP with an FiO2 requirement of 25%. The patient was given 20 mg of IV Lasix on two occasions yesterday and is currently documented to be overall net -840 mL for the hospital admission. Hemoglobin is stable this morning at 8.6 g/dL. Potassium is low at 3.3. Creatinine is stable at 1.23. Per discussion with cardiology yesterday, they feel the patient is too high risk to proceed with any additional work-up here and subsequently recommended that she be transferred. Objective Data Objective Data The patient's most recent lab work, culture data and imaging studies have all been personally reviewed. Surface echocardiogram was notable for a severely dilated LV with an ejection fraction of 10 to 15%. Urine culture dated 03/20 was positive for E. coli. Rapid coronavirus antigen testing was positive on 03/17. Vital Signs: Vital Signs Temp Pulse Resp BP Pulse Ox 97.4 F L 110 H 30 H 115/71 97 03/31/21 04:00 03/31/21 04:00 03/31/21 04:00 03/31/21 04:00 03/31/21 04:00 Oxygen Flow Rate (L/min) 2 Oxygen Delivery Method Bi-pap Weight: 56.8 kg Body Mass Index (BMI) 31.6 Intake & Output: Intake and Output for Last 24 Hours 03/29/21 03/30/21 03/31/21 23:59 23:59 23:59 Intake Total 1780 / 1780 931.67 / 931.67 Output Total 450 / 450 825 / 825 Balance 1330 / 1330 106.67 / 106.67 Medical Nutrition Assessment Dietitian: Malnutrition Criteria Met Start: 03/18/21 09:07 Freq: Status: Active Protocol: Document 03/23/21 09:48 AG (Rec: 03/23/21 09:48 [id number]) Nutrition Malnutrition Evidence of Malnutrition Exists No Intake Problem Inadequate Oral Intake Etiology r/t resp. failure, decreased appetite Signs/Symptoms as evidenced by poor PO intake x 24 hours Status Resolved Problem Recommendation Dietitian Recommendations/Changes Continue cardiac diet and 120 ml ensure enlive w/ meals for additional calories/protein if consumed. Lab / Micro Data Attestation: I reviewed the patient's lab results. Result Diagrams: 03/31/21 04:15 03/31/21 04:15 Labs: Laboratory Results - last 24 hr 03/30/21 04:05: Troponin I High Sens 378 H* 03/30/21 04:05: B-Natriuretic Peptide 2096.9 H 03/30/21 05:15: D-Dimer Quant (PE/DVT) 1.26 H* 03/30/21 07:45: POC Glucose 251 H 03/30/21 12:39: POC Glucose 123 H 03/30/21 16:28: POC Glucose 264 H 03/30/21 20:04: POC Glucose 171 H 03/31/21 04:15: WBC 9.1, RBC 2.84 L, Hgb 8.6 L, Hct 26.9 L, MCV 94.7, MCH 30.3, MCHC 32.0, RDW Std Deviation 52.0 H, RDW Coeff of Devendra 15.1 H, Plt Count 134 L, MPV 11.8, Immature Gran % (Auto) 0.800, Neut % (Auto) 93.1 H, Lymph % (Auto) 3.3 L, [place] % (Auto) 2.7, Eos % (Auto) 0.0, Baso % (Auto) 0.1, Absolute Neuts (auto) 8.5 H, Absolute Lymphs (auto) 0.30 L, Nucleated RBC % 0 03/31/21 04:15: Sodium 140, Potassium 3.3 L, Chloride 102, Carbon Dioxide 30.0, Anion Gap 8, BUN 63 H, Creatinine 1.23 H, Estim Creat Clear Calc 35.75, Est GFR (MDRD) Af Amer 55 L, Est GFR (MDRD) Non-Af 45 L, BUN/Creatinine Ratio 51.2 H, Glucose 126 H, Calcium 8.2 L Micro: Microbiology 03/20/21 10:55 Blood Culture (Wb) - Other Blood Culture - Final No growth in 5 days. 03/20/21 10:55 Blood Culture (Wb) - Anticubital Left Blood Culture - Final No growth in 5 days. 03/20/21 11:45 Urine Catheter - Evans Urine Culture - Final Escherichia coli 03/17/21 07:26 Mucosa - Nose SARS-CoV-2 Antigen (Rapid) - Final SARS-CoV-2 (COVID 19) Radiography Diagnostic Testing: Radiology Impression Chest X-Ray 03/30/21 05:42 IMPRESSION: Worsening of airspace disease with bilateral hazy infiltrate/opacification, increased left retrocardiac/basilar opacification. Underlying atelectasis and pleural effusion possible. Stable PICC line, borderline cardiac size, atherosclerosis and osteoporosis. Electronically Signed: Kennedi Mccall MD at 7:16 EDT , Service support , Physical Exam Const alert General Appearance: cooperative, in distress, ill appearing, frail and on BiPAP HEENT normocephalic and head/scalp atraumatic Eyes PERRL and EOMs intact bilaterally Neck supple General: trachea midline Resp Effort and Inspection: tachypneic and labored Auscultation: rales and diminished lung sounds Cardio S1 normal heart sound and S2 normal heart sound Rate: tachycardic GI normal to inspection, nondistended, normoactive bowel sounds Extremity no clubbing, cyanosis or edema Skin no rashes or lesions noted Neuro CN's II-XII intact bilaterally and no focal motor deficits Psych Mood & Affect: flat affect Charges/Coding Visit Charges Inpatient E&M: 62973 Subs Hosp L3
[2021-03-31] MEDS: Potassium Chloride 10mEq/100mL 10 MEQ/100 ML IV.SOLN. 100 MEQ IV BOLUS ×4 (06:44→10:41)
[2021-03-31] MEDS: Midodrine HCl 5 MG Tablet 10 MG PO (07:44)
[2021-03-31] MEDS: Furosemide 20 MG/2 ML VIAL IV (07:48)
[2021-03-31 08:40] LABS: Allen Test Positive; Base Excess 1 mmol/L (-2 to +2); Bicarbonate 25.1 mmol/L (22-26); Blood Gas Specimen Type ART; FI02 28; O2 Delivery Device BiPAP; PO2 69 mmHG (75-100); RR 12; SITE R Radial; SO2 95 % (95-99); Total Carbon Dioxide 26 mmol/L; pCO2 35.2 mmHg (35-45); pH 7.46 (7.35-7.45)
[2021-03-31] MEDS: Aspirin E.C. 81 MG Tablet PO (10:42)
[2021-03-31] MEDS: Hydroxychloroquine 200 MG Tablet 300 MG PO (10:42)
[2021-03-31] MEDS: Enoxaparin 30 MG/0.3 ML Syringe SC (10:44)
[2021-03-31] MEDS: Insulin Lispro 100 UNIT/ML INSULN.PEN SC (10:45)
[2021-03-31 10:56] LABS: Bedside Glucose 218 mg/dL (70-110)
[2021-03-31] MEDS: Ondansetron 4 MG/2 ML Vial IV (12:18)
--- NOTE | 2021-03-31 13:19 | CASEMGMT ---
Addendum entered by Carla Cote 03/31/21 14:35: SW called [facility] back, Leon will be here at 3:30pm to meet w/the family. Also the physician at [facility] asked for additional clinical information, this was faxed. SW met w/pt and family in the room, let them know hospice will be here at 3:30pm to meet w/them. Family is hopeful pt will be approved for the inpt hospice unit. SW updated RN and physicians of time of meeting. Ambulance form and DNR completed already for anticipated discharge today to [facility](if pt is approved), as this may happen after SW has left for the day. BILL Gómez Original Note: Family spoke w/RN and family is declining transfer to tertiary care, would like to have hospice consulted. Family is here now with patient. RAYMOND called [facility], the intake specialists are in a meeting, SW faxed referral. SW is awaiting a call back to confirm a time for pt and family to meet w/hospice. BILL Gómez
--- NOTE | 2021-03-31 14:25 | CHAPLAIN ---
Type of Pastoral Visit ___ Initial Visit _x__ Follow-up Visit ___ On-call Visit ___ General Patient Visit ___ Spiritual Assessment ___ Family Conference ___ Bereavement ___ Rapid Response ___ Code Blue ___ Other (describe below) Pastoral Care Referral From ___ Patient _x__ Family _x__ Nurse ___ Physician ___ Parts Lister ___ Network Intern ___ Other (describe below) Sacrament/Intervention _x__ Active listening ___ Anointing ___ Advent ___ Bereavement ___ Communion ___ Lidya exploration ___ ___ Life review _x__ Prayer ___ Reconciliation ___ Sacrament of Sick _x__ Supportive presence ___ Wedding ___ Other (describe below) Pastoral Comments met with patient and two daughters; pt has decided to consult with hospice for comfort care only; pt is weak but verbalizes I am ready to go Home; family is familiar with services of hospice and are accepting of decision; patient and family welcome the support of spiritual services and prayer
--- NOTE | 2021-03-31 15:43 | PN.HOSP_ITS ---
Subjective Subjective Patient has been on and off BiPAP overnight with increased respiratory distress. She appears much more comfortable than was described this morning to me. Family is at the bedside. They have discussed her current situation extensively and have decided to pursue comfort care and hospice. Objective Data Objective Data Vital Signs: Vital Signs Temp Pulse Resp BP Pulse Ox 97.0 F L 120 H 27 H 110/66 98 03/31/21 12:00 03/31/21 14:00 03/31/21 14:00 03/31/21 14:00 03/31/21 14:00 Oxygen Flow Rate (L/min) 2 Oxygen Delivery Method Bi-pap Weight: 56.8 kg Body Mass Index (BMI) 31.6 Intake & Output: Intake and Output for Last 24 Hours 03/29/21 03/30/21 03/31/21 23:59 23:59 23:59 Intake Total 1780 / 1780 931.67 / 931.67 491 / 491 Output Total 450 / 450 825 / 825 Balance 1330 / 1330 106.67 / 106.67 491 / 491 Medical Nutrition Assessment Dietitian: Malnutrition Criteria Met Start: 03/18/21 09: 07 Freq: Status: Active Protocol: Document 03/23/21 09:48 AG (Rec: 03/23/21 09:48 AG [id number]) Nutrition Malnutrition Evidence of Malnutrition Exists No Intake Problem Inadequate Oral Intake Etiology r/t resp. failure, decreased appetite Signs/Symptoms as evidenced by poor PO intake x 24 hours Status Resolved Problem Recommendation Dietitian Recommendations/Changes Continue cardiac diet and 120 ml ensure enlive w/ meals for additional calories/protein if consumed. Lab / Micro Data Result Diagrams: 03/31/21 04:15 03/31/21 04:15 Labs: Laboratory Results - last 24 hr 03/30/21 16:28: POC Glucose 264 H 03/30/21 20:04: POC Glucose 171 H 03/31/21 04:15: WBC 9.1, RBC 2.84 L, Hgb 8.6 L, Hct 26.9 L, MCV 94.7, MCH 30.3, MCHC 32.0, RDW Std Deviation 52.0 H, RDW Coeff of Devendra 15.1 H, Plt Count 134 L, MPV 11.8, Immature Gran % (Auto) 0.800, Neut % (Auto) 93.1 H, Lymph % (Auto) 3.3 L, [place] % (Auto) 2.7, Eos % (Auto) 0.0, Baso % (Auto) 0.1, Absolute Neuts (auto) 8.5 H, Absolute Lymphs (auto) 0.30 L, Nucleated RBC % 0 03/31/21 04:15: Sodium 140, Potassium 3.3 L, Chloride 102, Carbon Dioxide 30.0, Anion Gap 8, BUN 63 H, Creatinine 1.23 H, Estim Creat Clear Calc 35.75, Est GFR (MDRD) Af Amer 55 L, Est GFR (MDRD) Non-Af 45 L, BUN/Creatinine Ratio 51.2 H, Glucose 126 H, Calcium 8.2 L 03/31/21 10:38: POC Glucose 218 H Micro: Microbiology 03/20/21 10:55 Blood Culture (Wb) - Other Blood Culture - Final No growth in 5 days. 03/20/21 10:55 Blood Culture (Wb) - Anticubital Left Blood Culture - Final No growth in 5 days. 03/20/21 11:45 Urine Catheter - Evans Urine Culture - Final Escherichia coli 03/17/21 07:26 Mucosa - Nose SARS-CoV-2 Antigen (Rapid) - Final SARS-CoV-2 (COVID 19) ABG Data ABG results: ABG 03/31/21 08:34 Specimen Type ART Sample Site R Radial pH 7.46 H Bicarbonate Actual 25.1 Total CO2 26 Base Excess 1 O2 Saturation 95 O2 % 28 ABG pCO2 35.2 ABG pO2 69 L Girish Test Positive Respiration Rate 12 O2 Delivery Device BiPAP Physical Exam Const alert, oriented x3 and no apparent distress Constitutional Narrative: Older white female lying in bed with head of bed slightly inclined, patient appears comfortable currently on BiPAP, family is at bedside General Appearance: frail Exam Limitations: no limitations HEENT head/scalp atraumatic, moist oral mucous membranes and oropharynx normal; Negative for dentition normal Head and Scalp: normocephalic Resp normal respiratory effort, no retractions and no use of accessory muscles Resp Narrative: Scattered crackles-improved in the last 24 hours Auscultation: crackles, rales and diminished lung sounds; Negative for rhonchi or wheezes Cardio regular rhythm, S1 normal heart sound, S2 normal heart sound, no murmurs, no rub, no gallops, no clicks and no JVD Cardio Narrative: tachycardic Rate: tachycardic GI normal to inspection, nondistended, normoactive bowel sounds, soft to palpation, non-tender and non-distended Extremity normal to inspection, full ROM and no clubbing, cyanosis or edema Extremity Narrative: PICC left upper extremity-clean and dry Neuro oriented x3 and moves all extremities Sensorium / Orientation: awake and alert Speech: speech normal Psych affect normal Assessment & Plan Assessment/Plan (1) COVID-19: (2) Shock: (3) Non-STEMI (non-ST elevated myocardial infarction): PLAN: Assessment: Acute hypoxemic respiratory failure secondary to acute decompensated heart failure with reduced ejection fraction Cardiogenic shock E. coli UTI NSTEMI/cardiomyopathy STEFAN-resolved CKD stage IIIb Anemia DM-2 Lupus Plan: -I had extensive discussion with the daughter earlier today. She has talked things over with her mom and her sister and the patient has at this time decided not to pursue any further testing and would like to enroll in hospice. Hospice consultation was made. -We will trial off noninvasive ventilation and pressors here today with the intent of transfer to inpatient hospice tomorrow if the patient survives -Start morphine 2 mg every 4 hours scheduled with as needed breakthrough morphine for dyspnea or pain 2 mg every 2 hours -As needed Ativan 1/2 mg every 4 hours -Discontinue all life prolonging medications as per request of the patient -Discontinue BiPAP -Discontinue pressors -We will reevaluate on 04/01/2021 for transfer to inpatient hospice -Case has been discussed with Dr. Jara Charges/Coding Visit Charges Inpatient E&M: 03504 Subs Hosp L2
--- NOTE | 2021-03-31 18:16 | PCM.PN.CARD ---
Subjective Subjective The patient continues in the ICU requiring close monitoring and IV vasopressor support. Objective Data Vital Signs: Vital Signs Temp Pulse Resp BP Pulse Ox 97.0 F L 113 H 21 H 110/66 100 03/31/21 12:00 03/31/21 15:20 03/31/21 15:20 03/31/21 14:00 03/31/21 15:20 Oxygen Flow Rate (L/min) 2 Oxygen Delivery Method Bi-pap Weight: 125 lb 3.561 oz Body Mass Index (BMI) 31.6 Intake & Output: Intake and Output for Last 24 Hours 03/29/21 03/30/21 03/31/21 23:59 23:59 23:59 Intake Total 1780 / 1780 931.67 / 931.67 491 / 491 Output Total 450 / 450 825 / 825 Balance 1330 / 1330 106.67 / 106.67 491 / 491 Lab / Micro Data Result Diagrams: 03/31/21 04:15 03/31/21 04:15 Labs: Laboratory Results - last 24 hr 03/30/21 20:04: POC Glucose 171 H 03/31/21 04:15: WBC 9.1, RBC 2.84 L, Hgb 8.6 L, Hct 26.9 L, MCV 94.7, MCH 30.3, MCHC 32.0, RDW Std Deviation 52.0 H, RDW Coeff of Devendra 15.1 H, Plt Count 134 L, MPV 11.8, Immature Gran % (Auto) 0.800, Neut % (Auto) 93.1 H, Lymph % (Auto) 3.3 L, Evangeline % (Auto) 2.7, Eos % (Auto) 0.0, Baso % (Auto) 0.1, Absolute Neuts (auto) 8.5 H, Absolute Lymphs (auto) 0.30 L, Nucleated RBC % 0 03/31/21 04:15: Sodium 140, Potassium 3.3 L, Chloride 102, Carbon Dioxide 30.0, Anion Gap 8, BUN 63 H, Creatinine 1.23 H, Estim Creat Clear Calc 35.75, Est GFR (MDRD) Af Amer 55 L, Est GFR (MDRD) Non-Af 45 L, BUN/Creatinine Ratio 51.2 H, Glucose 126 H, Calcium 8.2 L 03/31/21 10:38: POC Glucose 218 H ABG Data ABG results: ABG 03/31/21 08:34 Specimen Type ART Sample Site R Radial pH 7.46 H Bicarbonate Actual 25.1 Total CO2 26 Base Excess 1 O2 Saturation 95 O2 % 28 ABG pCO2 35.2 ABG pO2 69 L Girish Test Positive Respiration Rate 12 O2 Delivery Device BiPAP Cardiology Labs/Tests 03/31/21 04:15: WBC 9.1, RBC 2.84 L, Hgb 8.6 L, Hct 26.9 L, MCV 94.7, MCH 30.3, MCHC 32.0, Plt Count 134 L, MPV 11.8, Immature Gran % (Auto) 0.800, Neut % (Auto) 93.1 H, Lymph % (Auto) 3.3 L, Evangeline % (Auto) 2.7, Eos % (Auto) 0.0, Baso % (Auto) 0.1, Absolute Neuts (auto) 8.5 H, Nucleated RBC % 0 03/31/21 04:15: Sodium 140, Potassium 3.3 L, Chloride 102, Carbon Dioxide 30.0, Anion Gap 8, BUN 63 H, Creatinine 1.23 H, Est GFR (MDRD) Af Amer 55 L, Est GFR (MDRD) Non-Af 45 L, BUN/Creatinine Ratio 51.2 H, Glucose 126 H, Calcium 8.2 L 03/31/21 08:34: pH 7.46 H, Bicarbonate Actual 25.1, Base Excess 1, O2 Saturation 95, ABG pCO2 35.2, ABG pO2 69 L, Girish Test Positive Rhythm: Sinus rhythm Physical Exam Narrative Patient on oxygen this is a limited physical examination. Cardiac rhythm is sinus rhythm Cardiac examination there is no murmur no gallop no pericardial rub. Rest of physical exam is unchanged Const alert and oriented x3 General Appearance: frail Orientation / Consciousness: awake HEENT normocephalic, head/scalp atraumatic and hearing grossly normal bilaterally Eyes PERRL, EOMs intact bilaterally and conjunctivae normal Neck full ROM and supple Resp Resp Narrative: scattered Auscultation: rales diffuse and diminished lung sounds Cardio Rate: tachycardic Heart Sounds: S1 normal and S2 normal GI normal to inspection, nondistended, normoactive bowel sounds Extremity no pedal edema Assessment & Plan Assessment/Plan (1) Cardiomyopathy: QUALIFIERS: Cardiomyopathy type: unspecified Qualified Code(s): I42.9 - Cardiomyopathy, unspecified PLAN: The patient continues with her cardiomyopathy. The etiology is unclear as to whether this is non-CAD or CAD related. She has not been able to tolerate medical therapy based upon her low blood pressure. (2) CHF (congestive heart failure): PLAN: At the present time she remains in the ICU. She is receiving IV vasopressor support to allow her to receive IV diuretics to assist with her CHF/pulmonary edema. (3) Non-STEMI (non-ST elevated myocardial infarction): PLAN: The patient has findings compatible with a non-ST segment elevation [place]. Again it is unclear whether this is a primary cardiovascular event versus a secondary cardiovascular event secondary to in her noncardiac issues such as COVID-19 superimposed upon an underlying cardiomyopathy. At the present time she has been monitored in the ICU. She has not been able to tolerate cardiovascular medical therapy secondary to her low blood pressure. (4) High cholesterol: PLAN: She should continue medical therapy as best as possible. (5) Hypertension: QUALIFIERS: Hypertension type: unspecified Qualified Code(s): I10 - Essential (primary) hypertension PLAN: She has a history of hypertension. However her blood pressures have been low based upon her ongoing cardiopulmonary condition. She has required blood pressure support in the past with IV Levophed as well as midodrine. She has been placed back on IV Levophed to support her IV diuresis. (6) COVID-19: PLAN: She does have COVID-19. She is been undergoing evaluation care by internal medicine and pulmonology/critical care medicine. (7) Shock: PLAN: She has been found to have evidence compatible with shock. This may be a combination of her cardiopulmonary disease process. There is been concerns of not only her cardiac related issues but her pulmonary related issues/infectious disease issues. Thus at the present time she has been placed back on IV Levophed to support her blood pressure so that she can proceed with IV diuresis to assist with her pulmonary status. Addt'l Comments Overall, the present time, the patient continues to require ICU care and support. She is continuing IV vasopressor support to allow her to receive her IV diuretics to assist with her volume control. She is pending transfer to a tertiary care center for advanced cardiopulmonary evaluation and care. The patient's case has been discussed and reviewed with Dr. Ritchie and Dr. Mckeon. This note was generated using a voice recognition system and there may be incorrect words, spelling or punctuation that were not noted when reviewing the office note prior to saving.
[2021-03-31] MEDS: LORazepam 2 MG/ML Syringe 0.5 MG IV (23:18)
[2021-03-31] MEDS: Morphine 2 MG/ML Syringe IV (23:27)
[2021-04-01] MEDS: Morphine 2 MG/ML Syringe IV (02:20)
[2021-04-01] MEDS: 0.9% Saline Lock 10 ML Syringe IV ×2 (02:21→12:45)
[2021-04-01 02:34] VITALS: PULSE 85; RESP 12; RESP 16; O2SAT 98
[2021-04-01 02:48] VITALS: PULSE 101; RESP 19; O2SAT 94
[2021-04-01 04:59] VITALS: RESP 12; RESP 16
--- NOTE | 2021-04-01 05:58 | PCM.PN.INT ---
Assessment & Plan Assessment/Plan (1) COVID-19: PLAN: RECOMMENDATIONS: 1. Continue comfort care measures with plans for hospice disposition today. 2. Will sign off. Please call with any additional questions. IMPRESSIONS: 1. Acute hypoxemic respiratory failure Worsening. Likely multifactorial in etiology with COVID-19 infection and decompensated heart failure contributing. Over the last several days, the patient's respiratory status has worsened and she is now requiring BiPAP support due to increased work of breathing. Wean FiO2 to maintain oxygen saturations at or above 90%. 2. Cardiogenic/hypovolemic shock The patient's hypotension is likely multifactorial in etiology with hypovolemia and cardiogenic etiologies contributing. The patient remains hemodynamically stable. 3. Non-ST segment elevation VT/acute systolic heart failure (suspected Takotsubo cardiomyopathy) Cardiology is following to assist with medical management. The patient would likely benefit from an ischemic work-up. However, per cardiology, the patient is deemed to be too high risk to perform the procedure here. 4. Acute on chronic kidney disease Likely prerenal in etiology. Continue to monitor urine output. No indication for renal replacement therapy. 5. Obesity/hypertension/diabetes mellitus/hyperlipidemia/history of SLE Complicates care, management, recovery and prognosis. Continue to hold antihypertensives. This note was generated with [employer] dictation software. It may contain incorrect words, spelling, and punctuation that were not noted in checking the note before signing. Subjective Subjective The patient was seen and examined at the bedside this morning. Events from the last 24 hours have been reviewed. The patient is currently afebrile, hemodynamically stable and maintaining appropriate oxygen saturations on BiPAP with an FiO2 requirement of 25%. The patient is currently documented to be overall net -350 mL for the hospital admission. Following goals of care discussion yesterday, the patient was transitioned to DNR comfort care, with plans for hospice care disposition today. Objective Data Objective Data The patient's most recent lab work, culture data and imaging studies have all been personally reviewed. Surface echocardiogram was notable for a severely dilated LV with an ejection fraction of 10 to 15%. Urine culture dated 03/20 was positive for E. coli. Rapid coronavirus antigen testing was positive on 03/17. Vital Signs: Vital Signs Temp Pulse Resp BP Pulse Ox 97.0 F L 101 H 16 110/66 94 03/31/21 12:00 04/01/21 02:48 04/01/21 04:59 03/31/21 14:00 04/01/21 02:48 Oxygen Flow Rate (L/min) 2 Oxygen Delivery Method Bi-pap Weight: 56.8 kg Body Mass Index (BMI) 31.6 Intake & Output: Intake and Output for Last 24 Hours 03/30/21 03/31/21 04/01/21 23:59 23:59 23:59 Intake Total 931.67 / 931.67 491 / 491 0 / 0 Output Total 825 / 825 0 / 0 Balance 106.67 / 106.67 491 / 491 0 / 0 Medical Nutrition Assessment Dietitian: Malnutrition Criteria Met Start: 03/18/21 09:07 Freq: Status: Active Protocol: Document 03/23/21 09:48 AG (Rec: 03/23/21 09:48 AG [id number]) Nutrition Malnutrition Evidence of Malnutrition Exists No Intake Problem Inadequate Oral Intake Etiology r/t resp. failure, decreased appetite Signs/Symptoms as evidenced by poor PO intake x 24 hours Status Resolved Problem Recommendation Dietitian Recommendations/Changes Continue cardiac diet and 120 ml ensure enlive w/ meals for additional calories/protein if consumed. Lab / Micro Data Attestation: I reviewed the patient's lab results. Result Diagrams: 03/31/21 04:15 03/31/21 04:15 Labs: Laboratory Results - last 24 hr 03/31/21 10:38: POC Glucose 218 H Micro: Microbiology 03/20/21 10:55 Blood Culture (Wb) - Other Blood Culture - Final No growth in 5 days. 03/20/21 10:55 Blood Culture (Wb) - Anticubital Left Blood Culture - Final No growth in 5 days. 03/20/21 11:45 Urine Catheter - Evans Urine Culture - Final Escherichia coli 03/17/21 07:26 Mucosa - Nose SARS-CoV-2 Antigen (Rapid) - Final SARS-CoV-2 (COVID 19) ABG Data ABG results: ABG 03/31/21 08:34 Specimen Type ART Sample Site R Radial pH 7.46 H Bicarbonate Actual 25.1 Total CO2 26 Base Excess 1 O2 Saturation 95 O2 % 28 ABG pCO2 35.2 ABG pO2 69 L Girish Test Positive Respiration Rate 12 O2 Delivery Device BiPAP Physical Exam Const alert General Appearance: cooperative, ill appearing, frail and on BiPAP HEENT normocephalic and head/scalp atraumatic Eyes PERRL and EOMs intact bilaterally Neck supple General: trachea midline Resp Auscultation: rales and diminished lung sounds Cardio regular rate, regular rhythm, S1 normal heart sound and S2 normal heart sound GI normal to inspection, nondistended, normoactive bowel sounds Extremity no clubbing, cyanosis or edema Skin no rashes or lesions noted Neuro CN's II-XII intact bilaterally and no focal motor deficits Psych Mood & Affect: flat affect Charges/Coding Visit Charges Inpatient E&M: 13919 Subs Hosp L2
--- NOTE | 2021-04-01 07:58 | CASEMGMT ---
Family met w/hospice yesterday and the plan is for pt to transition to the inpatient hospice unit today. SW will set up pt to go to inpt hospice once pt has been discharged. BILL Gómez
--- NOTE | 2021-04-01 09:49 | CASEMGMT ---
Addendum entered by Tammy Pitt 04/01/21 11:32: GABBI HEMPHILL received call back from daughter Vero Lanier and IMM completed over the phone. Vero updated regarding pickup time for transport at 1300. Vero had no further questions or concerns at this time. Original Note: Patient currently on Bipap and unable to complete IMM with patient. GABBI HEMPHILL called and left message for daughter, Vero, who is HPOA. Awaiting call back to complete form. Copy provided to patient.
--- NOTE | 2021-04-01 09:54 | PCM.DC.SUM ---
Providers Date of Admission: 03/17/21 Primary Care Physician: Dr. Paul Bauer MD Consultations 03/17/21 15:04 Consult: Cardiology Routine Consulting Provider: Brittany Bobo Reason for Consult: nonstemi EMERGENT Consult: No Notified: Yes Date Notified: 03/17/21 Time Notified: 09:52 Method of Notification: Text Consult: Infectious Disease Routine Consulting Provider: Lloyd Ford Reason for Consult: Covid-19 EMERGENT Consult: No Notified: Yes Date Notified: 03/17/21 Time Notified: 15:42 Method of Notification: Text 03/20/21 06:11 Consult: Display Maker / Pulmonary Medicine Routine Consulting Provider: [facility] [place] Reason for Consult: low BP, EMERGENT Consult: No Notified: Yes Date Notified: 03/20/21 Time Notified: 06:11 Method of Notification: Verbal Reason For Visit: NONSTEMI, COVID Diagnosis Discharge Diagnosis (1) COVID-19: Status: Acute Code(s): U07.1 - COVID-19 Medications at Discharge Home Medications glycopyrrolate 0.1 mg IV Q4H PRN #0 ml 04/01/21 lorazepam 0.5 mg IV Q4H PRN PRN #0 ml 04/01/21 morphine 2 mg IV Q2H PRN PRN #0 ml 04/01/21 morphine 2 mg IV Q4 #0 ml 04/01/21 nystatin [Nyamyc] 1 applic TOPICAL TID #0 g 04/01/21 Hospital Course Summary of Care Provided Minutes Spent on Discharge: 45 Hospital Course: Mrs. Day is a 75-year-old female who presented to the emergency department at [facility] on 03/17/2021 complaining of shortness of breath. She reported that the symptoms had been going on since the morning of her admission and had no aggravating or relieving factors. She denied any chest pain, loss of taste or smell, nausea or vomiting. An EKG showed no acute ST-T wave changes but did show a chronic left bundle branch. Her vital signs in the emergency department were stable and she was satting 95% on room air. A rapid Covid test was done and found to be positive and she had a troponin that was elevated at 256.2. She was found to have an elevated D-dimer at 1.38 and her repeat troponin trended up to 904. A BNP was also assessed and found to be markedly elevated. A stat CTA of the chest was done and was negative for pulmonary embolism. She was started on remdesivir and Decadron and admitted to the hospital. Cardiology was consulted and evaluated the patient and felt that initially she had a type II NSTEMI related to her Covid infection causing shortness of breath. A 2D echo was ordered at that time. Her echocardiogram from 03/18/2021 showed severe segmental systolic dysfunction with an EF of 15%, left atrial enlargement-mild, mild to moderate aortic stenosis, her right ventricular systolic pressure was estimated to be 41 mmHg. She remained on room air for some time but on 03/20/2020 when she developed acute hypoxic respiratory failure and was transferred to the ICU. She required vasopressor support along with continuous BiPAP. Diuresis for her heart failure was limited by hypotension. An extensive sepsis work-up was pursued and no infectious etiology was found. She was placed on stress dose steroids but this was not helpful with her refractory hypotension and it was felt likely this was related to cardiogenic shock with her poor EF. Her pressors were slowly attempted to be weaned but she remained profoundly orthostatic. A repeat echocardiogram was obtained on 03/26/2021 and showed no change. A fluid trial of 1 L was attempted to address her orthostasis and while this improved her blood pressure that caused recurrent hypoxic respiratory failure secondary to volume overload. She was then placed back on BiPAP and gentle diuresis with pressor support was initiated. Since it was seeming that her respiratory failure was now related more to her heart rather than Covid the case was rediscussed with cardiology and while they agreed she needed an extensive cardiac work-up to include left heart catheterization and viability studies but they felt that she was too high risk to perform at [place] and an outside hospital transfer would be required. She was accepted at [facility] pending bed availability. An extensive discussion was had with both she and her daughters given her risk factors, her poor EF, and overall quality of life she decided, and her daughters agree, to pursue comfort care and hospice transition rather than further aggressive work-up. Chronic life-sustaining medications were discontinued and she was taken off BiPAP. She was on morphine 2 mg every 4 hours and had as needed morphine available every 2 hours. She did well with this. Inpatient hospice was felt to be required given her tenuous status and likely need for continued IV pain medication and possible Lasix. She was discharged to inpatient hospice on 04/01/2021 on 2 L nasal cannula and was stable prior to transfer. Discharge diagnoses: Acute hypoxic respiratory failure Acute decompensated HFrEF Cardiogenic shock E. coli UTI-resolved NSTEMI Cardiomyopathy-type unknown STEFAN-resolved CKD stage IIIb Anemia DM-2 Lupus Physical Exam Const alert, oriented x3 and no apparent distress Constitutional Narrative: Older white female lying in bed with head of bed slightly inclined, patient appears comfortable currently 2 L nasal cannula General Appearance: cooperative, comfortable and frail Exam Limitations: no limitations HEENT head/scalp atraumatic, moist oral mucous membranes and oropharynx normal; Negative for dentition normal Eyes PERRL, EOMs intact bilaterally and conjunctivae normal Neck no lymphadenopathy and supple Resp normal respiratory effort, no retractions and no use of accessory muscles Auscultation: crackles, rales, rhonchi and diminished lung sounds; Negative for wheezes Cardio regular rhythm, S1 normal heart sound, S2 normal heart sound, no murmurs, no rub, no gallops, no clicks and no JVD Cardio Narrative: tachycardic Rate: tachycardic GI normal to inspection, nondistended, normoactive bowel sounds, soft to palpation, non-tender and non-distended Extremity normal to inspection, full ROM and no clubbing, cyanosis or edema Extremity Narrative: PICC left upper extremity-clean and dry Skin no rashes or lesions noted, no wounds, skin turgor normal, no jaundice, no petechiae and no mottling Skin Narrative: PICC left upper extremity-clean and dry, scattered ecchymosis in the area Neuro oriented x3 and moves all extremities Neuro Narrative: Marked generalized weakness Sensorium / Orientation: awake and alert Speech: speech normal Psych affect normal Psych Narrative: Extremely pleasant Medical Records Data Medical Nutrition Assessment Dietitian: Malnutrition Criteria Met Start: 03/18/21 09:07 Freq: Status: Active Protocol: Document 03/23/21 09:48 AG (Rec: 03/23/21 09:48 AG [id number]) Nutrition Malnutrition Evidence of Malnutrition Exists No Intake Problem Inadequate Oral Intake Etiology r/t resp. failure, decreased appetite Signs/Symptoms as evidenced by poor PO intake x 24 hours Status Resolved Problem Recommendation Dietitian Recommendations/Changes Continue cardiac diet and 120 ml ensure enlive w/ meals for additional calories/protein if consumed. Weight / BMI Weight Weight: 56.8 kg Body Mass Index (BMI) 31.6 ABG / Lab / Microbiology Data Result Diagrams: 03/31/21 04:15 03/31/21 04:15 Laboratory: Laboratory Results - last 24 hr 03/31/21 10:38: POC Glucose 218 H Microbiology: Microbiology 03/20/21 10:55 Blood Culture (Wb) - Other Blood Culture - Final No growth in 5 days. 03/20/21 10:55 Blood Culture (Wb) - Anticubital Left Blood Culture - Final No growth in 5 days. 03/20/21 11:45 Urine Catheter - Evans Urine Culture - Final Escherichia coli 03/17/21 07:26 Mucosa - Nose SARS-CoV-2 Antigen (Rapid) - Final SARS-CoV-2 (COVID 19) D/C Instructions Discharge Diet: No restrictions Meaningful Use Info Meaningful Use Diagnoses (Choose all that apply): CHF CHF TARIQ/ARB ordered at discharge?: No Reason TARIQ/ARB not ordered?: Hypotension Documented LVEF (%): 10 Discharge Plan Admission Admit Date/Time: 03/17/21 09:52 Primary Reason for Your Visit: SOB Attending Provider: Mally Ritchie Primary Care Provider: Paul Bauer Consulting Providers: Brittany Bobo ; Lloyd Ford ; Bernabe Espinoza ; Kenan Mckeon ; Jane Chávez SOAKING ROOM OPERATOR Discharge Orders/Prescriptions Prescriptions: New glycopyrrolate 0.2 mg/mL Solution 0.1 mg IV Q4H PRN (Reason: Congestion/) Qty: 0 RF: 0 lorazepam 2 mg/mL Solution 0.5 mg IV Q4H PRN PRN (Reason: Anxiety) Qty: 0 RF: 0 morphine 2 mg/mL Syringe 2 mg IV Q2H PRN PRN (Reason: Pain or dyspnea) Qty: 0 RF: 0 morphine 2 mg/mL Syringe 2 mg IV Q4 Qty: 0 RF: 0 nystatin [Nyamyc] 100,000 unit/gram Powder 1 applic topical TID Qty: 0 RF: 0 Discontinued lisinopril 20 mg tablet 20 mg PO DAILY RF: 0 atorvastatin 20 mg tablet 20 mg PO DAILY RF: 0 pioglitazone 30 mg tablet 30 mg PO DAILY RF: 0 hydrochlorothiazide 25 mg tablet 25 mg PO DAILY RF: 0 hydroxychloroquine [Plaquenil] 200 mg tablet 300 mg PO DAILY RF: 0 metformin 500 mg tablet 500 mg PO BID 90 Days Qty: 180 RF: 2 Referrals / Follow Up: Paul Bauer MD [Primary Care Provider] - Disposition Disposition (needs filled in before D/C Order can be placed): Hospice in Medical Facility Charges/Coding Visit Charges Inpatient E&M: 93173 Disch Hosp
--- NOTE | 2021-04-01 11:08 | CASEMGMT ---
Addendum entered by Carla Cote 04/01/21 11:36: RAYMOND set up 1pm ambulance w/[facility] to take pt to the Inpt Hospice Unit. SW spoke w/Shikha at [facility], the information sent was enough for pt to be discharged. RAYMOND let Shikha know pt is set up to leave at 1pm. JOBY Munoz was speaking w/daughter on phone, so let her know also the time of pickup from [facility] is 1pm. Bedside RN also aware of pickup time. No further needs, pt to [facility] I[facility], pickup 1pm. BILL Gómez Original Note: RAYMOND faxed discharge summary to [facility], [facility] to call SW to let SW if this is enough in order for pt to be discharged to the IPU. Once RAYMOND hears back from [facility], will either set up transport or speak w/hospitalist here for any any additional information needed. BILL Gómez
--- NOTE | 2021-04-01 11:09 | PCM.PN.CARD ---
Subjective Subjective The patient remains in the ICU. She is currently receiving BiPAP therapy. The patient states that after conversations with her family and the medical staff she is elected to become a hospice care patient and not pursue additional medical evaluation and/or care locally or at a tertiary care center. Objective Data Vital Signs: Vital Signs Temp Pulse Resp BP Pulse Ox 97.0 F L 101 H 16 110/66 94 03/31/21 12:00 04/01/21 02:48 04/01/21 04:59 03/31/21 14:00 04/01/21 02:48 Oxygen Flow Rate (L/min) 2 Oxygen Delivery Method Nasal Cannula Weight: 125 lb 3.561 oz Body Mass Index (BMI) 31.6 Intake & Output: Intake and Output for Last 24 Hours 03/30/21 03/31/21 04/01/21 23:59 23:59 23:59 Intake Total 931.67 / 931.67 491 / 491 0 / 0 Output Total 825 / 825 200 / 200 Balance 106.67 / 106.67 491 / 491 -200 / -200 Lab / Micro Data Result Diagrams: 03/31/21 04:15 03/31/21 04:15 Cardiology Labs/Tests Rhythm: Sinus rhythm Physical Exam Narrative Patient on oxygen this is a limited physical examination. Cardiac rhythm is sinus rhythm Cardiac examination there is no murmur no gallop no pericardial rub. Rest of physical exam is unchanged Const alert and oriented x3 General Appearance: frail Orientation / Consciousness: awake HEENT normocephalic, head/scalp atraumatic and hearing grossly normal bilaterally Eyes PERRL, EOMs intact bilaterally and conjunctivae normal Neck full ROM and supple Resp Resp Narrative: scattered Auscultation: rales diffuse and diminished lung sounds Cardio Rate: tachycardic Heart Sounds: S1 normal and S2 normal GI normal to inspection, nondistended, normoactive bowel sounds Extremity no pedal edema Assessment & Plan Assessment/Plan (1) Cardiomyopathy: QUALIFIERS: Cardiomyopathy type: unspecified Qualified Code(s): I42.9 - Cardiomyopathy, unspecified PLAN: The patient continues with her cardiomyopathy. The etiology is unclear as to whether this is non-CAD or CAD related. She has not been able to tolerate medical therapy based upon her low blood pressure. (2) CHF (congestive heart failure): PLAN: At the present time she remains in the ICU. (3) Non-STEMI (non-ST elevated myocardial infarction): PLAN: The patient has findings compatible with a non-ST segment elevation MT. Again it is unclear whether this is a primary cardiovascular event versus a secondary cardiovascular event secondary to in her noncardiac issues such as COVID-19 superimposed upon an underlying cardiomyopathy. She has not been able to tolerate cardiovascular medical therapy secondary to her low blood pressure. (4) High cholesterol: PLAN: She should continue medical therapy as best as possible. (5) Hypertension: QUALIFIERS: Hypertension type: unspecified Qualified Code(s): I10 - Essential (primary) hypertension PLAN: She has a history of hypertension. However her blood pressures have been low based upon her ongoing cardiopulmonary condition. She has required blood pressure support in the past with IV Levophed as well as midodrine. (6) COVID-19: PLAN: She does have COVID-19. She is been undergoing evaluation care by internal medicine and pulmonology/critical care medicine. (7) Shock: PLAN: She has been found to have evidence compatible with shock. This may be a combination of her cardiopulmonary disease process. There is been concerns of not only her cardiac related issues but her pulmonary related issues/infectious disease issues. Addt'l Comments At the present time the patient has elected to become a hospice care patient did not pursue additional medical evaluation or care locally or at any tertiary care center. She is pending transfer to the hospice center. Her case was discussed with Dr. Ritchie and Dr. Mckeon. This note was generated using a voice recognition system and there may be incorrect words, spelling or punctuation that were not noted when reviewing the office note prior to saving.
--- NOTE | 2021-04-01 12:32 | NURSING ---
report called to Radha at hospice. awaiting transportation.
[2021-04-01] MEDS: LORazepam 2 MG/ML Syringe 0.5 MG IV (12:44)
== END 2021-04-01 13:10 | disposition hospice, inpatient (51) | DRG 177 ==
LOC: ED 10:27 → PCU 13:01 → ICU 03-19 19:45
PROVIDERS: Family Medicine; Internal Medicine Critical Care Medicine; Internal Medicine Infectious Disease; Admitting Provider Student in an Organized Health Care Education/Training Program; Emergency Provider Emergency Medicine; PCP Internal Medicine; Visit Provider Internal Medicine
DX: U07.1 COVID-19 (principal); I50.21 Acute systolic (congestive) heart failure; I21.A1 Myocardial infarction type 2; J96.01 Acute respiratory failure with hypoxia; J12.82 Pneumonia due to coronavirus disease 2019; R57.0 Cardiogenic shock; I13.0 Hypertensive heart and chronic kidney disease with heart failure and stage 1 through stage 4 chronic kidney disease, or unspecified chronic kidney disease; N39.0 Urinary tract infection, site not specified; N17.9 Acute kidney failure, unspecified; M19.90 Unspecified osteoarthritis, unspecified site; E11.22 Type 2 diabetes mellitus with diabetic chronic kidney disease; N18.32 Chronic kidney disease, stage 3b; E11.36 Type 2 diabetes mellitus with diabetic cataract; M32.9 Systemic lupus erythematosus, unspecified; B96.20 Unspecified Escherichia coli [E. coli] as the cause of diseases classified elsewhere; E66.9 Obesity, unspecified; I95.1 Orthostatic hypotension; D64.9 Anemia, unspecified; E78.5 Hyperlipidemia, unspecified; Z79.899 Other long term (current) drug therapy; Z79.84 Long term (current) use of oral hypoglycemic drugs; Z68.31 Body mass index [BMI] 31.0-31.9, adult; E87.6 Hypokalemia; Z66 Do not resuscitate
CPT/HCPCS: 36415; 36569; 36600; 71045; 71275; 80048; 80053; 80076; 81001; 82550; 82803; 82962; 83605; 83735; 83880; 84075; 84145; 84484; 85025; 85027; 85379; 85610; 87040; 87077; 87086; 87088; 87186; 87426; 93005; 93306; 93308; 94002; 94003; 97110; 97162; 97166; 97530; 97535; 97802; 97803; 99251; 99285; J2997; J7030; J7040; J7050; Q9967; A4216; G0463; J1940; J2405